=== PATIENT | female | born 1955 | race Caucasian/White ===

== ENCOUNTER 2017-07-30 21:33 | Emergency (ER) | payer MEDICARE, SELFPAY ==
[2017-07-30 21:45] VITALS: BP 145/82; PULSE 85; RESP 16; O2SAT 97; BMI 65.7
--- NOTE | 2017-07-30 23:04 | ED.UPPEXIN ---
HPI - Extremity Injury (Upper) General Chief Complaint: Extremity Injury, Upper Stated Complaint: LEFT ARM PAIN SOMETHING STICKING OUT ELBOW History of Present Illness HPI narrative: HPI 62-year-old morbidly obese female with a history of left upper extremity pain tentatively believed to be 2/2 cervical radiculopathy presents for evaluation of 5 days of poorly characterized waxing waning left mid forearm to left shoulder discomfort that is without apparent fevers, chills, preceding traumatic injury, or further symptoms. Pain is exacerbated by movement and relieved by rest as well as ibuprofen. At the time of evaluation patient notes normal sensation in her left hand. M/S/F/SocHx notable for: please see HPI; remainder reviewed with patient and in chart. ROS: Negative constitutional, eye, cardiovascular, pulmonary, GI, , MSK, skin, neurologic, psychiatric, endocrine unless noted in the HPI. Exam Gen: Pleasant, non-toxic appearing, resting comfortably. HEENT: NC, AT, PEERL, EOMI. Resp: Clear to auscultation bilaterally, normal work of breathing, no accessory muscle usage. Card: Regular rate and rhythm with no murmurs, rubs, or gallops, extremities warm and well perfused. GI: Non-tender to palpation throughout all quadrants, no focal tenderness at McBurney's point, negative Marshall's sign, non-distended, no rebound or guarding. : No suprapubic tenderness to palpation. MSK: Left Upper Extremity - Acromion, lateral scapula, and clavicle visually normal and non-tender to palpation, no acromioclavicular joint tenderness. Shoulder visually normal without palpable tenderness, effusion, fluctuance, or crepitus, normal warmth to touch,mildly reduced range of motion on flexion, extension, abduction, adduction, internal, and external rotation secondary to mild discomfort, sensation intact to touch over the deltoid muscle. Upper arm visually normal without tenderness to palpation over the length of the humerus, all muscle compartments soft and non-tender to palpation, fluctuance or crepitus, normal warmth to touch. Elbow visually normal, without palpable tenderness, effusion, fluctuance, or crepitus, normal warmth to touch, full functional range of motion on flexion, extension, supination, and pronation. Forearm visually normal without tenderness to palpation over the length of the radius and ulna, all muscle compartments soft and non-tender to palpation, fluctuance or crepitus, normal warmth to touch. Wrist visually normal without palpable tenderness, no point tenderness in the anatomic snuff box, no point tenderness on the Hamate, negative Hook of hamate pull test, no effusion, fluctuance, or crepitus, normal warmth to touch, full functional range of motion on flexion, extension, pronation, supination, or radial or ulnar deviation, 2+ radial pulse.Hand visually normal without palpable tenderness, effusion, fluctuance, or crepitus, normal warmth to touch, muscle compartments are soft and non-tender to palpation. Fingers visually normal without palpable tenderness, effusion, fluctuance, or crepitus, normal warmth to touch, full functional range of motion on flexion, extension, abduction, adduction of all fingers as well as opposition of the thumb, sensation intact to touch on all fingers, 2 second capillary refill on each finger. Neck - C-spine without tenderness palpation, negative Spurling sign. Skin: Normal color with no visible lesions. Neuro: AO x 3, no facial asymmetry, vision and hearing WNL. Psych: Mood and affect appropriate. MDM Previous chart, nursing note, labs, imaging, and vitals reviewed. A: 62-year-old morbidly obese female with a history of left upper extremity pain tentatively believed to be 2/2 cervical radiculopathy presents for evaluation of 5 days of poorly characterized waxing waning left mid forearm to left shoulder discomfort that is without apparent fevers, chills, preceding traumatic injury, or further symptoms. DDx: septic arthritis, crystalline arthropathy, bursitis, muscle strain, cellulitis, necrotizing fasciitis, tenosynovitis, contusions, radiculopathy. Evaluation: physical examination and history without evidence of a septic or crystalline arthropathy, no clear evidence of bursitis, no evidence of cellulitis, necrotizing fasciitis, or tenosynovitis. Suspect the complement of muscle strain as the patient symptoms began after a moderate exercise class, there may also be a contribute in complement the patient's long-standing radiculopathy. Patient recommended to use ibuprofen PRN and to follow up with their PCP, return to care precautions provided. Impression: left arm pain (please reference below for remainder of encounter information) Related Data Home Medications Medication Instructions Recorded Confirmed VITAMIN D (Vitamin D3) 5,000 #0 03/29/16 cyanocobalamin (vitamin B-12) 5,000 mcg PO #0 03/29/16 multivitamin [Multiple Vitamins] 1 tab PO QDAY #0 02/21/17 [magnesium] #0 03/25/[address] 40 mg granules 40 mg PO DAILY 07/18/17 07/18/17 delayed-release for susp in packet Previous Rx's Medication Instructions Recorded Lactobacillus acidophilus 1 tab PO QDAY #10 tab 03/31/16 Disabled Parking Permit dev #1 10/20/16 zoster vaccine live (PF) [Zostavax 0.5 ml SQ X1 #0.5 ml 11/15/16 (PF)] lisinopril 20 mg PO QDAY #90 tab 12/07/16 potassium chloride [Klor-Con M20] 20 meq PO [facility] [place] tab 12/07/16 lisinopril 20 mg PO QDAY #90 tab 03/29/17 potassium chloride [Klor-Con M20] 20 meq PO [facility] [place] tab 03/29/17 torsemide 20 mg PO Q DAY #30 tab 05/27/17 metformin [Glucophage] 500 mg PO [facility] [place] tab 06/06/17 Allergies Allergy/AdvReac Type Severity Reaction Status Date / Time No Known Drug Allergies Allergy Unknown Verified 07/30/17 21:45 PFS Medical History Osteoarthritis of lumbar spine (Chronic) Essential hypertension (Chronic 03/15/16) Type 2 diabetes mellitus without complication, without long-term current use of insulin (Chronic 04/14/16) Morbid obesity with body mass index (BMI) of 60.0 to 69.9 in adult (Chronic 04/14/16) Chronic venous stasis dermatitis (Chronic 05/18/16) Tubular adenoma of colon (Chronic 08/27/16) Hemorrhoids (Chronic 11/15/16) Visual field defect of left eye (Chronic 12/15/16) Frequent UTI (Chronic) History of chickenpox (Resolved) History of measles (Resolved) History of mumps (Resolved) Social History marital status: Smoking Status: Never smoker alcohol intake: current substance use type: does not use Exam Initial Vital Signs Initial Vital Signs: Vital Signs Pulse Rate 85 07/30/17 21:45 Respiratory Rate 16 07/30/17 21:45 Blood Pressure 145/82 H 07/30/17 21:45 Pulse Oximetry 97 07/30/17 21:45 Course Vital Signs - 8 hr 07/30/17 21:45 Pulse Rate 85 Respiratory Rate 16 Blood Pressure 145/82 H Pulse Oximetry 97 Discharge Plan Departure Prescriptions: No Action VITAMIN D (Vitamin D3) 5,000 Qty: 0 RF: 0 cyanocobalamin (vitamin B-12) 1,000 MCG tablet extended release 5,000 mcg PO Qty: 0 RF: 0 Lactobacillus acidophilus 1 EACH capsule 1 tab PO QDAY Qty: 10 RF: 0 Disabled Parking Permit Qty: 1 RF: 0 zoster vaccine live (PF) [Zostavax (PF)] 19,400 UNIT/0.65 ML suspension for reconstitution 0.5 ml SQ X1 Qty: 0.5 RF: 0 lisinopril 20 MG tablet 20 mg PO QDAY Qty: 90 RF: 0 potassium chloride [Klor-Con M20] 20 MEQ tablet,ER particles/crystals 20 meq PO [facility] Qty: 90 RF: 0 multivitamin [Multiple Vitamins] 1 EACH tablet 1 tab PO QDAY Qty: 0 RF: 0 [magnesium] Qty: 0 RF: 0 lisinopril 20 MG tablet 20 mg PO QDAY Qty: 90 RF: 2 potassium chloride [Klor-Con M20] 20 MEQ tablet,ER particles/crystals 20 meq PO [facility] Qty: 90 RF: 2 torsemide 20 MG tablet 20 mg PO Q DAY Qty: 30 RF: 3 metformin [Glucophage] 500 MG tablet 500 mg PO [facility] Qty: 90 RF: 0 pantoprazole [address] for susp in packet 40 mg PO DAILY RF: 0
[2017-07-30 23:24] VITALS: BP 147/75; PULSE 77; RESP 16; O2SAT 97
== END 2017-07-30 23:30 | disposition home or self-care (01) ==
PROVIDERS: Emergency Provider Emergency Medicine; Family Provider Family Medicine; PCP Family Medicine
DX: M79.602 Pain in left arm (principal)
CPT/HCPCS: 99282

== ENCOUNTER → 2017-08-02 15:18 | Outpatient (CLI) | payer MEDICARE, SELFPAY ==
--- NOTE | 2017-08-02 15:23 | DI.RAD.S_ITS ---
PROCEDURE: XR ELBOW LT MIN 3V INDICATIONS: PAIN IN LEFT ELBOW TECHNIQUE: The 3 standard views of the elbow were acquired. COMPARISON: None. FINDINGS: Bones: No fractures or dislocations. No suspicious bony lesions. Soft tissues: No elbow joint effusion. No suspicious soft tissue calcifications. IMPRESSION: No trauma found, no effusion identified. Mild degenerative change at the olecranon fossa. Dictated by: Rober Ibarra M.D. on 08/02/2017 at 15:51 Approved by: Rober Ibarra M.D. on 08/02/2017 at 15:51
--- NOTE | 2017-08-02 15:23 | DI.RAD.S_ITS ---
PROCEDURE: XR SHOULDER LT MIN 2V INDICATIONS: acute left shoulder pain x1 week with limited motion TECHNIQUE: 3 views of the shoulder were acquired. COMPARISON: None. FINDINGS: Bones: No fractures or dislocations. No suspicious bony lesions. Visualized ribs appear intact. Soft tissues: No suspicious soft tissue calcifications. IMPRESSION: There is a moderate degree of a.c. joint osteoarthritis. Chronic impingement likely is associated. Dictated by: Rober Ibarra M.D. on 08/02/2017 at 15:50 Approved by: Rober Ibarra M.D. on 08/02/2017 at 15:51
== END ==
PROVIDERS: Family Provider Family Medicine; PCP Family Medicine; Visit Provider Family Medicine
DX: M19.012 Primary osteoarthritis, left shoulder (principal); M25.522 Pain in left elbow; M25.512 Pain in left shoulder
CPT/HCPCS: 73030; 73080

== ENCOUNTER → 2017-08-18 11:51 | Outpatient (CLI) | payer MEDICARE, SELFPAY | PROVIDERS: Family Provider Family Medicine; PCP Family Medicine; Visit Provider Family Medicine | DX: R29.898 Other symptoms and signs involving the musculoskeletal system (principal) | CPT/HCPCS: 95886; 95909 ==

== ENCOUNTER 2017-10-05 21:26 | Observation (INO) | payer MEDICARE, SELFPAY ==
[2017-10-05 21:50] VITALS: BP 141/65; PULSE 82; RESP 16; TEMP 37; O2SAT 97; BMI 70.7
--- NOTE | 2017-10-05 22:51 | PC.NURSE ---
Pt has baseline bilateral lower extremity edema. Takes Lasix for this. Sleeps in chair with feet elevated. Her chair broke a week ago and she has been unable to elevate her legs at night. Since then, she has had increased pain, edema, erythema that is spreading up the leg and new onset blistering on the left distal leg and posterior/lateral right leg. Also complains of severe pain on bilateral heels making her unable to bear weight or walk. States 2 days ago she felt she had fever and chills, but is afebrile today.
--- NOTE | 2017-10-05 23:27 | DI.RAD.S_ITS ---
PROCEDURE: XR CHEST 1V INDICATIONS: Shortness of breath, weakness TECHNIQUE: One view of the chest was acquired. COMPARISON: [facility], CHEST 1 VIEW, 02/12/2016, 12:55. [facility], , CHEST 1 VIEW, 03/29/2016, 19:05. FINDINGS: Surgical changes and devices: None. Lungs and pleura: Mild interstitial prominence bilaterally. No pleural effusions or pneumothorax. Mediastinum: Mediastinal contours appear normal. Heart size is normal. Bones and chest wall: No suspicious bony lesions. Overlying soft tissues appear unremarkable. IMPRESSION: Mild bilateral interstitial prominence. No acute cardiopulmonary disease. Dictated by: Syd Love M.D. on 10/06/2017 at 8:44 Approved by: Syd Love M.D. on 10/06/2017 at 8:45
[2017-10-06] VITALS (10 sets, daily range): BP systolic 102–151; BP diastolic 53–72; PULSE 68–80; RESP 16–18; TEMP 36.2–36.9; O2SAT 95–99; BMI 67.8; BMI 67.9
--- NOTE | 2017-10-06 00:32 | ED.LOWEXIN ---
HPI - Extremity Injury (Lower) General Chief Complaint: Extremity Injury, Lower Stated Complaint: SWOLLEN LEGS, BLISTERS Time Seen by Provider: 10/05/17 21:59 Source: patient and family Mode of arrival: wheelchair Limitations: no limitations History of Present Illness HPI Narrative: 62-year-old morbidly obese patient with diabetes presents with family in the chief complaint of gradually worsening symptoms over the past 3-4 days. Her symptoms include 20 lb weight gain and significant swelling in her lower extremities including the soles of her feet making it painful an extremely difficult for her to ambulate. She is profoundly fatigued becomes quite short of breath with minimal exertion. She denies any fever chills nor nausea or vomiting. She denies change in medications but states on occasion she may alter the administration of her torsemide due to trouble getting To and from the toilet. She states that she normally sleeps in a motorized chair that effectively elevates her lower extremities but it was broken a few days ago and now she is sitting and her feet are not elevated Onset (ago): day(s) Severity: moderate Relieving factors: rest Exacerbating factors: weight bearing and movement Associated symptoms: swelling and able to partially bear weight Other symptoms: SOB Related Data Home Medications Medication Instructions Recorded Confirmed VITAMIN D (Vitamin D3) 5,000 #0 03/29/16 08/29/17 multivitamin [Multiple Vitamins] 1 tab PO QDAY #0 02/21/17 08/29/17 [magnesium] #0 03/25/17 08/29/[address] 40 mg granules 40 mg PO DAILY 07/18/17 08/29/17 delayed-release for susp in packet Previous Rx's Medication Instructions Recorded Lactobacillus acidophilus 1 tab PO QDAY #10 tab 03/31/16 Disabled Parking Permit dev #1 10/20/16 zoster vaccine live (PF) [Zostavax 0.5 ml SQ X1 #0.5 ml 11/15/16 (PF)] lisinopril 20 mg PO QDAY #90 tab 12/07/16 potassium chloride [Klor-Con M20] 20 meq PO [facility] #90 tab 12/07/16 torsemide 20 mg PO Q DAY #30 tab 05/27/17 naltrexone 8 mg-bupropion 90 mg See Label Instructions PO .COMPLEX 08/29/17 tablet,extended release #120 tab metformin 500 mg tablet 500 mg PO [facility] #90 tab 09/28/17 Allergies Allergy/AdvReac Type Severity Reaction Status Date / Time ibuprofen AdvReac causes Verified 08/29/17 15:32 bleeding Review of Systems Review of Systems All systems reviewed & are unremarkable except as noted in HPI and below Constitutional Denies chills, Reports daytime sleepiness, Reports difficulty sleeping, Reports fatigue, Denies fever(s), Denies lethargy, Reports weakness and Reports weight gain Eyes Denies change in vision, Denies eye discharge, Denies irritation and Denies loss of vision ENT Ears, Nose, Mouth, and Throat: Denies change in voice, Denies neck pain and Denies sore throat Cardiovascular Denies chest pain, Denies irregular heart rhythm, Denies lightheadedness, Denies palpitations, Reports dyspnea, Reports dyspnea on exertion and Denies orthopnea Respiratory Denies cough, Reports dyspnea, Reports dyspnea on exertion and Denies wheezing Gastrointestinal Gastrointestinal: Denies abdominal pain, Denies change in bowel habits, Denies diarrhea, Denies nausea and Denies vomiting Genitourinary Denies hematuria, Denies flank pain, Denies urinary incontinence and Denies urinary urgency Musculoskeletal Reports joint swelling, Reports limited range of motion and Denies neck pain Integumentary/Breasts Denies pruritus, Denies erythema, Denies rash, Reports skin swelling and Denies wounds Neurologic Denies confusion, Denies loss of vision and Reports weakness Psychiatric Denies anxiety, Denies confusion, Denies depression, Denies homicidal ideation and Denies suicidal ideation Endocrine Reports fatigue and Denies palpitations Hematologic/Lymphatic Denies easy bruising Allergic/Immunologic Denies wheezing [facility] Medical History Osteoarthritis of lumbar spine (Chronic) Essential hypertension (Chronic 03/15/16) Type 2 diabetes mellitus without complication, without long-term current use of insulin (Chronic 04/14/16) Morbid obesity with body mass index (BMI) of 60.0 to 69.9 in adult (Chronic 04/14/16) Chronic venous stasis dermatitis (Chronic 05/18/16) Tubular adenoma of colon (Resolved 08/27/16) Hemorrhoids (Chronic 11/15/16) Visual field defect of left eye (Chronic 12/15/16) Frequent UTI (Chronic) History of Portuguese measles (Resolved ~1964) History of chickenpox (Resolved 1964) History of measles (Resolved ~1962) History of mumps (Resolved 1957) Surgical History Anesthesia (Resolved) S/P total abdominal hysterectomy and bilateral salpingo-oophorectomy (Resolved 12/2009) Status post hernia repair (Resolved 12/2010) Status post knee surgery (Resolved 10/2009) Status post knee surgery (Resolved 11/2009) Family History Brother Age: 76 Glaucoma Mother Diabetes mellitus Heart disease CAD (coronary artery disease) Father No problems noted. Sister Cancer Lung cancer Liver cancer Colon cancer Sister No problems noted. Sister No problems noted. Sister No problems noted. Daughter No problems noted. Father No problems noted. Social History marital status: Smoking Status: Never smoker alcohol intake: current substance use type: does not use Exam Narrative Exam Narrative: Pleasant 62-year-old female in mild distress, obviously upset, fatigued and generally feeling unwell Initial Vital Signs Initial Vital Signs: Vital Signs Temperature 98.6 F 10/05/17 21:50 Pulse Rate 82 10/05/17 21:50 Respiratory Rate 16 10/05/17 21:50 Blood Pressure 141/65 H 10/05/17 21:50 Pulse Oximetry 97 10/05/17 21:50 Const General: cooperative and acute distress Nutritional Appearance: well nourished and obese Orientation: alert, awake, oriented x3 and not confused [facility] Head: normocephalic and atraumatic Ears: external ears normal and TM's normal bilaterally Nose: external nose normal and No nasal discharge Face and sinus: sinuses nontender, face symmetric, no sinus tenderness and No dry mucous membranes Mouth: oral mucosae normal and moist mucous membranes Teeth and gingiva: dentition normal Eyes General: appearance normal, both eyes and all related structures Eyelids: eyelids normal Conjunctivae: conjunctivae normal Sclera: sclerae normal Pupils: PERRL EOM: EOM intact bilaterally Neck Neck: normal visual inspection, trachea midline, No midline deformity and No JVD Resp Effort & Inspection: normal respiratory effort, able to speak in complete sentences, no respiratory distress and no use of accessory muscles Auscultation: clear to auscultation bilaterally, rales (Mild) bilaterally, no rhonchi and no wheezes Other: Patient becomes visibly short of breath with significant conversation or attempts at ambulation or even shifting around in her chair as evidenced by increased work of breathing, tachypnea, an inability to complete a sentence Cardio Rate: regular rate Rhythm: regular rhythm Heart Sounds: no click, no gallops, no murmurs and no rubs Pulses: normal peripheral pulses GI Inspection: non-distended Palpation: soft, No guarding, No pulsatile mass and No tender Skin Other: Bilateral lower extremity pitting edema with mild anterior it erythema. There is some weeping from bilateral lower extremities. She does have a feel noted swelling on her bilateral plantar surfaces Course Orders Ordered: ED Orders 10/05/17 23:27 XR chest 1V Stat B Type Natriuretic Peptide Stat EKG-12 Lead Stat 10/05/17 23:28 Procalcitonin Stat 10/06/17 Basic Metabolic Panel Routine Magnesium Routine 10/06/17 01:21 Basic Metabolic Panel Stat Complete Blood Count AUTO DIFF Stat 10/06/17 02:40 Consult to Dietitian, Adult Routine Consult to Discharge Planning Routine 10/06/17 02:41 Consult to Occupational Therapy Evaluate & Treat Consult to Physical Therapy Evaluate & Treat Consult to Recreational Therapy Aide Routine Enoxaparin Sodium (Lovenox) 40 mg SUBCUT DAILY GIL Lisinopril (Zestril) 20 mg PO QDAY GIL Discontinued Medications Furosemide (Lasix) 40 mg IV NOW ONE Stop: 10/06/17 02:03 Reevaluation(s) Reevaluation #1: Attempt made to ambulate through the emergency department and patient was very unsuccessful given pain in her feet and legs as well as visible shortness of breath and weakness brought on by exertion Consultations Consultation #1: Dr. javier home happy to bring this patient on her service Vital Signs - 8 hr 10/05/17 21:50 Temperature 98.6 F Pulse Rate 82 Respiratory Rate 16 Blood Pressure 141/65 H Pulse Oximetry 97 MDM - Extremity Injury (Lower) Medical Records Attestation: I reviewed the patient's medical records. Lab Data Attestation: I reviewed the patient's lab results. Result diagrams: 10/06/17 01:21 10/06/17 01:21 Lab Results 10/06/17 10/06/1718 Range/Units 00:10 00:10 01:21 WBC (4.5-11.0) X10^3/uL RBC (4.0-5.2) X10^6/uL Hgb (12.0-16.0) g/dL Hct (36-46) % MCV (80-100) fL MCH (26-34) PG MCHC (30-36) % RDW (11.6-14.8) % Plt Count (150-400) X10^3/uL Neut % (Auto) (50-75) % Lymph % (Auto) (25-40) % [place] % (Auto) (3-14) % Eos % (Auto) (2-4) % Baso % (Auto) (0-2) % Neut # (Auto) (5905-5179) /uL Sodium 139 (137-145) mmol/L Potassium 3.9 (3.4-5.1) mmol/L Chloride 98 (98-107) mmol/L Carbon Dioxide 31 (22-32) mmol/L BUN 18 H (7-17) mg/dL Creatinine 0.60 (0.52-1.04) mg/dL Estimated GFR > 60.0 (>60) mL/min BUN/Creatinine Ratio 30.0 H (6-22) Glucose 171 H (80-110) mg/dL Calcium 9.6 (8.4-10.2) mg/dL B-Natriuretic Peptide < 100.0 (<100) Procalcitonin < 0.05 (<0.5) ng/mL 10/06/17 Range/Units 01:21 WBC 13.1 H (4.5-11.0) X10^3/uL RBC 4.74 (4.0-5.2) X10^6/uL Hgb 13.0 (12.0-16.0) g/dL Hct 40.8 (36-46) % MCV 86.2 (80-100) fL MCH 27.5 (26-34) PG MCHC 32.0 (30-36) % RDW 17.3 H (11.6-14.8) % Plt Count 318 (150-400) X10^3/uL Neut % (Auto) 74.7 (50-75) % Lymph % (Auto) 17.5 L (25-40) % [place] % (Auto) 6.2 (3-14) % Eos % (Auto) 0.4 L (2-4) % Baso % (Auto) 1.2 (0-2) % Neut # (Auto) 9800 H (7857-6609) /uL Sodium (137-145) mmol/L Potassium (3.4-5.1) mmol/L Chloride (98-107) mmol/L Carbon Dioxide (22-32) mmol/L BUN (7-17) mg/dL Creatinine (0.52-1.04) mg/dL Estimated GFR (>60) mL/min BUN/Creatinine Ratio (6-22) Glucose (80-110) mg/dL Calcium (8.4-10.2) mg/dL B-Natriuretic Peptide (<100) Procalcitonin (<0.5) ng/mL Imaging Data Chest x-ray: Radiologist's impression: NAP Discharge Plan Departure Admit Date/Time: 10/06/17 02:20 Admit Provider: Hallie Jeter
--- NOTE | 2017-10-06 00:33 | PC.NURSE ---
Pt usually sits upright with feet elevated. the recliner that she uses broke and she is unable to keep her legs elevated like she used to, she is diabetic and is getting some wounds opening up on her R heel and R calf as well and L [place]. LE's swollen and reddened.
[2017-10-06 00:51] LABS: B Type Natriuretic Peptide < 100.0 (<100)
[2017-10-06 00:58] LABS: Procalcitonin < 0.05 ng/mL (<0.5)
[2017-10-06 01:39] LABS: Blood Urea Nitrogen 18 mg/dL (7-17); Calcium 9.6 mg/dL (8.4-10.2); Carbon Dioxide 31 mmol/L (22-32); Chloride 98 mmol/L (98-107); Estimated Glomerular Filt Rate > 60.0 mL/min (>60); Glucose 171 mg/dL (80-110); HEMOLYSIS < 15 (0-50); Potassium 3.9 mmol/L (3.4-5.1); Sodium 139 mmol/L (137-145)
[2017-10-06 01:50] LABS: Add Manual Diff / Slide Review NO; Basophils Percent Auto 1.2 % (0-2); Eosinophils Percent Auto 0.4 % (2-4); Hematocrit 40.8 % (36-46); Lymphocytes Percent Auto 17.5 % (25-40); Mean Corpuscular Hemoglobin 27.5 PG (26-34); Mean Corpuscular Volume 86.2 fL (80-100); Monocytes Percent Auto 6.2 % (3-14); Neutrophils Absolute Auto 9800 /uL (3000-5900); Neutrophils Percent Auto 74.7 % (50-75); Platelet Count 318 X10^3/uL (150-400); Red Blood Cell Count 4.74 X10^6/uL (4.0-5.2); Red Cell Distribution Width 17.3 % (11.6-14.8); White Blood Cell Count 13.1 X10^3/uL (4.5-11.0)
[2017-10-06] MEDS: FUROSEMIDE 40 MG/4 ML VIAL IV ×2 (02:50→13:50)
--- NOTE | 2017-10-06 03:02 | ED_ITS ---
HPI - Extremity Injury (Lower) General Chief Complaint: Extremity Injury, Lower Stated Complaint: SWOLLEN LEGS, BLISTERS Time Seen by Provider: 10/05/17 21:59 Source: patient and family Mode of arrival: wheelchair Limitations: no limitations History of Present Illness HPI Narrative: 62-year-old morbidly obese patient with diabetes presents with family in the chief complaint of gradually worsening symptoms over the past 3-4 days. Her symptoms include 20 lb weight gain and significant swelling in her lower extremities including the soles of her feet making it painful an extremely difficult for her to ambulate. She is profoundly fatigued becomes quite short of breath with minimal exertion. She denies any fever chills nor nausea or vomiting. She denies change in medications but states on occasion she may alter the administration of her torsemide due to trouble getting To and from the toilet. She states that she normally sleeps in a motorized chair that effectively elevates her lower extremities but it was broken a few days ago and now she is sitting and her feet are not elevated Onset (ago): day(s) Severity: moderate Relieving factors: rest Exacerbating factors: weight bearing and movement Associated symptoms: swelling and able to partially bear weight Other symptoms: SOB Related Data Home Medications Medication Instructions Recorded Confirmed VITAMIN D (Vitamin D3) 5,000 #0 03/29/16 08/29/17 multivitamin [Multiple Vitamins] 1 tab PO QDAY #0 02/21/17 08/29/17 [magnesium] #0 03/25/17 08/29/[address] 40 mg granules 40 mg PO DAILY 07/18/17 08/29/17 delayed-release for susp in packet Previous Rx's Medication Instructions Recorded Lactobacillus acidophilus 1 tab PO QDAY #10 tab 03/31/16 Disabled Parking Permit dev #1 10/20/16 zoster vaccine live (PF) [Zostavax 0.5 ml SQ X1 #0.5 ml 11/15/16 (PF)] lisinopril 20 mg PO QDAY #90 tab 12/07/16 potassium chloride [Klor-Con M20] 20 meq PO [facility] #90 tab 12/07/16 torsemide 20 mg PO Q DAY #30 tab 05/27/17 naltrexone 8 mg-bupropion 90 mg See Label Instructions PO .COMPLEX 08/29/17 tablet,extended release #120 tab metformin 500 mg tablet 500 mg PO [facility] #90 tab 09/28/17 Allergies Allergy/AdvReac Type Severity Reaction Status Date / Time ibuprofen AdvReac causes Verified 08/29/17 15:32 bleeding Review of Systems Review of Systems All systems reviewed & are unremarkable except as noted in HPI and below Constitutional Denies chills, Reports daytime sleepiness, Reports difficulty sleeping, Reports fatigue, Denies fever(s), Denies lethargy, Reports weakness and Reports weight gain Eyes Denies change in vision, Denies eye discharge, Denies irritation and Denies loss of vision ENT Ears, Nose, Mouth, and Throat: Denies change in voice, Denies neck pain and Denies sore throat Cardiovascular Denies chest pain, Denies irregular heart rhythm, Denies lightheadedness, Denies palpitations, Reports dyspnea, Reports dyspnea on exertion and Denies orthopnea Respiratory Denies cough, Reports dyspnea, Reports dyspnea on exertion and Denies wheezing Gastrointestinal Gastrointestinal: Denies abdominal pain, Denies change in bowel habits, Denies diarrhea, Denies nausea and Denies vomiting Genitourinary Denies hematuria, Denies flank pain, Denies urinary incontinence and Denies urinary urgency Musculoskeletal Reports joint swelling, Reports limited range of motion and Denies neck pain Integumentary/Breasts Denies pruritus, Denies erythema, Denies rash, Reports skin swelling and Denies wounds Neurologic Denies confusion, Denies loss of vision and Reports weakness Psychiatric Denies anxiety, Denies confusion, Denies depression, Denies homicidal ideation and Denies suicidal ideation Endocrine Reports fatigue and Denies palpitations Hematologic/Lymphatic Denies easy bruising Allergic/Immunologic Denies wheezing [facility] Medical History Osteoarthritis of lumbar spine (Chronic) Essential hypertension (Chronic 03/15/16) Type 2 diabetes mellitus without complication, without long-term current use of insulin (Chronic 04/14/16) Morbid obesity with body mass index (BMI) of 60.0 to 69.9 in adult (Chronic 03/02) Chronic venous stasis dermatitis (Chronic 05/18/16) Tubular adenoma of colon (Resolved 08/27/16) Hemorrhoids (Chronic 11/15/16) Visual field defect of left eye (Chronic 12/15/16) Frequent UTI (Chronic) History of Polish measles (Resolved ~1964) History of chickenpox (Resolved 1964) History of measles (Resolved ~1962) History of mumps (Resolved 1957) Surgical History Anesthesia (Resolved) S/P total abdominal hysterectomy and bilateral salpingo-oophorectomy (Resolved 12/2009) Status post hernia repair (Resolved 12/2010) Status post knee surgery (Resolved 10/2009) Status post knee surgery (Resolved 11/2009) Family History Brother Age: 76 Glaucoma Mother Diabetes mellitus Heart disease CAD (coronary artery disease) Father No problems noted. Sister Cancer Lung cancer Liver cancer Colon cancer Sister No problems noted. Sister No problems noted. Sister No problems noted. Daughter No problems noted. Father No problems noted. Social History marital status: Smoking Status: Never smoker alcohol intake: current substance use type: does not use Exam Narrative Exam Narrative: Pleasant 62-year-old female in mild distress, obviously upset, fatigued and generally feeling unwell Initial Vital Signs Initial Vital Signs: Vital Signs Temperature 98.6 F 10/05/17 21:50 Pulse Rate 82 10/05/17 21:50 Respiratory Rate 16 10/05/17 21:50 Blood Pressure 141/65 H 10/05/17 21:50 Pulse Oximetry 97 10/05/17 21:50 Const General: cooperative and acute distress Nutritional Appearance: well nourished and obese Orientation: alert, awake, oriented x3 and not confused [facility] Head: normocephalic and atraumatic Ears: external ears normal and TM's normal bilaterally Nose: external nose normal and No nasal discharge Face and sinus: sinuses nontender, face symmetric, no sinus tenderness and No dry mucous membranes Mouth: oral mucosae normal and moist mucous membranes Teeth and gingiva: dentition normal Eyes General: appearance normal, both eyes and all related structures Eyelids: eyelids normal Conjunctivae: conjunctivae normal Sclera: sclerae normal Pupils: PERRL EOM: EOM intact bilaterally Neck Neck: normal visual inspection, trachea midline, No midline deformity and No JVD Resp Effort & Inspection: normal respiratory effort, able to speak in complete sentences, no respiratory distress and no use of accessory muscles Auscultation: clear to auscultation bilaterally, rales (Mild) bilaterally, no rhonchi and no wheezes Other: Patient becomes visibly short of breath with significant conversation or attempts at ambulation or even shifting around in her chair as evidenced by increased work of breathing, tachypnea, an inability to complete a sentence Cardio Rate: regular rate Rhythm: regular rhythm Heart Sounds: no click, no gallops, no murmurs and no rubs Pulses: normal peripheral pulses GI Inspection: non-distended Palpation: soft, No guarding, No pulsatile mass and No tender Skin Other: Bilateral lower extremity pitting edema with mild anterior it erythema. There is some weeping from bilateral lower extremities. She does have a feel noted swelling on her bilateral plantar surfaces Course Orders Ordered: ED Orders 10/05/17 23:27 XR chest 1V Stat B Type Natriuretic Peptide Stat EKG-12 Lead Stat 10/05/17 23:28 Procalcitonin Stat 10/06/17 Basic Metabolic Panel Routine Magnesium Routine 10/06/17 01:21 Basic Metabolic Panel Stat Complete Blood Count AUTO DIFF Stat 10/06/17 02:40 Consult to Dietitian, Adult Routine Consult to Discharge Planning Routine 10/06/17 02:41 Consult to Occupational Therapy Evaluate & Treat Consult to Physical Therapy Evaluate & Treat Consult to Privacy Compliance Manager Routine Enoxaparin Sodium (Lovenox) 40 mg SUBCUT DAILY GIL Lisinopril (Zestril) 20 mg PO QDAY GIL Discontinued Medications Furosemide (Lasix) 40 mg IV NOW ONE Stop: 10/06/17 02:03 Reevaluation(s) Reevaluation #1: Attempt made to ambulate through the emergency department and patient was very unsuccessful given pain in her feet and legs as well as visible shortness of breath and weakness brought on by exertion Consultations Consultation #1: Dr. javier home happy to bring this patient on her service Vital Signs - 8 hr 10/05/17 21:50 Temperature 98.6 F Pulse Rate 82 Respiratory Rate 16 Blood Pressure 141/65 H Pulse Oximetry 97 MDM - Extremity Injury (Lower) Medical Records Attestation: I reviewed the patient's medical records. Lab Data Attestation: I reviewed the patient's lab results. Result diagrams: 10/06/17 01:21 10/06/17 01:21 Lab Results 10/06/17 10/06/1718 Range/Units 00:10 00:10 01:21 WBC (4.5-11.0) X10^3/uL RBC (4.0-5.2) X10^6/uL Hgb (12.0-16.0) g/dL Hct (36-46) % MCV (80-100) fL MCH (26-34) PG MCHC (30-36) % RDW (11.6-14.8) % Plt Count (150-400) X10^3/uL Neut % (Auto) (50-75) % Lymph % (Auto) (25-40) % [place] % (Auto) (3-14) % Eos % (Auto) (2-4) % Baso % (Auto) (0-2) % Neut # (Auto) (8300-3877) /uL Sodium 139 (137-145) mmol/L Potassium 3.9 (3.4-5.1) mmol/L Chloride 98 (98-107) mmol/L Carbon Dioxide 31 (22-32) mmol/L BUN 18 H (7-17) mg/dL Creatinine 0.60 (0.52-1.04) mg/dL Estimated GFR > 60.0 (>60) mL/min BUN/Creatinine Ratio 30.0 H (6-22) Glucose 171 H (80-110) mg/dL Calcium 9.6 (8.4-10.2) mg/dL B-Natriuretic Peptide < 100.0 (<100) Procalcitonin < 0.05 (<0.5) ng/mL 10/06/17 Range/Units 01:21 WBC 13.1 H (4.5-11.0) X10^3/uL RBC 4.74 (4.0-5.2) X10^6/uL Hgb 13.0 (12.0-16.0) g/dL Hct 40.8 (36-46) % MCV 86.2 (80-100) fL MCH 27.5 (26-34) PG MCHC 32.0 (30-36) % RDW 17.3 H (11.6-14.8) % Plt Count 318 (150-400) X10^3/uL Neut % (Auto) 74.7 (50-75) % Lymph % (Auto) 17.5 L (25-40) % [place] % (Auto) 6.2 (3-14) % Eos % (Auto) 0.4 L (2-4) % Baso % (Auto) 1.2 (0-2) % Neut # (Auto) 9800 H (0142-4784) /uL Sodium (137-145) mmol/L Potassium (3.4-5.1) mmol/L Chloride (98-107) mmol/L Carbon Dioxide (22-32) mmol/L BUN (7-17) mg/dL Creatinine (0.52-1.04) mg/dL Estimated GFR (>60) mL/min BUN/Creatinine Ratio (6-22) Glucose (80-110) mg/dL Calcium (8.4-10.2) mg/dL B-Natriuretic Peptide (<100) Procalcitonin (<0.5) ng/mL Imaging Data Chest x-ray: Radiologist's impression: NAP Discharge Plan Departure Admit Date/Time: 10/06/17 02:20 Admit Provider: Hallie Jeter
[2017-10-06] MEDS: LISINOPRIL 20 MG TABLET PO ×2 (03:46→08:54)
--- NOTE | 2017-10-06 05:42 | PC.NURSE ---
Pt a&ox3. arrived via wheelchair and was able to ambulate with a walker to bathroom then to her bed. soles of her feet are tender and burning, she rates her pain 9/10, pt reports it is tolerable and she does not need pain meds now that her legs are elevated. oriented pt her room. call light in reach.
[2017-10-06 06:12] LABS: Magnesium 2.2 mg/dL (1.6-2.3)
[2017-10-06] MEDS: ENOXAPARIN 40 MG/0.4 ML SYRINGE SUBCUT (08:54)
[2017-10-06] MEDS: PANTOPRAZOLE 40 MG PACKET PO (08:55)
--- NOTE | 2017-10-06 10:36 | PC.NURSE ---
Addendum entered by Laya Camarena R.N. 10/06/17 14:34: [facility] - phys therapy in, pt oob, using fww x 1 person ambul out into hallway in front of her room, slow gait and needs to pause and then continues back to chair. Original Note: AM NOTE - alert, Dr. Jeter in this am, sitting up in bed, has more intense discomfort rle than lle, improved since admission after lasix in ER, bright red posterior and medical r ankle, extending around to anterior calf, pink lle around lower calf and above ankle, has x2 very small blisters anterior calf, provided pillow support paxton le now and ankles floated, 3-4+ edema le, ra 97%, hr 70.
[2017-10-06 13:26] LABS: Blood Urea Nitrogen 16 mg/dL (7-17); Calcium 9.2 mg/dL (8.4-10.2); Carbon Dioxide 33 mmol/L (22-32); Chloride 98 mmol/L (98-107); Estimated Glomerular Filt Rate > 60.0 mL/min (>60); Glucose 155 mg/dL (80-110); HEMOLYSIS < 15 (0-50); Potassium 3.8 mmol/L (3.4-5.1); Sodium 139 mmol/L (137-145)
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
[2017-10-06] MEDS: cephALEXin 250 MG CAPSULE 500 MG PO ×3 (14:13→20:26)
--- NOTE | 2017-10-06 14:25 | OT.IP.EVAL ---
Past Medical History (Last Reviewed 10/06/17 @ 02:54 by Valdez Patterson DO) Osteoarthritis of lumbar spine (Chronic) Essential hypertension (Chronic 03/15/16) Type 2 diabetes mellitus without complication, without long-term current use of insulin (Chronic 04/14/16) Morbid obesity with body mass index (BMI) of 60.0 to 69.9 in adult (Chronic 04/14/16) Chronic venous stasis dermatitis (Chronic 05/18/16) Tubular adenoma of colon (Resolved 08/27/16) Hemorrhoids (Chronic 11/15/16) Visual field defect of left eye (Chronic 12/15/16) Frequent UTI (Chronic) History of [place] measles (Resolved ~1964) History of chickenpox (Resolved 1964) History of measles (Resolved ~1962) History of mumps (Resolved 1957) Surgical History (Last Reviewed 10/06/17 @ 02:54 by Valdez Patterson DO) Anesthesia (Resolved) S/P total abdominal hysterectomy and bilateral salpingo-oophorectomy (Resolved 12/2009) Status post hernia repair (Resolved 12/2010) Status post knee surgery (Resolved 10/2009) Status post knee surgery (Resolved 11/2009) Occupational Therapy Inpatient Evaluation/Re-Eval M1 PT/OT-IP Prior Functional Status Start: 10/06/17 15:16 Freq: NEEDED Status: Active Protocol: Document 10/06/17 14:25 MARSHALL (Rec: 10/06/17 15:40 MARSHALL [id number]) Medical Review Prior Functional Status Medical History Reviewed Yes Diet/Fluid Consistency Regular Communication WNL Mobility and Gait Indep with cane for sit to stand and then uses FWW. Activities of Daily Living and IADL's Pt has bath aide 2x week who assists with BLE wraps and donning socks, dtr assists with wraps one day/week after pt goes to pool. Pt indep with donning underwear with intelligence agent. Indep with upper body dressing. Pt gets Meals on Wheels. Friends, daughter assist with shopping, cleaning , laundry and grocery shopping and transport. Prior Functional Level (Other details) Pt normally sleeps in power recliner which is now broken. Pt could no longer elevate BLE 's at home resulting in severely increased BLE edema. Pt has power bed. She states she cannot sleep in bed because it is too far from bathroom. Pt states BSC will not fit in bedroom or hallway. Social History Household Members family Living Arrangements House Number of Floors (Floors) One Floor Number of Stairs To Enter/Railing? single 3 step to enter, no rail Home Environment Standard Height Toilet Walk in Shower Home Equipment Front Wheel Walker Straight Cane Shower Seat without Backrest Employment Status Retired Additional Social History Comment Pt's sister recently moved in with her. Sister cannot provide any assist. M2 OT-IP Current Condition Start: 10/06/17 15:16 Freq: Status: Active Protocol: Document 10/06/17 14:25 PJM (Rec: 10/06/17 15:40 PJ [id number]) Occupational Therapy Current Condition Current Condition Evaluation Date 10/06/17 Treatment Diagnosis assess self care, functional mobility for ability to return home Post Operative Precautions Other Precautions keep BLE's elevated, BLE blisters M3 OT- IP Subjective and Pain Start: 10/06/17 15:16 Freq: Status: Active Protocol: Document 10/06/17 14:25 PJM (Rec: 10/06/17 15:40 PJ [id number]) OT- Subjective Occupational Therapy Visit Type Type Initial Evaluation Visit Start Time 13:55 Visit Stop Time 14:25 Total Visit Minutes 30 Occupational Therapy Visit Comments Patient Comments I have ordered a new controller for my recliner, but it may be the motor that's broken and I cannot afford a new one. Patient/Caregiver Goals to get power recliner fixed OT Pain Assessment Pain When Pain Assessed After Treatment Pain Present Pain Present Pain Reported Location Bilateral Leg Intensity 8 Scale Used Numeric (1 - 10) Description Acute M4 OT- IP ADL's Start: 10/06/17 15:16 Freq: Status: Active Protocol: Document 10/06/17 14:25 PJM (Rec: 10/06/17 15:40 PJ [id number]) OT [id number]-Oufbkbt General Evaluation Self-Feeding Ability Independent OT ADL-Grooming General Evaluation Grooming Ability Independent Comments OT Grooming Comments once all items within reach OT ADL-Oral Care General Eval Oral Care Ability Independent Comments Oral Care Comments once all items within reach OT ADL-Dressing General Eval Upper Body Dressing Ability Independent Lower Body Dressing Ability Total Assistance Areas Needing Assistance Socks Assistive Devices Dressing Assistive Devices Service Center Appraiser Sock Aid Comments OT Dressing Comments Pt has intelligence agent, cannot use sock aid with BLE wrappings. Total assist with socks. Pt modif indep donning underwear/ pad with intelligence agent. OT ADL-Toileting General Evaluation Toileting Ability Independent Comments OT Toileting Comments pt has tried multiple types of toilet paper aids, and prefers to use carlotta bottle OT ADL-Bathing Bathing Type Bathing Type Shower General Evaluation Bathing Ability Moderate Assistance Comments OT Bathing Comments Pt has bath aide 2x week. M5 OT- IP IADL's Start: 10/06/17 15:16 Freq: Status: Active Protocol: Document 10/06/17 14:25 PJM (Rec: 10/06/17 15:40 PJ [id number]) OT-Instrumental Activities of Daily Living Deficits IADL Deficits Identified Deficits Home Safety Awareness Awareness of Need for Assistance at Home Good Awareness Ability to Problem Solve Emergency Able to Problem Solve Situations Medication Management Medication Management No Deficits Identified Money Management Money Management No Deficits Identified Meal Preparation Meal Preparation Comments Pt has Meals on Wheels High School Director High School Director Caregiver Provides Assist High School Director Comments friends, daughter assist Driving Driving Caregiver Provides Assist Driving Comments friends, daughter assist M6 OT- IP Functional Cognition Start: 10/06/17 15:16 Freq: Status: Active Protocol: Document 10/06/17 14:25 PJM (Rec: 10/06/17 15:40 PJ [id number]) Cognitive Factors Limiting Selfcare Function Cognitive Ability Level of Alertness Alert Patient Orientation Name Age Birthday Month Date Year Day of Week Place Situation Attention Span Ability Capable of Focused Attention Capable of Sustained Attention Ability to Follow Commands Able to Follow One Step Commands Able to Follow Multi-Step Commands Memory Description No Deficits Noted Safety Awareness No Deficits Noted Problem Solving Ability No deficits Noted Cognitive Comments Cognitive Assessment Comments Pt appears to be at cognitive baseline OT- Vision and Hearing OT- Hearing Assessment OT- Hearing Assessment WFL OT- Vision Assessment Visual Acuity WFL Vision Assessment Comments Pt denies any recent changes M7 OT- IP Mobility and Balance Start: 10/06/17 15:16 Freq: Status: Active Protocol: Document 10/06/17 14:25 PJM (Rec: 10/06/17 15:40 PJ [id number]) OT- Bed Mobility Assessment Rolling Type of Rolling Roll to Right Level of Assistance Head of Bed Elevated Bedrails Supine to Sit Supine to Sit Assist Independent Scooting Scooting to Edge of Bed Independent OT-Transfer Assessment Sit to and From Stand Sit to and from Stand Independent Transfers Transfer Ability Independent Technique Transfer Destination Chair Transfer Technique Stand Step Pivot Devices Transfer Assistive Devices Straight Cane Front Wheeled Walker Comments Mobility Comments Pt uses cane for sit to stand, then hangs it on FWW and uses FWW for bed to chair OT- Gait Assessment Comments Gait Ability Comments see P.T. eval OT- Balance Assessment Sitting Balance and Reactions Static Sitting Balance Ability Good Comments Other Balance Tests/Deviations/Treatment See P.T. eval : M8 OT- IP Objective Assessments Start: 10/06/17 15:16 Freq: Status: Active Protocol: Document 10/06/17 14:25 PJM (Rec: 10/06/17 15:40 PJ [id number]) OT Gross Range of Motion Upper Extremity Range of Motion Assessment Within Functional Limits ROM Impairments except L internal rotation limited at end range so pt cannot reach behind back OT Strength Upper Extremity Strength Assessment Within Functional Limits OT- Coordination Assessment Comments Coordination Comments BUE WFL OT-Muscle Tone Assessment Muscle Tone WNL Yes OT Sensation Assessment Comments Summary Comments Pt denies any recent changes Edema Edema Present Edema Comments chronic severe BLE edema with compression wraps used M9 OT- IP Assessment and Plan Start: 10/06/17 15:16 Freq: Status: Active Protocol: Document 10/06/17 14:25 PJM (Rec: 10/06/17 15:40 PJ [id number]) OT Summary Assessment and Plan Potential Analytic Complexity at Evaluation Low Summary Assessment Summary Low complexity OT assessment completed. Pt appears to be at baseline level of self care function and was modified indep with bed mobility and transfer to chair with FWW today. She has all necessary bathroom safety equipment and adaptive equipment at home. Primary issue is broken power recliner so pt unable to keep legs elevated at home. Pt has limited funds for repair of chair or rental of replacement chair. Multiple other alternatives presented to pt e.g. sleeping in her power bed and renting bariatric bedside commode, as bed is too far from bathroom for pt to make it in time. No further OT goals idenitifed for this admission. Frequency of Treatment Frequency Of Treatment Discharge Discharge Recommendations OT Discharge Recommendations Home
--- NOTE | 2017-10-06 14:46 | PT.IIE ---
Surgical History (Last Reviewed 10/06/17 @ 02:54 by Valdez Patterson DO) Anesthesia (Resolved) S/P total abdominal hysterectomy and bilateral salpingo-oophorectomy (Resolved 12/2009) Status post hernia repair (Resolved 12/2010) Status post knee surgery (Resolved 10/2009) Status post knee surgery (Resolved 11/2009) Medical History (Last Reviewed 10/06/17 @ 02:54 by Valdez Patterson DO) Osteoarthritis of lumbar spine (Chronic) Essential hypertension (Chronic 03/15/16) Type 2 diabetes mellitus without complication, without long-term current use of insulin (Chronic 04/14/16) Morbid obesity with body mass index (BMI) of 60.0 to 69.9 in adult (Chronic 04/14/16) Chronic venous stasis dermatitis (Chronic 05/18/16) Tubular adenoma of colon (Resolved 08/27/16) Hemorrhoids (Chronic 11/15/16) Visual field defect of left eye (Chronic 12/15/16) Frequent UTI (Chronic) History of [place] measles (Resolved ~1964) History of chickenpox (Resolved 1964) History of measles (Resolved ~1962) History of mumps (Resolved 1957) Physical Therapy Inpatient Evaluation/Re-Eval M1 PT/OT-IP Prior Functional Status Start: 10/06/17 15:16 Freq: NEEDED Status: Active Protocol: Document 10/06/17 14:46 DLM (Rec: 10/06/17 16:34 DLM [id number]) Medical Review Prior Functional Status Medical History Reviewed Yes Diet/Fluid Consistency Regular Communication WNL Mobility and Gait Indep with cane for sit to stand and then uses FWW. She ambulates short distances. Activities of Daily Living and IADL's Pt has bath aide 2x week who assists with BLE wraps and donning socks, dtr assists with wraps one day/week after pt goes to pool. Pt indep with donning underwear with strip cutter. Indep with upper body dressing. Pt gets Meals on Wheels. Friends, duaghter assist with shopping, cleaning , laundry and grocery shopping . Prior Functional Level (Other details) Pt normally sleeps in power recliner which is now broken. Pt could no longer elevate BLE 's at home resulting in severely increased BLE edema. Pt has power bed. She states she cannot sleep in bed because it is too far from bathroom. Pt states BSC will not fit in bedroom or hallway. Social History Household Members family caregiver Living Arrangements House Number of Floors (Floors) One Floor Number of Stairs To Enter/Railing? 1, none Home Equipment Front Wheel Walker Straight Cane Lift Recliner Additional Social History Comment adjustable bed but pt reports her room is too far from the bathroom, uses 1-2 small steps to get up into some vehicles M2 PT-IP Current Condition Start: 10/06/17 16:14 Freq: NEEDED Status: Active Protocol: Document 10/06/17 14:46 DLM (Rec: 10/06/17 16:34 [facility] [id number]) Physical Therapy Current Condition Current Condition Evaluation Date 10/06/17 Treatment Diagnosis impaired gait and decreased activity tolerance Onset Date 10/06/17 Precautions Other Precautions keep BLE's elevated, BLE blisters Weight Bearing Status Weight Bearing Status Full Weight Bearing M3 PT-IP Subjective Start: 10/06/17 16:14 Freq: NEEDED Status: Active Protocol: Document 10/06/17 14:46 DLM (Rec: 10/06/17 16:34 [facility] [id number]) Subjective Physical Therapy Visit Type Type Initial Evaluation Visit Start Time 14:15 Visit Stop Time 14:46 Total Visit Minutes 31 Number of SKI TOPPER Visits 0 Physical Therapy Visit Comments Patient Comments she wants to go home at discharge Therapy Pain Assessment Pain When Pain Assessed During Mobility Pain Present Pain Present Pain Reported Location Bilateral Leg Intensity 6 Scale Used Numeric (1 - 10) Description Aching Burning Pain Behaviors Guarding Pain Management Techniques Elevation M4 PT-IP Mobility and Gait Start: 10/06/17 16:14 Freq: NEEDED Status: Active Protocol: Document 10/06/17 14:46 DLM (Rec: 10/06/17 16:34 [facility] [id number]) PT-Bed Mobility Assessment Rolling Type of Rolling Roll to Right Level of Assist Standby Assistance Supine to Sit Supine to Sit Independent Head of Bed Elevated Bedrails Sit to Supine Sit to Supine Standby Assistance Head of Bed Elevated Bedrails Scooting Scooting to Edge of Bed Independent PT-Transfer Assessment Sit to and From Stand Sit to and from Stand Contact Guard Assistance 1 Person Assistance Use of Upper Extremities Equipment Transfer Assistive Device Front Wheeled Walker Transfers Transfer Destination Chair Transfer Technique Stand Step Pivot Transfer Ability Level of Assist Standby Assistance Comments Mobility Comments she flexed over the FWW when needs rest breaks and/or leans posteriorly on zhong Gait Assessment Gait Gait Assistance Required: Standby Assistance Distance (Feet) (feet) 32 Able to Maintain Weight Bearing Status Yes During Gait Assistive Devices Assistive Device Front Wheeled Walker Gait Deviations General Gait Pattern Decreased Stride Length Flexed Trunk Wide Based Gait Factors Limiting Gait Function Factors Limiting Gait Function Decreased Activity Tolerance Pain Comments Gait Comments she has difficulty keeping feet flat on floor due to pain in LE's with weight bearing during gait, needed two standing rest breaks to complete gait distance this visit. Pt up in recliner after gait with feet elevated and call light close PT-Balance Assessment Sitting Balance and Reactions Static Sitting Balance Ability Normal Dynamic Sitting Balance Ability Normal Standing Balance and Reactions Static Standing Balance Ability Fair Dynamic Standing Balance Ability Fair Device Used fww M5 PT-IP Objective Assessments Start: 10/06/17 16:14 Freq: NEEDED Status: Active Protocol: Document 10/06/17 14:46 DLM (Rec: 10/06/17 16:34 DLM [id number]) Orientation Orientation/Cognition Level of Alertness Alert Orientation Name Age Birthday Month Date Year Day of Week Place Situation Language Function Ability No Deficits Noted Safety Awareness Understands Safety Issues Memory Description No Deficits Noted Gross Range of Motion Upper Extremity ROM Assessment Left Impaired Impairments pain limites elevation left shoulder Lower Extremity ROM Impairments pain with full dorsiflexion bilaterally, WFL in sitting/ supine, fair to poor tolerance for neutral DF in standing, pain with flexion of LE's but functional, body mass interferes with motions over- all Strength Upper Extremity Strength Assessment Left Impaired Shoulder flexion 2+/5 with pain Lower Extremity Strength Assessment Bilaterally Impaired Comments Strength Comments unable to MMT LE's due to pain and edema Coordination Assessment Gross Coordination Gross Coordination WNL Sensation Assessment Sensation Sensation Description Hyperesthesia Comments Sensation Comments LE's very tender with edema Muscle Tone Muscle Tone WNL Yes M7 PT-IP Assessment and Plan Start: 10/06/17 16:14 Freq: NEEDED Status: Active Protocol: Document 10/06/17 14:46 DLM (Rec: 10/06/17 16:34 DLM [id number]) PT Summary Assessment and Plan Potential Rehabilitation Potential Good Status of Condition at Evaluation Evolving Summary Impairments Pain ROM Strength Balance Transfers Gait Activity Tolerance Assessment Summary Pt able to ambulate short distance today with fWW, LE pain and shortness of breath. She reports her edema is getting better but not back to baseline. She needs to get a plan at home to keep her LE's elevated now that her lift recliner is broken. Problem solved with pt. Anticipate she will be safe from a mobility/ gait to discharge home when medically stable. She has a good support system at home. Goals Transfer Goal Independent Front Wheeled Walker Gait Goal Independent Front Wheel Walker Gait Distance 50 feet Days to Meet Goals 3 Frequency of Treatment Frequency Of Treatment Once a Day Treatment Plan Physical Therapy Treatment Plan Transfer Training Gait Training Therapeutic Exercise Discharge Planning Other Recommendations and Next Treatment encourage daily gait Focus Recommendations To Nursing Amount of Assist Needed 1 Person Assist Discharge Recommendations PT Discharge Recommendations Home with Assistance
--- NOTE | 2017-10-06 15:24 | CM.IDA ---
Addendum entered by JATINDER Maria 10/06/17 15:50: Very thorough OT note today from Vandana; see for detailed functional baseline. Pt currently at baseline and return home w/bariatric DME suggested. This SHEET IRONWORKER will f/u Tuesday. Original Note: DCP Assessment Note: Pt is a 62 yo female, resident of [place]. Pt under obs for leg swelling and blisters on her feet. Pt's PCP is Dr Johnson; Insurance is Medicare. Had lengthy conversation w/pt this afternoon; pt concerned about her 75 yo sister from [place], , living with her,who may have dementia. Discussed options for pt and for her sister, this SHEET IRONWORKER will get resources/information about respite stay to pt tomorrow. Following closely, will return Tuesday to review DC needs and DC options further w/pt. Awaiting completed H+P. Obs vs inpt status (?) JATINDER Maria Discharge Planning/Care Management CM Discharge Assessment Start: 10/06/17 15:15 Freq: Status: Active Protocol: Document 10/06/17 15:15 ELENA (Rec: 10/06/17 15:24 ELENA [id number]) Discharge Planning Assessment Assigned Project Management It Specialist ELENA DPOA/Assigned Designee Name No, dtr Raina or friend Ariana Gaona is a good contact Contact Information Dtr: P#[phone], Ariana: P # [phone] Advance Directives? Yes: POLST, No DPOA History Provided By Patient Prior Living Arrangements House Comment Small house Household Members family caregiver Type of transporation used prior to Relies on Others admit Independent with ADL's No: Hires bath aide. Sleeps in sleep chair. States hard to wipe indp. Is patient alert and oriented? Yes Needs Assistance With Bathing Toileting Home Chores / Shopping Comment Continued assessment needed. Caregiver for Another Yes: 75 yo sister, here from [place], possible dementia (?) Community Services used prior to Home Health Aid admission: DME Already Rented / Owned Bath Bench FWW / Walker Other Patient/Family Preference [facility] Facility Comment May benefit from SNF stay. Pt agreeable but would like resources re: respite stays available for her 75 yo sister . [facility] preferred. Barriers to Discharge Yes Comment Limited mobility d/t swelling in her legs, weakness, blisters on her feet. Discharge Plan [facility] Facility Transportation Arrangement Likely w/c vs BLS Additional Comment Pending H+P from Dr Jeter ( medical POC?), PT assessment and status update; obs vs inpt ? Comment Following closely. Medicare Choice List Provided No SNF/HH Preference [facility] Has Agency SNF been contacted No Comment Pending clarification re: POC/ DC needs and obs vs inpt status Whiteboard Updated in Patient Room with Yes name and ext. # of Project Management It Specialist Review Status In Process
--- NOTE | 2017-10-06 17:23 | PC.NURSE ---
Pt awake and alert up in recliner with foot rest elevated. [place] erythema to distal BL LE's above ankle L > R. Erythema to plantar aspect of feet BL. Pt does report pain to planter aspects of feet when asked, but states does not want analgesia for this complaint. Pedal pulses present with doppler x 2.
[2017-10-06] MEDS: SODIUM CHLORIDE 0.9% FLUSH 10 ML IV (20:38)
--- NOTE | 2017-10-06 22:13 | PC.NURSE ---
Urine collected and sent to lab as ordered.
[2017-10-07] VITALS (9 sets, daily range): BP systolic 107–130; BP diastolic 60–76; PULSE 66–85; RESP 16–18; TEMP 36.1–36.9; O2SAT 93–98
[2017-10-07 06:23] LABS: Blood Urea Nitrogen 13 mg/dL (7-17); Calcium 8.9 mg/dL (8.4-10.2); Carbon Dioxide 33 mmol/L (22-32); Chloride 99 mmol/L (98-107); Estimated Glomerular Filt Rate > 60.0 mL/min (>60); Glucose 125 mg/dL (80-110); HEMOLYSIS < 15 (0-50); Hemoglobin A1C% w Est Avg Glu 7.3 % (4.0-6.0); Magnesium 2.4 mg/dL (1.6-2.3); Potassium 4.2 mmol/L (3.4-5.1); Sodium 140 mmol/L (137-145)
--- NOTE | 2017-10-07 08:26 | PM.PN.1 ---
Subjective Date Patient Seen: 10/07/17 Time Patient Seen: 08:26 Interval history: Patient is resting quietly this morning SCD's in place. Spent time up in chair yesterday with legs lower than optimal. Right heel continues to be somewhat painful but she is able to ambulate better. Throat is somewhat sore this morning. No difficulty swallowing. No problems with eating. Exam Vital Signs (past 8 hours): - 10/07/17 00:40 10/07/17 05:36 10/07/17 08:22 Temperature 97.6 F 97.8 F Pulse Rate 70 66 Respiratory Rate 16 18 Blood Pressure 130/72 H 111/64 Pulse Oximetry 95 96 96 Oxygen Delivery Method Room Air Narrative Exam Narrative: GENERAL: Well-appearing, obese female and in no acute distress. HEENT: Head normocephalic, atraumatic. Eyes pupils equal round and reactive to light, extraocular movements intact, sclera anicteric, conjunctivae normal. Nares patent. Mucous membranes moist. CHEST: Breath sounds equal bilaterally, faint expiratory wheeze clears on 2nd breath, no rales or rhonchi. CARDIAC: Regular rate and rhythm without murmurs, rubs or gallops. ABDOMEN: Soft, nontender. Normoactive bowel sounds all 4 quadrants. No guarding or rebound. EXTREMITIES: Limited range of motion, no clubbing, 3+ pitting edema between the SCD straps to the knees, skin in the gaiter area it is pink and edematous on the right lower extremity and less tender to palpation NEUROLOGICAL: Cranial nerves II through XII grossly intact. SKIN: Warm, dry, no petechiae, skin on the distal lower extremity is puckered Objective Labs Result Diagrams: 10/06/17 01:21 10/07/17 05:40 Labs: Laboratory Results - last 24 hr 10/06/17 10/07/17 10/07/17 12:50 05:40 05:40 Sodium 139 140 Potassium 3.8 4.2 Chloride 98 99 Carbon Dioxide 33 H 33 H BUN 16 13 Creatinine 0.50 L 0.50 L Estimated GFR > 60.0 > 60.0 BUN/Creatinine Ratio 32.0 H 26.0 H Glucose 155 H 125 H Hemoglobin A1c 7.3 H Calcium 9.2 8.9 Magnesium 2.4 H Assessment & Plan Plan: Assessment/Plan Narrative: 62-year-old morbidly obese female with hypertension, diabetes and chronic lower extremity edema from venous stasis presented with leukocytosis, weakness, increased edema an inability to ambulate. Improving with diuresis, physical therapy and antibiotics. 1. Lower extremity cellulitis. Treating with Keflex. Probiotics. Elevation and diuresis. She is making improvement with the skin less tender and red today. 2. Chronic venous stasis. Some improvement with IV furosemide as well as elevation. Will do twice daily dosing of the furosemide today. Monitor electrolytes. replace potassium and magnesium as needed. 3. Diabetes. Last hemoglobin A1c was 6.8 in May now 7.4. Do not thinks she is at risk for becoming septic at this point and will restart her metformin today. Will do AC and HS blood glucose checks. Carbohydrate controlled diet. 4. Unclear she has an Achilles tendinopathy or it is just the cellulitis that is causing her pain. This has improved this morning. Will continue to monitor. 5. With reflux and hypertension. Will continue home medications. 6. Morbid obesity. Complicating all of the above. Will monitor her weight well in-house seems like she had a 20 lb weight gain overnight which I think is in error. Talked with VEHICLE SALES PROFESSIONAL who says that the bed has been difficult to calibrate. Dietary is on board. DVT prophylaxis: Given her obesity will do 30 units of Lovenox twice daily Code status: Full code Patient is clearly unable to care for herself at home and is at risk for further complications from her lower extremity edema and cellulitis however with her improvement she will likely be ready for discharge in the next 24-48 hours. A complication here will be whether or not she can have her chair repaired by that time. Otherwise a premature to discharge will certainly set her up for a readmission.
[2017-10-07] MEDS: ACIDOPHILUS/L.BULG/BIF.B/S.THERMOP TABLET 1 EACH PO ×3 (09:09→16:26)
[2017-10-07] MEDS: cephALEXin 250 MG CAPSULE 500 MG PO ×4 (09:09→21:11)
[2017-10-07] MEDS: LISINOPRIL 20 MG TABLET PO (09:10)
[2017-10-07] MEDS: ENOXAPARIN 30 MG/0.3 ML SYRINGE SUBCUT ×2 (09:10→21:12)
[2017-10-07] MEDS: SODIUM CHLORIDE 0.9% FLUSH 10 ML IV ×2 (09:11→21:12)
[2017-10-07] MEDS: PANTOPRAZOLE 40 MG PACKET PO (09:11)
[2017-10-07] MEDS: FUROSEMIDE 40 MG/4 ML VIAL IV ×2 (09:13→13:48)
[2017-10-07] MEDS: ACETAMINOPHEN 325 MG TABLET 650 MG PO ×3 (12:10→22:25)
--- NOTE | 2017-10-07 14:50 | CM.DPC ---
Addendum entered by Saba Mccabe, VOICE OVER ANNOUNCER 10/07/17 14:56: Attempted to find a [facility] Senior Resource Guide for pt, to assist in care home care planning for her sister, but according to server systems administrator Margarette, the dept is out and the publication is in short supply everywhere. Pt has the information for the [facility] because she has been in contact with someone there; Original Note: DCP Cont: Pt has made a lot of improvement today. Attempted to meet w/pt this afternoon and she was in the shower. DC will likely be home. Dr Jeter indicates in today's note that pt's recliner chair remains broken and this may delay DC home; see OT Vandana's note for suggestions re: temporary strategies to keep legs elevated until chair is repaired. This VOICE OVER ANNOUNCER unsure whether pt will need HH upon DC. Will await a conference w/colin GUERIN on this. PT/OT: Home JW
--- NOTE | 2017-10-07 16:10 | PT.IPTN ---
Current Diagnoses Localized edema (10/06/17) Physical Therapy Treatment Note M2 PT-IP Current Condition Start: 10/06/17 16:14 Freq: NEEDED Status: Active Protocol: Document 10/06/17 14:46 DLM (Rec: 10/06/17 16:34 DLM [email or web address]) Physical Therapy Current Condition Current Condition Evaluation Date 10/06/17 Treatment Diagnosis impaired gait and decreased activity tolerance Onset Date 10/06/17 Precautions Other Precautions keep BLE's elevated, BLE blisters Weight Bearing Status Weight Bearing Status Full Weight Bearing M3 PT-IP Subjective Start: 10/06/17 16:14 Freq: NEEDED Status: Active Protocol: Document 10/07/17 16:07 [facility] (Rec: 10/07/17 16:10 [facility] [email or web address]) Subjective Physical Therapy Visit Type Type Treatment Note Visit Start Time 15:30 Visit Stop Time 16:00 Total Visit Minutes 30 Number of PATIENT OFFICE REP Visits 0 Physical Therapy Visit Comments Patient Comments Pt reports she has had a difficult day w/lots of up/ down d/t lasix Therapy Pain Assessment Pain When Pain Assessed During Mobility Pain Present Pain Present Pain Reported M4 PT-IP Mobility and Gait Start: 10/06/17 16:14 Freq: NEEDED Status: Active Protocol: Document 10/07/17 16:07 [facility] (Rec: 10/07/17 16:10 [facility] [email or web address]) PT-Transfer Assessment Sit to and From Stand Sit to and from Stand Contact Guard Assistance 1 Person Assistance Use of Upper Extremities Equipment Transfer Assistive Device Front Wheeled Walker Comments Mobility Comments she flexed over the FWW when needs rest breaks and/or leans posteriorly on zhong Gait Assessment Gait Gait Assistance Required: Standby Assistance Distance (Feet) (feet) 45 Able to Maintain Weight Bearing Status Yes During Gait Assistive Devices Assistive Device Front Wheeled Walker Gait Deviations General Gait Pattern Decreased Stride Length Flexed Trunk Wide Based Gait Factors Limiting Gait Function Factors Limiting Gait Function Decreased Activity Tolerance Pain Comments Gait Comments Pt cont to keep feet flat on floor d/t heel pain and required 2 standing rest breaks during gait.Pt up in recliner after gait with feet elevated and call light close M5 PT-IP Objective Assessments Start: 10/06/17 16:14 Freq: NEEDED Status: Active Protocol: Document 10/06/17 14:46 DLM (Rec: 10/06/17 16:34 DLM [email or web address]) Orientation Orientation/Cognition Level of Alertness Alert Orientation Name Age Birthday Month Date Year Day of Week Place Situation Language Function Ability No Deficits Noted Safety Awareness Understands Safety Issues Memory Description No Deficits Noted Gross Range of Motion Upper Extremity ROM Assessment Left Impaired Impairments pain limites elevation left shoulder Lower Extremity ROM Impairments pain with full dorsiflexion bilaterally, WFL in sitting/ supine, fair to poor tolerance for neutral DF in standing, pain with flexion of LE's but functional, body mass interferes with motions over- all Strength Upper Extremity Strength Assessment Left Impaired Shoulder flexion 2+/5 with pain Lower Extremity Strength Assessment Bilaterally Impaired Comments Strength Comments unable to MMT LE's due to pain and edema Coordination Assessment Gross Coordination Gross Coordination WNL Sensation Assessment Sensation Sensation Description Hyperesthesia Comments Sensation Comments LE's very tender with edema Muscle Tone Muscle Tone WNL Yes M6 PT-IP Treatment Start: 10/06/17 16:14 Freq: NEEDED Status: Active Protocol: Document 10/07/17 16:07 [facility] (Rec: 10/07/17 16:10 [facility] [email or web address]) Physical Therapy Treatment Exercises Exercises Ankle Pumps Gluteal Sets Other Treatments Other Treatment Performed Ankle ABCs, Ankle eversion/ inversion, ankle circles M7 PT-IP Assessment and Plan Start: 10/06/17 16:14 Freq: NEEDED Status: Active Protocol: Document 10/07/17 16:07 [facility] (Rec: 10/07/17 16:10 [facility] [email or web address]) PT Summary Assessment and Plan Summary Assessment Summary Pt had SOB w/gait and poor gait mechanics d/t back & LE pain. Pt educated on importance of exercises in chair and moving LEs. Goals Transfer Goal Independent Front Wheeled Walker Gait Goal Independent Front Wheel Walker Gait Distance 50 feet Days to Meet Goals 3 Frequency of Treatment Frequency Of Treatment Once a Day Treatment Plan Physical Therapy Treatment Plan Transfer Training Gait Training Therapeutic Exercise Discharge Planning Other Recommendations and Next Treatment encourage daily gait Focus Recommendations To Nursing Amount of Assist Needed 1 Person Assist Discharge Recommendations PT Discharge Recommendations Home with Assistance
[2017-10-07] MEDS: METFORMIN HCL 500 MG TABLET PO (16:27)
--- NOTE | 2017-10-07 16:51 | PC.NURSE ---
Pt up in recliner. Has had visitors (Cargo Service Agent) and care management in room @ beginning of shift. Pt currently on telephone, but ends call to converse with staff. Pt refuses offer for tylenol. No c/o pain at this time. Edema decreased to BL LE's from last evening shift and pt concurs with this assessment. Erythema to BL anterior LE's less pink in color.
[2017-10-08] VITALS (9 sets, daily range): BP systolic 126–132; BP diastolic 51–77; PULSE 67–80; RESP 16–20; TEMP 35.8–36.9; O2SAT 93–98
[2017-10-08 05:53] LABS: Add Manual Diff / Slide Review NO; Eosinophils Percent Auto 1.5 % (2-4); Hematocrit 37.9 % (36-46); Hemoglobin 12.3 g/dL (12.0-16.0); Mean Corpuscular HGB Conc 32.4 % (30-36); Mean Corpuscular Hemoglobin 27.7 PG (26-34); Mean Corpuscular Volume 85.6 fL (80-100); Monocytes Percent Auto 7.1 % (3-14); Neutrophils Absolute Auto 6800 /uL (3000-5900); Neutrophils Percent Auto 69.4 % (50-75); Platelet Count 296 X10^3/uL (150-400); Red Blood Cell Count 4.43 X10^6/uL (4.0-5.2); Red Cell Distribution Width 17.6 % (11.6-14.8); White Blood Cell Count 9.7 X10^3/uL (4.5-11.0)
[2017-10-08 06:04] LABS: BUN Creatinine Ratio 21.7 (6-22); Blood Urea Nitrogen 13 mg/dL (7-17); Carbon Dioxide 34 mmol/L (22-32); Chloride 100 mmol/L (98-107); Estimated Glomerular Filt Rate > 60.0 mL/min (>60); Glucose 137 mg/dL (80-110); HEMOLYSIS < 15 (0-50); Potassium 3.8 mmol/L (3.4-5.1); Sodium 140 mmol/L (137-145)
--- NOTE | 2017-10-08 06:21 | PC.NURSE ---
[facility]-ed bed with all the equipment patient has in it normally (6 pillows, 3 bath blankets, brown blanket, sheet, SCDs and pump, 2 ice packs, 2 towels, and call light) and in the position the patient sleeps in (which means legs up in [place], knees up, and in a check yonis like fashion.) as to get the most accurate weight. Alerted JULIA Osorio that we had done this. Then had the patient get in bed and took her weight with all her equipment
[2017-10-08] MEDS: LISINOPRIL 20 MG TABLET PO (08:02)
[2017-10-08] MEDS: cephALEXin 250 MG CAPSULE 500 MG PO ×4 (08:02→20:15)
[2017-10-08] MEDS: ENOXAPARIN 30 MG/0.3 ML SYRINGE SUBCUT ×2 (08:06→20:16)
[2017-10-08] MEDS: ACIDOPHILUS/L.BULG/BIF.B/S.THERMOP TABLET 1 EACH PO ×3 (08:06→17:11)
[2017-10-08] MEDS: METFORMIN HCL 500 MG TABLET PO ×2 (08:06→17:11)
[2017-10-08] MEDS: PANTOPRAZOLE 40 MG PACKET PO (08:06)
[2017-10-08] MEDS: ACETAMINOPHEN 325 MG TABLET 650 MG PO (08:06)
[2017-10-08] MEDS: SODIUM CHLORIDE 0.9% FLUSH 10 ML IV ×3 (08:06→20:15)
--- NOTE | 2017-10-08 09:09 | CM.DPC ---
DCP: continued: case received, EMR reviewed and spoke with Dr. Medina this morning. She notes barrier to discharge remains pt's specialized recliner chair that she lives in. She notes pt is morbidly obese/396 lbs and this also is impacting her needs. Reviewed hand off from JATINDER Hendricks and with recommendation for HH consideration. Dr. Medina agreed and this is completed. Explained staffing limitations of dept for today to Dr. Medina. She notes pt will not d/c today but may tomorrow. JATINDER Stanford will take over the case in the morning. Need: HH agency choice list. HH orders: RN/PT/OT/[employer] SYSTEMS ENGINEER/NATIONAL SALES (if applicable).
--- NOTE | 2017-10-08 11:21 | PM.PN.1 ---
Subjective Date Patient Seen: 10/07/17 Time Patient Seen: 08:26 Interval history: The pt reports feeling well this morning, significantly improved from previously. She states that her legs are looking great. She has been able to ambulate minimally to the bathroom without any pain. She remains concerned about returning home, as her chair is still not fixed. She believes it could be several weeks before it is able to be fixed. Today she said that the hospital is her safe place. Exam Vital Signs (past 8 hours): - 10/08/17 03:30 10/08/17 07:45 10/08/17 08:02 Temperature 96.4 F L Pulse Rate 73 67 Respiratory Rate 18 Blood Pressure 126/61 H 132/68 H Pulse Oximetry 93 93 10/08/17 08:05 Temperature 98.2 F Pulse Rate 67 Respiratory Rate 16 Blood Pressure 132/68 H Pulse Oximetry 95 Oxygen Delivery Method Room Air Oxygen Flow Rate 0 Narrative Exam Narrative: GENERAL: Well-appearing, obese female and in no acute distress. Sitting comfortably in chair. HEENT: Head normocephalic, atraumatic. Sclera clear. CHEST: Clear to auscultation bilaterally without wheezes or crackles CARDIAC: Regular rate and rhythm without murmurs, rubs or gallops. ABDOMEN: Soft, nontender. Normoactive bowel sounds. No guarding or rebound. EXTREMITIES: Limited range of motion, 2+ LE edema bilaterally, nontender to palpation, skin wrinkling presumably due to diuresis, minimal erythema ankle to mid-[place] level NEUROLOGICAL: Cranial nerves II through XII grossly intact. Objective Labs Result Diagrams: 10/08/17 05:38 10/08/17 05:38 Labs: Laboratory Results - last 24 hr 10/08/17 10/08/17 05:38 05:38 WBC 9.7 RBC 4.43 Hgb 12.3 Hct 37.9 MCV 85.6 MCH 27.7 MCHC 32.4 RDW 17.6 H Plt Count 296 Neut % (Auto) 69.4 Lymph % (Auto) 21.0 L [place] % (Auto) 7.1 Eos % (Auto) 1.5 L Baso % (Auto) 1.0 Neut # (Auto) 6800 H Sodium 140 Potassium 3.8 Chloride 100 Carbon Dioxide 34 H BUN 13 Creatinine 0.60 Estimated GFR > 60.0 BUN/Creatinine Ratio 21.7 Glucose 137 H Calcium 9.0 Assessment & Plan (1) Cellulitis: Current visit: Yes Status: Acute (2) Essential hypertension: Current visit: No Status: Chronic (3) Type 2 diabetes mellitus without complication, without long-term current use of insulin: Current visit: No Status: Chronic (4) Morbid obesity with body mass index (BMI) of 60.0 to 69.9 in adult: Current visit: No Status: Chronic (5) Chronic venous stasis dermatitis: Current visit: No Status: Chronic Plan: Assessment/Plan Narrative: 62-year-old morbidly obese female with hypertension, diabetes and chronic lower extremity edema from venous stasis here with leukocytosis, weakness, increased edema an inability to ambulate. 1. Lower extremity cellulitis: Significantly improved. - Continue PO Keflex 2. Chronic venous stasis: At baseline or better s/p IV Furosemide - Restart home Torsemide - Continue with leg elevation 3. Diabetes. Last hemoglobin A1c was 6.8 in May. Blood sugars in adequate range here. - Continue home Metformin - ACHS blood sugars 4. With reflux and hypertension. Will continue home medications. 5. Morbid obesity. Complicating all of the above. Will monitor her weight well in-house. DVT prophylaxis: Given her obesity will do 30 units of Lovenox twice daily Code status: Full code Dispo: Pt medically stable for d/c, however do not yet have good d/c plan due to pt without chair that she relies on for elevation working at home. Working with care management for safe d/c planning. Will use home health. Likely d/c tomorrow. Time Spent With Patient Time with patient: Greater than 35 minutes
[2017-10-08] MEDS: TORSEMIDE 10 MG TABLET 20 MG PO (11:31)
--- NOTE | 2017-10-08 12:01 | PT.IPTN ---
Current Diagnoses Type 2 diabetes mellitus without complications (10/06/17) Morbid (severe) obesity due to excess calories (10/06/17) Essential (primary) hypertension (10/06/17) Venous insufficiency (chronic) (peripheral) (10/06/17) Cellulitis, unspecified (10/06/17) Localized edema (10/06/17) Body mass index (BMI) 60.0-69.9, adult (10/06/17) Physical Therapy Treatment Note M2 PT-IP Current Condition Start: 10/06/17 16:14 Freq: NEEDED Status: Active Protocol: Document 10/06/17 14:46 DLM (Rec: 10/06/17 16:34 DLM [email or web address]) Physical Therapy Current Condition Current Condition Evaluation Date 10/06/17 Treatment Diagnosis impaired gait and decreased activity tolerance Onset Date 10/06/17 Precautions Other Precautions keep BLE's elevated, BLE blisters Weight Bearing Status Weight Bearing Status Full Weight Bearing M3 PT-IP Subjective Start: 10/06/17 16:14 Freq: NEEDED Status: Active Protocol: Document 10/08/17 11:50 GGD (Rec: 10/08/17 12:01 GGD [email or web address]) Subjective Physical Therapy Visit Type Type Treatment Note Visit Start Time 11:30 Visit Stop Time 11:55 Total Visit Minutes 25 Number of REHABILITATION MEDICINE PHYSICIAN Visits 1 Physical Therapy Visit Comments Patient Comments pt states she would like to walk. Therapy Pain Assessment Pain When Pain Assessed During Mobility Pain Present Pain Present Pain Reported M4 PT-IP Mobility and Gait Start: 10/06/17 16:14 Freq: NEEDED Status: Active Protocol: Document 10/08/17 11:50 GGD (Rec: 10/08/17 12:01 GGD [email or web address]) PT-Transfer Assessment Sit to and From Stand Sit to and from Stand Contact Guard Assistance 1 Person Assistance Use of Upper Extremities Equipment Transfer Assistive Device Front Wheeled Walker Comments Mobility Comments she flexed over the FWW when needs rest breaks Gait Assessment Gait Gait Assistance Required: Standby Assistance Distance (Feet) (feet) 60 Able to Maintain Weight Bearing Status Yes During Gait Assistive Devices Assistive Device Front Wheeled Walker Gait Deviations General Gait Pattern Decreased Stride Length Flexed Trunk Wide Based Gait Factors Limiting Gait Function Factors Limiting Gait Function Decreased Activity Tolerance Pain M5 PT-IP Objective Assessments Start: 10/06/17 16:14 Freq: NEEDED Status: Active Protocol: Document 10/06/17 14:46 DLM (Rec: 10/06/17 16:34 DLM [email or web address]) Orientation Orientation/Cognition Level of Alertness Alert Orientation Name Age Birthday Month Date Year Day of Week Place Situation Language Function Ability No Deficits Noted Safety Awareness Understands Safety Issues Memory Description No Deficits Noted Gross Range of Motion Upper Extremity ROM Assessment Left Impaired Impairments pain limites elevation left shoulder Lower Extremity ROM Impairments pain with full dorsiflexion bilaterally, WFL in sitting/ supine, fair to poor tolerance for neutral DF in standing, pain with flexion of LE's but functional, body mass interferes with motions over- all Strength Upper Extremity Strength Assessment Left Impaired Shoulder flexion 2+/5 with pain Lower Extremity Strength Assessment Bilaterally Impaired Comments Strength Comments unable to MMT LE's due to pain and edema Coordination Assessment Gross Coordination Gross Coordination WNL Sensation Assessment Sensation Sensation Description Hyperesthesia Comments Sensation Comments LE's very tender with edema Muscle Tone Muscle Tone WNL Yes M6 PT-IP Treatment Start: 10/06/17 16:14 Freq: NEEDED Status: Active Protocol: Document 10/08/17 11:50 GGD (Rec: 10/08/17 12:01 GGD [email or web address]) Physical Therapy Treatment Exercises Exercises Ankle Pumps Seated Knee Flexion/Extension M7 PT-IP Assessment and Plan Start: 10/06/17 16:14 Freq: NEEDED Status: Active Protocol: Document 10/08/17 11:50 GGD (Rec: 10/08/17 12:01 GGD [email or web address]) PT Summary Assessment and Plan Summary Assessment Summary Pt able to progress gait. She did need 2 standing rest breaks. She had improvement in LE movement in sitting. She still had increase in heel pain with gait. Frequency of Treatment Frequency Of Treatment Once a Day Treatment Plan Physical Therapy Treatment Plan Transfer Training Gait Training Therapeutic Exercise Discharge Planning Other Recommendations and Next Treatment encourage daily gait Focus Recommendations To Nursing Amount of Assist Needed 1 Person Assist Discharge Recommendations PT Discharge Recommendations Home with Assistance
[2017-10-09] MEDS: SODIUM CHLORIDE 0.9% FLUSH 10 ML IV ×2 (00:02→08:11)
[2017-10-09 00:09] VITALS: BP 127/51; PULSE 76; RESP 16; TEMP 36.8; O2SAT 98
[2017-10-09 06:01] VITALS: BP 113/64; PULSE 68; RESP 18; TEMP 36.7; O2SAT 96
[2017-10-09 08:05] VITALS: BP 130/75; PULSE 72; RESP 16; TEMP 36.5; O2SAT 95
[2017-10-09] MEDS: METFORMIN HCL 500 MG TABLET PO ×2 (08:08→17:14)
[2017-10-09] MEDS: ACIDOPHILUS/L.BULG/BIF.B/S.THERMOP TABLET 1 EACH PO ×3 (08:09→17:14)
[2017-10-09] MEDS: cephALEXin 250 MG CAPSULE 500 MG PO ×3 (08:10→17:14)
[2017-10-09] MEDS: PANTOPRAZOLE 40 MG PACKET PO (08:10)
[2017-10-09] MEDS: ENOXAPARIN 30 MG/0.3 ML SYRINGE SUBCUT (08:10)
[2017-10-09] MEDS: LISINOPRIL 20 MG TABLET PO (08:11)
[2017-10-09] MEDS: TORSEMIDE 10 MG TABLET 20 MG PO (08:11)
--- NOTE | 2017-10-09 09:47 | CM.DPC ---
Addendum entered by JATINDER Duque 10/09/17 10:09: ADD: Per MD, pt is medically stable to d/c home today. SW called [facility] and they confirmed they can open the pt to service. RON faxed requested facesheet, clinicals, F2F and MD orders for review. Plan: Patient to d/c home today with [facility] to open the pt to service. JATINDER Duque Original Note: DCP Cont: Per MD, pt may be medically stable for d/c home today. Per PT, safe to d/c home with HH and MD signed F2F yesterday. SW met bedside with pt and explained role and discussed d/c planning needs and pt confirms that her sister lives with her but not very helpful with assist and that the pt mostly cares for her sister who likely has some undiagnosed dementia. Pt's adult Dtr and step Dtr live local and are supportive and pt is still waiting for her mechanical chair at home to have a part shipped. Pt is agreeable to HH and SW provided HH Choice List and pt does not have a preference. Pt is hopeful to stay another night in the hospital and plans to talk to the MD today regarding discharge tomorrow. Plan: SW to make HH referral to the agency that has the earliest availability and plan on likely d/c home via Dtr POV today or tomorrow when medically stable. JATINDER Duque
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
[2017-10-09 13:14] VITALS: BP 121/67; PULSE 82; RESP 18; TEMP 36.3; O2SAT 95
[2017-10-09 16:35] VITALS: BP 130/73; PULSE 85; RESP 22; TEMP 36.7; O2SAT 94
--- NOTE | 2017-10-09 16:36 | PT.IPTN ---
Current Diagnoses Type 2 diabetes mellitus without complications (10/06/17) Morbid (severe) obesity due to excess calories (10/06/17) Essential (primary) hypertension (10/06/17) Venous insufficiency (chronic) (peripheral) (10/06/17) Cellulitis, unspecified (10/06/17) Localized edema (10/06/17) Body mass index (BMI) 60.0-69.9, adult (10/06/17) Physical Therapy Treatment Note M2 PT-IP Current Condition Start: 10/06/17 16:14 Freq: NEEDED Status: Active Protocol: Document 10/06/17 14:46 DLM (Rec: 10/06/17 16:34 DLM [id number]) Physical Therapy Current Condition Current Condition Evaluation Date 10/06/17 Treatment Diagnosis impaired gait and decreased activity tolerance Onset Date 10/06/17 Precautions Other Precautions keep BLE's elevated, BLE blisters Weight Bearing Status Weight Bearing Status Full Weight Bearing M3 PT-IP Subjective Start: 10/06/17 16:14 Freq: NEEDED Status: Active Protocol: Document 10/09/17 15:45 CLB (Rec: 10/09/17 16:36 CLB [id number]) Subjective Physical Therapy Visit Type Type Treatment Note Visit Start Time 15:45 Visit Stop Time 16:15 Total Visit Minutes 30 Number of TECHNICAL OPERATOR Visits 2 Physical Therapy Visit Comments Patient Comments Pt willing to ambulate in [place] . Therapy Pain Assessment Pain When Pain Assessed During Mobility Pain Present Pain Present Pain Reported M4 PT-IP Mobility and Gait Start: 10/06/17 16:14 Freq: NEEDED Status: Active Protocol: Document 10/09/17 15:45 CLB (Rec: 10/09/17 16:36 CLB [id number]) PT-Bed Mobility Assessment Rolling Type of Rolling Roll to Right Level of Assist Standby Assistance Supine to Sit Supine to Sit Independent Head of Bed Elevated Bedrails Sit to Supine Sit to Supine Minimal Assistance Head of Bed Elevated Bedrails Scooting Scooting to Edge of Bed Independent PT-Transfer Assessment Sit to and From Stand Sit to and from Stand Contact Guard Assistance 1 Person Assistance Use of Upper Extremities Equipment Transfer Assistive Device Front Wheeled Walker Transfer Ability Level of Assist Standby Assistance Comments Mobility Comments she flexed over the FWW when needs rest breaks, pt needed Min a of LLE into bed. Pt also needed assist positioning pillows in bed as she log rolled. Gait Assessment Gait Gait Assistance Required: Standby Assistance Distance (Feet) (feet) 70 Able to Maintain Weight Bearing Status Yes During Gait Assistive Devices Assistive Device Front Wheeled Walker Gait Deviations General Gait Pattern Decreased Stride Length Flexed Trunk Wide Based Gait Factors Limiting Gait Function Factors Limiting Gait Function Decreased Activity Tolerance Pain Comments Gait Comments Pt required two standing breaks but was able to increase gait distance. M5 PT-IP Objective Assessments Start: 10/06/17 16:14 Freq: NEEDED Status: Active Protocol: Document 10/06/17 14:46 DLM (Rec: 10/06/17 16:34 DLM [id number]) Orientation Orientation/Cognition Level of Alertness Alert Orientation Name Age Birthday Month Date Year Day of Week Place Situation Language Function Ability No Deficits Noted Safety Awareness Understands Safety Issues Memory Description No Deficits Noted Gross Range of Motion Upper Extremity ROM Assessment Left Impaired Impairments pain limites elevation left shoulder Lower Extremity ROM Impairments pain with full dorsiflexion bilaterally, WFL in sitting/ supine, fair to poor tolerance for neutral DF in standing, pain with flexion of LE's but functional, body mass interferes with motions over- all Strength Upper Extremity Strength Assessment Left Impaired Shoulder flexion 2+/5 with pain Lower Extremity Strength Assessment Bilaterally Impaired Comments Strength Comments unable to MMT LE's due to pain and edema Coordination Assessment Gross Coordination Gross Coordination WNL Sensation Assessment Sensation Sensation Description Hyperesthesia Comments Sensation Comments LE's very tender with edema Muscle Tone Muscle Tone WNL Yes M6 PT-IP Treatment Start: 10/06/17 16:14 Freq: NEEDED Status: Active Protocol: Document 10/08/17 11:50 GGD (Rec: 10/08/17 12:01 GGD [id number]) Physical Therapy Treatment Exercises Exercises Ankle Pumps Seated Knee Flexion/Extension M7 PT-IP Assessment and Plan Start: 10/06/17 16:14 Freq: NEEDED Status: Active Protocol: Document 10/09/17 15:45 CLB (Rec: 10/09/17 16:36 CLB [id number]) PT Summary Assessment and Plan Summary Assessment Summary Pt continues to increase gait distance. Pt needed to standing breaks. Pt continues to c/o pain in bilateral heels . Goals Transfer Goal Independent Front Wheeled Walker Gait Goal Independent Front Wheel Walker Gait Distance 50 feet Days to Meet Goals 3 Frequency of Treatment Frequency Of Treatment Once a Day Treatment Plan Physical Therapy Treatment Plan Transfer Training Gait Training Therapeutic Exercise Discharge Planning Other Recommendations and Next Treatment encourage daily gait Focus Recommendations To Nursing Amount of Assist Needed 1 Person Assist Discharge Recommendations PT Discharge Recommendations Home with Assistance
[2017-10-09] MEDS: ACETAMINOPHEN 325 MG TABLET 650 MG PO ×2 (17:18)
--- NOTE | 2017-10-09 19:36 | PC.NURSE ---
DISCHARGE NOTE A&Ox3, pleasant and cooperative with care. redness to bilateral lower extremities slightly increased compared to yesterday evening. pt cleared for D/C home per MD. d/c instructions reviewed with pt. iv access d/c. pt off unit via wheelchair with this RN escort at approximately 1930
== END 2017-10-09 19:30 | disposition home health service (06) ==
LOC: ED 21:56 → AC 10-06 02:21
PROVIDERS: Admitting Provider Family Medicine; Emergency Provider Emergency Medicine; Family Provider Family Medicine; PCP Family Medicine; Visit Provider Family Medicine
DX: L03.115 Cellulitis of right lower limb (principal); L03.116 Cellulitis of left lower limb; R60.0 Localized edema; I87.2 Venous insufficiency (chronic) (peripheral); E66.01 Morbid (severe) obesity due to excess calories; Z68.44 Body mass index [BMI] 60.0-69.9, adult; E11.9 Type 2 diabetes mellitus without complications; I10 Essential (primary) hypertension; Z79.84 Long term (current) use of oral hypoglycemic drugs; K21.9 Gastro-esophageal reflux disease without esophagitis
CPT/HCPCS: 36415; 36591; 71045; 80048; 82962; 83036; 83735; 83880; 84145; 85025; 87086; 93005; 93010; 96374; 97110; 97116; 97162; 97165; 97530; 99217; 99220; 99225; 99281; 99285; G0378; J1650; J1940

== ENCOUNTER → 2017-12-26 09:37 | Outpatient (CLI) | payer MEDICARE, SELFPAY ==
[2017-10-06 03:59] VITALS: BMI 67.8
--- NOTE | 2017-12-26 | DI.MG.S_ITS ---
BILATERAL DIGITAL SCREENING MAMMOGRAM 3D/2D WITH CAD: 12/26/2017 CLINICAL: Routine screening. Comparison is made to exams dated: 11/26/2016 mammogram, 10/13/2015 mammogram, and 09/19/2014 mammogram - [facility]. The tissue of both breasts is predominantly fatty. Current study was also evaluated with a Computer Aided Detection (CAD) system. There are benign calcifications in both breasts. No significant masses, calcifications, or other findings are seen in either breast. There has been no significant interval change. IMPRESSION: There is no mammographic evidence of malignancy. A 1 year screening mammogram is recommended. This exam was interpreted at Station ID: [id number]. NOTE: For mammograms, a report in lay terms will be sent to the patient. Approximately 15% of breast malignancies will not be visualized mammographically. In the management of a palpable breast mass, a negative mammogram must not discourage biopsy of a clinically suspicious lesion. Electronically Signed By: Perdo Luis chapman/jeana:12/26/2017 16:31:53 letter sent: Normal Exam ACR BI-RADS Category 2: Benign Finding(s) 3342F
== END ==
PROVIDERS: Family Provider Family Medicine; PCP Family Medicine; Visit Provider Internal Medicine
DX: Z12.31 Encounter for screening mammogram for malignant neoplasm of breast (principal)
CPT/HCPCS: 77063; 77067

== ENCOUNTER → 2018-03-13 19:05 | Outpatient (REF) | payer OTHER, SELFPAY ==
[2017-10-06 03:59] VITALS: BMI 67.8
[2018-03-13 19:20] LABS: Appearance Urine UA CLEAR; Bilirubin Urine UA NEGATIVE (NEGATIVE); Color Urine UA YELLOW; Glucose Urine UA NEGATIVE (Negative); Ketones Urine UA NEGATIVE (NEGATIVE); Leukocyte Esterase Urine UA TRACE (NEGATIVE); Nitrite Urine UA NEGATIVE (Negative); Occult Blood Urine UA 1+ (Negative); Protein Urine UA NEGATIVE (Negative); Specific Gravity Urine UA 1.015 (1.000-1.035); Urobilinogen Urine UA 0.2 E.U./dL (0.2); pH Urine UA 5.5 (4.5-8.0)
[2018-03-13 19:29] LABS: Bacteria Urine Many (>30); RBC Urine 0-1/HPF (0-5/HPF); Squamous Epithelial Cell Urine 1-5 /HPF; Transitional Epi Cells Urine 0-1/HPF (0-5/HPF); WBC Urine 5-10/HPF (0-5/HPF)
[2018-03-13 19:30] LABS: Culture Indicated Urine Specimen Cultured
== END ==
LOC: LAB 19:05
PROVIDERS: Family Provider Family Medicine; PCP Family Medicine; Visit Provider Family Medicine
DX: R31.9 Hematuria, unspecified (principal); R35.0 Frequency of micturition
CPT/HCPCS: 81001; 87077; 87086; 87186

== ENCOUNTER → 2018-06-19 07:57 | Outpatient (CLI) | payer MEDICARE, SELFPAY ==
[2017-10-06 03:59] VITALS: BMI 67.8
--- NOTE | 2018-06-19 | DI.ECHO.S_ITS ---
[facility] +---------+ [facility] +---------+ : : [address] : : : [place], [place] : : : : [id number] : : : : Phone: [phone]+ Echocardiogram Report + + :Name: KHOA DAHL Study Date: 06/19/2018 Height: 65 in : :[facility] Weight: 387 lb : : Gender: Female BSA: 2.6 m2 : :: 1955 Age: 63 yrs BP: 148/80 mmHg: :Reason For Study: ACUTE CHF : : Performed By: Katie Mckeon : :Referring: ALIRIO APONTE : + + Interpretation Summary Technically difficult study. Grossly normal left ventricle size with ejection fraction 60-65%. Moderate aortic valve sclerosis. Comparison is made with the echocardiogram of 06/17/16, there has been no significant change. Procedure: A two-dimensional transthoracic echocardiogram with color flow and Doppler was performed. The study quality was technically difficult. Comparison is made with the echocardiogram of 06/17/16. The patient was in normal sinus rhythm during the exam. Left Ventricle: The left ventricle is grossly normal size. The ejection fraction is estimated to be 60-65%. There are no obvious focal wall motion abnormalities noted but poor endocardial definition reduces the sensitivity for the detection of such. Diastolic parameters suggest probable normal left ventricular diastolic function and normal filling pressures. Right Ventricle: The right ventricle is normal in size and function. Atria: The left atrial size is normal. Right atrial size is normal. There is no Doppler evidence for an interatrial shunt. Mitral Valve: The mitral valve is normal. There is trace mitral regurgitation. Aortic Valve: There is moderate aortic valve sclerosis. No aortic regurgitation is present. Tricuspid Valve: The tricuspid valve is normal. There is trace tricuspid regurgitation. Right ventricular systolic pressure is estimated to be 24 mmHg plus the clinically estimated CVP which cannot be estimated on this exam. Pulmonic Valve: The pulmonic valve is not well seen, but is grossly normal. There is a trace or physiologic amount of pulmonic regurgitation. Great Vessels: The aortic root is normal size. The ascending aorta is at the upper limits of normal in size. The aortic arch could not be visualized. The pulmonary is not well visualized. The inferior vena cava was not visualized. Pericardium/ Pleura There is no pericardial effusion. There is no pleural effusion. MMode/2D Measurements & Calculations LVIDd: 5.5 cm LVOT diam: 2.5 cm LVIDs: 3.5 cm Ao root diam: 3.5 cm FS: 35.9 % asc Aorta Diam: 3.8 cm IVSd: 1.0 cm LVPWd: 1.1 cm LV wallace. diameter/BSA (cm/m^2): 2.1 LV sys. diameter/BSA (cm/m^2): 1.3 LA A2 area: 21.7 cm2 RA long axis: 5.5 cm LA A4 area: 30.4 cm2 RA area: 20.9 cm2 LA length (vol): 6.0 cm RA vol: 66.9 ml LA vol: 93.7 ml RA : 25.6 ml/m2 LA vol index: 35.8 ml/m2 RVD1 (basal): 4.0 cm RVD2 (mid): 2.9 cm TAPSE: 2.6 cm Doppler Measurements & Calculations Ao V2 max: 157.6 cm/sec LVOT Max Stuart: 131.9 cm/sec Ao V2 mean: 100.1 cm/sec LV V1 max P.0 mmHg Ao max P.9 mmHg LV V1 VTI: 26.6 cm Ao mean P.7 mmHg MARCELINO(I,D): 4.2 cm2 Ao V2 VTI: 31.1 cm MARCELINO(V,D): 4.1 cm2 sev ratio: 0.86 MARCELINO indexed to BSA (cm^2/m^2): 1.6 MV E max stuart: 95.1 cm/sec TR max stuart: 246.4 cm/sec MV A max stuart: 92.6 cm/sec TR max P.3 mmHg MV E/A: 1.0 PA V2 max: 105.3 cm/sec Med Peak E' Stuart: 7.1 cm/sec PA V2 mean: 69.5 cm/sec E/E' med: 13.5 PA mean P.2 mmHg Lat Peak E' Stuart: 11.4 cm/sec PA Accel Time: 0.06 sec E/E' lat: 8.4 E/e' average: 10.9 MV dec time: 0.22 sec SV(LVOT): 129.9 ml Electronically signed by: Len Parker on Reading Physician:06/19/2018 06:31 PM
== END ==
PROVIDERS: Family Provider Family Medicine; PCP Family Medicine; Visit Provider Internal Medicine
DX: I35.8 Other nonrheumatic aortic valve disorders (principal); I50.31 Acute diastolic (congestive) heart failure; R63.5 Abnormal weight gain
CPT/HCPCS: 93306

== ENCOUNTER 2018-06-26 11:45 | Outpatient (RCR) | payer MEDICARE, OTHER, SELFPAY ==
--- NOTE | 2017-06-20 16:38 | PT.OTN ---
Addendum entered and electronically signed by Shaye Devries, PT 06/20/17 16:41: Transition note: On June 14, 2017 our therapy services consisting of Speech, Occupational, and Physical Therapy transitioned from the [employer] electronic documentation system to a new [employer] electronic documentation system.?? All documentation prior to June 14 can be found under [employer] saved data. From June 14 forward all medical record documentation will be in [email or web address]. Original Note: Current Diagnoses Low back pain (06/20/17) Difficulty in walking, not elsewhere classified (06/20/17) Weakness (06/20/17) Presence of right artificial knee joint (06/20/17) Physical Therapy Treatment Note PT-OP-A Visit Information Start: 06/20/17 16:27 Freq: Status: Active Protocol: Activity Type Activity Date Activity User E-Sign Co-Sign Detail Recorded Client Recorded Date Recorded By Document 06/20/17 16:38 [facility] [id number] 06/20/17 16:38 [facility] 06/20/17 16:38 Out-Patient Physical Therapy Visit Information [Visit Information] -Visit Type Treatment Note -Visit Start Time 10:15 -Visit Stop Time 11:00 -Total Visit Minutes 45 -Visit Number 9 -Number of CLOTH INSPECTOR Visits 0 PT-OP-C Subjective Start: 06/20/17 16:27 Freq: Status: Active Protocol: Activity Type Activity Date Activity User E-Sign Co-Sign Detail Recorded Client Recorded Date Recorded By Document 06/20/17 16:31 [facility] [id number] 06/20/17 16:38 [facility] 06/20/17 16:31 OP-PT Subjective [Patient Comments] -Patient Comments Pain variable, always better after aquatic PT PT-OP-S Aquatic Treatment Start: 06/20/17 16:27 Freq: Status: Active Protocol: Activity Type Activity Date Activity User E-Sign Co-Sign Detail Recorded Client Recorded Date Recorded By Document 06/20/17 16:31 [facility] [id number] 06/20/17 16:38 [facility] 06/20/17 16:31 Aquatics Treatment [Water Walking] Sideways -Water Level Chest Level -Walking Equipment Resistance Fins -Level of Assistance Standby Assistance Forwards -Water Level Chest Level -Walking Equipment Resistance Fins -Level of Assistance Standby Assistance [[place] Activities] -[place] Activities Bicycle Bicycle Backwards Cross Country Running Hip Abduction/ Adduction -Other Activities hang, hi knees, UE pull downs with medium barbells -Equipment large samish floats, small resistance fins -Duration 35 [Swim Strokes] Backstroke -Other Equipment Used large samish floats -Laps/Duration 6' PT-OP-T Assessment and Plan Start: 06/20/17 16:27 Freq: Status: Active Protocol: Activity Type Activity Date Activity User E-Sign Co-Sign Detail Recorded Client Recorded Date Recorded By Document 06/20/17 16:31 [facility] [id number] 06/20/17 16:38 [facility] 06/20/17 16:31 Physical Therapy Assessment [Assessment Summary] -Assessment Patient reported some neck and right shoulder pain with pull-downs and supine swim, right knee pain persists. Physical Therapy Plan [Next Visit Focus/Plan] -Next Visit Plan Evaluate response to today's treatment, modify as indicated
--- NOTE | 2017-07-25 14:25 | PT.OTN ---
Current Diagnoses Low back pain (07/25/17) Difficulty in walking, not elsewhere classified (07/25/17) Weakness (07/25/17) Presence of right artificial knee joint (07/25/17) Physical Therapy Treatment Note PT-OP-A Visit Information Start: 06/20/17 16:27 Freq: Status: Active Protocol: Document 07/25/17 10:30 TMS (Rec: 07/25/17 14:23 TMS [email or web address]) Out-Patient Physical Therapy Visit Information Visit Information Visit Type Treatment Note Visit Start Time 10:15 Visit Stop Time 11:00 Total Visit Minutes 45 Visit Number 10 Number of COUNTER INTELLIGENCE AGENT Visits 1 PT-OP-C Subjective Start: 06/20/17 16:27 Freq: Status: Active Protocol: Document 07/25/17 10:30 TMS (Rec: 07/25/17 14:23 TMS [email or web address]) OP-PT Subjective Patient Comments Patient Comments Pt. states she's very stressed , mostly regarding her sister and finances. PT-OP-S Aquatic Treatment Start: 06/20/17 16:27 Freq: Status: Active Protocol: Document 07/25/17 10:30 TMS (Rec: 07/25/17 14:23 TMS [email or web address]) Aquatics Treatment Water Walking Sideways Water Level Chest Level Walking Equipment Resistance Fins Level of Assistance Standby Assistance Forwards Water Level Chest Level Walking Equipment Resistance Fins Level of Assistance Standby Assistance Lower Extremity Exercises Step ups Details 4 and 6 inch boxes Body Position Standing Water Level Chest Level Knee extension Body Position Standing Water Level Chest Level Equipment Resistance Fins Comments limited on left secondary to complaints of pain. Clock stepping Body Position Standing Water Level Chest Level Equipment Resistance Fins Comments for strength and balance [place] Activities [place] Activities Bicycle Cross [place] Hip Abduction/Adduction Equipment large [place] floats, small resistance fins Duration 25 minutes PT-OP-T Assessment and Plan Start: 06/20/17 16:27 Freq: Status: Active Protocol: Document 07/25/17 10:30 TMS (Rec: 07/25/17 14:23 TMS [email or web address]) Physical Therapy Assessment Assessment Summary Assessment Pt. reports she needs less assist with ADL's, complained of left knee pain with knee flexion. Please Sign and Return: I have reviewed this Plan of Care and certify that the skilled therapy services above are required to meet the patient?s needs. Physician Signature Date Printed Name and Credentials Clinical Instructor Signature Printed Name and Credentials
--- NOTE | 2017-08-01 16:11 | PT.OTN ---
Current Diagnoses Low back pain (07/25/17) Difficulty in walking, not elsewhere classified (07/25/17) Weakness (07/25/17) Presence of right artificial knee joint (07/25/17) Physical Therapy Treatment Note PT-OP-A Visit Information Start: 06/20/17 16:27 Freq: Status: Active Protocol: Document 07/25/17 10:30 TMS (Rec: 07/25/17 14:23 TMS [email or web address]) Out-Patient Physical Therapy Visit Information Visit Information Visit Type Treatment Note Visit Start Time 10:15 Visit Stop Time 11:00 Total Visit Minutes 45 Visit Number 10 Number of TOWER DRAGLINE OPERATOR Visits 1 PT-OP-C Subjective Start: 06/20/17 16:27 Freq: Status: Active Protocol: Document 08/01/17 15:55 CLB (Rec: 08/01/17 16:10 CLB [email or web address]) OP-PT Subjective Patient Comments Patient Comments Pt stated she has pain in her left elbow with redness and pain in left shoulder with use . PT-OP-S Aquatic Treatment Start: 06/20/17 16:27 Freq: Status: Active Protocol: Document 08/01/17 15:55 CLB (Rec: 08/01/17 16:10 CLB [email or web address]) Aquatics Treatment Pool Entry/Exit Pool Entry/Exit Method Lift Assistance Standby Assistance Water Walking Sideways Water Level Chest Level Walking Equipment Resistance Fins Level of Assistance Standby Assistance Forwards Water Level Chest Level Walking Equipment Resistance Fins Level of Assistance Standby Assistance Lower Extremity Exercises 1 Details Hip flex/ext, abd/add, circles Body Position Standing Water Level Chest Level Equipment large fins Reps/Duration x10 bilaterally Comments Pt was using large blue float to support LUE due to pain [place] Activities [place] Activities Bicycle Cross [place] Hip Abduction/Adduction Equipment large pilot point floats, small resistance fins Duration 35 minutes PT-OP-T Assessment and Plan Start: 06/20/17 16:27 Freq: Status: Active Protocol: Document 08/01/17 15:55 CLB (Rec: 08/01/17 16:10 CLB [email or web address]) Physical Therapy Assessment Assessment Summary Assessment Pt reporting pain in LUE and wasn't able to perform all ther ex due to pain.
--- NOTE | 2017-08-08 16:09 | PT.OTN ---
Addendum entered and electronically signed by Shaye Devries, PT 08/08/17 17:52: Co-treated at the pool this visit with the SANDBLAST OPERATOR to assess progress. Original Note: Current Diagnoses Low back pain (08/08/17) Difficulty in walking, not elsewhere classified (08/08/17) Weakness (08/08/17) Presence of right artificial knee joint (08/08/17) Physical Therapy Treatment Note PT-OP-A Visit Information Start: 06/20/17 16:27 Freq: Status: Active Protocol: Document 08/08/17 12:15 CLB (Rec: 08/08/17 16:09 CLB [email or web address]) Out-Patient Physical Therapy Visit Information Visit Information Visit Type Treatment Note Visit Start Time 12:15 Visit Stop Time 13:00 Total Visit Minutes 45 Visit Number 12 Number of SANDBLAST OPERATOR Visits 3 PT-OP-C Subjective Start: 06/20/17 16:27 Freq: Status: Active Protocol: Document 08/08/17 12:15 CLB (Rec: 08/08/17 16:09 CLB [email or web address]) OP-PT Subjective Patient Comments Patient Comments Pt continues to c/o left elbow pain and redness but left shoulder is feeling better. PT-OP-S Aquatic Treatment Start: 06/20/17 16:27 Freq: Status: Active Protocol: Document 08/08/17 12:15 CLB (Rec: 08/08/17 16:09 CLB [email or web address]) Aquatics Treatment Pool Entry/Exit Pool Entry/Exit Method Lift Assistance Standby Assistance Water Walking Sideways Water Level Chest Level Walking Equipment Resistance Fins Level of Assistance Standby Assistance Forwards Water Level Chest Level Walking Equipment Resistance Fins Level of Assistance Standby Assistance Lower Extremity Exercises 1 Details Hip flex/ext, abd/add, circles Body Position Standing Water Level Chest Level Equipment large fins Reps/Duration x10 bilaterally Comments Pt was using large blue float to support LUE due to pain Step ups Details 4 and 6 inch boxes Body Position Standing Water Level Chest Level [place] Activities [place] Activities Bicycle [place] Hip Abduction/Adduction Equipment large [place] floats, small resistance fins Duration 25 minutes PT-OP-T Assessment and Plan Start: 06/20/17 16:27 Freq: Status: Active Protocol: Document 08/08/17 12:15 CLB (Rec: 08/08/17 16:09 CLB [email or web address]) Physical Therapy Assessment Assessment Summary Assessment Pt LUE feeling better . Pt reported left knee pain with step up and was moved to deeper water for activity. Pt able to stand fully upright on steps with straight back.
--- NOTE | 2017-08-08 18:31 | PT.OPPN ---
Current Diagnoses Low back pain (08/08/17) Difficulty in walking, not elsewhere classified (08/08/17) Weakness (08/08/17) Presence of right artificial knee joint (08/08/17) Physical Therapy Progress Note PT-OP-A Visit Information Start: 06/20/17 16:27 Freq: Status: Active Protocol: Document 08/08/17 12:15 CLB (Rec: 08/08/17 16:09 CLB [email or web address]) Out-Patient Physical Therapy Visit Information Visit Information Visit Type Treatment Note Visit Start Time 12:15 Visit Stop Time 13:00 Total Visit Minutes 45 Visit Number 12 Number of SQL PROGRAMMER Visits 3 PT-OP-B Current Condition Start: 08/08/17 17:50 Freq: Status: Active Protocol: Document 08/08/17 18:12 DLM (Rec: 08/08/17 18:15 DLM [id number]) Current Condition Current Functional Impairments (Reported) Functional Limitations- ADL's has assistance with her showers, she was doing better with her carlotta-care during toileting until the increased left shoulder pain, pt is using adaptive equipment to help with carlotta-care. Functional Limitations- Mobility/Gait She has upped the height of her 4WW and stands more erect, only ambulating short distances at home with pain limiting her Personal Factors Other Personal Factors That May Effect limited sleep at night due to Therapy/Recovery stress, only sleeping a couple of hours at a time PT-OP-C Subjective Start: 06/20/17 16:27 Freq: Status: Active Protocol: Document 08/08/17 17:53 DLM (Rec: 08/08/17 18:12 DLM [id number]) OP-PT Subjective Patient Comments Patient Comments She has a doctor appt to check on her left shoulder pain.She reports the pool is also helping her with stress management. Patient Reported Progress Improving PT-OP-G Mobility & Gait Start: 08/08/17 17:50 Freq: Status: Active Protocol: Document 08/08/17 18:15 DLM (Rec: 08/08/17 18:18 DLM [id number]) OP Mobility Evaluation Transfers Bed to Chair Transfers transfers on/off the lift chair at the pool with SBA, needs assistance for her feet getting into the pool Functional Movements Other Functional Movements using the lift chair to get in /out of the pool OP Gait Assessment Gait Gait Assistance Required: Standby Assistance Distance (Feet) (feet) 50 Assistive Devices Assistive Device 4 Wheeled Walker Factors Limiting Gait Function Factors Limiting Gait Function Decreased Activity Tolerance Decreased Strength Pain Poor Balance PT-OP-J Posture/Palpation/Skin Start: 08/08/17 18:18 Freq: Status: Active Protocol: Document 08/08/17 18:18 DLM (Rec: 08/08/17 18:20 DLM [id number]) Posture Evaluation Comments Posture Comments Pt able to achieve erect posture in pool in deep water but still flexed on land with 4WW, she tolerates hanging in the deep water with erect posture well. Pt reports improved ability to use core stabalization while in the pool. PT-OP-M Strength Start: 08/08/17 17:50 Freq: Status: Active Protocol: Document 08/08/17 18:18 DLM (Rec: 08/08/17 18:31 DLM [email or web address]) Hip Strength Hip Manual Muscle Testing Right Flexion (L2) 2+ Poor+ Left Flexion (L2) 2+ Poor+ PT-OP-T Assessment and Plan Start: 06/20/17 16:27 Freq: Status: Active Protocol: Document 08/08/17 17:53 DLM (Rec: 08/08/17 18:12 DLM [id number]) Physical Therapy Assessment Impairments Impairments Activity Tolerance Balance Functional Activities Functional Mobility Gait Pain Posture ROM Strength Transfers Other Concerns Fall Risk yes, pt has caregiver help her in locker room for safety Goals Five Impairment Limited gait tolerance, 2 min Walk test- 50 feet Senior Principal Goal (LTG) 2 min Walk Test- 200 feet- pain still limits her distance LTG Duration 3 months Four Impairment Decreased strength Senior Principal Goal (LTG) Improve hip strength to greater than anti-gravity for functional mobility independence and tolerance- slowly progressing LTG Duration 3 months Three Impairment Moderate decrease in spinal ROM with c/o increased pain Half-Way Goal (LTG) Improve spinal ROM to WNL with minimal pain, pt able to attain neutral spine and demonstrate good spinal stabalization and postural awareness- slowly progressing LTG Duration 3 months Two Impairment Moderate assist needed Short Term Goal (STG) Minimal assist with ADL's STG Duration 2 months Senior Principal Goal (LTG) Independent with ADL's with mild symptoms LTG Duration 3 months One Impairment Use of 4WW for gait, short distances with severe forward flexed posture Short Term Goal (STG) Able to stand with minimal forward flexion using 4WW STG Duration 1 month Senior Principal Goal (LTG) Tolerate gait in the house and short community distances wtih minimal increase in pain with least restrictive device- slowly progressing LTG Duration 3 months Progress Towards Goals Progress Towards Goals Slow Progress due to Activity Tolerance Slow Progress - Other Progress Comments missed visits from June 20- July 25 slowed her progress Assessment Summary Assessment Pt continues to slowly progress. Over-all her progress is slower than expected. She could benefit from continuing aquatic therapy. Pt and her daughter report progress at home. She has had a recent complication of increased left shoulder pain that is still being assessed by her physician. She continues to show potential for more progress. Physical Therapy Plan Frequency and Duration Frequency of Treatment 1x/Week Duration of Treatment 3 more months Plan of Care Start Date 08/08/17 Plan of Care End Date 11/08/17 Therapeutic Interventions Therapeutic Interventions Aquatic Therapy Balance Training Gait Training Home Exercise Program Neuromuscular Re-education Patient/Caregiver Education Therapeutic Activities Therapeutic Exercises Next Visit Focus/Plan Next Note Type Treatment Note
--- NOTE | 2017-08-08 18:34 | PT.OPPOC ---
Current Diagnoses Low back pain (08/08/17) Difficulty in walking, not elsewhere classified (08/08/17) Weakness (08/08/17) Presence of right artificial knee joint (08/08/17) Provider Visit Care Team Role Provider Type Galilea Johnson DO Attending Provider Physician Family Provider Primary Care Provider Specialty: Family Practice Address: [address] [place] [address], [phone] Email: [email or web address] Plan Of Care PT-OP-T Assessment and Plan Start: 06/20/17 16:27 Freq: Status: Active Protocol: Document 08/08/17 17:53 DLM (Rec: 08/08/17 18:12 DLM [id number]) Physical Therapy Assessment Impairments Impairments Activity Tolerance Balance Functional Activities Functional Mobility Gait Pain Posture ROM Strength Transfers Other Concerns Fall Risk yes, pt has caregiver help her in locker room for safety Goals Five Impairment Limited gait tolerance, 2 min Walk test- 50 feet Accredited Pharmacy Technician Goal (LTG) 2 min Walk Test- 200 feet- pain still limits her distance LTG Duration 3 months Four Impairment Decreased strength Retirement Goal (LTG) Improve hip strength to greater than anti-gravity for functional mobility independence and tolerance- slowly progressing LTG Duration 3 months Three Impairment Moderate decrease in spinal ROM with c/o increased pain Retirement Goal (LTG) Improve spinal ROM to WNL with minimal pain, pt able to attain neutral spine and demonstrate good spinal stabalization and postural awareness- slowly progressing LTG Duration 3 months Two Impairment Moderate assist needed Short Term Goal (STG) Minimal assist with ADL's STG Duration 2 months Retirement Goal (LTG) Independent with ADL's with mild symptoms LTG Duration 3 months One Impairment Use of 4WW for gait, short distances with severe forward flexed posture Short Term Goal (STG) Able to stand with minimal forward flexion using 4WW STG Duration 1 month Accredited Pharmacy Technician Goal (LTG) Tolerate gait in the house and short community distances wtih minimal increase in pain with least restrictive device- slowly progressing LTG Duration 3 months Progress Towards Goals Progress Towards Goals Slow Progress due to Activity Tolerance Slow Progress - Other Progress Comments missed visits from June 20- July 25 slowed her progress Assessment Summary Assessment Pt continues to slowly progress. Over-all her progress is slower than expected. She could benefit from continuing aquatic therapy. Pt and her daughter report progress at home. She has had a recent complication of increased left shoulder pain that is still being assessed by her physician. She continues to show potential for more progress. Physical Therapy Plan Frequency and Duration Frequency of Treatment 1x/Week Duration of Treatment 3 more months Plan of Care Start Date 08/08/17 Plan of Care End Date 11/08/17 Therapeutic Interventions Therapeutic Interventions Aquatic Therapy Balance Training Gait Training Home Exercise Program Neuromuscular Re-education Patient/Caregiver Education Therapeutic Activities Therapeutic Exercises Next Visit Focus/Plan Next Note Type Treatment Note Plan of Care Dates Plan of Care Start Date 08/08/17 Plan of Care End Date 11/08/17 Please Sign and Return: I have reviewed this Plan of Care and certify that the skilled therapy services above are required to meet the patient?s needs. Physician Signature Date Printed Name and Credentials Clinical Instructor Signature Printed Name and Credentials
--- NOTE | 2017-08-15 12:15 | PT.OTN ---
Current Diagnoses Low back pain (08/15/17) Difficulty in walking, not elsewhere classified (08/15/17) Weakness (08/15/17) Presence of right artificial knee joint (08/15/17) Physical Therapy Treatment Note PT-OP-A Visit Information Start: 06/20/17 16:27 Freq: Status: Active Protocol: Document 08/15/17 12:15 TMS (Rec: 08/15/17 16:34 TMS [email or web address]) Out-Patient Physical Therapy Visit Information Visit Information Visit Type Treatment Note Visit Start Time 11:30 Visit Stop Time 12:15 Total Visit Minutes 3 Visit Number 13 Number of REVENUE FIELD AUDITOR Visits 1 PT-OP-B Current Condition Start: 08/08/17 17:50 Freq: Status: Active Protocol: Document 08/08/17 18:12 DLM (Rec: 08/08/17 18:15 DLM [id number]) Current Condition Current Functional Impairments (Reported) Functional Limitations- ADL's has assistance with her showers, she was doing better with her carlotta-care during toileting until the increased left shoulder pain, pt is using adaptive equipment to help with carlotta-care. Functional Limitations- Mobility/Gait She has upped the height of her 4WW and stand more erect, only ambulating short distances at home with pain limiting her Personal Factors Other Personal Factors That May Effect limited sleep at night due to Therapy/Recovery stress, only sleeping a couple of hours at a time PT-OP-C Subjective Start: 06/20/17 16:27 Freq: Status: Active Protocol: Document 08/15/17 12:15 TMS (Rec: 08/15/17 16:34 TMS [email or web address]) OP-PT Subjective Patient Comments Patient Comments Pt. states she's on antibiotics for left U.E. swelling and pain, had a small blister form and pop on elbow late last week. PT-OP-G Mobility & Gait Start: 08/08/17 17:50 Freq: Status: Active Protocol: Document 08/08/17 18:15 DLM (Rec: 08/08/17 18:18 DLM [id number]) OP Mobility Evaluation Transfers Bed to Chair Transfers transfers on/off the lift chair at the pool with SBA, needs assistance for her feet getting into the pool Functional Movements Other Functional Movements using the lift chair to get in /out of the pool OP Gait Assessment Gait Gait Assistance Required: Standby Assistance Distance (Feet) (feet) 50 Assistive Devices Assistive Device 4 Wheeled Walker Factors Limiting Gait Function Factors Limiting Gait Function Decreased Activity Tolerance Decreased Strength Pain Poor Balance PT-OP-J Posture/Palpation/Skin Start: 08/08/17 18:18 Freq: Status: Active Protocol: Document 08/08/17 18:18 DLM (Rec: 08/08/17 18:20 DLM [id number]) Posture Evaluation Comments Posture Comments Pt able to achieve erect posture in pool in deep water but still flexed on land with 4WW, she tolerates hanging in the deep water with erect posture well. Pt reports improved ability to use core stabalization while in the pool. PT-OP-M Strength Start: 08/08/17 17:50 Freq: Status: Active Protocol: Document 08/08/17 18:18 DLM (Rec: 08/08/17 18:31 DLM [email or web address]) Hip Strength Hip Manual Muscle Testing Right Flexion (L2) 2+ Poor+ Left Flexion (L2) 2+ Poor+ PT-OP-S Aquatic Treatment Start: 06/20/17 16:27 Freq: Status: Active Protocol: Document 08/15/17 12:15 TMS (Rec: 08/15/17 16:34 TMS [email or web address]) Aquatics Treatment Pool Entry/Exit Pool Entry/Exit Method Lift Assistance Standby Assistance Water Walking Backwards Water Level Chest Level Walking Equipment Resistance Fins Level of Assistance Standby Assistance Comments With quick changes of directions; Fwd/Bk, side<>side Sideways Water Level Chest Level Walking Equipment Resistance Fins Level of Assistance Standby Assistance Forwards Water Level Chest Level Walking Equipment Resistance Fins Level of Assistance Standby Assistance Lower Extremity Exercises 1 Details Hip flex/ext, abd/add, circles Body Position Standing Water Level Chest Level Equipment Resistance Fins Reps/Duration x 15 Step ups Details 4 and 6 inch boxes Body Position Standing Water Level Chest Level Knee extension Body Position Standing Water Level Chest Level Equipment Resistance Fins [place] Activities [place] Activities Bicycle [place] Hip Abduction/Adduction Sit Kicks Equipment large [place] floats, small resistance fins Duration 20 minutes Comments 4 sets of intervals, 30:30 PT-OP-T Assessment and Plan Start: 06/20/17 16:27 Freq: Status: Active Protocol: Document 08/15/17 12:15 TMS (Rec: 08/15/17 16:34 TMS [email or web address]) Physical Therapy Assessment Assessment Summary Assessment Less complaints today, pt. seemed calmer. Initially was able to tolerate 6 inch box but switched to 4 inch box after complaints of left knee pain. Physical Therapy Plan Frequency and Duration Frequency of Treatment 1x/Week Duration of Treatment 3 more months Plan of Care Start Date 08/08/17 Plan of Care End Date 11/08/17 Next Visit Focus/Plan Next Note Type Treatment Note Next Visit Plan Continue to progress endurance , strength, decrease pain.
--- NOTE | 2017-08-22 15:01 | PT.OTN ---
Current Diagnoses Low back pain (08/15/17) Difficulty in walking, not elsewhere classified (08/15/17) Weakness (08/15/17) Presence of right artificial knee joint (08/15/17) Physical Therapy Treatment Note PT-OP-A Visit Information Start: 06/20/17 16:27 Freq: Status: Active Protocol: Document 08/22/17 11:30 CLB (Rec: 08/22/17 14:58 CLB [email or web address]) Out-Patient Physical Therapy Visit Information Visit Information Visit Start Time 11:30 Visit Stop Time 12:15 Total Visit Minutes 45 Visit Number 14 Number of LENS MOUNTER Visits 2 PT-OP-B Current Condition Start: 08/08/17 17:50 Freq: Status: Active Protocol: Document 08/08/17 18:12 DLM (Rec: 08/08/17 18:15 DLM [id number]) Current Condition Current Functional Impairments (Reported) Functional Limitations- ADL's has assistance with her showers, she was doing better with her carlotta-care during toileting until the increased left shoulder pain, pt is using adaptive equipment to help with carlotta-care. Functional Limitations- Mobility/Gait She has upped the height of her 4WW and stand more erect, only ambulating short distances at home with pain limiting her Personal Factors Other Personal Factors That May Effect limited sleep at night due to Therapy/Recovery stress, only sleeping a couple of hours at a time PT-OP-C Subjective Start: 06/20/17 16:27 Freq: Status: Active Protocol: Document 08/22/17 11:30 CLB (Rec: 08/22/17 14:58 CLB [email or web address]) OP-PT Subjective Patient Comments Patient Comments Pt c/o left shoulder pain and left knee pain. PT-OP-G Mobility & Gait Start: 08/08/17 17:50 Freq: Status: Active Protocol: Document 08/08/17 18:15 DLM (Rec: 08/08/17 18:18 DLM [id number]) OP Mobility Evaluation Transfers Bed to Chair Transfers transfers on/off the lift chair at the pool with SBA, needs assistance for her feet getting into the pool Functional Movements Other Functional Movements using the lift chair to get in /out of the pool OP Gait Assessment Gait Gait Assistance Required: Standby Assistance Distance (Feet) (feet) 50 Assistive Devices Assistive Device 4 Wheeled Walker Factors Limiting Gait Function Factors Limiting Gait Function Decreased Activity Tolerance Decreased Strength Pain Poor Balance PT-OP-J Posture/Palpation/Skin Start: 08/08/17 18:18 Freq: Status: Active Protocol: Document 08/08/17 18:18 DLM (Rec: 08/08/17 18:20 DLM [id number]) Posture Evaluation Comments Posture Comments Pt able to achieve erect posture in pool in deep water but still flexed on land with 4WW, she tolerates hanging in the deep water with erect posture well. Pt reports improved ability to use core stabalization while in the pool. PT-OP-M Strength Start: 08/08/17 17:50 Freq: Status: Active Protocol: Document 08/08/17 18:18 DLM (Rec: 08/08/17 18:31 DLM [email or web address]) Hip Strength Hip Manual Muscle Testing Right Flexion (L2) 2+ Poor+ Left Flexion (L2) 2+ Poor+ PT-OP-S Aquatic Treatment Start: 06/20/17 16:27 Freq: Status: Active Protocol: Document 08/22/17 11:30 CLB (Rec: 08/22/17 14:58 CLB [email or web address]) Aquatics Treatment Pool Entry/Exit Pool Entry/Exit Method Lift Assistance Standby Assistance Water Walking Backwards Water Level Chest Level Walking Equipment Resistance Fins Level of Assistance Standby Assistance Comments With quick changes of directions; Fwd/Bk, side<>side Sideways Water Level Chest Level Walking Equipment Resistance Fins Level of Assistance Standby Assistance Forwards Water Level Chest Level Walking Equipment Resistance Fins Level of Assistance Standby Assistance Lower Extremity Exercises 1 Details Hip flex/ext, abd/add, circles Body Position Standing Water Level Chest Level Equipment Resistance Fins Reps/Duration x 15 Step ups Details 4 inch boxes Body Position Standing Water Level Chest Level Upper Extremity Exercises 1 Details shoulder rolls Body Position Standing Water Level Neck Level Reps/Duration 10 Comments forward and backward circles Upper Extremity Stretches 1 Details shoulder, neck, scap Body Position Standing Water Level Neck Level Reps/Duration 30 sec each [place] Activities [place] Activities Bicycle [place] Hip Abduction/Adduction Sit Kicks Equipment large [place] floats, small resistance fins Duration 20 minutes Comments Internals not performed this visit PT-OP-T Assessment and Plan Start: 06/20/17 16:27 Freq: Status: Active Protocol: Document 08/22/17 11:30 CLB (Rec: 08/22/17 14:58 CLB [email or web address]) Physical Therapy Assessment Assessment Summary Assessment Pt tolerated new stretches well but was unable to use 6 inch box due to left knee pain . Physical Therapy Plan Frequency and Duration Frequency of Treatment 1x/Week Duration of Treatment 3 more months Plan of Care Start Date 08/08/17 Plan of Care End Date 11/08/17 Therapeutic Interventions Therapeutic Interventions Aquatic Therapy Balance Training Gait Training Home Exercise Program Neuromuscular Re-education Patient/Caregiver Education Therapeutic Activities Therapeutic Exercises Next Visit Focus/Plan Next Note Type Treatment Note Next Visit Plan Continue to progress endurance , strength, decrease pain.
--- NOTE | 2017-08-29 15:49 | PT.OTN ---
Current Diagnoses Low back pain (08/29/17) Difficulty in walking, not elsewhere classified (08/29/17) Weakness (08/29/17) Presence of right artificial knee joint (08/29/17) Physical Therapy Treatment Note PT-OP-A Visit Information Start: 06/20/17 16:27 Freq: Status: Active Protocol: Document 08/29/17 11:30 CLB (Rec: 08/29/17 15:49 CLB [email or web address]) Out-Patient Physical Therapy Visit Information Visit Information Visit Start Time 11:30 Visit Stop Time 12:15 Total Visit Minutes 45 Visit Number 15 Number of SAND SLINGER OPERATOR Visits 3 PT-OP-B Current Condition Start: 08/08/17 17:50 Freq: Status: Active Protocol: Document 08/08/17 18:12 DLM (Rec: 08/08/17 18:15 DLM [id number]) Current Condition Current Functional Impairments (Reported) Functional Limitations- ADL's has assistance with her showers, she was doing better with her carlotta-care during toileting until the increased left shoulder pain, pt is using adaptive equipment to help with carlotta-care. Functional Limitations- Mobility/Gait She has upped the height of her 4WW and stand more erect, only ambulating short distances at home with pain limiting her Personal Factors Other Personal Factors That May Effect limited sleep at night due to Therapy/Recovery stress, only sleeping a couple of hours at a time PT-OP-C Subjective Start: 06/20/17 16:27 Freq: Status: Active Protocol: Document 08/29/17 11:30 CLB (Rec: 08/29/17 15:49 CLB [email or web address]) OP-PT Subjective Patient Comments Patient Comments Pt hoping to get referral from doctor to include R shoulder to therapy session. PT-OP-G Mobility & Gait Start: 08/08/17 17:50 Freq: Status: Active Protocol: Document 08/08/17 18:15 DLM (Rec: 08/08/17 18:18 DLM [id number]) OP Mobility Evaluation Transfers Bed to Chair Transfers transfers on/off the lift chair at the pool with SBA, needs assistance for her feet getting into the pool Functional Movements Other Functional Movements using the lift chair to get in /out of the pool OP Gait Assessment Gait Gait Assistance Required: Standby Assistance Distance (Feet) (feet) 50 Assistive Devices Assistive Device 4 Wheeled Walker Factors Limiting Gait Function Factors Limiting Gait Function Decreased Activity Tolerance Decreased Strength Pain Poor Balance PT-OP-J Posture/Palpation/Skin Start: 08/08/17 18:18 Freq: Status: Active Protocol: Document 08/08/17 18:18 DLM (Rec: 08/08/17 18:20 DLM [id number]) Posture Evaluation Comments Posture Comments Pt able to achieve erect posture in pool in deep water but still flexed on land with 4WW, she tolerates hanging in the deep water with erect posture well. Pt reports improved ability to use core stabalization while in the pool. PT-OP-M Strength Start: 08/08/17 17:50 Freq: Status: Active Protocol: Document 08/08/17 18:18 DLM (Rec: 08/08/17 18:31 DLM [email or web address]) Hip Strength Hip Manual Muscle Testing Right Flexion (L2) 2+ Poor+ Left Flexion (L2) 2+ Poor+ PT-OP-S Aquatic Treatment Start: 06/20/17 16:27 Freq: Status: Active Protocol: Document 08/29/17 11:30 CLB (Rec: 08/29/17 15:49 CLB [email or web address]) Aquatics Treatment Pool Entry/Exit Pool Entry/Exit Method Lift Assistance Standby Assistance Water Walking Backwards Water Level Chest Level Walking Equipment Resistance Fins Level of Assistance Standby Assistance Comments With quick changes of directions; Fwd/Bk, side<>side Sideways Water Level Chest Level Walking Equipment Resistance Fins Level of Assistance Standby Assistance Forwards Water Level Chest Level Walking Equipment Resistance Fins Level of Assistance Standby Assistance Lower Extremity Exercises 1 Details Hip flex/ext, abd/add, circles Body Position Standing Water Level Chest Level Equipment Resistance Fins Reps/Duration x 15 Step ups Details 4 inch boxes Body Position Standing Water Level Chest Level Upper Extremity Exercises 1 Details shoulder rolls Body Position Standing Water Level Neck Level Reps/Duration 10 Comments forward and backward circles Upper Extremity Stretches 1 Details shoulder, neck, scap Body Position Standing Water Level Neck Level Reps/Duration 30 sec each [place] Activities [place] Activities Bicycle [place] Hip Abduction/Adduction Sit Kicks Equipment large [place] floats, small resistance fins Duration 20 minutes Comments Internals not performed this visit PT-OP-T Assessment and Plan Start: 06/20/17 16:27 Freq: Status: Active Protocol: Document 08/29/17 11:30 CLB (Rec: 08/29/17 15:49 CLB [email or web address]) Physical Therapy Assessment Assessment Summary Assessment Pt had fewer complaints of shoulder and knee pain. Pt was able to perform all aquatic exercises without increase in pain. Physical Therapy Plan Frequency and Duration Frequency of Treatment 1x/Week Duration of Treatment 3 more months Plan of Care Start Date 08/08/17 Therapeutic Interventions Therapeutic Interventions Aquatic Therapy Balance Training Gait Training Home Exercise Program Neuromuscular Re-education Patient/Caregiver Education Therapeutic Activities Therapeutic Exercises Next Visit Focus/Plan Next Note Type Treatment Note Next Visit Plan Continue to progress endurance , strength, decrease pain.
--- NOTE | 2017-09-12 12:15 | PT.OTN ---
Current Diagnoses Low back pain (09/12/17) Difficulty in walking, not elsewhere classified (09/12/17) Weakness (09/12/17) Presence of right artificial knee joint (09/12/17) Physical Therapy Treatment Note PT-OP-A Visit Information Start: 06/20/17 16:27 Freq: Status: Active Protocol: Document 09/12/17 12:15 TMS (Rec: 09/12/17 16:06 TMS [email or web address]) Out-Patient Physical Therapy Visit Information Visit Information Visit Type Treatment Note Visit Start Time 11:30 Visit Stop Time 12:15 Total Visit Minutes 45 Visit Number 16 Number of ADJUSTER AND INSPECTOR Visits 4 PT-OP-B Current Condition Start: 08/08/17 17:50 Freq: Status: Active Protocol: Document 08/08/17 18:12 DLM (Rec: 08/08/17 18:15 DLM [id number]) Current Condition Current Functional Impairments (Reported) Functional Limitations- ADL's has assistance with her showers, she was doing better with her carlotta-care during toileting until the increased left shoulder pain, pt is using adaptive equipment to help with carlotta-care. Functional Limitations- Mobility/Gait She has upped the height of her 4WW and stand more erect, only ambulating short distances at home with pain limiting her Personal Factors Other Personal Factors That May Effect limited sleep at night due to Therapy/Recovery stress, only sleeping a couple of hours at a time PT-OP-C Subjective Start: 06/20/17 16:27 Freq: Status: Active Protocol: Document 09/12/17 12:15 TMS (Rec: 09/12/17 16:06 TMS [email or web address]) OP-PT Subjective Patient Comments Patient Comments Pt. states left shoulder is still painful, no other changes. PT-OP-G Mobility & Gait Start: 08/08/17 17:50 Freq: Status: Active Protocol: Document 08/08/17 18:15 DLM (Rec: 08/08/17 18:18 DLM [id number]) OP Mobility Evaluation Transfers Bed to Chair Transfers transfers on/off the lift chair at the pool with SBA, needs assistance for her feet getting into the pool Functional Movements Other Functional Movements using the lift chair to get in /out of the pool OP Gait Assessment Gait Gait Assistance Required: Standby Assistance Distance (Feet) (feet) 50 Assistive Devices Assistive Device 4 Wheeled Walker Factors Limiting Gait Function Factors Limiting Gait Function Decreased Activity Tolerance Decreased Strength Pain Poor Balance PT-OP-J Posture/Palpation/Skin Start: 08/08/17 18:18 Freq: Status: Active Protocol: Document 08/08/17 18:18 DLM (Rec: 08/08/17 18:20 DLM [id number]) Posture Evaluation Comments Posture Comments Pt able to achieve erect posture in pool in deep water but still flexed on land with 4WW, she tolerates hanging in the deep water with erect posture well. Pt reports improved ability to use core stabalization while in the pool. PT-OP-M Strength Start: 08/08/17 17:50 Freq: Status: Active Protocol: Document 08/08/17 18:18 DLM (Rec: 08/08/17 18:31 DLM [email or web address]) Hip Strength Hip Manual Muscle Testing Right Flexion (L2) 2+ Poor+ Left Flexion (L2) 2+ Poor+ PT-OP-S Aquatic Treatment Start: 06/20/17 16:27 Freq: Status: Active Protocol: Document 09/12/17 12:15 TMS (Rec: 09/12/17 16:06 TMS [email or web address]) Aquatics Treatment Pool Entry/Exit Pool Entry/Exit Method Lift Assistance Standby Assistance Water Walking Forwards Water Level Chest Level Level of Assistance Standby Assistance Comments Pt. requested not to use fins today. Lower Extremity Exercises 1 Details Hip flex/ext, abd/add, circles Body Position Standing Water Level Chest Level Reps/Duration x 15 Comments Pt. requested not to use fins with exercises today. Step ups Details 4 inch boxes Body Position Standing Water Level Chest Level [place] Activities [place] Activities Bicycle Cross [place] Hip Abduction/Adduction Sit Kicks Equipment large [place] float on right arm, small [place] float on right. Duration 20 minutes Comments Intervals of 30/30 x 4 per movement. PT-OP-T Assessment and Plan Start: 06/20/17 16:27 Freq: Status: Active Protocol: Document 09/12/17 12:15 TMS (Rec: 09/12/17 16:06 TMS [email or web address]) Physical Therapy Assessment Assessment Summary Assessment Better balance on step ups with less complaints of pain. Did complain of numbess in righ [place], states sometimes goes to foot. Physical Therapy Plan Frequency and Duration Frequency of Treatment 1x/Week Duration of Treatment 3 more months Plan of Care Start Date 08/08/17 Plan of Care End Date 11/08/17 Next Visit Focus/Plan Next Note Type Treatment Note Next Visit Plan Continue to progress endurance , strength, decrease pain.
[2017-10-06 03:59] VITALS: BMI 67.8
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
--- NOTE | 2017-11-07 14:43 | PT.OTN ---
Current Diagnoses Low back pain (11/07/17) Difficulty in walking, not elsewhere classified (11/07/17) Weakness (11/07/17) Presence of right artificial knee joint (11/07/17) Physical Therapy Treatment Note PT-OP-A Visit Information Start: 06/20/17 16:27 Freq: Status: Active Protocol: Document 11/07/17 11:00 CLB (Rec: 11/07/17 14:43 CLB [email or web address]) Out-Patient Physical Therapy Visit Information Visit Information Visit Type Treatment Note Visit Start Time 11:00 Visit Stop Time 11:45 Total Visit Minutes 45 Visit Number 18 Number of SANITATION INSPECTOR Visits 1 PT-OP-B Current Condition Start: 08/08/17 17:50 Freq: Status: Active Protocol: Document 08/08/17 18:12 DLM (Rec: 08/08/17 18:15 DLM [id number]) Current Condition Current Functional Impairments (Reported) Functional Limitations- ADL's has assistance with her showers, she was doing better with her carlotta-care during toileting until the increased left shoulder pain, pt is using adaptive equipment to help with carlotta-care. Functional Limitations- Mobility/Gait She has upped the height of her 4WW and stand more erect, only ambulating short distances at home with pain limiting her Personal Factors Other Personal Factors That May Effect limited sleep at night due to Therapy/Recovery stress, only sleeping a couple of hours at a time PT-OP-C Subjective Start: 06/20/17 16:27 Freq: Status: Active Protocol: Document 11/07/17 11:00 CLB (Rec: 11/07/17 14:43 CLB [email or web address]) OP-PT Subjective Patient Comments Patient Comments Pt c/o left shoulder pain and decreased ROM. Pt is now seeing OT and PT with HH. PT-OP-G Mobility & Gait Start: 08/08/17 17:50 Freq: Status: Active Protocol: Document 08/08/17 18:15 DLM (Rec: 08/08/17 18:18 DLM [id number]) OP Mobility Evaluation Transfers Bed to Chair Transfers transfers on/off the lift chair at the pool with SBA, needs assistance for her feet getting into the pool Functional Movements Other Functional Movements using the lift chair to get in /out of the pool OP Gait Assessment Gait Gait Assistance Required: Standby Assistance Distance (Feet) 50 Assistive Devices Assistive Device 4 Wheeled Walker Factors Limiting Gait Function Factors Limiting Gait Function Decreased Activity Tolerance Decreased Strength Pain Poor Balance PT-OP-J Posture/Palpation/Skin Start: 08/08/17 18:18 Freq: Status: Active Protocol: Document 08/08/17 18:18 DLM (Rec: 08/08/17 18:20 DLM [id number]) Posture Evaluation Comments Posture Comments Pt able to achieve erect posture in pool in deep water but still flexed on land with 4WW, she tolerates hanging in the deep water with erect posture well. Pt reports improved ability to use core stabalization while in the pool. PT-OP-K Range of Motion Start: 08/08/17 17:50 Freq: Status: Active Protocol: Document 10/24/17 16:56 SAK (Rec: 10/24/17 17:11 SAK [id number]) Shoulder Goniometric Range of Motion Shoulder Measured in Degrees Left Active Shoulder ROM WFL No Flexion 92 Extension 0 Abduction 78 External Rotation at 0 degrees Abduction 25 Internal Rotation Behind Back (text) to side of hip Right Active Shoulder ROM WFL Yes Shoulder ROM Limitations Shoulder ROM Limitations Pain PT-OP-M Strength Start: 08/08/17 17:50 Freq: Status: Active Protocol: Document 08/08/17 18:18 DLM (Rec: 08/08/17 18:31 DLM [email or web address]) Hip Strength Hip Manual Muscle Testing Right Flexion (L2) 2+ Poor+ Left Flexion (L2) 2+ Poor+ PT-OP-S Aquatic Treatment Start: 06/20/17 16:27 Freq: Status: Active Protocol: Document 11/07/17 11:00 CLB (Rec: 11/07/17 14:43 CLB [email or web address]) Aquatics Treatment Water Walking Backwards Water Level Chest Level Walking Equipment Resistance Fins Level of Assistance Standby Assistance Comments With quick changes of directions; Fwd/Bk, side<>side Sideways Water Level Chest Level Walking Equipment Resistance Fins Level of Assistance Standby Assistance Forwards Water Level Chest Level Walking Equipment Resistance Fins Level of Assistance Standby Assistance Lower Extremity Exercises 1 Details Hip flex/ext, abd/add, circles Body Position Standing Water Level Chest Level Reps/Duration x 15 Upper Extremity Exercises 2 Details shoulder hor ab/ad, flex/ext, elbow flex/ext Reps/Duration 10x 1 Details shoulder rolls Body Position Standing Water Level Neck Level Reps/Duration 10 Comments forward and backward circles Upper Extremity Stretches 1 Details shoulder, neck, scap Body Position Standing Water Level Neck Level Reps/Duration 30 sec each [place] Activities [place] Activities Bicycle Cross [place] Hip Abduction/Adduction Sit Kicks Equipment small resistance fins Duration 20 minutes PT-OP-T Assessment and Plan Start: 06/20/17 16:27 Freq: Status: Active Protocol: Document 11/07/17 11:00 CLB (Rec: 11/07/17 14:43 CLB [email or web address]) Physical Therapy Assessment Goals Seven Impairment ROM Nursing Home Goal (LTG) Patient able to reach overhead and behind her back with left UE for purposes of ADL's. Six Impairment left shoulder pain Experience Specialist Goal (LTG) Patient to report at least a 50% decrease in left shoulder pain LTG Duration 3 months Five Impairment Limited gait tolerance, 2 min Walk test- 50 feet Nursing Home Goal (LTG) 2 min Walk Test- 200 feet- pain still limits her distance LTG Duration 3 months Four Impairment Decreased strength Nursing Home Goal (LTG) Improve hip strength to greater than anti-gravity for functional mobility independence and tolerance- slowly progressing LTG Duration 3 months Three Impairment Moderate decrease in spinal ROM with c/o increased pain Experience Specialist Goal (LTG) Improve spinal ROM to WNL with minimal pain, pt able to attain neutral spine and demonstrate good spinal stabalization and postural awareness- slowly progressing LTG Duration 3 months Two Impairment Moderate assist needed Short Term Goal (STG) Minimal assist with ADL's STG Duration 2 months Experience Specialist Goal (LTG) Independent with ADL's with mild symptoms LTG Duration 3 months One Impairment Use of 4WW for gait, short distances with severe forward flexed posture Short Term Goal (STG) Able to stand with minimal forward flexion using 4WW STG Duration 1 month Nursing Home Goal (LTG) Tolerate gait in the house and short community distances wtih minimal increase in pain with least restrictive device- slowly progressing LTG Duration 3 months Assessment Summary Assessment Pt continues to have decrease in functional status due to pain in LE's although pt felt the swelling in her LE's is better due to her OT lymphodema therapy. Pt having increased pain and decreased ROM in Left shoulder. Physical Therapy Plan Frequency and Duration Frequency of Treatment 1x/Week Duration of Treatment 3 more months Plan of Care End Date 11/08/17 Next Visit Focus/Plan Next Note Type Treatment Note Next Visit Plan PT for ROM, strengthening, pain managment, gait.
--- NOTE | 2017-11-09 15:01 | PT.OPPOC ---
Current Diagnoses Low back pain (11/07/17) Difficulty in walking, not elsewhere classified (11/07/17) Weakness (11/07/17) Presence of right artificial knee joint (11/07/17) Provider Visit Care Team Role Provider Type Galilea Johnson DO Attending Provider Physician Family Provider Primary Care Provider Specialty: Family Practice Address: [address] [place] [address], [employer] Email: [email or web address] Plan Of Care PT-OP-T Assessment and Plan Start: 06/20/17 16:27 Freq: Status: Active Protocol: Document 11/07/17 14:30 SAK (Rec: 11/09/17 15:00 SAK [id number]) Physical Therapy Assessment Goals Seven Impairment ROM Diet Aide Goal (LTG) Patient able to reach overhead and behind her back with left UE for purposes of ADL's. Six Impairment left shoulder pain Snf Goal (LTG) Patient to report at least a 50% decrease in left shoulder pain LTG Duration 3 months Five Impairment Limited gait tolerance, 2 min Walk test- 50 feet Snf Goal (LTG) 2 min Walk Test- 200 feet- pain still limits her distance LTG Duration 3 months Four Impairment Decreased strength Diet Aide Goal (LTG) Improve hip strength to greater than anti-gravity for functional mobility independence and tolerance- slowly progressing LTG Duration 3 months Three Impairment Moderate decrease in spinal ROM with c/o increased pain Snf Goal (LTG) Improve spinal ROM to WNL with minimal pain, pt able to attain neutral spine and demonstrate good spinal stabalization and postural awareness- slowly progressing LTG Duration 3 months Two Impairment Moderate assist needed Short Term Goal (STG) Minimal assist with ADL's STG Duration 2 months Snf Goal (LTG) Independent with ADL's with mild symptoms LTG Duration 3 months One Impairment Use of 4WW for gait, short distances with severe forward flexed posture Short Term Goal (STG) Able to stand with minimal forward flexion using 4WW STG Duration 1 month Diet Aide Goal (LTG) Tolerate gait in the house and short community distances wtih minimal increase in pain with least restrictive device- slowly progressing LTG Duration 3 months Assessment Summary Assessment Pt continues to have decrease in functional status due to pain in LE's although pt felt the swelling in her LE's is better due to her OT lymphodema therapy. Pt having increased pain and decreased ROM in Left shoulder. Best movement and pain relief achieved with aquatic therapy. Recommend continued aquatic PT. Physical Therapy Plan Frequency and Duration Frequency of Treatment 1x/Week Duration of Treatment 3 more months Plan of Care Start Date 11/07/17 Plan of Care End Date 02/06/18 Therapeutic Interventions Therapeutic Interventions Aquatic Therapy Next Visit Focus/Plan Next Note Type Treatment Note Next Visit Plan Continue PT per POC Plan of Care Dates Plan of Care Start Date 11/07/17 Plan of Care End Date 02/06/18 Please Sign and Return: I have reviewed this Plan of Care and certify that the skilled therapy services above are required to meet the patient?s needs. Physician Signature Date Printed Name and Credentials Clinical Instructor Signature Printed Name and Credentials
--- NOTE | 2017-11-09 15:01 | PT.OTRE ---
Current Diagnoses Low back pain (11/07/17) Difficulty in walking, not elsewhere classified (11/07/17) Weakness (11/07/17) Presence of right artificial knee joint (11/07/17) Past Medical History (Last Reviewed 10/19/17 @ 12:44 by Galilea Johnson DO) Osteoarthritis of lumbar spine (Chronic) Essential hypertension (Chronic 03/15/16) Type 2 diabetes mellitus without complication, without long-term current use of insulin (Chronic 04/14/16) Morbid obesity with body mass index (BMI) of 60.0 to 69.9 in adult (Chronic 04/14/16) Chronic venous stasis dermatitis (Chronic 05/18/16) Tubular adenoma of colon (Resolved 08/27/16) Hemorrhoids (Chronic 11/15/16) Visual field defect of left eye (Chronic 12/15/16) Frequent UTI (Chronic) History of Telugu measles (Resolved ~1964) History of chickenpox (Resolved 1964) History of measles (Resolved ~1962) History of mumps (Resolved 1957) Surgical History (Last Reviewed 10/19/17 @ 12:44 by Galilea Johnson DO) Anesthesia (Resolved) S/P total abdominal hysterectomy and bilateral salpingo-oophorectomy (Resolved 12/2009) Status post hernia repair (Resolved 12/2010) Status post knee surgery (Resolved 10/2009) Status post knee surgery (Resolved 11/2009) Provider Visit Care Team Role Provider Type Galilea Johnson DO Attending Provider Physician Family Provider Primary Care Provider Specialty: Family Practice Address: [address] [place] [address] Email: [email or web address] Physical Therapy Re-Evaluation PT-OP-A Visit Information Start: 06/20/17 16:27 Freq: Status: Active Protocol: Document 11/07/17 11:00 CLB (Rec: 11/07/17 14:43 CLB [email or web address]) Out-Patient Physical Therapy Visit Information Visit Information Visit Type Treatment Note Visit Start Time 11:00 Visit Stop Time 11:45 Total Visit Minutes 45 Visit Number 18 Number of AIR BRUSH ARTIST Visits 1 PT-OP-B Current Condition Start: 08/08/17 17:50 Freq: Status: Active Protocol: Document 08/08/17 18:12 DLM (Rec: 08/08/17 18:15 DLM [id number]) Current Condition Current Functional Impairments (Reported) Functional Limitations- ADL's has assistance with her showers, she was doing better with her carlotta-care during toileting until the increased left shoulder pain, pt is using adaptive equipment to help with carlotta-care. Functional Limitations- Mobility/Gait She has upped the height of her 4WW and stand more erect, only ambulating short distances at home with pain limiting her Personal Factors Other Personal Factors That May Effect limited sleep at night due to Therapy/Recovery stress, only sleeping a couple of hours at a time PT-OP-C Subjective Start: 06/20/17 16:27 Freq: Status: Active Protocol: Document 11/07/17 14:30 SAK (Rec: 11/09/17 15:00 SAK [id number]) OP-PT Subjective Patient Comments Patient Comments Pt c/o left shoulder pain and decreased ROM. Pt is now seeing OT and PT with HH. PT-OP-G Mobility & Gait Start: 08/08/17 17:50 Freq: Status: Active Protocol: Document 08/08/17 18:15 DLM (Rec: 08/08/17 18:18 DLM [id number]) OP Mobility Evaluation Transfers Bed to Chair Transfers transfers on/off the lift chair at the pool with SBA, needs assistance for her feet getting into the pool Functional Movements Other Functional Movements using the lift chair to get in /out of the pool OP Gait Assessment Gait Gait Assistance Required: Standby Assistance Distance (Feet) 50 Assistive Devices Assistive Device 4 Wheeled Walker Factors Limiting Gait Function Factors Limiting Gait Function Decreased Activity Tolerance Decreased Strength Pain Poor Balance PT-OP-J Posture/Palpation/Skin Start: 08/08/17 18:18 Freq: Status: Active Protocol: Document 08/08/17 18:18 DLM (Rec: 08/08/17 18:20 DLM [id number]) Posture Evaluation Comments Posture Comments Pt able to achieve erect posture in pool in deep water but still flexed on land with 4WW, she tolerates hanging in the deep water with erect posture well. Pt reports improved ability to use core stabalization while in the pool. PT-OP-K Range of Motion Start: 08/08/17 17:50 Freq: Status: Active Protocol: Document 10/24/17 16:56 SAK (Rec: 10/24/17 17:11 SAK [id number]) Shoulder Goniometric Range of Motion Shoulder Measured in Degrees Left Active Shoulder ROM WFL No Flexion 92 Extension 0 Abduction 78 External Rotation at 0 degrees Abduction 25 Internal Rotation Behind Back (text) to side of hip Right Active Shoulder ROM WFL Yes Shoulder ROM Limitations Shoulder ROM Limitations Pain PT-OP-M Strength Start: 08/08/17 17:50 Freq: Status: Active Protocol: Document 08/08/17 18:18 DLM (Rec: 08/08/17 18:31 DLM [email or web address]) Hip Strength Hip Manual Muscle Testing Right Flexion (L2) 2+ Poor+ Left Flexion (L2) 2+ Poor+ PT-OP-T Assessment and Plan Start: 06/20/17 16:27 Freq: Status: Active Protocol: Document 11/07/17 14:30 SAK (Rec: 11/09/17 15:00 SAK [id number]) Physical Therapy Assessment Goals Seven Impairment ROM Ironer Hand Goal (LTG) Patient able to reach overhead and behind her back with left UE for purposes of ADL's. Six Impairment left shoulder pain Ironer Hand Goal (LTG) Patient to report at least a 50% decrease in left shoulder pain LTG Duration 3 months Five Impairment Limited gait tolerance, 2 min Walk test- 50 feet Long-Term Goal (LTG) 2 min Walk Test- 200 feet- pain still limits her distance LTG Duration 3 months Four Impairment Decreased strength Long-Term Goal (LTG) Improve hip strength to greater than anti-gravity for functional mobility independence and tolerance- slowly progressing LTG Duration 3 months Three Impairment Moderate decrease in spinal ROM with c/o increased pain Ironer Hand Goal (LTG) Improve spinal ROM to WNL with minimal pain, pt able to attain neutral spine and demonstrate good spinal stabalization and postural awareness- slowly progressing LTG Duration 3 months Two Impairment Moderate assist needed Short Term Goal (STG) Minimal assist with ADL's STG Duration 2 months Ironer Hand Goal (LTG) Independent with ADL's with mild symptoms LTG Duration 3 months One Impairment Use of 4WW for gait, short distances with severe forward flexed posture Short Term Goal (STG) Able to stand with minimal forward flexion using 4WW STG Duration 1 month Long-Term Goal (LTG) Tolerate gait in the house and short community distances wtih minimal increase in pain with least restrictive device- slowly progressing LTG Duration 3 months Assessment Summary Assessment Pt continues to have decrease in functional status due to pain in LE's although pt felt the swelling in her LE's is better due to her OT lymphodema therapy. Pt having increased pain and decreased ROM in Left shoulder. Best movement and pain relief achieved with aquatic therapy. Recommend continued aquatic PT. Physical Therapy Plan Frequency and Duration Frequency of Treatment 1x/Week Duration of Treatment 3 more months Plan of Care Start Date 11/07/17 Plan of Care End Date 02/06/18 Therapeutic Interventions Therapeutic Interventions Aquatic Therapy Next Visit Focus/Plan Next Note Type Treatment Note Next Visit Plan Continue PT per POC
--- NOTE | 2017-11-21 14:51 | PT.OTN ---
Current Diagnoses Low back pain (11/07/17) Difficulty in walking, not elsewhere classified (11/07/17) Weakness (11/07/17) Presence of right artificial knee joint (11/07/17) Physical Therapy Treatment Note PT-OP-A Visit Information Start: 06/20/17 16:27 Freq: Status: Active Protocol: Document 11/21/17 11:00 CLB (Rec: 11/21/17 14:51 CLB [id number]) Out-Patient Physical Therapy Visit Information Visit Information Visit Type Treatment Note Visit Number 19 Number of PRIMARY MONTESSOR[place] TEACHER Visits 2 PT-OP-B Current Condition Start: 08/08/17 17:50 Freq: Status: Active Protocol: Document 08/08/17 18:12 DLM (Rec: 08/08/17 18:15 DLM [id number]) Current Condition Current Functional Impairments (Reported) Functional Limitations- ADL's has assistance with her showers, she was doing better with her carlotta-care during toileting until the increased left shoulder pain, pt is using adaptive equipment to help with carlotta-care. Functional Limitations- Mobility/Gait She has upped the height of her 4WW and stand more erect, only ambulating short distances at home with pain limiting her Personal Factors Other Personal Factors That May Effect limited sleep at night due to Therapy/Recovery stress, only sleeping a couple of hours at a time PT-OP-C Subjective Start: 06/20/17 16:27 Freq: Status: Active Protocol: Document 11/21/17 11:00 CLB (Rec: 11/21/17 14:51 CLB [email or web address]) OP-PT Subjective Patient Comments Patient Comments Pt with increase in shoulder ROM with UE ther ex. Pt will continue to see OT and PT with HH services. PT-OP-G Mobility & Gait Start: 08/08/17 17:50 Freq: Status: Active Protocol: Document 08/08/17 18:15 DLM (Rec: 08/08/17 18:18 DLM [id number]) OP Mobility Evaluation Transfers Bed to Chair Transfers transfers on/off the lift chair at the pool with SBA, needs assistance for her feet getting into the pool Functional Movements Other Functional Movements using the lift chair to get in /out of the pool OP Gait Assessment Gait Gait Assistance Required: Standby Assistance Distance (Feet) 50 Assistive Devices Assistive Device 4 Wheeled Walker Factors Limiting Gait Function Factors Limiting Gait Function Decreased Activity Tolerance Decreased Strength Pain Poor Balance PT-OP-J Posture/Palpation/Skin Start: 08/08/17 18:18 Freq: Status: Active Protocol: Document 08/08/17 18:18 DLM (Rec: 08/08/17 18:20 DLM [id number]) Posture Evaluation Comments Posture Comments Pt able to achieve erect posture in pool in deep water but still flexed on land with 4WW, she tolerates hanging in the deep water with erect posture well. Pt reports improved ability to use core stabalization while in the pool. PT-OP-K Range of Motion Start: 08/08/17 17:50 Freq: Status: Active Protocol: Document 10/24/17 16:56 SAK (Rec: 10/24/17 17:11 SAK [id number]) Shoulder Goniometric Range of Motion Shoulder Measured in Degrees Left Active Shoulder ROM WFL No Flexion 92 Extension 0 Abduction 78 External Rotation at 0 degrees Abduction 25 Internal Rotation Behind Back (text) to side of hip Right Active Shoulder ROM WFL Yes Shoulder ROM Limitations Shoulder ROM Limitations Pain PT-OP-M Strength Start: 08/08/17 17:50 Freq: Status: Active Protocol: Document 08/08/17 18:18 DLM (Rec: 08/08/17 18:31 DLM [email or web address]) Hip Strength Hip Manual Muscle Testing Right Flexion (L2) 2+ Poor+ Left Flexion (L2) 2+ Poor+ PT-OP-S Aquatic Treatment Start: 06/20/17 16:27 Freq: Status: Active Protocol: Document 11/21/17 11:00 CLB (Rec: 11/21/17 14:51 CLB [id number]) Aquatics Treatment Lower Extremity Exercises 1 Details Hip flex/ext, abd/add, circles Body Position Standing Water Level Chest Level Reps/Duration x 15 Upper Extremity Exercises 2 Details shoulder hor ab/ad, flex/ext, elbow flex/ext Equipment UE paddles Reps/Duration 10x 1 Equipment UE paddles [place] Activities [place] Activities Bicycle [place] Hip Abduction/Adduction Sit Kicks Equipment small resistance fins Duration 20 minutes Manual Techniques Aquatic Massage left UT, rhomboids, levator scap, biceps PT-OP-T Assessment and Plan Start: 05/07/18 16:27 Freq: Status: Active Protocol: Document 11/21/17 11:00 CLB (Rec: 11/21/17 14:51 CLB [email or web address]) Physical Therapy Assessment Goals Seven Impairment ROM [facility] Goal (LTG) Patient able to reach overhead and behind her back with left UE for purposes of ADL's. Six Impairment left shoulder pain Boiler/Chiller Technician Goal (LTG) Patient to report at least a 50% decrease in left shoulder pain LTG Duration 3 months Five Impairment Limited gait tolerance, 2 min Walk test- 50 feet [facility] Goal (LTG) 2 min Walk Test- 200 feet- pain still limits her distance LTG Duration 3 months Four Impairment Decreased strength Boiler/Chiller Technician Goal (LTG) Improve hip strength to greater than anti-gravity for functional mobility independence and tolerance- slowly progressing LTG Duration 3 months Three Impairment Moderate decrease in spinal ROM with c/o increased pain Boiler/Chiller Technician Goal (LTG) Improve spinal ROM to WNL with minimal pain, pt able to attain neutral spine and demonstrate good spinal stabalization and postural awareness- slowly progressing LTG Duration 3 months Two Impairment Moderate assist needed Short Term Goal (STG) Minimal assist with ADL's STG Duration 2 months Boiler/Chiller Technician Goal (LTG) Independent with ADL's with mild symptoms LTG Duration 3 months One Impairment Use of 4WW for gait, short distances with severe forward flexed posture Short Term Goal (STG) Able to stand with minimal forward flexion using 4WW STG Duration 1 month [facility] Goal (LTG) Tolerate gait in the house and short community distances wtih minimal increase in pain with least restrictive device- slowly progressing LTG Duration 3 months Assessment Summary Assessment Pt with increase ROM in shoulder with ther ex. Pt able to tolerate increased resistance during shoulder horizontal abd/add, flx/ext. Physical Therapy Plan Frequency and Duration Frequency of Treatment 1x/Week Duration of Treatment 3 more months Plan of Care Start Date 11/07/17 Plan of Care End Date 02/06/18 Next Visit Focus/Plan Next Note Type Treatment Note Next Visit Plan Continue PT per POC
--- NOTE | 2017-12-05 14:51 | PT.OTN ---
Current Diagnoses Low back pain (12/05/17) Difficulty in walking, not elsewhere classified (12/05/17) Weakness (12/05/17) Presence of right artificial knee joint (12/05/17) Physical Therapy Treatment Note PT-OP-A Visit Information Start: 06/20/17 16:27 Freq: Status: Active Protocol: Document 12/05/17 11:00 CLB (Rec: 12/05/17 14:51 CLB [id number]) Out-Patient Physical Therapy Visit Information Visit Information Visit Type Treatment Note Visit Start Time 11:00 Visit Stop Time 11:45 Total Visit Minutes 45 Visit Number 20 Number of HATCH BOSS Visits 3 PT-OP-B Current Condition Start: 08/08/17 17:50 Freq: Status: Active Protocol: Document 08/08/17 18:12 DLM (Rec: 08/08/17 18:15 DLM [id number]) Current Condition Current Functional Impairments (Reported) Functional Limitations- ADL's has assistance with her showers, she was doing better with her carlotta-care during toileting until the increased left shoulder pain, pt is using adaptive equipment to help with carlotta-care. Functional Limitations- Mobility/Gait She has upped the height of her 4WW and stand more erect, only ambulating short distances at home with pain limiting her Personal Factors Other Personal Factors That May Effect limited sleep at night due to Therapy/Recovery stress, only sleeping a couple of hours at a time PT-OP-C Subjective Start: 06/20/17 16:27 Freq: Status: Active Protocol: Document 12/05/17 11:00 CLB (Rec: 12/05/17 14:51 CLB [id number]) OP-PT Subjective Patient Comments Patient Comments Pt c/o R shoulder pain. PT-OP-G Mobility & Gait Start: 08/08/17 17:50 Freq: Status: Active Protocol: Document 08/08/17 18:15 DLM (Rec: 08/08/17 18:18 DLM [id number]) OP Mobility Evaluation Transfers Bed to Chair Transfers transfers on/off the lift chair at the pool with SBA, needs assistance for her feet getting into the pool Functional Movements Other Functional Movements using the lift chair to get in /out of the pool OP Gait Assessment Gait Gait Assistance Required: Standby Assistance Distance (Feet) 50 Assistive Devices Assistive Device 4 Wheeled Walker Factors Limiting Gait Function Factors Limiting Gait Function Decreased Activity Tolerance Decreased Strength Pain Poor Balance PT-OP-J Posture/Palpation/Skin Start: 08/08/17 18:18 Freq: Status: Active Protocol: Document 08/08/17 18:18 DLM (Rec: 08/08/17 18:20 DLM [id number]) Posture Evaluation Comments Posture Comments Pt able to achieve erect posture in pool in deep water but still flexed on land with 4WW, she tolerates hanging in the deep water with erect posture well. Pt reports improved ability to use core stabalization while in the pool. PT-OP-K Range of Motion Start: 08/08/17 17:50 Freq: Status: Active Protocol: Document 10/24/17 16:56 SAK (Rec: 10/24/17 17:11 SAK [id number]) Shoulder Goniometric Range of Motion Shoulder Measured in Degrees Left Active Shoulder ROM WFL No Flexion 92 Extension 0 Abduction 78 External Rotation at 0 degrees Abduction 25 Internal Rotation Behind Back (text) to side of hip Right Active Shoulder ROM WFL Yes Shoulder ROM Limitations Shoulder ROM Limitations Pain PT-OP-M Strength Start: 08/08/17 17:50 Freq: Status: Active Protocol: Document 08/08/17 18:18 DLM (Rec: 08/08/17 18:31 DLM [id number]) Hip Strength Hip Manual Muscle Testing Right Flexion (L2) 2+ Poor+ Left Flexion (L2) 2+ Poor+ PT-OP-S Aquatic Treatment Start: 06/20/17 16:27 Freq: Status: Active Protocol: Document 12/05/17 11:00 CLB (Rec: 12/05/17 14:51 CLB [id number]) Aquatics Treatment Lower Extremity Exercises 1 Details Hip flex/ext, abd/add, circles Body Position Standing Water Level Chest Level Equipment sm green fins Reps/Duration x 15 Step ups Details 6 inch boxes Body Position Standing Water Level Chest Level [place] Activities [place] Activities Bicycle Cross Country Hip Abduction/Adduction Sit Kicks Equipment small resistance fins Duration 20 minutes Manual Techniques Aquatic Massage left UT, rhomboids, levator scap, biceps PT-OP-T Assessment and Plan Start: 06/20/17 16:27 Freq: Status: Active Protocol: Document 12/05/17 11:00 CLB (Rec: 12/05/17 14:51 CLB [email or web address]) Physical Therapy Assessment Goals Seven Impairment ROM Chcf Goal (LTG) Patient able to reach overhead and behind her back with left UE for purposes of ADL's. Six Impairment left shoulder pain Chcf Goal (LTG) Patient to report at least a 50% decrease in left shoulder pain LTG Duration 3 months Five Impairment Limited gait tolerance, 2 min Walk test- 50 feet Contact Lens Fitter Goal (LTG) 2 min Walk Test- 200 feet- pain still limits her distance LTG Duration 3 months Four Impairment Decreased strength Contact Lens Fitter Goal (LTG) Improve hip strength to greater than anti-gravity for functional mobility independence and tolerance- slowly progressing LTG Duration 3 months Three Impairment Moderate decrease in spinal ROM with c/o increased pain Contact Lens Fitter Goal (LTG) Improve spinal ROM to WNL with minimal pain, pt able to attain neutral spine and demonstrate good spinal stabalization and postural awareness- slowly progressing LTG Duration 3 months Two Impairment Moderate assist needed Short Term Goal (STG) Minimal assist with ADL's STG Duration 2 months Contact Lens Fitter Goal (LTG) Independent with ADL's with mild symptoms LTG Duration 3 months One Impairment Use of 4WW for gait, short distances with severe forward flexed posture Short Term Goal (STG) Able to stand with minimal forward flexion using 4WW STG Duration 1 month Contact Lens Fitter Goal (LTG) Tolerate gait in the house and short community distances wtih minimal increase in pain with least restrictive device- slowly progressing LTG Duration 3 months Assessment Summary Assessment Pt with decreased funtional status of LE's due to pain but tolerates aquatic therapy well allowing for pt to exercise with decreased pain and upright posture.
--- NOTE | 2017-12-12 15:10 | PT.OTN ---
Current Diagnoses Low back pain (12/12/17) Difficulty in walking, not elsewhere classified (12/12/17) Weakness (12/12/17) Presence of right artificial knee joint (12/12/17) Physical Therapy Treatment Note PT-OP-A Visit Information Start: 06/20/17 16:27 Freq: Status: Active Protocol: Document 12/12/17 11:00 CLB (Rec: 12/12/17 15:10 CLB [id number]) Out-Patient Physical Therapy Visit Information Visit Information Visit Type Treatment Note Visit Start Time 11:00 Visit Stop Time 11:45 Total Visit Minutes 45 Visit Number 21 Number of BARREL TESTER AND DRAINER Visits 4 PT-OP-B Current Condition Start: 08/08/17 17:50 Freq: Status: Active Protocol: Document 08/08/17 18:12 DLM (Rec: 08/08/17 18:15 DLM [id number]) Current Condition Current Functional Impairments (Reported) Functional Limitations- ADL's has assistance with her showers, she was doing better with her carlotta-care during toileting until the increased left shoulder pain, pt is using adaptive equipment to help with carlotta-care. Functional Limitations- Mobility/Gait She has upped the height of her 4WW and stand more erect, only ambulating short distances at home with pain limiting her Personal Factors Other Personal Factors That May Effect limited sleep at night due to Therapy/Recovery stress, only sleeping a couple of hours at a time PT-OP-C Subjective Start: 06/20/17 16:27 Freq: Status: Active Protocol: Document 12/12/17 11:00 CLB (Rec: 12/12/17 15:10 CLB [id number]) OP-PT Subjective Patient Comments Patient Comments Pt c/o increased swelling and redness of bilateral ankles. PT-OP-G Mobility & Gait Start: 08/08/17 17:50 Freq: Status: Active Protocol: Document 08/08/17 18:15 DLM (Rec: 08/08/17 18:18 DLM [id number]) OP Mobility Evaluation Transfers Bed to Chair Transfers transfers on/off the lift chair at the pool with SBA, needs assistance for her feet getting into the pool Functional Movements Other Functional Movements using the lift chair to get in /out of the pool OP Gait Assessment Gait Gait Assistance Required: Standby Assistance Distance (Feet) 50 Assistive Devices Assistive Device 4 Wheeled Walker Factors Limiting Gait Function Factors Limiting Gait Function Decreased Activity Tolerance Decreased Strength Pain Poor Balance PT-OP-J Posture/Palpation/Skin Start: 08/08/17 18:18 Freq: Status: Active Protocol: Document 08/08/17 18:18 DLM (Rec: 08/08/17 18:20 DLM [id number]) Posture Evaluation Comments Posture Comments Pt able to achieve erect posture in pool in deep water but still flexed on land with 4WW, she tolerates hanging in the deep water with erect posture well. Pt reports improved ability to use core stabalization while in the pool. PT-OP-K Range of Motion Start: 08/08/17 17:50 Freq: Status: Active Protocol: Document 10/24/17 16:56 SAK (Rec: 10/24/17 17:11 SAK [id number]) Shoulder Goniometric Range of Motion Shoulder Measured in Degrees Left Active Shoulder ROM WFL No Flexion 92 Extension 0 Abduction 78 External Rotation at 0 degrees Abduction 25 Internal Rotation Behind Back (text) to side of hip Right Active Shoulder ROM WFL Yes Shoulder ROM Limitations Shoulder ROM Limitations Pain PT-OP-M Strength Start: 08/08/17 17:50 Freq: Status: Active Protocol: Document 08/08/17 18:18 DLM (Rec: 08/08/17 18:31 DLM [email or web address]) Hip Strength Hip Manual Muscle Testing Right Flexion (L2) 2+ Poor+ Left Flexion (L2) 2+ Poor+ PT-OP-S Aquatic Treatment Start: 06/20/17 16:27 Freq: Status: Active Protocol: Document 12/12/17 11:00 CLB (Rec: 12/12/17 15:10 CLB [id number]) Aquatics Treatment Pool Entry/Exit Pool Entry/Exit Method Lift Assistance Standby Assistance Lower Extremity Exercises 1 Details Hip flex/ext, abd/add, circles Body Position Standing Water Level Chest Level Equipment sm green fins Reps/Duration x 15 Step ups Details 6 inch boxes Body Position Standing Water Level Chest Level Comments able to move steps to decrease water depth. [place] Activities [place] Activities Bicycle Cross Country Hip Abduction/Adduction Sit Kicks Equipment small resistance fins Duration 20 minutes Manual Techniques Aquatic Massage left UT, rhomboids, levator scap, biceps PT-OP-T Assessment and Plan Start: 06/20/17 16:27 Freq: Status: Active Protocol: Document 12/12/17 11:00 CLB (Rec: 12/12/17 15:10 CLB [id number]) Physical Therapy Assessment Goals Seven Impairment ROM Cooling Pipe Inspector Goal (LTG) Patient able to reach overhead and behind her back with left UE for purposes of ADL's. Six Impairment left shoulder pain Care Home Goal (LTG) Patient to report at least a 50% decrease in left shoulder pain LTG Duration 3 months Five Impairment Limited gait tolerance, 2 min Walk test- 50 feet Cooling Pipe Inspector Goal (LTG) 2 min Walk Test- 200 feet- pain still limits her distance LTG Duration 3 months Four Impairment Decreased strength Care Home Goal (LTG) Improve hip strength to greater than anti-gravity for functional mobility independence and tolerance- slowly progressing LTG Duration 3 months Three Impairment Moderate decrease in spinal ROM with c/o increased pain Care Home Goal (LTG) Improve spinal ROM to WNL with minimal pain, pt able to attain neutral spine and demonstrate good spinal stabalization and postural awareness- slowly progressing LTG Duration 3 months Two Impairment Moderate assist needed Short Term Goal (STG) Minimal assist with ADL's STG Duration 2 months Care Home Goal (LTG) Independent with ADL's with mild symptoms LTG Duration 3 months One Impairment Use of 4WW for gait, short distances with severe forward flexed posture Short Term Goal (STG) Able to stand with minimal forward flexion using 4WW STG Duration 1 month Care Home Goal (LTG) Tolerate gait in the house and short community distances with minimal increase in pain with least restrictive device- slowly progressing LTG Duration 3 months Progress Towards Goals Progress Towards Goals Slow Progress due to Activity Tolerance Assessment Summary Assessment Pt improving with step ups being able to decrease water depth. Physical Therapy Plan Frequency and Duration Frequency of Treatment 1x/Week Duration of Treatment 3 more months Plan of Care Start Date 11/07/17 Plan of Care End Date 02/06/18 Next Visit Focus/Plan Next Note Type Treatment Note Next Visit Plan Continue PT per POC
--- NOTE | 2017-12-29 13:27 | PT.OTN ---
Current Diagnoses Low back pain (12/26/17) Difficulty in walking, not elsewhere classified (12/26/17) Weakness (12/26/17) Presence of right artificial knee joint (12/26/17) Physical Therapy Treatment Note PT-OP-A Visit Information Start: 06/20/17 16:27 Freq: Status: Active Protocol: Document 12/26/17 12:30 SAK (Rec: 12/29/17 13:27 SAK [id number]) Out-Patient Physical Therapy Visit Information Visit Information Visit Type Treatment Note Visit Start Time 12:30 Visit Stop Time 13:15 Total Visit Minutes 45 Visit Number 22 Number of SENIOR GAME ADVISOR Visits 0 PT-OP-B Current Condition Start: 08/08/17 17:50 Freq: Status: Active Protocol: Document 08/08/17 18:12 DLM (Rec: 08/08/17 18:15 DLM [id number]) Current Condition Current Functional Impairments (Reported) Functional Limitations- ADL's has assistance with her showers, she was doing better with her carlotta-care during toileting until the increased left shoulder pain, pt is using adaptive equipment to help with carlotta-care. Functional Limitations- Mobility/Gait She has upped the height of her 4WW and stand more erect, only ambulating short distances at home with pain limiting her Personal Factors Other Personal Factors That May Effect limited sleep at night due to Therapy/Recovery stress, only sleeping a couple of hours at a time PT-OP-C Subjective Start: 06/20/17 16:27 Freq: Status: Active Protocol: Document 12/26/17 12:30 SAK (Rec: 12/29/17 13:27 SAK [id number]) OP-PT Subjective Patient Comments Patient Comments bilateral shoulder pain remains significant problem. Reports home health has now discharged her; both OT and PT , no further treatment for lymphedema, did not address shoulder pain PT-OP-G Mobility & Gait Start: 08/08/17 17:50 Freq: Status: Active Protocol: Document 08/08/17 18:15 DLM (Rec: 08/08/17 18:18 DLM [id number]) OP Mobility Evaluation Transfers Bed to Chair Transfers transfers on/off the lift chair at the pool with SBA, needs assistance for her feet getting into the pool Functional Movements Other Functional Movements using the lift chair to get in /out of the pool OP Gait Assessment Gait Gait Assistance Required: Standby Assistance Distance (Feet) 50 Assistive Devices Assistive Device 4 Wheeled Walker Factors Limiting Gait Function Factors Limiting Gait Function Decreased Activity Tolerance Decreased Strength Pain Poor Balance PT-OP-J Posture/Palpation/Skin Start: 08/08/17 18:18 Freq: Status: Active Protocol: Document 08/08/17 18:18 DLM (Rec: 08/08/17 18:20 DLM [id number]) Posture Evaluation Comments Posture Comments Pt able to achieve erect posture in pool in deep water but still flexed on land with 4WW, she tolerates hanging in the deep water with erect posture well. Pt reports improved ability to use core stabalization while in the pool. PT-OP-K Range of Motion Start: 08/08/17 17:50 Freq: Status: Active Protocol: Document 10/24/17 16:56 SAK (Rec: 10/24/17 17:11 SAK [id number]) Shoulder Goniometric Range of Motion Shoulder Measured in Degrees Left Active Shoulder ROM WFL No Flexion 92 Extension 0 Abduction 78 External Rotation at 0 degrees Abduction 25 Internal Rotation Behind Back (text) to side of hip Right Active Shoulder ROM WFL Yes Shoulder ROM Limitations Shoulder ROM Limitations Pain PT-OP-M Strength Start: 08/08/17 17:50 Freq: Status: Active Protocol: Document 08/08/17 18:18 DLM (Rec: 08/08/17 18:31 DLM [id number]) Hip Strength Hip Manual Muscle Testing Right Flexion (L2) 2+ Poor+ Left Flexion (L2) 2+ Poor+ PT-OP-S Aquatic Treatment Start: 06/20/17 16:27 Freq: Status: Active Protocol: Document 12/26/17 12:30 [facility] (Rec: 12/29/17 13:27 SAK [id number]) Aquatics Treatment Pool Entry/Exit Pool Entry/Exit Method Lift Assistance Standby Assistance Minimal Assistance Water Walking Backwards Water Level Chest Level Walking Equipment Resistance Fins Level of Assistance Standby Assistance Comments with emphasis on neutral UE alignment with scap retraction Sideways Water Level Chest Level Walking Equipment Resistance Fins Level of Assistance Standby Assistance Comments with emphasis on neutral UE alignment with scap retraction Forwards Water Level Chest Level Walking Equipment Resistance Fins Level of Assistance Standby Assistance Comments with emphasis on neutral UE alignment with scap retraction Lower Extremity Exercises 1 Details Hip flex/ext, abd/add, circles Body Position Standing Water Level Chest Level Equipment sm green fins Reps/Duration x 15 Upper Extremity Exercises shoulder IR/ER Reps/Duration 10x Comments emphasis on rotation with decreased UT activation scapular clocks Body Position Standing Reps/Duration 5 min Comments manual and verbal cues 2 Details shoulder hor ab/ad, flex/ext, elbow flex/ext Equipment UE Reps/Duration 10x Comments emphasis on decreasing upper trap overactivation 1 Details shoulder rolls Body Position Standing Water Level Neck Level Reps/Duration 10 Comments backward Upper Extremity Stretches corner stretch Body Position Standing Water Level Chest Level Reps/Duration 2x Spinal Exercises levator scap stretch Reps/Duration 2x UT stretch Reps/Duration 2x [place] Activities [place]iswold Activities Bicycle Cross [place] Hip Abduction/Adduction Sit Kicks Equipment small resistance fins Duration 20 minutes Manual Techniques Aquatic Massage left UT, rhomboids, levator scap, biceps PT-OP-T Assessment and Plan Start: 06/20/17 16:27 Freq: Status: Active Protocol: Document 12/26/17 12:30 [facility] (Rec: 12/29/17 13:27 [facility] [id number]) Physical Therapy Assessment Goals Seven Impairment ROM Skilled Nursing Goal (LTG) Patient able to reach overhead and behind her back with left UE for purposes of ADL's. Six Impairment left shoulder pain Nut Process Helper Goal (LTG) Patient to report at least a 50% decrease in left shoulder pain LTG Duration 3 months Five Impairment Limited gait tolerance, 2 min Walk test- 50 feet Skilled Nursing Goal (LTG) 2 min Walk Test- 200 feet- pain still limits her distance LTG Duration 3 months Four Impairment Decreased strength Skilled Nursing Goal (LTG) Improve hip strength to greater than anti-gravity for functional mobility independence and tolerance- slowly progressing LTG Duration 3 months Three Impairment Moderate decrease in spinal ROM with c/o increased pain Nut Process Helper Goal (LTG) Improve spinal ROM to WNL with minimal pain, pt able to attain neutral spine and demonstrate good spinal stabalization and postural awareness- slowly progressing LTG Duration 3 months Two Impairment Moderate assist needed Short Term Goal (STG) Minimal assist with ADL's STG Duration 2 months Skilled Nursing Goal (LTG) Independent with ADL's with mild symptoms LTG Duration 3 months One Impairment Use of 4WW for gait, short distances with severe forward flexed posture Short Term Goal (STG) Able to stand with minimal forward flexion using 4WW STG Duration 1 month Nut Process Helper Goal (LTG) Tolerate gait in the house and short community distances wtih minimal increase in pain with least restrictive device- slowly progressing LTG Duration 3 months Progress Towards Goals Progress Towards Goals Slow Progress due to Activity Tolerance Slow Progress due to Medical Issues Assessment Summary Assessment Patient demonstrated increased scapular awareness and understanding of need to decrease excessive UT activation with UE movement Physical Therapy Plan Frequency and Duration Frequency of Treatment 1x/Week Duration of Treatment 3 more months Plan of Care Start Date 11/07/17 Plan of Care End Date 02/06/18 Therapeutic Interventions Therapeutic Interventions Aquatic Therapy Next Visit Focus/Plan Next Note Type Treatment Note Next Visit Plan discuss possibility of prone ex with patient for bouyancy assisted shoulder elevation via adaptive swim activities
--- NOTE | 2018-01-17 08:55 | PT.OTN ---
Current Diagnoses Low back pain (01/16/18) Difficulty in walking, not elsewhere classified (01/16/18) Weakness (01/16/18) Presence of right artificial knee joint (01/16/18) Physical Therapy Treatment Note PT-OP-A Visit Information Start: 06/20/17 16:27 Freq: Status: Active Protocol: Document 01/16/18 11:00 SAK (Rec: 01/17/18 08:55 [facility] [id number]) Out-Patient Physical Therapy Visit Information Visit Information Visit Type Aquatic Treatment Note Visit Start Time 12:30 Visit Stop Time 13:15 Total Visit Minutes 45 Visit Number 22 Number of DISTRIBUTION SPECIALIST Visits 0 PT-OP-B Current Condition Start: 08/08/17 17:50 Freq: Status: Active Protocol: Document 08/08/17 18:12 DLM (Rec: 08/08/17 18:15 DLM [id number]) Current Condition Current Functional Impairments (Reported) Functional Limitations- ADL's has assistance with her showers, she was doing better with her carlotta-care during toileting until the increased left shoulder pain, pt is using adaptive equipment to help with carlotta-care. Functional Limitations- Mobility/Gait She has upped the height of her 4WW and stand more erect, only ambulating short distances at home with pain limiting her Personal Factors Other Personal Factors That May Effect limited sleep at night due to Therapy/Recovery stress, only sleeping a couple of hours at a time PT-OP-C Subjective Start: 06/20/17 16:27 Freq: Status: Active Protocol: Document 01/16/18 11:00 SAK (Rec: 01/17/18 08:55 [facility] [id number]) OP-PT Subjective Patient Comments Patient Comments Reports not doing well; was discharged by Home Health PT without getting her set up to use a home pump. States she has call into home health agency. Shoulder pain persists at a high level left greater than right recently. States she has an appointment at the [facility] 01/30/18 due to inability to lose weight and understanding of contribution of weight to health issues. PT-OP-G Mobility & Gait Start: 08/08/17 17:50 Freq: Status: Active Protocol: Document 08/08/17 18:15 DLM (Rec: 08/08/17 18:18 DLM [id number]) OP Mobility Evaluation Transfers Bed to Chair Transfers transfers on/off the lift chair at the pool with SBA, needs assistance for her feet getting into the pool Functional Movements Other Functional Movements using the lift chair to get in /out of the pool OP Gait Assessment Gait Gait Assistance Required: Standby Assistance Distance (Feet) 50 Assistive Devices Assistive Device 4 Wheeled Walker Factors Limiting Gait Function Factors Limiting Gait Function Decreased Activity Tolerance Decreased Strength Pain Poor Balance PT-OP-J Posture/Palpation/Skin Start: 08/08/17 18:18 Freq: Status: Active Protocol: Document 08/08/17 18:18 DLM (Rec: 08/08/17 18:20 DL [id number]) Posture Evaluation Comments Posture Comments Pt able to achieve erect posture in pool in deep water but still flexed on land with 4WW, she tolerates hanging in the deep water with erect posture well. Pt reports improved ability to use core stabalization while in the pool. PT-OP-K Range of Motion Start: 08/08/17 17:50 Freq: Status: Active Protocol: Document 10/24/17 16:56 [facility] (Rec: 10/24/17 17:11 [facility] [id number]) Shoulder Goniometric Range of Motion Shoulder Measured in Degrees Left Active Shoulder ROM WFL No Flexion 92 Extension 0 Abduction 78 External Rotation at 0 degrees Abduction 25 Internal Rotation Behind Back (text) to side of hip Right Active Shoulder ROM WFL Yes Shoulder ROM Limitations Shoulder ROM Limitations Pain PT-OP-M Strength Start: 08/08/17 17:50 Freq: Status: Active Protocol: Document 08/08/17 18:18 DLM (Rec: 08/08/17 18:31 DL [id number]) Hip Strength Hip Manual Muscle Testing Right Flexion (L2) 2+ Poor+ Left Flexion (L2) 2+ Poor+ PT-OP-S Aquatic Treatment Start: 06/20/17 16:27 Freq: Status: Active Protocol: Document 01/16/18 11:00 SAK (Rec: 01/17/18 08:55 [facility] [id number]) Aquatics Treatment Pool Entry/Exit Pool Entry/Exit Method Lift Assistance Standby Assistance Minimal Assistance Water Walking Backwards Water Level Chest Level Walking Equipment Resistance Fins Level of Assistance Standby Assistance Comments with emphasis on neutral UE alignment with scap retraction Sideways Water Level Chest Level Walking Equipment Resistance Fins Level of Assistance Standby Assistance Comments with emphasis on neutral UE alignment with scap retraction Forwards Water Level Chest Level Walking Equipment Resistance Fins Level of Assistance Standby Assistance Comments with emphasis on neutral UE alignment with scap retraction Upper Extremity Exercises shoulder IR/ER Reps/Duration 10x Comments emphasis on rotation with decreased UT activation scapular clocks Body Position Standing Reps/Duration 5 min Comments manual and verbal cues 3 Details supine water angels Reps/Duration 10x 2 Details shoulder hor ab/ad, flex/ext, elbow flex/ext Equipment UE Reps/Duration 10x Comments emphasis on decreasing upper trap overactivation 1 Details shoulder rolls Body Position Standing Water Level Neck Level Reps/Duration 10 Comments backward Upper Extremity Stretches corner stretch Body Position Standing Water Level Chest Level Reps/Duration 2x 1 Details shoulder, neck, scap Body Position Standing Water Level Neck Level Reps/Duration 30 sec each Spinal Exercises levator scap stretch Reps/Duration 2x UT stretch Reps/Duration 2x [place] Activities [place] Activities Bicycle [place] Hip Abduction/Adduction Sit Kicks Equipment small resistance fins Manual Techniques [place] thoracic mobilization to improve shoulder function Aquatic Joint Mobilizations scapular mobilization Aquatic Massage left UT, rhomboids, levator scap, biceps PT-OP-T Assessment and Plan Start: 06/20/17 16:27 Freq: Status: Active Protocol: Document 01/16/18 11:00 [facility] (Rec: 01/17/18 08:55 [facility] [id number]) Physical Therapy Assessment Goals Seven Impairment ROM Comic Book Artist Goal (LTG) Patient able to reach overhead and behind her back with left UE for purposes of ADL's. Six Impairment left shoulder pain Retirement Goal (LTG) Patient to report at least a 50% decrease in left shoulder pain LTG Duration 3 months Five Impairment Limited gait tolerance, 2 min Walk test- 50 feet Retirement Goal (LTG) 2 min Walk Test- 200 feet- pain still limits her distance LTG Duration 3 months Four Impairment Decreased strength Comic Book Artist Goal (LTG) Improve hip strength to greater than anti-gravity for functional mobility independence and tolerance- slowly progressing LTG Duration 3 months Three Impairment Moderate decrease in spinal ROM with c/o increased pain Comic Book Artist Goal (LTG) Improve spinal ROM to WNL with minimal pain, pt able to attain neutral spine and demonstrate good spinal stabalization and postural awareness- slowly progressing LTG Duration 3 months Two Impairment Moderate assist needed Short Term Goal (STG) Minimal assist with ADL's STG Duration 2 months Retirement Goal (LTG) Independent with ADL's with mild symptoms LTG Duration 3 months One Impairment Use of 4WW for gait, short distances with severe forward flexed posture Short Term Goal (STG) Able to stand with minimal forward flexion using 4WW STG Duration 1 month Comic Book Artist Goal (LTG) Tolerate gait in the house and short community distances wtih minimal increase in pain with least restrictive device- slowly progressing LTG Duration 3 months Progress Towards Goals Progress Towards Goals Slow Progress due to Activity Tolerance Slow Progress due to Medical Issues Assessment Summary Assessment Increased manual treatment today due to high pain level, low exercise tolerance. Patient early and doing LE independently. Physical Therapy Plan Frequency and Duration Frequency of Treatment 1x/Week Duration of Treatment 3 more months Plan of Care Start Date 11/07/17 Plan of Care End Date 02/06/18 Therapeutic Interventions Therapeutic Interventions Aquatic Therapy Next Visit Focus/Plan Next Note Type Treatment Note Next Visit Plan discuss possibility of prone ex with patient for bouyancy assisted shoulder elevation via adaptive swim activities.
--- NOTE | 2018-01-23 15:12 | PT.OTN ---
Current Diagnoses Low back pain (01/23/18) Difficulty in walking, not elsewhere classified (01/23/18) Weakness (01/23/18) Presence of right artificial knee joint (01/23/18) Physical Therapy Treatment Note PT-OP-A Visit Information Start: 06/20/17 16:27 Freq: Status: Active Protocol: Document 01/23/18 11:00 LJ (Rec: 01/23/18 15:12 LJ [id number]) Out-Patient Physical Therapy Visit Information Visit Information Visit Type Aquatic Treatment Note Visit Start Time 11:00 Visit Stop Time 11:45 Total Visit Minutes 45 Visit Number 23 Number of LIABILITY CLAIMS EXAMINER Visits 1 PT-OP-B Current Condition Start: 08/08/17 17:50 Freq: Status: Active Protocol: Document 08/08/17 18:12 DLM (Rec: 08/08/17 18:15 DLM [id number]) Current Condition Current Functional Impairments (Reported) Functional Limitations- ADL's has assistance with her showers, she was doing better with her carlotta-care during toileting until the increased left shoulder pain, pt is using adaptive equipment to help with carlotta-care. Functional Limitations- Mobility/Gait She has upped the height of her 4WW and stand more erect, only ambulating short distances at home with pain limiting her Personal Factors Other Personal Factors That May Effect limited sleep at night due to Therapy/Recovery stress, only sleeping a couple of hours at a time PT-OP-C Subjective Start: 06/20/17 16:27 Freq: Status: Active Protocol: Document 01/23/18 11:00 LJ (Rec: 01/23/18 15:12 LJ [id number]) OP-PT Subjective Patient Comments Patient Comments Pt described multiple areas of pain including Lshoulder, LLE and buttock, right knee and upper traps. States she can move freely in the pool but not on land. Pt arrived at 10: 15 to exercise in deep water. PT-OP-G Mobility & Gait Start: 08/08/17 17:50 Freq: Status: Active Protocol: Document 08/08/17 18:15 DLM (Rec: 08/08/17 18:18 DLM [id number]) OP Mobility Evaluation Transfers Bed to Chair Transfers transfers on/off the lift chair at the pool with SBA, needs assistance for her feet getting into the pool Functional Movements Other Functional Movements using the lift chair to get in /out of the pool OP Gait Assessment Gait Gait Assistance Required: Standby Assistance Distance (Feet) 50 Assistive Devices Assistive Device 4 Wheeled Walker Factors Limiting Gait Function Factors Limiting Gait Function Decreased Activity Tolerance Decreased Strength Pain Poor Balance PT-OP-J Posture/Palpation/Skin Start: 08/08/17 18:18 Freq: Status: Active Protocol: Document 08/08/17 18:18 DLM (Rec: 08/08/17 18:20 DLM [id number]) Posture Evaluation Comments Posture Comments Pt able to achieve erect posture in pool in deep water but still flexed on land with 4WW, she tolerates hanging in the deep water with erect posture well. Pt reports improved ability to use core stabalization while in the pool. PT-OP-K Range of Motion Start: 08/08/17 17:50 Freq: Status: Active Protocol: Document 10/24/17 16:56 SAK (Rec: 10/24/17 17:11 SAK [id number]) Shoulder Goniometric Range of Motion Shoulder Measured in Degrees Left Active Shoulder ROM WFL No Flexion 92 Extension 0 Abduction 78 External Rotation at 0 degrees Abduction 25 Internal Rotation Behind Back (text) to side of hip Right Active Shoulder ROM WFL Yes Shoulder ROM Limitations Shoulder ROM Limitations Pain PT-OP-M Strength Start: 08/08/17 17:50 Freq: Status: Active Protocol: Document 08/08/17 18:18 DLM (Rec: 08/08/17 18:31 DLM [email or web address]) Hip Strength Hip Manual Muscle Testing Right Flexion (L2) 2+ Poor+ Left Flexion (L2) 2+ Poor+ PT-OP-S Aquatic Treatment Start: 06/20/17 16:27 Freq: Status: Active Protocol: Document 01/23/18 11:00 LJ (Rec: 01/23/18 15:12 LJ [email or web address]) Aquatics Treatment Pool Entry/Exit Pool Entry/Exit Method Lift Assistance Standby Assistance Minimal Assistance Water Walking Backwards Water Level Chest Level Walking Equipment Resistance Fins Level of Assistance Standby Assistance Comments with emphasis on neutral UE alignment with scap retraction Sideways Water Level Chest Level Walking Equipment Resistance Fins Level of Assistance Standby Assistance Comments with emphasis on neutral UE alignment with scap retraction Forwards Water Level Chest Level Walking Equipment Resistance Fins Level of Assistance Standby Assistance Comments with emphasis on neutral UE alignment with scap retraction Lower Extremity Exercises 1 Details Hip flex/ext, abd/add, circles Body Position Standing Water Level Chest Level Equipment sm green fins Reps/Duration x 15 Knee extension Body Position Standing Water Level Chest Level Equipment Resistance Fins Lower Extremity Stretches 1 Details piriformis stretch Left Upper Extremity Exercises shoulder IR/ER Reps/Duration 10x Comments emphasis on rotation with decreased UT activation scapular clocks Body Position Standing Reps/Duration 5 min Comments manual and verbal cues 2 Details shoulder hor ab/ad, flex/ext, elbow flex/ext Equipment UE Reps/Duration 10x Comments emphasis on decreasing upper trap overactivation Upper Extremity Stretches 1 Details shoulder, neck, scap Body Position Standing Water Level Neck Level Reps/Duration 30 sec each Spinal Exercises 2 Details core stabilization-static and dynamic Equipment 2# ankle wts Reps/Duration 4 min Comments difficulty initiating core and glutes levator scap stretch Reps/Duration 2x Comments neck level UT stretch Reps/Duration 2x Comments neck level [place] Activities [place] Activities Hip Abduction/Adduction Sit Kicks Equipment small resistance fins Manual Techniques Aquatic Massage left UT, rhomboids, levator scap, piriformis in 4 standing position against wall Other 1 Details ball massage on wall-Left piriformis Comments pt education to do at home PT-OP-T Assessment and Plan Start: 06/20/17 16:27 Freq: Status: Active Protocol: Document 01/23/18 11:00 PEGGY (Rec: 01/23/18 15:12 PEGGY [email or web address]) Physical Therapy Assessment Goals Seven Impairment ROM Group Home Goal (LTG) Patient able to reach overhead and behind her back with left UE for purposes of ADL's. Six Impairment left shoulder pain Book Salesman Goal (LTG) Patient to report at least a 50% decrease in left shoulder pain LTG Duration 3 months Five Impairment Limited gait tolerance, 2 min Walk test- 50 feet Group Home Goal (LTG) 2 min Walk Test- 200 feet- pain still limits her distance LTG Duration 3 months Four Impairment Decreased strength Book Salesman Goal (LTG) Improve hip strength to greater than anti-gravity for functional mobility independence and tolerance- slowly progressing LTG Duration 3 months Three Impairment Moderate decrease in spinal ROM with c/o increased pain Book Salesman Goal (LTG) Improve spinal ROM to WNL with minimal pain, pt able to attain neutral spine and demonstrate good spinal stabalization and postural awareness- slowly progressing LTG Duration 3 months Two Impairment Moderate assist needed Short Term Goal (STG) Minimal assist with ADL's STG Duration 2 months Book Salesman Goal (LTG) Independent with ADL's with mild symptoms LTG Duration 3 months One Impairment Use of 4WW for gait, short distances with severe forward flexed posture Short Term Goal (STG) Able to stand with minimal forward flexion using 4WW STG Duration 1 month Book Salesman Goal (LTG) Tolerate gait in the house and short community distances wtih minimal increase in pain with least restrictive device- slowly progressing LTG Duration 3 months Progress Towards Goals Progress Towards Goals Slow Progress due to Activity Tolerance Slow Progress due to Medical Issues Assessment Summary Assessment Pt reports LE extension causes pain in low back. Stretching HS and Calf mm as well as piriformis massage helped decreased pain and improved ROM. Physical Therapy Plan Frequency and Duration Frequency of Treatment 1x/Week Duration of Treatment 3 more months Plan of Care Start Date 11/07/17 Plan of Care End Date 02/06/18 Therapeutic Interventions Therapeutic Interventions Aquatic Therapy Next Visit Focus/Plan Next Note Type Treatment Note Next Visit Plan Continue aquatic PT per POC
--- NOTE | 2018-01-30 14:06 | PT.OTN ---
Current Diagnoses Low back pain (01/30/18) Difficulty in walking, not elsewhere classified (01/30/18) Weakness (01/30/18) Presence of right artificial knee joint (01/30/18) Physical Therapy Treatment Note PT-OP-A Visit Information Start: 06/20/17 16:27 Freq: Status: Active Protocol: Document 01/30/18 11:00 LJ (Rec: 01/30/18 14:05 LJ [id number]) Out-Patient Physical Therapy Visit Information Visit Information Visit Type Aquatic Treatment Note Visit Start Time 11:00 Visit Stop Time 11:45 Total Visit Minutes 45 Visit Number 24 Number of TESTER ROCKET ENGINE Visits 2 PT-OP-B Current Condition Start: 08/08/17 17:50 Freq: Status: Active Protocol: Document 08/08/17 18:12 DLM (Rec: 08/08/17 18:15 DLM [id number]) Current Condition Current Functional Impairments (Reported) Functional Limitations- ADL's has assistance with her showers, she was doing better with her carlotta-care during toileting until the increased left shoulder pain, pt is using adaptive equipment to help with carlotta-care. Functional Limitations- Mobility/Gait She has upped the height of her 4WW and stand more erect, only ambulating short distances at home with pain limiting her Personal Factors Other Personal Factors That May Effect limited sleep at night due to Therapy/Recovery stress, only sleeping a couple of hours at a time PT-OP-C Subjective Start: 06/20/17 16:27 Freq: Status: Active Protocol: Document 01/30/18 11:00 LJ (Rec: 01/30/18 14:05 LJ [id number]) OP-PT Subjective Patient Comments Patient Comments Pt states she has amparo doing some exercises at home. No new complaints of pain. PT-OP-G Mobility & Gait Start: 08/08/17 17:50 Freq: Status: Active Protocol: Document 08/08/17 18:15 DLM (Rec: 08/08/17 18:18 DLM [id number]) OP Mobility Evaluation Transfers Bed to Chair Transfers transfers on/off the lift chair at the pool with SBA, needs assistance for her feet getting into the pool Functional Movements Other Functional Movements using the lift chair to get in /out of the pool OP Gait Assessment Gait Gait Assistance Required: Standby Assistance Distance (Feet) 50 Assistive Devices Assistive Device 4 Wheeled Walker Factors Limiting Gait Function Factors Limiting Gait Function Decreased Activity Tolerance Decreased Strength Pain Poor Balance PT-OP-J Posture/Palpation/Skin Start: 08/08/17 18:18 Freq: Status: Active Protocol: Document 08/08/17 18:18 DLM (Rec: 08/08/17 18:20 DLM [id number]) Posture Evaluation Comments Posture Comments Pt able to achieve erect posture in pool in deep water but still flexed on land with 4WW, she tolerates hanging in the deep water with erect posture well. Pt reports improved ability to use core stabalization while in the pool. PT-OP-K Range of Motion Start: 08/08/17 17:50 Freq: Status: Active Protocol: Document 10/24/17 16:56 SAK (Rec: 10/24/17 17:11 SAK [id number]) Shoulder Goniometric Range of Motion Shoulder Measured in Degrees Left Active Shoulder ROM WFL No Flexion 92 Extension 0 Abduction 78 External Rotation at 0 degrees Abduction 25 Internal Rotation Behind Back (text) to side of hip Right Active Shoulder ROM WFL Yes Shoulder ROM Limitations Shoulder ROM Limitations Pain PT-OP-M Strength Start: 08/08/17 17:50 Freq: Status: Active Protocol: Document 08/08/17 18:18 DLM (Rec: 08/08/17 18:31 DLM [email or web address]) Hip Strength Hip Manual Muscle Testing Right Flexion (L2) 2+ Poor+ Left Flexion (L2) 2+ Poor+ PT-OP-S Aquatic Treatment Start: 06/20/17 16:27 Freq: Status: Active Protocol: Document 01/30/18 11:00 LJ (Rec: 01/30/18 14:05 LJ [email or web address]) Aquatics Treatment Pool Entry/Exit Pool Entry/Exit Method Lift Assistance Standby Assistance Minimal Assistance Water Walking April Water Level Chest Level Level of Assistance Standby Assistance Comments hasis on posture, #2 ankle Backwards Water Level Chest Level Walking Equipment Resistance Fins Level of Assistance Standby Assistance Comments with emphasis on neutral UE alignment with scap retraction Sideways Water Level Chest Level Walking Equipment Resistance Fins Level of Assistance Standby Assistance Comments with emphasis on neutral UE alignment with scap retraction Forwards Water Level Chest Level Walking Equipment Resistance Fins Level of Assistance Standby Assistance Comments with emphasis on neutral UE alignment with scap retraction Lower Extremity Exercises hamstring curls Body Position Standing Water Level Waist Level Reps/Duration 10 x 2 bilat Comments emphasis on posture; #2ankle wts 1 Details Hip flex/ext, abd/add, circles Body Position Standing Water Level Chest Level Reps/Duration 2 x 15 bilat Comments #2 ankle wts Lower Extremity Stretches HS stretch Reps/Duration 2 x 30 sec bilat 1 Details piriformis bilat Reps/Duration 2 x 30 sec bilat Comments at wall, emphasis on posture Upper Extremity Exercises 4 Details D1, D2 PNF Body Position Standing Water Level Neck Level Reps/Duration 2 x 10 1 Details shoulder rolls Body Position Standing Water Level Neck Level Reps/Duration 10 Comments backward Upper Extremity Stretches forward walking pec stretch w/noodle Body Position Standing Equipment Small Noodle Reps/Duration 3 min Comments mod assist therapist holding noodle behind pt. Spinal Exercises 2 Details core stabilization-static and dynamic Equipment 2# ankle wts Reps/Duration 4 min Comments difficulty initiating core and glutes [place] Activities [place] Activities Bicycle Bicycle Backwards [place] Running Hip Abduction/Adduction Equipment small resistance fins Manual Techniques Aquatic Massage Low back; [place], rhom PT-OP-T Assessment and Plan Start: 06/20/17 16:27 Freq: Status: Active Protocol: Document 01/30/18 11:00 PEGGY (Rec: 01/30/18 14:05 PEGGY [email or web address]) Physical Therapy Assessment Goals Seven Impairment ROM Longterm Goal (LTG) Patient able to reach overhead and behind her back with left UE for purposes of ADL's. Six Impairment left shoulder pain Longterm Goal (LTG) Patient to report at least a 50% decrease in left shoulder pain LTG Duration 3 months Five Impairment Limited gait tolerance, 2 min Walk test- 50 feet Longterm Goal (LTG) 2 min Walk Test- 200 feet- pain still limits her distance LTG Duration 3 months Four Impairment Decreased strength Strategic Solutions Consultant Goal (LTG) Improve hip strength to greater than anti-gravity for functional mobility independence and tolerance- slowly progressing LTG Duration 3 months Three Impairment Moderate decrease in spinal ROM with c/o increased pain Longterm Goal (LTG) Improve spinal ROM to WNL with minimal pain, pt able to attain neutral spine and demonstrate good spinal stabalization and postural awareness- slowly progressing LTG Duration 3 months Two Impairment Moderate assist needed Short Term Goal (STG) Minimal assist with ADL's STG Duration 2 months Strategic Solutions Consultant Goal (LTG) Independent with ADL's with mild symptoms LTG Duration 3 months One Impairment Use of 4WW for gait, short distances with severe forward flexed posture Short Term Goal (STG) Able to stand with minimal forward flexion using 4WW STG Duration 1 month Strategic Solutions Consultant Goal (LTG) Tolerate gait in the house and short community distances wtih minimal increase in pain with least restrictive device- slowly progressing LTG Duration 3 months Progress Towards Goals Progress Towards Goals Slow Progress due to Activity Tolerance Slow Progress due to Medical Issues Assessment Summary Assessment Pt arrived 15 min early and stayed 15 min after end of treatment session. Pt ROM and LE mobility improved in water. Improved upright posture for overhead reaching. Able to increase intensity of activity in deep water for increased activity tolerance at home. Showed no signs of fatigue after deep water exercise. Physical Therapy Plan Frequency and Duration Frequency of Treatment 1x/Week Duration of Treatment 3 more months Plan of Care Start Date 11/07/17 Plan of Care End Date 02/06/18 Therapeutic Interventions Therapeutic Interventions Aquatic Therapy Next Visit Focus/Plan Next Note Type Treatment Note Next Visit Plan Continue aquatic PT emphasizing core activation. Increase intensity as tolerated.
--- NOTE | 2018-02-20 15:14 | PT.OTRE ---
Current Diagnoses Low back pain (02/20/18) Difficulty in walking, not elsewhere classified (02/20/18) Weakness (02/20/18) Presence of right artificial knee joint (02/20/18) Past Medical History (Last Reviewed 01/11/18 @ 07:51 by Galilea Johnson DO) Osteoarthritis of lumbar spine (Chronic) Essential hypertension (Chronic 03/15/16) Type 2 diabetes mellitus without complication, without long-term current use of insulin (Chronic 04/14/16) Morbid obesity with body mass index (BMI) of 60.0 to 69.9 in adult (Chronic 04/14/16) Chronic venous stasis dermatitis (Chronic 05/18/16) Tubular adenoma of colon (Resolved 08/27/16) Hemorrhoids (Chronic 11/15/16) Visual field defect of left eye (Chronic 12/15/16) Frequent UTI (Chronic) History of Bengali measles (Resolved ~1964) History of chickenpox (Resolved 1964) History of measles (Resolved ~1962) History of mumps (Resolved 1957) Surgical History (Last Reviewed 01/11/18 @ 07:51 by Galilea Johnson DO) Anesthesia (Resolved) S/P total abdominal hysterectomy and bilateral salpingo-oophorectomy (Resolved 12/2009) Status post hernia repair (Resolved 12/2010) Status post knee surgery (Resolved 10/2009) Status post knee surgery (Resolved 11/2009) Provider Visit Care Team Role Provider Type Galilea Johnson DO Attending Provider Physician Family Provider Primary Care Provider Specialty: Family Practice Address: [address] [place] [address] Email: [email or web address] Physical Therapy Re-Evaluation PT-OP-A Visit Information Start: 06/20/17 16:27 Freq: Status: Active Protocol: Document 02/20/18 14:58 SAK (Rec: 02/20/18 15:13 SAK [id number]) Out-Patient Physical Therapy Visit Information Visit Information Visit Type Aquatic Treatment Note Visit Start Time 11:00 Visit Stop Time 11:45 Total Visit Minutes 45 Visit Number 25 Number of FOOD WRITER Visits 2 PT-OP-B Current Condition Start: 08/08/17 17:50 Freq: Status: Active Protocol: Document 08/08/17 18:12 DLM (Rec: 08/08/17 18:15 DL [id number]) Current Condition Current Functional Impairments (Reported) Functional Limitations- ADL's has assistance with her showers, she was doing better with her carlotta-care during toileting until the increased left shoulder pain, pt is using adaptive equipment to help with carlotta-care. Functional Limitations- Mobility/Gait She has upped the height of her 4WW and stand more erect, only ambulating short distances at home with pain limiting her Personal Factors Other Personal Factors That May Effect limited sleep at night due to Therapy/Recovery stress, only sleeping a couple of hours at a time PT-OP-C Subjective Start: 06/20/17 16:27 Freq: Status: Active Protocol: Document 02/20/18 14:58 SAK (Rec: 02/20/18 15:13 SAK [id number]) OP-PT Subjective Patient Comments Patient Comments Reports UE's doing better, left buttock very painful today; worse than when last seen 2 weeks ago. Missed PT for 2 weeks due to holiday PT schedule. PT-OP-G Mobility & Gait Start: 08/08/17 17:50 Freq: Status: Active Protocol: Document 08/08/17 18:15 DLM (Rec: 08/08/17 18:18 DL [id number]) OP Mobility Evaluation Transfers Bed to Chair Transfers transfers on/off the lift chair at the pool with SBA, needs assistance for her feet getting into the pool Functional Movements Other Functional Movements using the lift chair to get in /out of the pool OP Gait Assessment Gait Gait Assistance Required: Standby Assistance Distance (Feet) 50 Assistive Devices Assistive Device 4 Wheeled Walker Factors Limiting Gait Function Factors Limiting Gait Function Decreased Activity Tolerance Decreased Strength Pain Poor Balance PT-OP-J Posture/Palpation/Skin Start: 08/08/17 18:18 Freq: Status: Active Protocol: Document 08/08/17 18:18 DLM (Rec: 08/08/17 18:20 DL [id number]) Posture Evaluation Comments Posture Comments Pt able to achieve erect posture in pool in deep water but still flexed on land with 4WW, she tolerates hanging in the deep water with erect posture well. Pt reports improved ability to use core stabalization while in the pool. PT-OP-K Range of Motion Start: 08/08/17 17:50 Freq: Status: Active Protocol: Document 10/24/17 16:56 SAK (Rec: 10/24/17 17:11 SAK [id number]) Shoulder Goniometric Range of Motion Shoulder Measured in Degrees Left Active Shoulder ROM WFL No Flexion 92 Extension 0 Abduction 78 External Rotation at 0 degrees Abduction 25 Internal Rotation Behind Back (text) to side of hip Right Active Shoulder ROM WFL Yes Shoulder ROM Limitations Shoulder ROM Limitations Pain PT-OP-M Strength Start: 08/08/17 17:50 Freq: Status: Active Protocol: Document 08/08/17 18:18 DLM (Rec: 08/08/17 18:31 DLM [email or web address]) Hip Strength Hip Manual Muscle Testing Right Flexion (L2) 2+ Poor+ Left Flexion (L2) 2+ Poor+ PT-OP-T Assessment and Plan Start: 06/20/17 16:27 Freq: Status: Active Protocol: Document 02/20/18 14:58 SAK (Rec: 02/20/18 15:13 [facility] [id number]) Physical Therapy Assessment Goals Seven Impairment ROM Chcf Goal (LTG) Patient able to reach overhead and behind her back with left UE for purposes of ADL's. 02/20 good goal progress; can lift overhead and partially behind back. LTG Duration 03/15/18 Six Impairment left shoulder pain Chcf Goal (LTG) Patient to report at least a 50% decrease in left shoulder pain (goal achieved 02/20/18) LTG Duration 03/15/18 Five Impairment Limited gait tolerance, 2 min Walk test- 50 feet Dynamics Ax Solution Architect Goal (LTG) 2 min Walk Test- 200 feet- pain still limits her distance 02/20/18: has increased to 100 ft LTG Duration 03/15/18 Four Impairment Decreased strength Chcf Goal (LTG) Improve hip strength to greater than anti-gravity for functional mobility independence and tolerance- slowly progressing 02/20/18 LTG Duration 03/15/18 Three Impairment Moderate decrease in spinal ROM with c/o increased pain Chcf Goal (LTG) Improve spinal ROM to WNL with minimal pain, pt able to attain neutral spine and demonstrate good spinal stabalization and postural awareness- slowly progressing 02/20/18 LTG Duration 03/15/18 Two Impairment Moderate assist needed Short Term Goal (STG) Minimal assist with ADL's 02/20/18: improved to min to mod STG Duration 2 months Dynamics Ax Solution Architect Goal (LTG) Independent with ADL's with mild symptoms LTG Duration 03/15/18 One Impairment Use of 4WW for gait, short distances with severe forward flexed posture Short Term Goal (STG) Able to stand with minimal forward flexion using 4WW 02/20/18: still difficult to attain upright posture due to pain and weakness, obesity. Chcf Goal (LTG) Tolerate gait in the house and short community distances wtih minimal increase in pain with least restrictive device- 02/20/18: still requires use of FWW LTG Duration 03/15/18 Progress Towards Goals Progress Towards Goals Slow Progress due to Medical Issues Assessment Summary Assessment Patient reports having lost 9 pounds, going to [facility]. Improved UE pain and function . LBP and buttock pain variable, increased today. Discussed POC of 4 more visits then discharge to independent aquatic exercise program/ community-based aquatic exercise. Physical Therapy Plan Frequency and Duration Frequency of Treatment 1x/wk Duration of Treatment 1 month Plan of Care Start Date 02/20/18 Plan of Care End Date 03/15/18 Therapeutic Interventions Therapeutic Interventions Aquatic Therapy Next Visit Focus/Plan Next Note Type Treatment Note Next Visit Plan Continue aquatic PT emphasizing core activation. Increase intensity as tolerated. Transition to independent/community based aquatic exercise program at end of month.
--- NOTE | 2018-02-20 15:14 | PT.OPPOC ---
Current Diagnoses Low back pain (02/20/18) Difficulty in walking, not elsewhere classified (02/20/18) Weakness (02/20/18) Presence of right artificial knee joint (02/20/18) Provider Visit Care Team Role Provider Type Galilea Johnson DO Attending Provider Physician Family Provider Primary Care Provider Specialty: Family Practice Address: [address] [place] [address], [facility] Email: [email or web address] Plan Of Care PT-OP-T Assessment and Plan Start: 06/20/17 16:27 Freq: Status: Active Protocol: Document 02/20/18 14:58 SAK (Rec: 02/20/18 15:13 SAK [id number]) Physical Therapy Assessment Goals Seven Impairment ROM Vocational Training Director Goal (LTG) Patient able to reach overhead and behind her back with left UE for purposes of ADL's. 02/20 good goal progress; can lift overhead and partially behind back. LTG Duration 03/15/18 Six Impairment left shoulder pain Vocational Training Director Goal (LTG) Patient to report at least a 50% decrease in left shoulder pain (goal achieved 02/20/18) LTG Duration 03/15/18 Five Impairment Limited gait tolerance, 2 min Walk test- 50 feet Vocational Training Director Goal (LTG) 2 min Walk Test- 200 feet- pain still limits her distance 02/20/18: has increased to 100 ft LTG Duration 03/15/18 Four Impairment Decreased strength Longterm Goal (LTG) Improve hip strength to greater than anti-gravity for functional mobility independence and tolerance- slowly progressing 02/20/18 LTG Duration 03/15/18 Three Impairment Moderate decrease in spinal ROM with c/o increased pain Vocational Training Director Goal (LTG) Improve spinal ROM to WNL with minimal pain, pt able to attain neutral spine and demonstrate good spinal stabalization and postural awareness- slowly progressing 02/20/18 LTG Duration 03/15/18 Two Impairment Moderate assist needed Short Term Goal (STG) Minimal assist with ADL's 02/20/18: improved to min to mod STG Duration 2 months Vocational Training Director Goal (LTG) Independent with ADL's with mild symptoms LTG Duration 03/15/18 One Impairment Use of 4WW for gait, short distances with severe forward flexed posture Short Term Goal (STG) Able to stand with minimal forward flexion using 4WW 02/20/18: still difficult to attain upright posture due to pain and weakness, obesity. Longterm Goal (LTG) Tolerate gait in the house and short community distances wtih minimal increase in pain with least restrictive device- 02/20/18: still requires use of FWW LTG Duration 03/15/18 Progress Towards Goals Progress Towards Goals Slow Progress due to Medical Issues Assessment Summary Assessment Patient reports having lost 9 pounds, going to [facility]. Improved UE pain and function . LBP and buttock pain variable, increased today. Discussed POC of 4 more visits then discharge to independent aquatic exercise program/ community-based aquatic exercise. Physical Therapy Plan Frequency and Duration Frequency of Treatment 1x/wk Duration of Treatment 1 month Plan of Care Start Date 02/20/18 Plan of Care End Date 03/15/18 Therapeutic Interventions Therapeutic Interventions Aquatic Therapy Next Visit Focus/Plan Next Note Type Treatment Note Next Visit Plan Continue aquatic PT emphasizing core activation. Increase intensity as tolerated. Transition to independent/community based aquatic exercise program at end of month. Plan of Care Dates Plan of Care Start Date 02/20/18 Plan of Care End Date 03/15/18 Please Sign and Return: I have reviewed this Plan of Care and certify that the skilled therapy services above are required to meet the patient?s needs. Physician Signature Date Printed Name and Credentials Clinical Instructor Signature Printed Name and Credentials
--- NOTE | 2018-03-06 13:21 | PT.OTN ---
Current Diagnoses Morbid (severe) obesity due to excess calories (02/20/18) Venous insufficiency (chronic) (peripheral) (02/20/18) Spondylosis without myelopathy or radiculopathy, lumbar region (02/20/18) Low back pain (02/20/18) Difficulty in walking, not elsewhere classified (02/20/18) Weakness (02/20/18) Body mass index (BMI) 60.0-69.9, adult (02/20/18) Presence of right artificial knee joint (02/20/18) Physical Therapy Treatment Note PT-OP-A Visit Information Start: 06/20/17 16:27 Freq: Status: Active Protocol: Document 03/06/18 11:00 CLB (Rec: 03/06/18 13:21 CLB [id number]) Out-Patient Physical Therapy Visit Information Visit Information Visit Start Time 11:00 Visit Stop Time 11:50 Total Visit Minutes 50 Visit Number 26 Number of MOBILE PARAMEDICAL EXAMINER Visits 1 PT-OP-B Current Condition Start: 08/08/17 17:50 Freq: Status: Active Protocol: Document 08/08/17 18:12 DLM (Rec: 08/08/17 18:15 DLM [id number]) Current Condition Current Functional Impairments (Reported) Functional Limitations- ADL's has assistance with her showers, she was doing better with her carlotta-care during toileting until the increased left shoulder pain, pt is using adaptive equipment to help with carlotta-care. Functional Limitations- Mobility/Gait She has upped the height of her 4WW and stand more erect, only ambulating short distances at home with pain limiting her Personal Factors Other Personal Factors That May Effect limited sleep at night due to Therapy/Recovery stress, only sleeping a couple of hours at a time PT-OP-C Subjective Start: 06/20/17 16:27 Freq: Status: Active Protocol: Document 03/06/18 11:00 CLB (Rec: 03/06/18 13:21 CLB [id number]) OP-PT Subjective Patient Comments Patient Comments C/o left buttock pain and left neck pain. PT-OP-G Mobility & Gait Start: 08/08/17 17:50 Freq: Status: Active Protocol: Document 08/08/17 18:15 DLM (Rec: 08/08/17 18:18 DLM [id number]) OP Mobility Evaluation Transfers Bed to Chair Transfers transfers on/off the lift chair at the pool with SBA, needs assistance for her feet getting into the pool Functional Movements Other Functional Movements using the lift chair to get in /out of the pool OP Gait Assessment Gait Gait Assistance Required: Standby Assistance Distance (Feet) 50 Assistive Devices Assistive Device 4 Wheeled Walker Factors Limiting Gait Function Factors Limiting Gait Function Decreased Activity Tolerance Decreased Strength Pain Poor Balance PT-OP-J Posture/Palpation/Skin Start: 08/08/17 18:18 Freq: Status: Active Protocol: Document 08/08/17 18:18 DLM (Rec: 08/08/17 18:20 DLM [id number]) Posture Evaluation Comments Posture Comments Pt able to achieve erect posture in pool in deep water but still flexed on land with 4WW, she tolerates hanging in the deep water with erect posture well. Pt reports improved ability to use core stabalization while in the pool. PT-OP-K Range of Motion Start: 08/08/17 17:50 Freq: Status: Active Protocol: Document 10/24/17 16:56 SAK (Rec: 10/24/17 17:11 SAK [id number]) Shoulder Goniometric Range of Motion Shoulder Measured in Degrees Left Active Shoulder ROM WFL No Flexion 92 Extension 0 Abduction 78 External Rotation at 0 degrees Abduction 25 Internal Rotation Behind Back (text) to side of hip Right Active Shoulder ROM WFL Yes Shoulder ROM Limitations Shoulder ROM Limitations Pain PT-OP-M Strength Start: 08/08/17 17:50 Freq: Status: Active Protocol: Document 08/08/17 18:18 DLM (Rec: 08/08/17 18:31 DLM [id number]) Hip Strength Hip Manual Muscle Testing Right Flexion (L2) 2+ Poor+ Left Flexion (L2) 2+ Poor+ PT-OP-S Aquatic Treatment Start: 06/20/17 16:27 Freq: Status: Active Protocol: Document 03/06/18 11:00 CLB (Rec: 03/06/18 13:21 CLB [id number]) Aquatics Treatment Water Walking Sideways Water Level Chest Level Walking Equipment Resistance Fins Level of Assistance Standby Assistance Comments with emphasis on neutral UE alignment with scap retraction Forwards Water Level Chest Level Walking Equipment Resistance Fins Level of Assistance Standby Assistance Comments with emphasis on neutral UE alignment with scap retraction Lower Extremity Exercises hamstring curls Body Position Standing Water Level Waist Level Reps/Duration 10 x 2 bilat Comments emphasis on posture; #2ankle wts 1 Details Hip flex/ext, abd/add, circles Body Position Standing Water Level Chest Level Reps/Duration 2 x 15 bilat Comments #2 ankle wts Step ups Details 6 inch boxes Body Position Standing Water Level Chest Level Comments able to move steps to decrease water depth. Lower Extremity Stretches HS stretch Reps/Duration 2 x 30 sec bilat Upper Extremity Exercises 1 Details shoulder rolls Body Position Standing Water Level Neck Level Reps/Duration 10 Comments backward [place]augh Activities [place] Activities Bicycle Bicycle Backwards [place] Running Hip Abduction/Adduction Other Activities hip ext at wall Equipment small resistance fins Manual Techniques Aquatic Massage lumbar spine, periscapular region, piriformis in supine PT-OP-T Assessment and Plan Start: 06/20/17 16:27 Freq: Status: Active Protocol: Document 03/06/18 11:00 CLB (Rec: 03/06/18 13:21 CLB [id number]) Physical Therapy Assessment Goals Seven Impairment ROM Correction Goal (LTG) Patient able to reach overhead and behind her back with left UE for purposes of ADL's. 02/20 good goal progress; can lift overhead and partially behind back. LTG Duration 03/15/18 Six Impairment left shoulder pain Recreation Facility Attendant Goal (LTG) Patient to report at least a 50% decrease in left shoulder pain (goal achieved 02/20/18) LTG Duration 03/15/18 Five Impairment Limited gait tolerance, 2 min Walk test- 50 feet Recreation Facility Attendant Goal (LTG) 2 min Walk Test- 200 feet- pain still limits her distance 02/20/18: has increased to 100 ft LTG Duration 03/15/18 Four Impairment Decreased strength Correction Goal (LTG) Improve hip strength to greater than anti-gravity for functional mobility independence and tolerance- slowly progressing 02/20/18 LTG Duration 03/15/18 Three Impairment Moderate decrease in spinal ROM with c/o increased pain Recreation Facility Attendant Goal (LTG) Improve spinal ROM to WNL with minimal pain, pt able to attain neutral spine and demonstrate good spinal stabalization and postural awareness- slowly progressing 02/20/18 LTG Duration 03/15/18 Two Impairment Moderate assist needed Short Term Goal (STG) Minimal assist with ADL's 02/20/18: improved to min to mod STG Duration 2 months Correction Goal (LTG) Independent with ADL's with mild symptoms LTG Duration 03/15/18 One Impairment Use of 4WW for gait, short distances with severe forward flexed posture Short Term Goal (STG) Able to stand with minimal forward flexion using 4WW 02/20/18: still difficult to attain upright posture due to pain and weakness, obesity. Correction Goal (LTG) Tolerate gait in the house and short community distances wtih minimal increase in pain with least restrictive device- 02/20/18: still requires use of FWW LTG Duration 03/15/18 Progress Towards Goals Progress Towards Goals Slow Progress due to Medical Issues Assessment Summary Assessment Pt having difficulty today with hip flx exercises due to increased pain in left buttocks area. Pt improving with step up with upright posture and minimal increase of pain in left knee. Physical Therapy Plan Frequency and Duration Frequency of Treatment 1x/wk Duration of Treatment 1 month Plan of Care Start Date 02/20/18 Plan of Care End Date 03/15/18 Next Visit Focus/Plan Next Visit Plan Continue aquatic PT emphasizing core activation. Increase intensity as tolerated. Transition to independent/community based aquatic exercise program at end of month.
--- NOTE | 2018-03-14 08:28 | PT.OTRE ---
Current Diagnoses Morbid (severe) obesity due to excess calories (03/13/18) Venous insufficiency (chronic) (peripheral) (03/13/18) Spondylosis without myelopathy or radiculopathy, lumbar region (03/13/18) Low back pain (03/13/18) Difficulty in walking, not elsewhere classified (03/13/18) Weakness (03/13/18) Body mass index (BMI) 60.0-69.9, adult (03/13/18) Presence of right artificial knee joint (03/13/18) Past Medical History (Last Reviewed 01/11/18 @ 07:51 by Galilea Johnson DO) Osteoarthritis of lumbar spine (Chronic) Essential hypertension (Chronic 03/15/16) Type 2 diabetes mellitus without complication, without long-term current use of insulin (Chronic 04/14/16) Morbid obesity with body mass index (BMI) of 60.0 to 69.9 in adult (Chronic 04/14/16) Chronic venous stasis dermatitis (Chronic 05/18/16) Tubular adenoma of colon (Resolved 08/27/16) Hemorrhoids (Chronic 11/15/16) Visual field defect of left eye (Chronic 12/15/16) Frequent UTI (Chronic) History of Citizen Of [place] measles (Resolved ~1964) History of chickenpox (Resolved 1964) History of measles (Resolved ~1962) History of mumps (Resolved 1957) Surgical History (Last Reviewed 01/11/18 @ 07:51 by Galilea Johnson DO) Anesthesia (Resolved) S/P total abdominal hysterectomy and bilateral salpingo-oophorectomy (Resolved 12/2009) Status post hernia repair (Resolved 12/2010) Status post knee surgery (Resolved 10/2009) Status post knee surgery (Resolved 11/2009) Provider Visit Care Team Role Provider Type Galilea Johnson DO Attending Provider Physician Family Provider Primary Care Provider Specialty: Family Practice Address: [address] [place] [address], [address] Email: [email or web address] Physical Therapy Re-Evaluation PT-OP-A Visit Information Start: 06/20/17 16:27 Freq: Status: Active Protocol: Document 03/13/18 11:00 NEHEMIAS (Rec: 03/14/18 08:28 [facility] [id number]) Out-Patient Physical Therapy Visit Information Visit Information Visit Type Aquatic Treatment Note Visit Start Time 11:00 Visit Stop Time 11:45 Total Visit Minutes 45 Visit Number 27 Number of RETAIL SALES DIRECTOR Visits 0 PT-OP-B Current Condition Start: 08/08/17 17:50 Freq: Status: Active Protocol: Document 08/08/17 18:12 DLM (Rec: 08/08/17 18:15 DL [id number]) Current Condition Current Functional Impairments (Reported) Functional Limitations- ADL's has assistance with her showers, she was doing better with her carlotta-care during toileting until the increased left shoulder pain, pt is using adaptive equipment to help with carlotta-care. Functional Limitations- Mobility/Gait She has upped the height of her 4WW and stand more erect, only ambulating short distances at home with pain limiting her Personal Factors Other Personal Factors That May Effect limited sleep at night due to Therapy/Recovery stress, only sleeping a couple of hours at a time PT-OP-C Subjective Start: 06/20/17 16:27 Freq: Status: Active Protocol: Document 03/13/18 11:00 [facility] (Rec: 03/14/18 08:28 [facility] [id number]) OP-PT Subjective Patient Comments Patient Comments c/o left buttock and right shoulder pain. States she knows she would make better progress if able to attend aquatic PT 2x/wk but she doesn 't drive and her daughter is only off work 1x/wk. Her local pool doesn't have a lift and she is unable to ambulate on stairs. Decreased pain for rest of day after aquatic PT. c/o increase in lymphedema right LE past few days for no unknown reason; seeing physician today. PT-OP-G Mobility & Gait Start: 08/08/17 17:50 Freq: Status: Active Protocol: Document 08/08/17 18:15 DLM (Rec: 08/08/17 18:18 DL [id number]) OP Mobility Evaluation Transfers Bed to Chair Transfers transfers on/off the lift chair at the pool with SBA, needs assistance for her feet getting into the pool Functional Movements Other Functional Movements using the lift chair to get in /out of the pool OP Gait Assessment Gait Gait Assistance Required: Standby Assistance Distance (Feet) 50 Assistive Devices Assistive Device 4 Wheeled Walker Factors Limiting Gait Function Factors Limiting Gait Function Decreased Activity Tolerance Decreased Strength Pain Poor Balance PT-OP-J Posture/Palpation/Skin Start: 08/08/17 18:18 Freq: Status: Active Protocol: Document 08/08/17 18:18 DLM (Rec: 08/08/17 18:20 DL [id number]) Posture Evaluation Comments Posture Comments Pt able to achieve erect posture in pool in deep water but still flexed on land with 4WW, she tolerates hanging in the deep water with erect posture well. Pt reports improved ability to use core stabalization while in the pool. PT-OP-K Range of Motion Start: 08/08/17 17:50 Freq: Status: Active Protocol: Document 10/24/17 16:56 SAK (Rec: 10/24/17 17:11 SAK [id number]) Shoulder Goniometric Range of Motion Shoulder Measured in Degrees Left Active Shoulder ROM WFL No Flexion 92 Extension 0 Abduction 78 External Rotation at 0 degrees Abduction 25 Internal Rotation Behind Back (text) to side of hip Right Active Shoulder ROM WFL Yes Shoulder ROM Limitations Shoulder ROM Limitations Pain PT-OP-M Strength Start: 08/08/17 17:50 Freq: Status: Active Protocol: Document 08/08/17 18:18 DLM (Rec: 08/08/17 18:31 DL [id number]) Hip Strength Hip Manual Muscle Testing Right Flexion (L2) 2+ Poor+ Left Flexion (L2) 2+ Poor+ PT-OP-T Assessment and Plan Start: 06/20/17 16:27 Freq: Status: Active Protocol: Document 03/13/18 11:00 SAK (Rec: 03/14/18 08:28 [facility] [id number]) Physical Therapy Assessment Goals Seven Impairment ROM Rock Worker Goal (LTG) Patient able to reach overhead and behind her back with left UE for purposes of ADL's. good goal progress; can lift overhead and partially behind back. LTG Duration 04/13/18 Six Impairment left shoulder pain Assisted Goal (LTG) Patient to report at least a 50% decrease in left shoulder pain (goal achieved 02/20/18) Five Impairment Limited gait tolerance, 2 min Walk test- 50 feet Assisted Goal (LTG) 2 min Walk Test- 200 feet- pain still limits her distance 03/13/18: has increased to 250 ft LTG Duration 04/13/18 Four Impairment Decreased strength Assisted Goal (LTG) Improve hip strength to greater than anti-gravity for functional mobility independence and tolerance- slowly progressing 03/13/18 LTG Duration 04/13/18 Three Impairment Moderate decrease in spinal ROM with c/o increased pain Assisted Goal (LTG) Improve spinal ROM to WNL with minimal pain, pt able to attain neutral spine and demonstrate good spinal stabalization and postural awareness- slowly progressing 03/13/18 LTG Duration 04/13/18 Two Impairment Moderate assist needed Short Term Goal (STG) Minimal assist with ADL's 02/20/18: improved to min to mod 03/13/18: remains min to mod STG Duration 03/30/18 Assisted Goal (LTG) Independent with ADL's with mild symptoms LTG Duration 04/13/18 One Impairment Use of 4WW for gait, short distances with severe forward flexed posture Short Term Goal (STG) Able to stand with minimal forward flexion using 4WW 02/20/18: still difficult to attain upright posture due to pain and weakness, obesity. 03/13/18: mild improvement STG Duration 03/30/18 Rock Worker Goal (LTG) Tolerate gait in the house and short community distances wtih minimal increase in pain with least restrictive device- 02/20/18: still requires use of FWW 03/13/18: needs walker for spinal support. Increase in lymphedema right LE over past few days also limiting. LTG Duration 04/13/18 Progress Towards Goals Progress Towards Goals Slow Progress due to Activity Tolerance Slow Progress due to Medical Issues Progress Comments slow progress due to frequency of only 1x/wk due to transportation issues Assessment Summary Assessment Patient reports decrease in pain after aquatic therapy sessions for several hours. She is limited to attending aquatic PT 1x/wk due to transportation issues and her local pool doesn't have a mechanical lift. She is working with Dr. Berry on weight reduction. Aquatic therapy is only place she is able to get significant exercise due to her obesity and pain. Would benefit from further PT to address her goals to decrease her pain, improve her strength, activity tolerance, and function. Physical Therapy Plan Frequency and Duration Frequency of Treatment 1x/wk Duration of Treatment 1 month Plan of Care Start Date 03/13/18 Plan of Care End Date 04/13/18 Therapeutic Interventions Therapeutic Interventions Aquatic Therapy Next Visit Focus/Plan Next Note Type Treatment Note Next Visit Plan Continue aquatic PT 1x/month to address above goals and help patient transition to independent community aquatic exercise program for long-term fitness and pain management.
--- NOTE | 2018-04-25 15:59 | PT.OTRE ---
Current Diagnoses Morbid (severe) obesity due to excess calories (04/24/18) Venous insufficiency (chronic) (peripheral) (04/24/18) Spondylosis without myelopathy or radiculopathy, lumbar region (04/24/18) Low back pain (04/24/18) Difficulty in walking, not elsewhere classified (04/24/18) Weakness (04/24/18) Body mass index (BMI) 60.0-69.9, adult (04/24/18) Presence of right artificial knee joint (04/24/18) Past Medical History (Last Reviewed 04/18/18 @ 10:12 by Galilea Johnson DO) Osteoarthritis of lumbar spine (Chronic) Essential hypertension (Chronic 03/15/16) Type 2 diabetes mellitus without complication, without long-term current use of insulin (Chronic 04/14/16) Morbid obesity with body mass index (BMI) of 60.0 to 69.9 in adult (Chronic 04/14/16) Chronic venous stasis dermatitis (Chronic 05/18/16) Tubular adenoma of colon (Resolved 08/27/16) Hemorrhoids (Chronic 11/15/16) Visual field defect of left eye (Chronic 12/15/16) Frequent UTI (Chronic) History of [place] measles (Resolved ~1964) History of chickenpox (Resolved 1964) History of measles (Resolved ~1962) History of mumps (Resolved 1957) Surgical History (Last Reviewed 04/18/18 @ 10:12 by Galilea Johnson DO) Anesthesia (Resolved) S/P total abdominal hysterectomy and bilateral salpingo-oophorectomy (Resolved 12/2009) Status post hernia repair (Resolved 12/2010) Status post knee surgery (Resolved 10/2009) Status post knee surgery (Resolved 11/2009) Provider Visit Care Team Role Provider Type Galilea Johnson DO Attending Provider Physician Family Provider Primary Care Provider Specialty: Family Practice Address: [address] [place] [address], [id number] Email: [email or web address] Physical Therapy Re-Evaluation PT-OP-A Visit Information Start: 06/20/17 16:27 Freq: Status: Active Protocol: Document 04/24/18 13:09 NEHEMIAS (Rec: 04/25/18 13:26 [facility] [id number]) Out-Patient Physical Therapy Visit Information Visit Information Visit Type Re-Evaluation Visit Start Time 10:15 Visit Stop Time 11:00 Total Visit Minutes 45 Visit Number 28 Number of CLOTHES MARKER Visits 0 PT-OP-B Current Condition Start: 08/08/17 17:50 Freq: Status: Active Protocol: Document 08/08/17 18:12 DLM (Rec: 08/08/17 18:15 [facility] [id number]) Current Condition Current Functional Impairments (Reported) Functional Limitations- ADL's has assistance with her showers, she was doing better with her carlotta-care during toileting until the increased left shoulder pain, pt is using adaptive equipment to help with carlotta-care. Functional Limitations- Mobility/Gait She has upped the height of her 4WW and stand more erect, only ambulating short distances at home with pain limiting her Personal Factors Other Personal Factors That May Effect limited sleep at night due to Therapy/Recovery stress, only sleeping a couple of hours at a time PT-OP-C Subjective Start: 06/20/17 16:27 Freq: Status: Active Protocol: Document 04/24/18 13:09 [facility] (Rec: 04/25/18 13:26 [facility] [id number]) OP-PT Subjective Patient Comments Patient Comments Going to see Dr. Berry today, besides management for medical weight-loss, going to talk with him about her increase in right LE lymphedema as well as persistent pain. Pain improves after aquatic therapy sessions but returns within a couple days. PT-OP-G Mobility & Gait Start: 08/08/17 17:50 Freq: Status: Active Protocol: Document 08/08/17 18:15 DLM (Rec: 08/08/17 18:18 [facility] [id number]) OP Mobility Evaluation Transfers Bed to Chair Transfers transfers on/off the lift chair at the pool with SBA, needs assistance for her feet getting into the pool Functional Movements Other Functional Movements using the lift chair to get in /out of the pool OP Gait Assessment Gait Gait Assistance Required: Standby Assistance Distance (Feet) 50 Assistive Devices Assistive Device 4 Wheeled Walker Factors Limiting Gait Function Factors Limiting Gait Function Decreased Activity Tolerance Decreased Strength Pain Poor Balance PT-OP-J Posture/Palpation/Skin Start: 08/08/17 18:18 Freq: Status: Active Protocol: Document 08/08/17 18:18 DLM (Rec: 08/08/17 18:20 [facility] [id number]) Posture Evaluation Comments Posture Comments Pt able to achieve erect posture in pool in deep water but still flexed on land with 4WW, she tolerates hanging in the deep water with erect posture well. Pt reports improved ability to use core stabalization while in the pool. PT-OP-K Range of Motion Start: 08/08/17 17:50 Freq: Status: Active Protocol: Document 10/24/17 16:56 [facility] (Rec: 10/24/17 17:11 [facility] [id number]) Shoulder Goniometric Range of Motion Shoulder Measured in Degrees Left Active Shoulder ROM WFL No Flexion 92 Extension 0 Abduction 78 External Rotation at 0 degrees Abduction 25 Internal Rotation Behind Back (text) to side of hip Right Active Shoulder ROM WFL Yes Shoulder ROM Limitations Shoulder ROM Limitations Pain PT-OP-M Strength Start: 08/08/17 17:50 Freq: Status: Active Protocol: Document 08/08/17 18:18 DL (Rec: 08/08/17 18:31 [facility] [id number]) Hip Strength Hip Manual Muscle Testing Right Flexion (L2) 2+ Poor+ Left Flexion (L2) 2+ Poor+ PT-OP-T Assessment and Plan Start: 06/20/17 16:27 Freq: Status: Active Protocol: Document 04/24/18 13:09 [facility] (Rec: 04/25/18 13:26 [facility] [id number]) Physical Therapy Assessment Goals Seven Impairment ROM Radio Division Captain Goal (LTG) Patient able to reach overhead and behind her back with left UE for purposes of ADL's. good goal progress; can lift overhead and partially behind back. 04/24/18: recent increase in difficulty LTG Duration 05/08/18 Six Impairment left shoulder pain Jail Goal (LTG) Patient to report at least a 50% decrease in left shoulder pain (goal achieved 02/20/18) Five Impairment Limited gait tolerance, 2 min Walk test- 50 feet Jail Goal (LTG) 2 min Walk Test- 200 feet- pain still limits her distance 03/13/18: has increased to 250 ft 04/24/18: no further change, limited by pain and weakness LTG Duration 05/08/18 Four Impairment Decreased strength [employer] Captain Goal (LTG) Improve hip strength to greater than anti-gravity for functional mobility independence and tolerance- slowly progressing 03/13/18 04/24/18 LTG Duration 05/08/18 Three Impairment Moderate decrease in spinal ROM with c/o increased pain Jail Goal (LTG) Improve spinal ROM to WNL with minimal pain, pt able to attain neutral spine and demonstrate good spinal stabalization and postural awareness- slowly progressing 03/13/18 04/24/18: no further progress LTG Duration 05/08/18 Two Impairment Moderate assist needed Short Term Goal (STG) Minimal assist with ADL's 02/20/18: improved to min to mod 03/13/18: remains min to mod 04/24/18: improved to min assist Jail Goal (LTG) Independent with ADL's with mild symptoms LTG Duration 05/08/18 One Impairment Use of 4WW for gait, short distances with severe forward flexed posture Short Term Goal (STG) Able to stand with minimal forward flexion using 4WW 02/20/18: still difficult to attain upright posture due to pain and weakness, obesity. 03/13/18: mild improvement 04/24/18: no further improvement Jail Goal (LTG) Tolerate gait in the house and short community distances wtih minimal increase in pain with least restrictive device- 02/20/18: still requires use of FWW 03/13/18: needs walker for spinal support. Increase in lymphedema right LE over past few days also limiting. 04/24/18: continues to use 4WW due to increased pain when standing and due to weakness LTG Duration 05/08/18 Progress Towards Goals Progress Towards Goals Slow Progress due to Activity Tolerance Slow Progress due to Medical Issues Progress Comments slow progress due to frequency of only 1x/wk due to transportation issues Assessment Summary Assessment Progress more limited during this treatment period. Have discussed with patient. Agreed to 2 further aquatic PT visits to assure safety and independence with program, then discharge to independend aquatic exercise program. Physical Therapy Plan Frequency and Duration Frequency of Treatment 2 visits Duration of Treatment 2 weeks Plan of Care Start Date 04/24/18 Plan of Care End Date 05/08/18 Next Visit Focus/Plan Next Note Type Treatment Note Next Visit Plan 2 further aquatic PT visits, issue written aquatic exercise program. Discuss community aquatic exercise classes
--- NOTE | 2018-05-08 15:27 | PT.OTN ---
Current Diagnoses Morbid (severe) obesity due to excess calories (04/24/18) Venous insufficiency (chronic) (peripheral) (04/24/18) Spondylosis without myelopathy or radiculopathy, lumbar region (04/24/18) Low back pain (04/24/18) Difficulty in walking, not elsewhere classified (04/24/18) Weakness (04/24/18) Body mass index (BMI) 60.0-69.9, adult (04/24/18) Presence of right artificial knee joint (04/24/18) Physical Therapy Treatment Note PT-OP-A Visit Information Start: 06/20/17 16:27 Freq: Status: Active Protocol: Document 05/08/18 10:15 LJ (Rec: 05/08/18 14:57 LJ [id number]) Out-Patient Physical Therapy Visit Information Visit Information Visit Start Time 10:15 Visit Stop Time 11:00 Total Visit Minutes 45 Visit Number 29 Number of VP GLOBAL Visits 1 PT-OP-B Current Condition Start: 08/08/17 17:50 Freq: Status: Active Protocol: Document 08/08/17 18:12 DLM (Rec: 08/08/17 18:15 DLM [id number]) Current Condition Current Functional Impairments (Reported) Functional Limitations- ADL's has assistance with her showers, she was doing better with her carlotta-care during toileting until the increased left shoulder pain, pt is using adaptive equipment to help with carlotta-care. Functional Limitations- Mobility/Gait She has upped the height of her 4WW and stand more erect, only ambulating short distances at home with pain limiting her Personal Factors Other Personal Factors That May Effect limited sleep at night due to Therapy/Recovery stress, only sleeping a couple of hours at a time PT-OP-C Subjective Start: 06/20/17 16:27 Freq: Status: Active Protocol: Document 05/08/18 10:15 LJ (Rec: 05/08/18 14:56 LJ [id number]) OP-PT Subjective Patient Comments Patient Comments Pt states because she missed last week in the pool she is feeling very stiff and sore. PT-OP-G Mobility & Gait Start: 08/08/17 17:50 Freq: Status: Active Protocol: Document 08/08/17 18:15 DLM (Rec: 08/08/17 18:18 DLM [id number]) OP Mobility Evaluation Transfers Bed to Chair Transfers transfers on/off the lift chair at the pool with SBA, needs assistance for her feet getting into the pool Functional Movements Other Functional Movements using the lift chair to get in /out of the pool OP Gait Assessment Gait Gait Assistance Required: Standby Assistance Distance (Feet) 50 Assistive Devices Assistive Device 4 Wheeled Walker Factors Limiting Gait Function Factors Limiting Gait Function Decreased Activity Tolerance Decreased Strength Pain Poor Balance PT-OP-J Posture/Palpation/Skin Start: 08/08/17 18:18 Freq: Status: Active Protocol: Document 08/08/17 18:18 DLM (Rec: 08/08/17 18:20 DLM [id number]) Posture Evaluation Comments Posture Comments Pt able to achieve erect posture in pool in deep water but still flexed on land with 4WW, she tolerates hanging in the deep water with erect posture well. Pt reports improved ability to use core stabalization while in the pool. PT-OP-K Range of Motion Start: 08/08/17 17:50 Freq: Status: Active Protocol: Document 10/24/17 16:56 SAK (Rec: 10/24/17 17:11 SAK [id number]) Shoulder Goniometric Range of Motion Shoulder Measured in Degrees Left Active Shoulder ROM WFL No Flexion 92 Extension 0 Abduction 78 External Rotation at 0 degrees Abduction 25 Internal Rotation Behind Back (text) to side of hip Right Active Shoulder ROM WFL Yes Shoulder ROM Limitations Shoulder ROM Limitations Pain PT-OP-M Strength Start: 08/08/17 17:50 Freq: Status: Active Protocol: Document 08/08/17 18:18 DLM (Rec: 08/08/17 18:31 DLM [id number]) Hip Strength Hip Manual Muscle Testing Right Flexion (L2) 2+ Poor+ Left Flexion (L2) 2+ Poor+ PT-OP-S Aquatic Treatment Start: 06/20/17 16:27 Freq: Status: Active Protocol: Document 05/08/18 10:15 LJ (Rec: 05/08/18 14:56 LJ [id number]) Aquatics Treatment Pool Entry/Exit Pool Entry/Exit Method Lift Assistance Standby Assistance Minimal Assistance Water Walking [place] Water Level Chest Level Level of Assistance Standby Assistance Comments hasis on posture, #2 ankle Sideways Water Level Chest Level Walking Equipment Resistance Fins Level of Assistance Standby Assistance Comments with emphasis on neutral UE alignment with scap retraction Forwards Water Level Chest Level Walking Equipment Resistance Fins Level of Assistance Standby Assistance Comments with emphasis on neutral UE alignment with scap retraction Lower Extremity Exercises hamstring curls Body Position Standing Water Level Waist Level Reps/Duration 10 bilat Comments emphasis on posture; #2ankle wts 1 Details Hip flex/ext, abd/add, circles Body Position Standing Water Level Chest Level Reps/Duration 10 bilat Step ups Details bottom stair Reps/Duration 5 Upper Extremity Stretches forward walking pec stretch w/noodle Equipment UE paddles Comments therapist assist [place] [employer] [place] [employer] Bicycle [place] Hip Abduction/Adduction Sit Kicks Manual Techniques [place] 15 min PROM shoulder girdle bilat; gentle stretching IR ER , AB gentle joint distraction LUE Aquatic Massage UTs, levator; lateral flex stretch neck, bicep PT-OP-T Assessment and Plan Start: 06/20/17 16:27 Freq: Status: Active Protocol: Document 05/08/18 10:15 PEGGY (Rec: 05/08/18 14:56 PEGGY [id number]) Physical Therapy Assessment Goals Seven Impairment ROM Half-Way Goal (LTG) Patient able to reach overhead and behind her back with left UE for purposes of ADL's. good goal progress; can lift overhead and partially behind back. 04/24/18: recent increase in difficulty LTG Duration 05/08/18 Six Impairment left shoulder pain Systems Qa Analyst Goal (LTG) Patient to report at least a 50% decrease in left shoulder pain (goal achieved 02/20/18) Five Impairment Limited gait tolerance, 2 min Walk test- 50 feet Half-Way Goal (LTG) 2 min Walk Test- 200 feet- pain still limits her distance 03/13/18: has increased to 250 ft 04/24/18: no further change, limited by pain and weakness LTG Duration 05/08/18 Four Impairment Decreased strength Systems Qa Analyst Goal (LTG) Improve hip strength to greater than anti-gravity for functional mobility independence and tolerance- slowly progressing 03/13/18 04/24/18 LTG Duration 05/08/18 Three Impairment Moderate decrease in spinal ROM with c/o increased pain Half-Way Goal (LTG) Improve spinal ROM to WNL with minimal pain, pt able to attain neutral spine and demonstrate good spinal stabalization and postural awareness- slowly progressing 03/13/18 04/24/18: no further progress LTG Duration 05/08/18 Two Impairment Moderate assist needed Short Term Goal (STG) Minimal assist with ADL's 02/20/18: improved to min to mod 03/13/18: remains min to mod 04/24/18: improved to min assist Systems Qa Analyst Goal (LTG) Independent with ADL's with mild symptoms LTG Duration 05/08/18 One Impairment Use of 4WW for gait, short distances with severe forward flexed posture Short Term Goal (STG) Able to stand with minimal forward flexion using 4WW 02/20/18: still difficult to attain upright posture due to pain and weakness, obesity. 03/13/18: mild improvement 04/24/18: no further improvement Half-Way Goal (LTG) Tolerate gait in the house and short community distances wtih minimal increase in pain with least restrictive device- 02/20/18: still requires use of FWW 03/13/18: needs walker for spinal support. Increase in lymphedema right LE over past few days also limiting. 04/24/18: continues to use 4WW due to increased pain when standing and due to weakness LTG Duration 05/08/18 Progress Towards Goals Progress Towards Goals Slow Progress due to Activity Tolerance Slow Progress due to Medical Issues Progress Comments slow progress due to frequency of only 1x/wk due to transportation issues Assessment Summary Assessment Pt requiring stretching of biceps, pecs, anterior capsule of UEs, L>R. Pt achieved greater ROM bilat shoulders after treatment and she stayed for another 30 min to exercise on her own in deep water. Physical Therapy Plan Frequency and Duration Frequency of Treatment 2 visits Duration of Treatment 2 weeks Plan of Care Start Date 04/24/18 Plan of Care End Date 05/08/18 Therapeutic Interventions Therapeutic Interventions Aquatic Therapy Next Visit Focus/Plan Next Note Type Treatment Note Next Visit Plan 1 further aquatic PT visit, issue written aquatic exercise program. Discuss community aquatic exercise classes
--- NOTE | 2018-05-22 09:49 | PT.OTRE ---
Current Diagnoses Morbid (severe) obesity due to excess calories (05/22/18) Venous insufficiency (chronic) (peripheral) (05/22/18) Spondylosis without myelopathy or radiculopathy, lumbar region (05/22/18) Low back pain (05/22/18) Difficulty in walking, not elsewhere classified (05/22/18) Weakness (05/22/18) Body mass index (BMI) 60.0-69.9, adult (05/22/18) Presence of right artificial knee joint (05/22/18) Past Medical History (Last Reviewed 04/18/18 @ 10:12 by Galilea Johnson DO) Osteoarthritis of lumbar spine (Chronic) Essential hypertension (Chronic 03/15/16) Type 2 diabetes mellitus without complication, without long-term current use of insulin (Chronic 04/14/16) Morbid obesity with body mass index (BMI) of 60.0 to 69.9 in adult (Chronic 04/14/16) Chronic venous stasis dermatitis (Chronic 05/18/16) Tubular adenoma of colon (Resolved 08/27/16) Hemorrhoids (Chronic 11/15/16) Visual field defect of left eye (Chronic 12/15/16) Frequent UTI (Chronic) History of [place] measles (Resolved ~1964) History of chickenpox (Resolved 1964) History of measles (Resolved ~1962) History of mumps (Resolved 1957) Surgical History (Last Reviewed 04/18/18 @ 10:12 by Galilea Johnson DO) Anesthesia (Resolved) S/P total abdominal hysterectomy and bilateral salpingo-oophorectomy (Resolved 12/2009) Status post hernia repair (Resolved 12/2010) Status post knee surgery (Resolved 10/2009) Status post knee surgery (Resolved 11/2009) Provider Visit Care Team Role Provider Type Galilea Johnson DO Attending Provider Physician Family Provider Primary Care Provider Specialty: Family Practice Address: [address] [place] [address], [id number] Email: [email or web address] Physical Therapy Re-Evaluation PT-OP-A Visit Information Start: 06/20/17 16:27 Freq: Status: Active Protocol: Document 05/22/18 11:45 SAK (Rec: 05/23/18 09:49 SAK [id number]) Out-Patient Physical Therapy Visit Information Visit Information Visit Type Aquatic Treatment Note Visit Start Time 11:45 Visit Stop Time 12:30 Total Visit Minutes 45 Visit Number 30 Number of WOUND CARE RN Visits 1 PT-OP-B Current Condition Start: 08/08/17 17:50 Freq: Status: Active Protocol: Document 08/08/17 18:12 DLM (Rec: 08/08/17 18:15 DLM [id number]) Current Condition Current Functional Impairments (Reported) Functional Limitations- ADL's has assistance with her showers, she was doing better with her carlotta-care during toileting until the increased left shoulder pain, pt is using adaptive equipment to help with carlotta-care. Functional Limitations- Mobility/Gait She has upped the height of her 4WW and stand more erect, only ambulating short distances at home with pain limiting her Personal Factors Other Personal Factors That May Effect limited sleep at night due to Therapy/Recovery stress, only sleeping a couple of hours at a time PT-OP-C Subjective Start: 06/20/17 16:27 Freq: Status: Active Protocol: Document 05/22/18 11:45 [facility] (Rec: 05/23/18 09:49 [facility] [id number]) OP-PT Subjective Patient Comments Patient Comments Returns for PT after receiving further insurance approval. States feeling worsening symptoms of lymphedema right LE, worsening bilateral shoulder pain left greater than right, inability to reach overhead or behind her back, back pain with inability to stand upright, limited gait. Will be seeing Dr. Berry today for follw-up with medical weight loss and also plans to discuss above issues including worsening lymphedema. PT-OP-G Mobility & Gait Start: 08/08/17 17:50 Freq: Status: Active Protocol: Document 08/08/17 18:15 DLM (Rec: 08/08/17 18:18 DL [id number]) OP Mobility Evaluation Transfers Bed to Chair Transfers transfers on/off the lift chair at the pool with SBA, needs assistance for her feet getting into the pool Functional Movements Other Functional Movements using the lift chair to get in /out of the pool OP Gait Assessment Gait Gait Assistance Required: Standby Assistance Distance (Feet) 50 Assistive Devices Assistive Device 4 Wheeled Walker Factors Limiting Gait Function Factors Limiting Gait Function Decreased Activity Tolerance Decreased Strength Pain Poor Balance PT-OP-J Posture/Palpation/Skin Start: 08/08/17 18:18 Freq: Status: Active Protocol: Document 08/08/17 18:18 DLM (Rec: 08/08/17 18:20 DLM [id number]) Posture Evaluation Comments Posture Comments Pt able to achieve erect posture in pool in deep water but still flexed on land with 4WW, she tolerates hanging in the deep water with erect posture well. Pt reports improved ability to use core stabalization while in the pool. PT-OP-K Range of Motion Start: 08/08/17 17:50 Freq: Status: Active Protocol: Document 10/24/17 16:56 SAK (Rec: 10/24/17 17:11 SAK [id number]) Shoulder Goniometric Range of Motion Shoulder Measured in Degrees Left Active Shoulder ROM WFL No Flexion 92 Extension 0 Abduction 78 External Rotation at 0 degrees Abduction 25 Internal Rotation Behind Back (text) to side of hip Right Active Shoulder ROM WFL Yes Shoulder ROM Limitations Shoulder ROM Limitations Pain PT-OP-M Strength Start: 08/08/17 17:50 Freq: Status: Active Protocol: Document 08/08/17 18:18 DLM (Rec: 08/08/17 18:31 DL [id number]) Hip Strength Hip Manual Muscle Testing Right Flexion (L2) 2+ Poor+ Left Flexion (L2) 2+ Poor+ PT-OP-T Assessment and Plan Start: 06/20/17 16:27 Freq: Status: Active Protocol: Document 05/22/18 11:45 SAK (Rec: 05/23/18 09:49 SAK [id number]) Physical Therapy Assessment Goals Seven Impairment ROM Mcc Goal (LTG) Patient able to reach overhead and behind her back with left UE for purposes of ADL's. good goal progress; can lift overhead and partially behind back. 04/24/18: recent increase in difficulty 05/22/18: unable to reach overhead or behind back again (feel heavy use of UE's on walker contributory to worsening pain) LTG Duration 08/21/18 Six Impairment left shoulder pain Surgical Scrub Technician Goal (LTG) Patient to report at least a 50% decrease in left shoulder pain (goal achieved 02/20/18) 05/22/18: recent exacerbation with increase in pain to prior levels of 08/23 LTG Duration 08/21/18 Five Impairment Limited gait tolerance, 2 min Walk test- 50 feet Mcc Goal (LTG) 2 min Walk Test- 200 feet- pain still limits her distance 03/13/18: has increased to 250 ft 04/24/18: no further change, limited by pain and weakness 05/22/18: decline in status to 150 ft largely due to heaviness of right LE due to lymphedema LTG Duration 08/21/18 Four Impairment Decreased strength Mcc Goal (LTG) Improve hip strength to greater than anti-gravity for functional mobility independence and tolerance- slowly progressing 03/13/18 04/24/18 05/22/18: decreased strength right LE largely due to increased volume and weight from lymphedema LTG Duration 08/21/18 Three Impairment Moderate decrease in spinal ROM with c/o increased pain Surgical Scrub Technician Goal (LTG) Improve spinal ROM to WNL with minimal pain, pt able to attain neutral spine and demonstrate good spinal stabalization and postural awareness- slowly progressing 03/13/18 04/24/18: no further progress 05/22/18 able to achieve upright position with more neutral spine in chest level water but on land pain and weakness cause patient to stand LTG Duration 08/21/18 Two Impairment Moderate assist needed for ADL 's Short Term Goal (STG) Minimal assist with ADL's 02/20/18: improved to min to mod 03/13/18: remains min to mod 04/24/18: improved to min assist 05/22/18: min assist but with increased pain and increased time required Surgical Scrub Technician Goal (LTG) Independent with ADL's with mild symptoms LTG Duration 08/21/18 One Impairment Use of 4WW for gait, short distances with severe forward flexed posture Short Term Goal (STG) Able to stand with minimal forward flexion using 4WW 02/20/18: still difficult to attain upright posture due to pain and weakness, obesity. 03/13/18: mild improvement 04/24/18: no further improvement 05/22/18: continues with severe forward flexion with gait Surgical Scrub Technician Goal (LTG) Tolerate gait in the house and short community distances wtih minimal increase in pain with least restrictive device- 02/20/18: still requires use of FWW 03/13/18: needs walker for spinal support. Increase in lymphedema right LE over past few days also limiting. 04/24/18: continues to use 4WW due to increased pain when standing and due to weakness 05/23/18: no progress recently LTG Duration 78/19 Progress Towards Goals Progress Towards Goals Slow Progress due to Activity Tolerance Slow Progress due to Medical Issues Progress Comments slow progress due to frequency of only 1x/wk due to transportation issues Assessment Summary Assessment Patient progress complicated by multiple medical issues including new diagnosis of diabetes, ongoing lymphedema with worsening, obesity. Due to these worsening issues, need for modification of treatment, feel further PT is indicated. Will progress with new addition of prone aquatic ex for shoulder ROM and strengthening, increase emphasis on treatment for lymphedema including sequential lymphedema ex in pool, problem solving compression garments and potential trial of a pump for use at home as patient's current self-care at home with compression not sufficient for lymphedema control. Due to patient obesity aquatic environment is best for any ther ex due to unweighting of joints resulting in ability to exercise with less pain and increase ease of movement. Will need to take circumferential measurements of LE's next session. Physical Therapy Plan Frequency and Duration Frequency of Treatment 13 visits Duration of Treatment 3 months Plan of Care Start Date 05/22/18 Plan of Care End Date 08/21/18 Therapeutic Interventions Therapeutic Interventions Aquatic Therapy Home Exercise Program Lymphedema Management Manual Therapy Patient/Caregiver Education Self-Care/Home Management Therapeutic Activities Therapeutic Exercises Next Visit Focus/Plan Next Note Type Treatment Note Next Visit Plan circumferential measurements paxton LE's, schedule land-based PT treatment for trial of sequential pump. Trial use of mask and snorkel depending on patient comfort for increased benefit from prone ex for gentle ROM and strengthening.
--- NOTE | 2018-05-29 14:56 | PT.OTN ---
Current Diagnoses Morbid (severe) obesity due to excess calories (05/22/18) Venous insufficiency (chronic) (peripheral) (05/22/18) Spondylosis without myelopathy or radiculopathy, lumbar region (05/22/18) Low back pain (05/22/18) Difficulty in walking, not elsewhere classified (05/22/18) Weakness (05/22/18) Body mass index (BMI) 60.0-69.9, adult (05/22/18) Presence of right artificial knee joint (05/22/18) Physical Therapy Treatment Note PT-OP-A Visit Information Start: 06/20/17 16:27 Freq: Status: Active Protocol: Document 05/29/18 11:00 LJ (Rec: 05/29/18 14:56 LJ [id number]) Out-Patient Physical Therapy Visit Information Visit Information Visit Type Aquatic Treatment Note Visit Start Time 11:00 Visit Stop Time 11:45 PT-OP-B Current Condition Start: 08/08/17 17:50 Freq: Status: Active Protocol: Document 08/08/17 18:12 DLM (Rec: 08/08/17 18:15 DLM [id number]) Current Condition Current Functional Impairments (Reported) Functional Limitations- ADL's has assistance with her showers, she was doing better with her carlotta-care during toileting until the increased left shoulder pain, pt is using adaptive equipment to help with carlotta-care. Functional Limitations- Mobility/Gait She has upped the height of her 4WW and stand more erect, only ambulating short distances at home with pain limiting her Personal Factors Other Personal Factors That May Effect limited sleep at night due to Therapy/Recovery stress, only sleeping a couple of hours at a time PT-OP-C Subjective Start: 06/20/17 16:27 Freq: Status: Active Protocol: Document 05/29/18 11:00 LJ (Rec: 05/29/18 14:56 LJ [id number]) OP-PT Subjective Patient Comments Patient Comments Pt having pain in LUE and cervical spine as well as right knee and low back. PT-OP-G Mobility & Gait Start: 08/08/17 17:50 Freq: Status: Active Protocol: Document 08/08/17 18:15 DLM (Rec: 08/08/17 18:18 DLM [id number]) OP Mobility Evaluation Transfers Bed to Chair Transfers transfers on/off the lift chair at the pool with SBA, needs assistance for her feet getting into the pool Functional Movements Other Functional Movements using the lift chair to get in /out of the pool OP Gait Assessment Gait Gait Assistance Required: Standby Assistance Distance (Feet) 50 Assistive Devices Assistive Device 4 Wheeled Walker Factors Limiting Gait Function Factors Limiting Gait Function Decreased Activity Tolerance Decreased Strength Pain Poor Balance PT-OP-J Posture/Palpation/Skin Start: 08/08/17 18:18 Freq: Status: Active Protocol: Document 08/08/17 18:18 DLM (Rec: 08/08/17 18:20 DLM [id number]) Posture Evaluation Comments Posture Comments Pt able to achieve erect posture in pool in deep water but still flexed on land with 4WW, she tolerates hanging in the deep water with erect posture well. Pt reports improved ability to use core stabalization while in the pool. PT-OP-K Range of Motion Start: 08/08/17 17:50 Freq: Status: Active Protocol: Document 10/24/17 16:56 SAK (Rec: 10/24/17 17:11 SAK [id number]) Shoulder Goniometric Range of Motion Shoulder Measured in Degrees Left Active Shoulder ROM WFL No Flexion 92 Extension 0 Abduction 78 External Rotation at 0 degrees Abduction 25 Internal Rotation Behind Back (text) to side of hip Right Active Shoulder ROM WFL Yes Shoulder ROM Limitations Shoulder ROM Limitations Pain PT-OP-M Strength Start: 08/08/17 17:50 Freq: Status: Active Protocol: Document 08/08/17 18:18 DLM (Rec: 08/08/17 18:31 DLM [email or web address]) Hip Strength Hip Manual Muscle Testing Right Flexion (L2) 2+ Poor+ Left Flexion (L2) 2+ Poor+ PT-OP-S Aquatic Treatment Start: 06/20/17 16:27 Freq: Status: Active Protocol: Document 05/29/18 11:00 LJ (Rec: 05/29/18 14:56 LJ [id number]) Aquatics Treatment Pool Entry/Exit Pool Entry/Exit Method Lift Assistance Standby Assistance Minimal Assistance Water Walking quick stop start walking Water Level Chest Level Level of Assistance Standby Assistance April Water Level Chest Level Level of Assistance Standby Assistance Comments hasis on posture, #2 ankle Backwards Water Level Chest Level Walking Equipment Resistance Fins Level of Assistance Standby Assistance Comments with emphasis on neutral UE alignment with scap retraction Sideways Water Level Chest Level Walking Equipment Resistance Fins Level of Assistance Standby Assistance Comments with emphasis on neutral UE alignment with scap retraction Forwards Water Level Chest Level Walking Equipment Resistance Fins Level of Assistance Standby Assistance Comments with emphasis on neutral UE alignment with scap retraction Lower Extremity Exercises hamstring curls Water Level [place] Reps/Duration 10 bilat Comments emphasis on posture; #2ankle wts 1 Details Hip flex/ext, abd/add, circles Body Position Hooklying Water Level [place] Reps/Duration 10 bilat Step ups Details bottom stair Reps/Duration 5 Upper Extremity Exercises prone passive flex at wall Reps/Duration 5x3 Comments prone float holding wall, gentle push away and pull toward Upper Extremity Stretches forward walking pec stretch w/noodle Equipment UE paddles Comments therapist assist Reno Activities Reno Activities Bicycle Hip Abduction/Adduction Swim Strokes modified side stroke Equipment Neck Float Laps/Duration 3 min bilat Comments therapist assist Backstroke Laps/Duration 5 min Comments elementary backstroke with flutter, Manual Techniques [place] 15 min PROM shoulder girdle bilat; gentle stretching IR ER , AB gentle joint distraction LUE Aquatic Massage UTs, levator; lateral flex stretch neck, rhombiod release with pin and stretch PT-OP-T Assessment and Plan Start: 06/20/17 16:27 Freq: Status: Active Protocol: Document 05/29/18 11:00 PEGGY (Rec: 05/29/18 14:56 PEGGY [id number]) Physical Therapy Assessment Goals Seven Impairment ROM Consultant Teacher Goal (LTG) Patient able to reach overhead and behind her back with left UE for purposes of ADL's. good goal progress; can lift overhead and partially behind back. 04/24/18: recent increase in difficulty 05/22/18: unable to reach overhead or behind back again (feel heavy use of UE's on walker contributory to worsening pain) LTG Duration 08/21/18 Six Impairment left shoulder pain Longterm Goal (LTG) Patient to report at least a 50% decrease in left shoulder pain (goal achieved 02/20/18) 05/22/18: recent exacerbation with increase in pain to prior levels of 08/23 LTG Duration 08/21/18 Five Impairment Limited gait tolerance, 2 min Walk test- 50 feet Consultant Teacher Goal (LTG) 2 min Walk Test- 200 feet- pain still limits her distance 03/13/18: has increased to 250 ft 04/24/18: no further change, limited by pain and weakness 05/22/18: decline in status to 150 ft largely due to heaviness of right LE due to lymphedema LTG Duration 08/21/18 Four Impairment Decreased strength Consultant Teacher Goal (LTG) Improve hip strength to greater than anti-gravity for functional mobility independence and tolerance- slowly progressing 03/13/18 04/24/18 05/22/18: decreased strength right LE largely due to increased volume and weight from lymphedema LTG Duration 08/21/18 Three Impairment Moderate decrease in spinal ROM with c/o increased pain Consultant Teacher Goal (LTG) Improve spinal ROM to WNL with minimal pain, pt able to attain neutral spine and demonstrate good spinal stabalization and postural awareness- slowly progressing 03/13/18 04/24/18: no further progress 05/22/18 able to achieve upright position with more neutral spine in chest level water but on land pain and weakness cause patient to stand LTG Duration 08/21/18 Two Impairment Moderate assist needed for ADL 's Short Term Goal (STG) Minimal assist with ADL's 02/20/18: improved to min to mod 03/13/18: remains min to mod 04/24/18: improved to min assist 05/22/18: min assist but with increased pain and increased time required Consultant Teacher Goal (LTG) Independent with ADL's with mild symptoms LTG Duration 08/21/18 One Impairment Use of 4WW for gait, short distances with severe forward flexed posture Short Term Goal (STG) Able to stand with minimal forward flexion using 4WW 02/20/18: still difficult to attain upright posture due to pain and weakness, obesity. 03/13/18: mild improvement 04/24/18: no further improvement 05/22/18: continues with severe forward flexion with gait Longterm Goal (LTG) Tolerate gait in the house and short community distances wtih minimal increase in pain with least restrictive device- 02/20/18: still requires use of FWW 03/13/18: needs walker for spinal support. Increase in lymphedema right LE over past few days also limiting. 04/24/18: continues to use 4WW due to increased pain when standing and due to weakness 05/23/18: no progress recently LTG Duration 78/ Progress Towards Goals Progress Towards Goals Slow Progress due to Activity Tolerance Slow Progress due to Medical Issues Progress Comments slow progress due to frequency of only 1x/wk due to transportation issues Assessment Summary Assessment Pt able to achieve increased ROM of both shouoders in abduction and internal rotation. Able to reach overhead when doing side stroke and prone float hangfing onto side of pool. Physical Therapy Plan Frequency and Duration Frequency of Treatment 13 visits Duration of Treatment 3 months Plan of Care Start Date 05/22/18 Plan of Care End Date 08/21/18 Therapeutic Interventions Therapeutic Interventions Aquatic Therapy Home Exercise Program Lymphedema Management Manual Therapy Patient/Caregiver Education Self-Care/Home Management Therapeutic Activities Therapeutic Exercises Next Visit Focus/Plan Next Note Type Treatment Note Next Visit Plan Trial use of mask and snorkel depending on patient comfort for increased benefit from prone ex for gentle ROM and strengthening. Continue with polly Peterson backstroke and sidestroke for maintain increase in ROM of UEs.
--- NOTE | 2018-06-05 15:19 | PT.OTN ---
Current Diagnoses Morbid (severe) obesity due to excess calories (05/29/18) Venous insufficiency (chronic) (peripheral) (05/29/18) Spondylosis without myelopathy or radiculopathy, lumbar region (05/29/18) Low back pain (05/29/18) Difficulty in walking, not elsewhere classified (05/29/18) Weakness (05/29/18) Body mass index (BMI) 60.0-69.9, adult (05/29/18) Presence of right artificial knee joint (05/29/18) Physical Therapy Treatment Note PT-OP-A Visit Information Start: 06/20/17 16:27 Freq: Status: Active Protocol: Document 06/05/18 11:00 LJ (Rec: 06/05/18 15: LJ [email or web address]) Out-Patient Physical Therapy Visit Information Visit Information Visit Type Aquatic Treatment Note Visit Start Time 11:00 Visit Stop Time 11:45 Total Visit Minutes 45 Visit Number 32 Number of WELFARE DIRECTOR Visits 2 PT-OP-B Current Condition Start: 08/08/17 17:50 Freq: Status: Active Protocol: Document 08/08/17 18:12 DLM (Rec: 08/08/17 18:15 DLM [id number]) Current Condition Current Functional Impairments (Reported) Functional Limitations- ADL's has assistance with her showers, she was doing better with her carlotta-care during toileting until the increased left shoulder pain, pt is using adaptive equipment to help with carlotta-care. Functional Limitations- Mobility/Gait She has upped the height of her 4WW and stand more erect, only ambulating short distances at home with pain limiting her Personal Factors Other Personal Factors That May Effect limited sleep at night due to Therapy/Recovery stress, only sleeping a couple of hours at a time PT-OP-C Subjective Start: 06/20/17 16:27 Freq: Status: Active Protocol: Document 06/05/18 11:00 LJ (Rec: 06/05/18 15:19 LJ [email or web address]) OP-PT Subjective Patient Comments Patient Comments Pt having pain in LUE and cervical spine as well as right knee and low back. Pt dealing with family issues and has not been sleeping. Very tense and tight in LUE cervical and trap area PT-OP-G Mobility & Gait Start: 08/08/17 17:50 Freq: Status: Active Protocol: Document 08/08/17 18:15 DLM (Rec: 08/08/17 18:18 DLM [id number]) OP Mobility Evaluation Transfers Bed to Chair Transfers transfers on/off the lift chair at the pool with SBA, needs assistance for her feet getting into the pool Functional Movements Other Functional Movements using the lift chair to get in /out of the pool OP Gait Assessment Gait Gait Assistance Required: Standby Assistance Distance (Feet) 50 Assistive Devices Assistive Device 4 Wheeled Walker Factors Limiting Gait Function Factors Limiting Gait Function Decreased Activity Tolerance Decreased Strength Pain Poor Balance PT-OP-J Posture/Palpation/Skin Start: 08/08/17 18:18 Freq: Status: Active Protocol: Document 08/08/17 18:18 DLM (Rec: 08/08/17 18:20 DLM [id number]) Posture Evaluation Comments Posture Comments Pt able to achieve erect posture in pool in deep water but still flexed on land with 4WW, she tolerates hanging in the deep water with erect posture well. Pt reports improved ability to use core stabalization while in the pool. PT-OP-K Range of Motion Start: 08/08/17 17:50 Freq: Status: Active Protocol: Document 10/24/17 16:56 SAK (Rec: 10/24/17 17:11 SAK [id number]) Shoulder Goniometric Range of Motion Shoulder Measured in Degrees Left Active Shoulder ROM WFL No Flexion 92 Extension 0 Abduction 78 External Rotation at 0 degrees Abduction 25 Internal Rotation Behind Back (text) to side of hip Right Active Shoulder ROM WFL Yes Shoulder ROM Limitations Shoulder ROM Limitations Pain PT-OP-M Strength Start: 08/08/17 17:50 Freq: Status: Active Protocol: Document 08/08/17 18:18 DLM (Rec: 08/08/17 18:31 DLM [email or web address]) Hip Strength Hip Manual Muscle Testing Right Flexion (L2) 2+ Poor+ Left Flexion (L2) 2+ Poor+ PT-OP-S Aquatic Treatment Start: 06/20/17 16:27 Freq: Status: Active Protocol: Document 06/05/18 11:00 LJ (Rec: 06/05/18 15:19 LJ [email or web address]) Aquatics Treatment Pool Entry/Exit Pool Entry/Exit Method Lift Assistance Standby Assistance Minimal Assistance Water Walking quick stop start walking Water Level Chest Level Level of Assistance Standby Assistance [place] Water Level Chest Level Level of Assistance Standby Assistance Comments hasis on posture, #2 ankle Backwards Water Level Chest Level Walking Equipment Resistance Fins Level of Assistance Standby Assistance Comments with emphasis on neutral UE alignment with scap retraction Sideways Water Level Chest Level Walking Equipment Resistance Fins Level of Assistance Standby Assistance Comments with emphasis on neutral UE alignment with scap retraction Forwards Water Level Chest Level Walking Equipment Resistance Fins Level of Assistance Standby Assistance Comments with emphasis on neutral UE alignment with scap retraction Lower Extremity Exercises hamstring curls Body Position Standing Water Level Waist Level Reps/Duration 2x 15 bilat Comments emphasis on posture; #2ankle wts 1 Details Hip flex/ext, abd/add, circles Body Position Standing Water Level Chest Level Reps/Duration 2x 15 bilat Step ups Details boxes Water Level Waist Level Reps/Duration 6x each way Upper Extremity Exercises shoulder IR/ER Reps/Duration 10x Comments emphasis on rotation with decreased UT activation 2 Details shoulder hor ab/ad, flex/ext, elbow flex/ext Equipment UE Reps/Duration 10x Comments emphasis on decreasing upper trap overactivation 1 Details shoulder rolls Body Position Standing Water Level Neck Level Reps/Duration 10 Comments backward Upper Extremity Stretches forward walking pec stretch w/noodle Equipment UE paddles Comments therapist assist [place] Activities [place] Activities Bicycle [place] Hip Abduction/Adduction Sit Kicks Swim Strokes modified side stroke Equipment Neck Float Laps/Duration 3 min bilat Comments therapist assist Backstroke Laps/Duration 5 min Comments elementary backstroke with flutter, Manual Techniques Bad Ragaz 15 min PROM shoulder girdle bilat; gentle stretching IR ER , AB gentle joint distraction LUE Aquatic Massage UTs, levator; lateral flex stretch neck, rhombiod release with pin and stretch PT-OP-T Assessment and Plan Start: 06/20/17 16:27 Freq: Status: Active Protocol: Document 06/05/18 11:00 PEGGY (Rec: 06/05/18 15:19 PEGGY [email or web address]) Physical Therapy Assessment Goals Seven Impairment ROM Care Home Goal (LTG) Patient able to reach overhead and behind her back with left UE for purposes of ADL's. good goal progress; can lift overhead and partially behind back. 04/24/18: recent increase in difficulty 05/22/18: unable to reach overhead or behind back again (feel heavy use of UE's on walker contributory to worsening pain) LTG Duration 08/21/18 Six Impairment left shoulder pain Care Home Goal (LTG) Patient to report at least a 50% decrease in left shoulder pain (goal achieved 02/20/18) 05/22/18: recent exacerbation with increase in pain to prior levels of 710 LTG Duration 08/21/18 Five Impairment Limited gait tolerance, 2 min Walk test- 50 feet Care Home Goal (LTG) 2 min Walk Test- 200 feet- pain still limits her distance 03/13/18: has increased to 250 ft 04/24/18: no further change, limited by pain and weakness 05/22/18: decline in status to 150 ft largely due to heaviness of right LE due to lymphedema LTG Duration 08/21/18 Four Impairment Decreased strength Care Home Goal (LTG) Improve hip strength to greater than anti-gravity for functional mobility independence and tolerance- slowly progressing 03/13/18 04/24/18 05/22/18: decreased strength right LE largely due to increased volume and weight from lymphedema LTG Duration 08/21/18 Three Impairment Moderate decrease in spinal ROM with c/o increased pain Director Hospice Operations Goal (LTG) Improve spinal ROM to WNL with minimal pain, pt able to attain neutral spine and demonstrate good spinal stabalization and postural awareness- slowly progressing 03/13/18 04/24/18: no further progress 05/22/18 able to achieve upright position with more neutral spine in chest level water but on land pain and weakness cause patient to stand LTG Duration 08/21/18 Two Impairment Moderate assist needed for ADL 's Short Term Goal (STG) Minimal assist with ADL's 02/20/18: improved to min to mod 03/13/18: remains min to mod 04/24/18: improved to min assist 05/22/18: min assist but with increased pain and increased time required Director Hospice Operations Goal (LTG) Independent with ADL's with mild symptoms LTG Duration 08/21/18 One Impairment Use of 4WW for gait, short distances with severe forward flexed posture Short Term Goal (STG) Able to stand with minimal forward flexion using 4WW 02/20/18: still difficult to attain upright posture due to pain and weakness, obesity. 03/13/18: mild improvement 04/24/18: no further improvement 05/22/18: continues with severe forward flexion with gait Care Home Goal (LTG) Tolerate gait in the house and short community distances wtih minimal increase in pain with least restrictive device- 02/20/18: still requires use of FWW 03/13/18: needs walker for spinal support. Increase in lymphedema right LE over past few days also limiting. 04/24/18: continues to use 4WW due to increased pain when standing and due to weakness 05/23/18: no progress recently LTG Duration 78/ Progress Towards Goals Progress Towards Goals Slow Progress due to Activity Tolerance Slow Progress due to Medical Issues Progress Comments slow progress due to frequency of only 1x/wk due to transportation issues Assessment Summary Assessment Pt achieved slight increase in ROM of Lshoulder in abd, flex , ext, and IR after Bad Ragaz. Attempted to adjust foot position of RLE during step ups and squats with little success in reducing pain. Physical Therapy Plan Frequency and Duration Frequency of Treatment 13 visits Duration of Treatment 3 months Plan of Care Start Date 05/22/18 Plan of Care End Date 08/21/18 Therapeutic Interventions Therapeutic Interventions Aquatic Therapy Home Exercise Program Lymphedema Management Manual Therapy Patient/Caregiver Education Self-Care/Home Management Therapeutic Activities Therapeutic Exercises Next Visit Focus/Plan Next Note Type Treatment Note Next Visit Plan Trial use of mask and snorkel depending on patient comfort for increased benefit from prone ex for gentle ROM and strengthening. Continue with Bad Ragaz, [place] backstroke and sidestroke for maintain increase in ROM of UEs.
--- NOTE | 2018-06-05 15:20 | PT.OTN ---
Current Diagnoses Morbid (severe) obesity due to excess calories (05/29/18) Venous insufficiency (chronic) (peripheral) (05/29/18) Spondylosis without myelopathy or radiculopathy, lumbar region (05/29/18) Low back pain (05/29/18) Difficulty in walking, not elsewhere classified (05/29/18) Weakness (05/29/18) Body mass index (BMI) 60.0-69.9, adult (05/29/18) Presence of right artificial knee joint (05/29/18) Physical Therapy Treatment Note PT-OP-A Visit Information Start: 06/20/17 16:27 Freq: Status: Active Protocol: Document 06/05/18 11:00 LJ (Rec: 06/05/18 15: LJ [email or web address]) Out-Patient Physical Therapy Visit Information Visit Information Visit Type Aquatic Treatment Note Visit Start Time 11:00 Visit Stop Time 11:45 Total Visit Minutes 45 Visit Number 32 Number of AIRCRAFT PNEUDRAULICS REPAIRER Visits 2 PT-OP-B Current Condition Start: 08/08/17 17:50 Freq: Status: Active Protocol: Document 08/08/17 18:12 DLM (Rec: 08/08/17 18:15 DLM [id number]) Current Condition Current Functional Impairments (Reported) Functional Limitations- ADL's has assistance with her showers, she was doing better with her carlotta-care during toileting until the increased left shoulder pain, pt is using adaptive equipment to help with carlotta-care. Functional Limitations- Mobility/Gait She has upped the height of her 4WW and stand more erect, only ambulating short distances at home with pain limiting her Personal Factors Other Personal Factors That May Effect limited sleep at night due to Therapy/Recovery stress, only sleeping a couple of hours at a time PT-OP-C Subjective Start: 06/20/17 16:27 Freq: Status: Active Protocol: Document 06/05/18 11:00 LJ (Rec: 06/05/18 15:19 LJ [email or web address]) OP-PT Subjective Patient Comments Patient Comments Pt having pain in LUE and cervical spine as well as right knee and low back. Pt dealing with family issues and has not been sleeping. Very tense and tight in LUE cervical and trap area PT-OP-G Mobility & Gait Start: 08/08/17 17:50 Freq: Status: Active Protocol: Document 08/08/17 18:15 DLM (Rec: 08/08/17 18:18 DLM [id number]) OP Mobility Evaluation Transfers Bed to Chair Transfers transfers on/off the lift chair at the pool with SBA, needs assistance for her feet getting into the pool Functional Movements Other Functional Movements using the lift chair to get in /out of the pool OP Gait Assessment Gait Gait Assistance Required: Standby Assistance Distance (Feet) 50 Assistive Devices Assistive Device 4 Wheeled Walker Factors Limiting Gait Function Factors Limiting Gait Function Decreased Activity Tolerance Decreased Strength Pain Poor Balance PT-OP-J Posture/Palpation/Skin Start: 08/08/17 18:18 Freq: Status: Active Protocol: Document 08/08/17 18:18 DLM (Rec: 08/08/17 18:20 DLM [id number]) Posture Evaluation Comments Posture Comments Pt able to achieve erect posture in pool in deep water but still flexed on land with 4WW, she tolerates hanging in the deep water with erect posture well. Pt reports improved ability to use core stabalization while in the pool. PT-OP-K Range of Motion Start: 08/08/17 17:50 Freq: Status: Active Protocol: Document 10/24/17 16:56 SAK (Rec: 10/24/17 17:11 SAK [id number]) Shoulder Goniometric Range of Motion Shoulder Measured in Degrees Left Active Shoulder ROM WFL No Flexion 92 Extension 0 Abduction 78 External Rotation at 0 degrees Abduction 25 Internal Rotation Behind Back (text) to side of hip Right Active Shoulder ROM WFL Yes Shoulder ROM Limitations Shoulder ROM Limitations Pain PT-OP-M Strength Start: 08/08/17 17:50 Freq: Status: Active Protocol: Document 08/08/17 18:18 DLM (Rec: 08/08/17 18:31 DLM [email or web address]) Hip Strength Hip Manual Muscle Testing Right Flexion (L2) 2+ Poor+ Left Flexion (L2) 2+ Poor+ PT-OP-S Aquatic Treatment Start: 06/20/17 16:27 Freq: Status: Active Protocol: Document 06/05/18 11:00 LJ (Rec: 06/05/18 15:19 LJ [email or web address]) Aquatics Treatment Pool Entry/Exit Pool Entry/Exit Method Lift Assistance Standby Assistance Minimal Assistance Water Walking quick stop start walking Water Level Chest Level Level of Assistance Standby Assistance [place] April Water Level Chest Level Level of Assistance Standby Assistance Comments hasis on posture, #2 ankle Backwards Water Level Chest Level Walking Equipment Resistance Fins Level of Assistance Standby Assistance Comments with emphasis on neutral UE alignment with scap retraction Sideways Water Level Chest Level Walking Equipment Resistance Fins Level of Assistance Standby Assistance Comments with emphasis on neutral UE alignment with scap retraction Forwards Water Level Chest Level Walking Equipment Resistance Fins Level of Assistance Standby Assistance Comments with emphasis on neutral UE alignment with scap retraction Lower Extremity Exercises hamstring curls Body Position Standing Water Level Waist Level Reps/Duration 2x 15 bilat Comments emphasis on posture; #2ankle wts 1 Details Hip flex/ext, abd/add, circles Body Position Standing Water Level Chest Level Reps/Duration 2x 15 bilat Step ups Details boxes Water Level Waist Level Reps/Duration 6x each way Upper Extremity Exercises shoulder IR/ER Reps/Duration 10x Comments emphasis on rotation with decreased UT activation 2 Details shoulder hor ab/ad, flex/ext, elbow flex/ext Equipment UE Reps/Duration 10x Comments emphasis on decreasing upper trap overactivation 1 Details shoulder rolls Body Position Standing Water Level Neck Level Reps/Duration 10 Comments backward Upper Extremity Stretches forward walking pec stretch w/noodle Equipment UE paddles Comments therapist assist [place] Activities [place] Activities Bicycle [place] Hip Abduction/Adduction Sit Kicks Swim Strokes modified side stroke Equipment Neck Float Laps/Duration 3 min bilat Comments therapist assist Backstroke Laps/Duration 5 min Comments elementary backstroke with flutter, Manual Techniques Bad Ragaz 15 min PROM shoulder girdle bilat; gentle stretching IR ER , AB gentle joint distraction LUE Aquatic Massage UTs, levator; lateral flex stretch neck, rhombiod release with pin and stretch PT-OP-T Assessment and Plan Start: 06/20/17 16:27 Freq: Status: Active Protocol: Document 06/05/18 11:00 PEGGY (Rec: 06/05/18 15:19 PEGGY [email or web address]) Physical Therapy Assessment Goals Seven Impairment ROM [facility] Goal (LTG) Patient able to reach overhead and behind her back with left UE for purposes of ADL's. good goal progress; can lift overhead and partially behind back. 04/24/18: recent increase in difficulty 05/22/18: unable to reach overhead or behind back again (feel heavy use of UE's on walker contributory to worsening pain) LTG Duration 08/21/18 Six Impairment left shoulder pain [facility] Goal (LTG) Patient to report at least a 50% decrease in left shoulder pain (goal achieved 02/20/18) 05/22/18: recent exacerbation with increase in pain to prior levels of 710 LTG Duration 08/21/18 Five Impairment Limited gait tolerance, 2 min Walk test- 50 feet [facility] Goal (LTG) 2 min Walk Test- 200 feet- pain still limits her distance 03/13/18: has increased to 250 ft 04/24/18: no further change, limited by pain and weakness 05/22/18: decline in status to 150 ft largely due to heaviness of right LE due to lymphedema LTG Duration 08/21/18 Four Impairment Decreased strength [facility] Goal (LTG) Improve hip strength to greater than anti-gravity for functional mobility independence and tolerance- slowly progressing 03/13/18 04/24/18 05/22/18: decreased strength right LE largely due to increased volume and weight from lymphedema LTG Duration 08/21/18 Three Impairment Moderate decrease in spinal ROM with c/o increased pain Health Services Information Specialist Goal (LTG) Improve spinal ROM to WNL with minimal pain, pt able to attain neutral spine and demonstrate good spinal stabalization and postural awareness- slowly progressing 03/13/18 04/24/18: no further progress 05/22/18 able to achieve upright position with more neutral spine in chest level water but on land pain and weakness cause patient to stand LTG Duration 08/21/18 Two Impairment Moderate assist needed for ADL 's Short Term Goal (STG) Minimal assist with ADL's 02/20/18: improved to min to mod 03/13/18: remains min to mod 04/24/18: improved to min assist 05/22/18: min assist but with increased pain and increased time required Health Services Information Specialist Goal (LTG) Independent with ADL's with mild symptoms LTG Duration 08/21/18 One Impairment Use of 4WW for gait, short distances with severe forward flexed posture Short Term Goal (STG) Able to stand with minimal forward flexion using 4WW 02/20/18: still difficult to attain upright posture due to pain and weakness, obesity. 03/13/18: mild improvement 04/24/18: no further improvement 05/22/18: continues with severe forward flexion with gait [facility] Goal (LTG) Tolerate gait in the house and short community distances wtih minimal increase in pain with least restrictive device- 02/20/18: still requires use of FWW 03/13/18: needs walker for spinal support. Increase in lymphedema right LE over past few days also limiting. 04/24/18: continues to use 4WW due to increased pain when standing and due to weakness 05/23/18: no progress recently LTG Duration 78/ Progress Towards Goals Progress Towards Goals Slow Progress due to Activity Tolerance Slow Progress due to Medical Issues Progress Comments slow progress due to frequency of only 1x/wk due to transportation issues Assessment Summary Assessment Pt achieved slight increase in ROM of Lshoulder in abd, flex , ext, and IR after Bad Ragaz. Attempted to adjust foot position of RLE during step ups and squats with little success in reducing pain. Physical Therapy Plan Frequency and Duration Frequency of Treatment 13 visits Duration of Treatment 3 months Plan of Care Start Date 05/22/18 Plan of Care End Date 08/21/18 Therapeutic Interventions Therapeutic Interventions Aquatic Therapy Home Exercise Program Lymphedema Management Manual Therapy Patient/Caregiver Education Self-Care/Home Management Therapeutic Activities Therapeutic Exercises Next Visit Focus/Plan Next Note Type Treatment Note Next Visit Plan Trial use of mask and snorkel depending on patient comfort for increased benefit from prone ex for gentle ROM and strengthening. Continue with Bad Ragaz, [place] backstroke and sidestroke for maintain increase in ROM of UEs.
--- NOTE | 2018-06-12 14:33 | PT.OTN ---
Current Diagnoses Morbid (severe) obesity due to excess calories (06/12/18) Venous insufficiency (chronic) (peripheral) (06/12/18) Spondylosis without myelopathy or radiculopathy, lumbar region (06/12/18) Low back pain (06/12/18) Difficulty in walking, not elsewhere classified (06/12/18) Weakness (06/12/18) Body mass index (BMI) 60.0-69.9, adult (06/12/18) Presence of right artificial knee joint (06/12/18) Physical Therapy Treatment Note PT-OP-A Visit Information Start: 06/20/17 16:27 Freq: Status: Active Protocol: Document 06/12/18 10:15 CLB (Rec: 06/12/18 14:33 CLB [id number]) Out-Patient Physical Therapy Visit Information Visit Information Visit Type Aquatic Treatment Note Visit Start Time 10:15 Visit Stop Time 11:00 Total Visit Minutes 45 Visit Number 33 Number of CEO AND FOUNDER Visits 3 PT-OP-B Current Condition Start: 08/08/17 17:50 Freq: Status: Active Protocol: Document 08/08/17 18:12 DLM (Rec: 08/08/17 18:15 DLM [id number]) Current Condition Current Functional Impairments (Reported) Functional Limitations- ADL's has assistance with her showers, she was doing better with her carlotta-care during toileting until the increased left shoulder pain, pt is using adaptive equipment to help with carlotta-care. Functional Limitations- Mobility/Gait She has upped the height of her 4WW and stand more erect, only ambulating short distances at home with pain limiting her Personal Factors Other Personal Factors That May Effect limited sleep at night due to Therapy/Recovery stress, only sleeping a couple of hours at a time PT-OP-C Subjective Start: 06/20/17 16:27 Freq: Status: Active Protocol: Document 06/12/18 10:15 CLB (Rec: 06/12/18 14:33 CLB [id number]) OP-PT Subjective Patient Comments Patient Comments Pt continues to have pain in LUE and cervial spine. PT-OP-G Mobility & Gait Start: 08/08/17 17:50 Freq: Status: Active Protocol: Document 08/08/17 18:15 DLM (Rec: 08/08/17 18:18 DLM [id number]) OP Mobility Evaluation Transfers Bed to Chair Transfers transfers on/off the lift chair at the pool with SBA, needs assistance for her feet getting into the pool Functional Movements Other Functional Movements using the lift chair to get in /out of the pool OP Gait Assessment Gait Gait Assistance Required: Standby Assistance Distance (Feet) 50 Assistive Devices Assistive Device 4 Wheeled Walker Factors Limiting Gait Function Factors Limiting Gait Function Decreased Activity Tolerance Decreased Strength Pain Poor Balance PT-OP-J Posture/Palpation/Skin Start: 08/08/17 18:18 Freq: Status: Active Protocol: Document 08/08/17 18:18 DLM (Rec: 08/08/17 18:20 DLM [id number]) Posture Evaluation Comments Posture Comments Pt able to achieve erect posture in pool in deep water but still flexed on land with 4WW, she tolerates hanging in the deep water with erect posture well. Pt reports improved ability to use core stabalization while in the pool. PT-OP-K Range of Motion Start: 08/08/17 17:50 Freq: Status: Active Protocol: Document 10/24/17 16:56 SAK (Rec: 10/24/17 17:11 SAK [id number]) Shoulder Goniometric Range of Motion Shoulder Measured in Degrees Left Active Shoulder ROM WFL No Flexion 92 Extension 0 Abduction 78 External Rotation at 0 degrees Abduction 25 Internal Rotation Behind Back (text) to side of hip Right Active Shoulder ROM WFL Yes Shoulder ROM Limitations Shoulder ROM Limitations Pain PT-OP-M Strength Start: 08/08/17 17:50 Freq: Status: Active Protocol: Document 08/08/17 18:18 DLM (Rec: 08/08/17 18:31 DLM [id number]) Hip Strength Hip Manual Muscle Testing Right Flexion (L2) 2+ Poor+ Left Flexion (L2) 2+ Poor+ PT-OP-S Aquatic Treatment Start: 06/20/17 16:27 Freq: Status: Active Protocol: Document 06/12/18 10:15 CLB (Rec: 06/12/18 14:33 CLB [id number]) Aquatics Treatment Pool Entry/Exit Pool Entry/Exit Method Lift Assistance Standby Assistance Minimal Assistance Water Walking quick stop start walking Water Level Chest Level Level of Assistance Standby Assistance [place] April Level of Assistance Standby Assistance Backwards Water Level Chest Level Walking Equipment Resistance Fins Level of Assistance Standby Assistance Comments with emphasis on neutral UE alignment with scap retraction Sideways Water Level Chest Level Walking Equipment Resistance Fins Level of Assistance Standby Assistance Comments with emphasis on neutral UE alignment with scap retraction Forwards Water Level Chest Level Walking Equipment Resistance Fins Level of Assistance Standby Assistance Comments with emphasis on neutral UE alignment with scap retraction Lower Extremity Exercises 1 Details Hip flex/ext, abd/add, circles Body Position Standing Water Level Chest Level Reps/Duration 2x 15 bilat Step ups Details boxes Water Level Waist Level Reps/Duration 6x each way Comments right knee pain Knee extension Body Position Standing Water Level Chest Level Equipment Resistance Fins Upper Extremity Exercises prone passive flex at wall Reps/Duration 5x3 Comments prone float holding wall, gentle push away and pull toward shoulder IR/ER Reps/Duration 10x Comments emphasis on rotation with decreased UT activation 3 Details supine water angels Reps/Duration 10x 2 Details shoulder hor ab/ad, flex/ext, elbow flex/ext Equipment UE Reps/Duration 10x Comments emphasis on decreasing upper trap overactivation Upper Extremity Stretches forward walking pec stretch w/noodle Equipment UE paddles Comments therapist assist corner stretch Body Position Standing Water Level Chest Level Reps/Duration 2x 1 Details shoulder, neck, scap Body Position Standing Water Level Neck Level Reps/Duration 30 sec each Spinal Exercises 1 Details supine to stand Reps/Duration 3x Comments min assist and cues Butler Activities Butler Activities Bicycle Hip Abduction/Adduction Swim Strokes modified side stroke Equipment Neck Float Laps/Duration 3 min bilat Comments therapist assist Manual Techniques Bad Ragaz gentle joint distraction LUE Aquatic Massage UTs, levator; lateral flex stretch neck, rhombiod release with pin and stretch, also piriformis and low back. Other 1 Details ball massage on wall-Left piriformis Body Position Standing Water Level Chest Level Equipment small yellow ball Reps/Duration 5 min PT-OP-T Assessment and Plan Start: 06/20/17 16:27 Freq: Status: Active Protocol: Document 06/12/18 10:15 CLB (Rec: 06/12/18 14:33 CLB [id number]) Physical Therapy Assessment Goals Seven Impairment ROM Assistant Front Desk Manager Goal (LTG) Patient able to reach overhead and behind her back with left UE for purposes of ADL's. good goal progress; can lift overhead and partially behind back. 04/24/18: recent increase in difficulty 05/22/18: unable to reach overhead or behind back again (feel heavy use of UE's on walker contributory to worsening pain) LTG Duration 08/21/18 Six Impairment left shoulder pain Assistant Front Desk Manager Goal (LTG) Patient to report at least a 50% decrease in left shoulder pain (goal achieved 02/20/18) 05/22/18: recent exacerbation with increase in pain to prior levels of 08/23 LTG Duration 08/21/18 Five Impairment Limited gait tolerance, 2 min Walk test- 50 feet Assistant Front Desk Manager Goal (LTG) 2 min Walk Test- 200 feet- pain still limits her distance 03/13/18: has increased to 250 ft 04/24/18: no further change, limited by pain and weakness 05/22/18: decline in status to 150 ft largely due to heaviness of right LE due to lymphedema LTG Duration 08/21/18 Four Impairment Decreased strength Assistant Front Desk Manager Goal (LTG) Improve hip strength to greater than anti-gravity for functional mobility independence and tolerance- slowly progressing 03/13/18 04/24/18 05/22/18: decreased strength right LE largely due to increased volume and weight from lymphedema LTG Duration 08/21/18 Three Impairment Moderate decrease in spinal ROM with c/o increased pain Assistant Front Desk Manager Goal (LTG) Improve spinal ROM to WNL with minimal pain, pt able to attain neutral spine and demonstrate good spinal stabalization and postural awareness- slowly progressing 03/13/18 04/24/18: no further progress 05/22/18 able to achieve upright position with more neutral spine in chest level water but on land pain and weakness cause patient to stand LTG Duration 08/21/18 Two Impairment Moderate assist needed for ADL 's Short Term Goal (STG) Minimal assist with ADL's 02/20/18: improved to min to mod 03/13/18: remains min to mod 04/24/18: improved to min assist 05/22/18: min assist but with increased pain and increased time required Assistant Front Desk Manager Goal (LTG) Independent with ADL's with mild symptoms LTG Duration 08/21/18 One Impairment Use of 4WW for gait, short distances with severe forward flexed posture Short Term Goal (STG) Able to stand with minimal forward flexion using 4WW 02/20/18: still difficult to attain upright posture due to pain and weakness, obesity. 03/13/18: mild improvement 04/24/18: no further improvement 05/22/18: continues with severe forward flexion with gait Retirement Goal (LTG) Tolerate gait in the house and short community distances wtih minimal increase in pain with least restrictive device- 02/20/18: still requires use of FWW 03/13/18: needs walker for spinal support. Increase in lymphedema right LE over past few days also limiting. 04/24/18: continues to use 4WW due to increased pain when standing and due to weakness 05/23/18: no progress recently LTG Duration Assessment Summary Assessment Pt tolerated all aquatic activities well. Pt experienced right knee pain with step ups after fourth set . Pt reported decreased in cervical pain after theraputic massage and slight increase in ROM in LUE. Physical Therapy Plan Frequency and Duration Frequency of Treatment 13 visits Duration of Treatment 3 months Plan of Care Start Date 05/22/18 Plan of Care End Date 08/21/18 Next Visit Focus/Plan Next Visit Plan Trial use of mask and snorkel depending on patient comfort for increased benefit from prone ex for gentle ROM and strengthening. Continue with Bad Ragaz, [place] backstroke and sidestroke for maintain increase in ROM of UEs.
--- NOTE | 2018-06-26 18:38 | PT.OTN ---
Current Diagnoses Morbid (severe) obesity due to excess calories (06/26/18) Venous insufficiency (chronic) (peripheral) (06/26/18) Spondylosis without myelopathy or radiculopathy, lumbar region (06/26/18) Low back pain (06/26/18) Difficulty in walking, not elsewhere classified (06/26/18) Weakness (06/26/18) Body mass index (BMI) 60.0-69.9, adult (06/26/18) Presence of right artificial knee joint (06/26/18) Physical Therapy Treatment Note PT-OP-A Visit Information Start: 06/20/17 16:27 Freq: Status: Active Protocol: Document 06/26/18 18:29 SAK (Rec: 06/26/18 18:38 SAK [id number]) Out-Patient Physical Therapy Visit Information Visit Information Visit Type Aquatic Treatment Note Visit Start Time 11:45 Visit Stop Time 12:30 Total Visit Minutes 45 Visit Number 34 Number of SALESPERSON [employer]IAL [employer]OTS Visits 4 PT-OP-B Current Condition Start: 08/08/17 17:50 Freq: Status: Active Protocol: Document 08/08/17 18:12 DLM (Rec: 08/08/17 18:15 DLM [id number]) Current Condition Current Functional Impairments (Reported) Functional Limitations- ADL's has assistance with her showers, she was doing better with her carlotta-care during toileting until the increased left shoulder pain, pt is using adaptive equipment to help with carlotta-care. Functional Limitations- Mobility/Gait She has upped the height of her 4WW and stand more erect, only ambulating short distances at home with pain limiting her Personal Factors Other Personal Factors That May Effect limited sleep at night due to Therapy/Recovery stress, only sleeping a couple of hours at a time PT-OP-C Subjective Start: 06/20/17 16:27 Freq: Status: Active Protocol: Document 06/26/18 18:29 SAK (Rec: 06/26/18 18:38 SAK [id number]) OP-PT Subjective Patient Comments Patient Comments No new c/o, shoulder pain some less today. PT-OP-G Mobility & Gait Start: 08/08/17 17:50 Freq: Status: Active Protocol: Document 08/08/17 18:15 DLM (Rec: 08/08/17 18:18 DLM [id number]) OP Mobility Evaluation Transfers Bed to Chair Transfers transfers on/off the lift chair at the pool with SBA, needs assistance for her feet getting into the pool Functional Movements Other Functional Movements using the lift chair to get in /out of the pool OP Gait Assessment Gait Gait Assistance Required: Standby Assistance Distance (Feet) 50 Assistive Devices Assistive Device 4 Wheeled Walker Factors Limiting Gait Function Factors Limiting Gait Function Decreased Activity Tolerance Decreased Strength Pain Poor Balance PT-OP-J Posture/Palpation/Skin Start: 08/08/17 18:18 Freq: Status: Active Protocol: Document 08/08/17 18:18 DL (Rec: 08/08/17 18:20 [facility] [id number]) Posture Evaluation Comments Posture Comments Pt able to achieve erect posture in pool in deep water but still flexed on land with 4WW, she tolerates hanging in the deep water with erect posture well. Pt reports improved ability to use core stabalization while in the pool. PT-OP-K Range of Motion Start: 08/08/17 17:50 Freq: Status: Active Protocol: Document 10/24/17 16:56 [facility] (Rec: 10/24/17 17:11 [facility] [id number]) Shoulder Goniometric Range of Motion Shoulder Measured in Degrees Left Active Shoulder ROM WFL No Flexion 92 Extension 0 Abduction 78 External Rotation at 0 degrees Abduction 25 Internal Rotation Behind Back (text) to side of hip Right Active Shoulder ROM WFL Yes Shoulder ROM Limitations Shoulder ROM Limitations Pain PT-OP-M Strength Start: 08/08/17 17:50 Freq: Status: Active Protocol: Document 08/08/17 18:18 DL (Rec: 08/08/17 18:31 [facility] [id number]) Hip Strength Hip Manual Muscle Testing Right Flexion (L2) 2+ Poor+ Left Flexion (L2) 2+ Poor+ PT-OP-S Aquatic Treatment Start: 06/20/17 16:27 Freq: Status: Active Protocol: Document 06/26/18 18:29 [facility] (Rec: 06/26/18 18:38 [facility] [id number]) Aquatics Treatment Pool Entry/Exit Pool Entry/Exit Method Lift Assistance Standby Assistance Minimal Assistance Water Walking quick stop start walking Water Level Chest Level Level of Assistance Standby Assistance [place] April Level of Assistance Standby Assistance Backwards Water Level Chest Level Walking Equipment Resistance Fins Level of Assistance Standby Assistance Comments with emphasis on neutral UE alignment with scap retraction Sideways Water Level Chest Level Walking Equipment Resistance Fins Level of Assistance Standby Assistance Comments with emphasis on neutral UE alignment with scap retraction Forwards Water Level Chest Level Walking Equipment Resistance Fins Level of Assistance Standby Assistance Comments with emphasis on neutral UE alignment with scap retraction Lower Extremity Exercises 1 Details Hip flex/ext, abd/add, circles Body Position Standing Water Level Chest Level Reps/Duration 2x 15 bilat Step ups Details forward and side Water Level Waist Level Reps/Duration 10x each way Comments 4 boxes Knee extension Body Position Standing Water Level Chest Level Equipment Resistance Fins Upper Extremity Exercises shoulder IR/ER Reps/Duration 10x Comments emphasis on rotation with decreased UT activation 3 Details supine water angels Reps/Duration 10x 2 Details shoulder hor ab/ad, flex/ext, elbow flex/ext Equipment UE Reps/Duration 10x Comments emphasis on decreasing upper trap overactivation Upper Extremity Stretches forward walking pec stretch w/noodle Equipment UE paddles Comments therapist assist corner stretch Body Position Standing Water Level Chest Level Reps/Duration 2x [place] Activities [place] Activities Bicycle [place] Hip Abduction/Adduction Sit Kicks Swim Strokes modified side stroke Equipment Neck Float Backstroke Laps/Duration 5 min Comments elementary backstroke with flutter, Manual Techniques Bad Ragaz passive for trunk and shoulder ROM, muscle relaxation, pain management Aquatic Massage UTs, levator; lateral flex stretch neck, rhombiod release with pin and stretch, also piriformis and low back. PT-OP-T Assessment and Plan Start: 06/20/17 16:27 Freq: Status: Active Protocol: Document 06/26/18 18:29 [facility] (Rec: 06/26/18 18:38 [facility] [id number]) Physical Therapy Assessment Goals Seven Impairment ROM Care Home Goal (LTG) Patient able to reach overhead and behind her back with left UE for purposes of ADL's. good goal progress; can lift overhead and partially behind back. 04/24/18: recent increase in difficulty 05/22/18: unable to reach overhead or behind back again (feel heavy use of UE's on walker contributory to worsening pain) LTG Duration 08/21/18 Six Impairment left shoulder pain Remote Sensing Technician Goal (LTG) Patient to report at least a 50% decrease in left shoulder pain (goal achieved 02/20/18) 05/22/18: recent exacerbation with increase in pain to prior levels of 08/23 LTG Duration 08/21/18 Five Impairment Limited gait tolerance, 2 min Walk test- 50 feet Remote Sensing Technician Goal (LTG) 2 min Walk Test- 200 feet- pain still limits her distance 03/13/18: has increased to 250 ft 04/24/18: no further change, limited by pain and weakness 05/22/18: decline in status to 150 ft largely due to heaviness of right LE due to lymphedema LTG Duration 08/21/18 Four Impairment Decreased strength Care Home Goal (LTG) Improve hip strength to greater than anti-gravity for functional mobility independence and tolerance- slowly progressing 03/13/18 04/24/18 05/22/18: decreased strength right LE largely due to increased volume and weight from lymphedema LTG Duration 08/21/18 Three Impairment Moderate decrease in spinal ROM with c/o increased pain Care Home Goal (LTG) Improve spinal ROM to WNL with minimal pain, pt able to attain neutral spine and demonstrate good spinal stabalization and postural awareness- slowly progressing 03/13/18 04/24/18: no further progress 05/22/18 able to achieve upright position with more neutral spine in chest level water but on land pain and weakness cause patient to stand LTG Duration 08/21/18 Two Impairment Moderate assist needed for ADL 's Short Term Goal (STG) Minimal assist with ADL's 02/20/18: improved to min to mod 03/13/18: remains min to mod 04/24/18: improved to min assist 05/22/18: min assist but with increased pain and increased time required Care Home Goal (LTG) Independent with ADL's with mild symptoms LTG Duration 08/21/18 One Impairment Use of 4WW for gait, short distances with severe forward flexed posture Short Term Goal (STG) Able to stand with minimal forward flexion using 4WW 02/20/18: still difficult to attain upright posture due to pain and weakness, obesity. 03/13/18: mild improvement 04/24/18: no further improvement 05/22/18: continues with severe forward flexion with gait Remote Sensing Technician Goal (LTG) Tolerate gait in the house and short community distances wtih minimal increase in pain with least restrictive device- 02/20/18: still requires use of FWW 03/13/18: needs walker for spinal support. Increase in lymphedema right LE over past few days also limiting. 04/24/18: continues to use 4WW due to increased pain when standing and due to weakness 05/23/18: no progress recently LTG Duration 78/ Assessment Summary Assessment Progress has plateaued with this patient and we have been discussing discharge from PT. She is agreeable at this time ; plans to continue with aquatic exercise independently as able at this time. May benefit from further PT in the future. Physical Therapy Plan Frequency and Duration Frequency of Treatment 13 visits Duration of Treatment 3 months Plan of Care Start Date 05/22/18 Plan of Care End Date 08/21/18 Therapeutic Interventions Therapeutic Interventions Aquatic Therapy Home Exercise Program Lymphedema Management Manual Therapy Patient/Caregiver Education Self-Care/Home Management Therapeutic Activities Therapeutic Exercises Discharge Physical Therapy Discharge Reasons Plateau in Progress Discharge Comments Patient independent with aquatic exercise program.
== END 2018-06-26 12:12 ==
LOC: PHYS 11:45
PROVIDERS: Family Provider Family Medicine; PCP Family Medicine; Visit Provider Family Medicine
DX: M54.5 Low back pain (principal); Z96.651 Presence of right artificial knee joint; R53.1 Weakness; R26.2 Difficulty in walking, not elsewhere classified; E66.01 Morbid (severe) obesity due to excess calories; Z68.44 Body mass index [BMI] 60.0-69.9, adult; I87.2 Venous insufficiency (chronic) (peripheral); M47.816 Spondylosis without myelopathy or radiculopathy, lumbar region
CPT/HCPCS: 97113

== ENCOUNTER → 2018-07-24 10:20 | Outpatient (CLI) | payer MEDICARE, SELFPAY ==
[2017-10-06 03:59] VITALS: BMI 67.8
[2018-07-24 12:12] LABS: Alanine Aminotransferase 42 IU/L (9-52); Albumin 4.1 g/dL (3.5-5.0); Albumin Globulin Ratio 1.3 (1.0-2.8); Alkaline Phosphatase 91 U/L (38-126); Aspartate Aminotransferase 24 IU/L (14-36); Bilirubin Total 0.5 mg/dL (0.2-1.3); Blood Urea Nitrogen 15 mg/dL (7-17); Calcium 9.5 mg/dL (8.4-10.2); Carbon Dioxide 31 mmol/L (22-32); Chloride 99 mmol/L (98-107); Creatinine Urine Random 157.1 mg/dL; Estimated Glomerular Filt Rate > 60.0 mL/min (>60); Globulin 3.2 g/dL (1.7-4.1); Glucose 138 mg/dL (80-110); HEMOLYSIS < 15 (0-50); Potassium 4.3 mmol/L (3.4-5.1); Sodium 138 mmol/L (137-145); Total Protein 7.3 g/dL (6.3-8.2)
[2018-07-24 12:13] LABS: Hemoglobin A1C% w Est Avg Glu 7.3 % (4.0-6.0)
[2018-07-24 12:16] LABS: Microalbumin Urine Random 1.1 mg/dL (0-1.6)
== END ==
PROVIDERS: PCP Family Medicine; Visit Provider Family Medicine
DX: E11.9 Type 2 diabetes mellitus without complications (principal)
CPT/HCPCS: 36415; 80053; 82043; 82570; 83036

== ENCOUNTER → 2018-09-25 14:23 | Outpatient (CLI) | payer MEDICARE, SELFPAY ==
[2017-10-06 03:59] VITALS: BMI 67.8
[2018-09-25 15:36] LABS: Blood Urea Nitrogen 20 mg/dL (7-17); Calcium 9.9 mg/dL (8.4-10.2); Carbon Dioxide 27 mmol/L (22-32); Chloride 102 mmol/L (98-107); Estimated Glomerular Filt Rate > 60.0 mL/min (>60); Glucose 115 mg/dL (80-110); HEMOLYSIS < 15 (0-50); Potassium 4.7 mmol/L (3.4-5.1); Sodium 140 mmol/L (137-145)
== END ==
PROVIDERS: PCP Family Medicine; Visit Provider Family Medicine
DX: I87.2 Venous insufficiency (chronic) (peripheral) (principal)
CPT/HCPCS: 36415; 80048

== ENCOUNTER → 2018-10-02 10:41 | Outpatient (CLI) | payer MEDICARE, SELFPAY ==
[2017-10-06 03:59] VITALS: BMI 67.8
[2018-10-02 12:07] LABS: Blood Urea Nitrogen 16 mg/dL (7-17); Carbon Dioxide 30 mmol/L (22-32); Chloride 101 mmol/L (98-107); Estimated Glomerular Filt Rate > 60.0 mL/min (>60); Glucose 180 mg/dL (80-110); HEMOLYSIS < 15 (0-50); Potassium 4.5 mmol/L (3.4-5.1); Sodium 138 mmol/L (137-145)
== END ==
PROVIDERS: PCP Family Medicine; Visit Provider Family Medicine
DX: R60.9 Edema, unspecified (principal)
CPT/HCPCS: 36415; 80048

== ENCOUNTER → 2018-11-20 09:25 | Outpatient (CLI) | payer MEDICARE, SELFPAY ==
[2017-10-06 03:59] VITALS: BMI 67.8
[2018-11-20 10:53] LABS: Hemoglobin A1C% w Est Avg Glu 7.6 % (4.0-6.0)
[2018-11-20 11:14] LABS: Blood Urea Nitrogen 17 mg/dL (7-17); Calcium 9.9 mg/dL (8.4-10.2); Carbon Dioxide 28 mmol/L (22-32); Chloride 101 mmol/L (98-107); Estimated Glomerular Filt Rate > 60.0 mL/min (>60); Glucose 174 mg/dL (80-110); HEMOLYSIS < 15 (0-50); Potassium 4.6 mmol/L (3.4-5.1); Sodium 137 mmol/L (137-145)
== END ==
PROVIDERS: PCP Family Medicine; Visit Provider Family Medicine
DX: E11.9 Type 2 diabetes mellitus without complications (principal)
CPT/HCPCS: 36415; 80048; 83036

== ENCOUNTER → 2018-11-27 10:25 | Outpatient (CLI) | payer MEDICARE, SELFPAY ==
[2017-10-06 03:59] VITALS: BMI 67.8
[2018-11-27 11:52] LABS: Alanine Aminotransferase 53 IU/L (9-52); Albumin 4.6 g/dL (3.5-5.0); Albumin Globulin Ratio 1.4 (1.0-2.8); Alkaline Phosphatase 108 U/L (38-126); Aspartate Aminotransferase 39 IU/L (14-36); BUN Creatinine Ratio 41.7 (6-22); Bilirubin Total 0.4 mg/dL (0.2-1.3); Blood Urea Nitrogen 25 mg/dL (7-17); Calcium 11.4 mg/dL (8.4-10.2); Carbon Dioxide 32 mmol/L (22-32); Chloride 90 mmol/L (98-107); Estimated Glomerular Filt Rate > 60.0 mL/min (>60); Globulin 3.3 g/dL (1.7-4.1); Glucose 94 mg/dL (80-110); HEMOLYSIS < 15 (0-50); Potassium 3.9 mmol/L (3.4-5.1); Sodium 134 mmol/L (137-145); Total Protein 7.9 g/dL (6.3-8.2)
== END ==
PROVIDERS: PCP Family Medicine; Visit Provider Internal Medicine
DX: I10 Essential (primary) hypertension (principal)
CPT/HCPCS: 36415; 80053

== ENCOUNTER → 2018-12-18 15:28 | Outpatient (CLI) | payer MEDICARE, SELFPAY ==
[2017-10-06 03:59] VITALS: BMI 67.8
[2018-12-18 16:39] LABS: Alanine Aminotransferase 58 IU/L (<35); Albumin 4.1 g/dL (3.5-5.0); Albumin Globulin Ratio 1.3 (1.0-2.8); Alkaline Phosphatase 100 U/L (38-126); Aspartate Aminotransferase 37 IU/L (14-36); Bilirubin Total 0.4 mg/dL (0.2-1.3); Blood Urea Nitrogen 18 mg/dL (7-17); Calcium 10.1 mg/dL (8.4-10.2); Carbon Dioxide 34 mmol/L (22-32); Chloride 99 mmol/L (98-107); Estimated Glomerular Filt Rate > 60.0 mL/min (>60); Globulin 3.2 g/dL (1.7-4.1); Glucose 165 mg/dL (80-110); HEMOLYSIS < 15 (0-50); Potassium 4.6 mmol/L (3.4-5.1); Sodium 138 mmol/L (137-145); Total Protein 7.3 g/dL (6.3-8.2)
[2018-12-18 16:43] LABS: B Type Natriuretic Peptide < 100 (<100)
== END ==
PROVIDERS: Family Provider Family Medicine; PCP Family Medicine; Visit Provider Internal Medicine
DX: I50.31 Acute diastolic (congestive) heart failure (principal)
CPT/HCPCS: 36415; 80053; 83880

== ENCOUNTER 2018-12-18 15:50 | Outpatient (RCR) | payer MEDICARE, SELFPAY ==
[2017-10-06 03:59] VITALS: BMI 67.8
--- NOTE | 2018-12-18 19:22 | PT.OIE ---
Current Diagnoses Morbid (severe) obesity due to excess calories (12/18/18) Spondylosis without myelopathy or radiculopathy, lumbar region (12/18/18) Low back pain (12/18/18) Difficulty in walking, not elsewhere classified (12/18/18) Unsteadiness on feet (12/18/18) Abnormal posture (12/18/18) Weakness (12/18/18) Other reduced mobility (12/18/18) Presence of right artificial knee joint (12/18/18) Past Medical History (Last Reviewed 11/29/18 @ 14:58 by Galilea Johnson DO) Chronic venous stasis dermatitis (Chronic 05/18/16) Essential hypertension (Chronic 03/15/16) Frequent UTI (Chronic) Hemorrhoids (Chronic 11/15/16) History of chickenpox (Resolved 1964) History of Gibralt[place] measles (Resolved ~1964) History of measles (Resolved ~1962) History of mumps (Resolved 1957) Morbid obesity with body mass index (BMI) of 60.0 to 69.9 in adult (Chronic 04/14/16) Osteoarthritis of lumbar spine (Chronic) Tubular adenoma of colon (Resolved 08/27/16) Type 2 diabetes mellitus without complication, without long-term current use of insulin (Chronic 04/14/16) Visual field defect of left eye (Chronic 12/15/16) Past Surgical History (Last Reviewed 11/29/18 @ 14:58 by Galilea Johnson DO) Anesthesia (Resolved) S/P total abdominal hysterectomy and bilateral salpingo-oophorectomy (Resolved 12/2009) Status post hernia repair (Resolved 12/2010) Status post knee surgery (Resolved 10/2009) Status post knee surgery (Resolved 11/2009) Visit Care Team Role Provider Type Galilea Johnson DO Attending Provider Physician Family Provider Primary Care Provider Specialty: Family Practice Address: [address] [place] [address], [facility] Email: [email or web address] Physical Therapy Initial Evaluation PT-OP-A Visit Information Start: 12/13/18 18:43 Freq: Status: Active Protocol: Document 12/18/18 16:45 MT (Rec: 12/18/18 19:05 MT [id number]) Out-Patient Physical Therapy Visit Information Visit Information Visit Type Initial Evaluation Visit Start Time 16:45 Visit Stop Time 17:33 Total Visit Minutes 48 Visit Number 1 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 Pt's last pool treatment was 09/18/18, but she got a bee sting and shingles and was unable to go to the pool since then. She had a right knee replacement in 2014 after a fall in 2009 on her knee, which she reports has not been rehabbed. She had bilateral meniscectomies performed after the fall. She is on a very restrcited diet and is seeing Dr. Berry for weight loss. She presents with swelling and possible lymphedema on B LE and some blistering on her B lower [place]. She has been experiencing fluctuations in weight despite the restricted diet. She has difficuilty with getting into the car and requires a step to get in. She is unable to shower or clean herself after the bathroom. She walks with a 2WW and leans her forearms on it due to bakc pain if she is standing straight. She has recently been having problems with her finger nails peeling and chipping off. She had a history of an abdominal hernia in December of 2010, which she says the cortisone shot hardened. She also has a histroy of hemorrhoids. Pt has a lot of pain in her ankle and knee with internal and external rotation and has not been able to drive in 3-4 years. Pt is open to doing land therapy as well but would like to get back to doing pool therapy as frequently as possible. Pt relies on her daughter to take her to appointments and to help her with her ADL's. Prior Treatments and Tests Pt has previously seen here for pool PT. Treatment Goals Patient/Caregiver Goals Pt stated goals: being able to walk, get back to her prior level of function (from september 2018) when she was in the pool, doing steps in the pool, walking multiple laps around the house, get in and drive her car Prior Functional Status Baseline Function- ADL's Needs Assist Baseline Function- Mobility Needs Assist Baseline Function- Gait walking around the house with 2WW Baseline Function- Work/School retired Current Functional Impairments (Reported) Functional Limitations- ADL's unable to bathe/shower herself and perform carlotta-care during toileting Functional Limitations- Mobility/Gait Pt unable to stand upright due to back pain and so she leans onto her walker with her forearms Functional Limitations- Other limited sleep PT-OP-C Subjective Start: 12/13/18 18:43 Freq: Status: Active Protocol: Document 12/18/18 16:45 MT (Rec: 12/18/18 19:05 MT [id number]) OP-PT Subjective Patient Comments Patient Comments Pt is returning to PT after having been unable to go to pool PT since 09/18/18 due to having shingles. She has been seeing Dr. Berry for meical problems involving weight fluctuation despite a heavily restricted diet and possible lymphedema. She reports that stangin upright causes pain in her back. She reports pain throughout her whole back and pain in her knee. Patient Questionnaires Oswestry Low Back Index Oswestry Score 33/45 Oswestry Impairment 60 to 79% Impaired (Score 60- 79) OP-PT Pain Assessment Location back Pain Location Details LB& R knee Intensity 8 Scale Used Numeric (1 - 10) Frequency Daily Pain Aggravating Factors Standing,Walking,Lifting PT-OP-G Mobility & Gait Start: 12/13/18 18:43 Freq: Status: Active Protocol: Document 12/18/18 16:45 MT (Rec: 12/18/18 19:05 MT [id number]) OP Mobility Evaluation Transfers Sit to Stand Pt uses a cane on in her right hand to stand up from seated and then switches to a 2WW. She relies heavily on her UE to be able to stand. OP Gait Assessment Comments Gait Comments Pt demonstrates a severely forward-flexed posture with either her forearms on the walker or placing the walker out very far in front of her. She has an antalgic gait with decreased step length. PT-OP-J Posture/Palpation/Skin Start: 12/13/18 18:43 Freq: Status: Active Protocol: Document 12/18/18 16:45 MT (Rec: 12/18/18 19:05 MT [id number]) Posture Evaluation Comments Posture Comments in standing, pt has to stand with a severely forward flexed trunk d/t aggravation of low back pain when standing upright PT-OP-K Range of Motion Start: 12/13/18 18:43 Freq: Status: Active Protocol: Document 12/18/18 16:45 MT (Rec: 12/18/18 19:05 MT [id number]) Lumbar Spine Range of Motion Lumbar Spine Active Degrees Testing Position Standing Rotation Left 47 Rotation Right 60 Lateral Flexion Left 20 Lateral Flexion Right 20 ROM Limitations Soft Tissue Tightness,Muscle Weakness,Pain,Swelling Comments rotations lumbar, thoracic & cervical PT-OP-M Strength Start: 12/13/18 18:43 Freq: Status: Active Protocol: Document 12/18/18 16:45 MT (Rec: 12/18/18 19:05 MT [id number]) Hip Strength Hip Manual Muscle Testing Left Flexion (L2) 2+ Poor+ External Rotation 3+ Fair+ Internal Rotation 4 Good Reason Not Measured Pain Comments Requires gravity eliminate position for hip flexion Right Flexion (L2) 2+ Poor+ Extension (S1) 3- Fair- External Rotation 3 Fair Internal Rotation 4 Good Comments Hip flexion requires gravity eliminated position Knee Strength Knee Manual Muscle Testing Left Flexion (S2) 4- Good- Extension (L3) 4 Good Reason Not Measured Pain Right Flexion (S2) 5 Normal Extension (L3) 4- Good- Reason Not Measured Pain Ankle/Foot Strength Ankle and Foot Manual Muscle Testing Left Dorsiflexion (L4) 4- Good- Plantarflexion (S1) 4+ Good+ Reason Not Measured Pain Comments seated PF testing Right Dorsiflexion (L4) 4- Good- Plantarflexion (S1) 4+ Good+ Reason Not Measured Pain Comments seated PF testing PT-OP-T Assessment and Plan Start: 12/13/18 18:43 Freq: Status: Active Protocol: Document 12/18/18 16:45 MT (Rec: 12/18/18 19:05 MT [id number]) Physical Therapy Assessment Rehab Potential Rehabilitation Potential Fair Evaluation Complexity Number of Personal Factors/Comorbidities 3 or More Number of Body Systems Impaired 4 or More Clinical Presentation at Evaluation Evolving Impairments Impairments Activity Tolerance,Balance, Edema,Functional Activities, Functional Mobility,Gait, Integument,Pain,Posture,ROM, Sensation,Soft Tissue Mobility ,Strength,Transfers Goals pain Impairment severe knee and low back pain [address] Court Goal (LTG) pt will report a decrease to a 4 on the numeric pain scale in both the knee and the low back for increased activity tolerance LTG Duration 03/20/19 Upright posture Impairment severe forward flexed posture Short Term Goal (STG) pt will be able to increase standing tolerance to 1 minute with minimal forward flexed posture and no more than 2 points of increased pain on the numeric pain scale STG Duration 01/17/[address] Goal (LTG) Pt will be able to increase standing tolerance to 5 minutes with minimal forward flexed posture and no more than 2 points of increase on the numeric pain scale LTG Duration 03/20/19 car transfers Impairment unable get in/out of car Short Term Goal (STG) pt will improve hip strength to greater than antigravity for functional mobility (at least 3/5) STG Duration 02/17/[address] Goal (LTG) pt will be able to safely get into and out of her van independently in order to increase her functional mobility and ability to get around in the community LTG Duration 03/20/19 Five Impairment limited gait tolerance Short Term Goal (STG) pt will participate in 2 minute walk test STG Duration 01/17/[address] Goal (LTG) pt will be able to walk 250 ft in the 2 minute walk test in order to increasde pt ability to walk around her house LTG Duration 03/20/19 Assessment Summary Assessment Pt referred to PT for low back pain and R knee pain s/p TKA in 2014. She has a complicated past medical history with multiple comorbidities. Pt reports severe pain that is decreasing her mobility/gait and decreasing her independence levels with ADL's. Due to pt' s severe obesity, she would be highly suited for return to aquatic PT. Pt is also agreeable to land PT and would beneift from skilled PT to increase her activity tolerance and improve her functional mobility and gait. Physical Therapy Plan Frequency and Duration Frequency of Treatment 2x/Week Duration of Treatment 3 months Plan of Care Start Date 12/18/18 Plan of Care End Date 03/20/19 Therapeutic Interventions Therapeutic Interventions Aquatic Therapy,Balance Training,Gait Training,Home Exercise Program,Joint Mobilizations,Manual Therapy, Neuromuscular Re-education, Patient/Caregiver Education, Self-Care/Home Management, Sensory Integration,Soft Tissue Mobilization,Taping, Therapeutic Activities, Therapeutic Exercises Modalities Cold Pack/Ice Massage,Electric Stimulation,Hot Packs, Infrared Therapy,Iontophoresis ,Ultrasound,Vasopneumatic Devices Next Visit Focus/Plan Next Note Type Treatment Note Next Visit Plan posture education and upright positioning, gait tolerance, balance assessment, administer HEP with emphasis on hip strengthening
--- NOTE | 2019-01-29 15:16 | PT-OP ANOTE ---
cancelled due to in hospital with wound
--- NOTE | 2019-02-06 10:49 | PT.OPDS ---
Current Diagnoses Morbid (severe) obesity due to excess calories (12/18/18) Spondylosis without myelopathy or radiculopathy, lumbar region (12/18/18) Low back pain (12/18/18) Difficulty in walking, not elsewhere classified (12/18/18) Abnormal posture (12/18/18) Weakness (12/18/18) Other reduced mobility (12/18/18) Presence of right artificial knee joint (12/18/18) Visit Care Team Role Provider Type Galilea Johnson DO Attending Provider Physician Family Provider Primary Care Provider Specialty: Family Practice Address: [address] [place] [address], [facility] Email: [email or web address] Visit Number Visit Number 1 Discharge Summary PT-OP-B Current Condition Start: 12/13/18 18:43 Freq: Status: Active Protocol: Document 12/18/18 16:45 MT (Rec: 12/18/18 19:05 MT [id number]) Current Condition History of Current Condition Onset Date 2009 Current Complaints R knee and lower back pain History of Current Condition Pt has been previously going to the pool for PT treatment. Pt's last pool treatment was 09/18/18, but she got a bee sting and shingles and was unable to go to the pool since then. She had a right knee replacement in 2014 after a fall in 2009 on her knee, which she reports has not been rehabbed. She had bilateral meniscectomies performed after the fall. She is on a very restrcited diet and is seeing Dr. Berry for weight loss. She presents with swelling and possible lymphedema on B LE and some blistering on her B [place]. She has been experiencing fluctuations in weight despite the restricted diet. She has difficuilty with getting into the car and requires a step to get in. She is unable to shower or clean herself after the bathroom. She walks with a 2WW and leans her forearms on it due to bakc pain if she is standing straight. She has recently been having problems with her finger nails peeling and chipping off. She had a history of an abdominal hernia in December of 2010, which she says the cortisone shot hardened. She also has a histroy of hemorrhoids. Pt has a lot of pain in her ankle and knee with internal and external rotation and has not been able to drive in 3-4 years. Pt is open to doing land therapy as well but would like to get back to doing pool therapy as frequently as possible. Pt relies on her daughter to take her to appointments and to help her with her ADL's. Prior Treatments and Tests Pt has previously seen here for pool PT. Treatment Goals Patient/Caregiver Goals Pt stated goals: being able to walk, get back to her prior level of function (from september 2018) when she was in the pool, doing steps in the pool, walking multiple laps around the house, get in and drive her car Prior Functional Status Baseline Function- ADL's Needs Assist Baseline Function- Mobility Needs Assist Baseline Function- Gait walking around the house with 2WW Baseline Function- Work/School retired Current Functional Impairments (Reported) Functional Limitations- ADL's unable to bathe/shower herself and perform carlotta-care during toileting Functional Limitations- Mobility/Gait Pt unable to stand upright due to back pain and so she leans onto her walker with her forearms Functional Limitations- Other limited sleep PT-OP-C Subjective Start: 12/13/18 18:43 Freq: Status: Active Protocol: Document 12/18/18 16:45 MT (Rec: 12/18/18 19:05 MT [id number]) OP-PT Subjective Patient Comments Patient Comments Pt is returning to PT after having been unable to go to pool PT since 09/18/18 due to having shingles. She has been seeing Dr. Berry for meical problems involving weight fluctuation despite a heavily restricted diet and possible lymphedema. She reports that stangin upright causes pain in her back. She reports pain throughout her whole back and pain in her knee. Patient Questionnaires Oswestry Low Back Index Oswestry Score 33/45 Oswestry Impairment 60 to 79% Impaired (Score 60- 79) OP-PT Pain Assessment Location back Pain Location Details LB& R knee Intensity 8 Scale Used Numeric (1 - 10) Frequency Daily Pain Aggravating Factors Standing,Walking,Lifting PT-OP-G Mobility & Gait Start: 12/13/18 18:43 Freq: Status: Active Protocol: Document 12/18/18 16:45 MT (Rec: 12/18/18 19:05 MT [id number]) OP Mobility Evaluation Transfers Sit to Stand Pt uses a cane on in her right hand to stand up from seated and then switches to a 2WW. She relies heavily on her UE to be able to stand. OP Gait Assessment Comments Gait Comments Pt demonstrates a severely forward-flexed posture with either her forearms on the walker or placing the walker out very far in front of her. She has an antalgic gait with decreased step length. PT-OP-J Posture/Palpation/Skin Start: 12/13/18 18:43 Freq: Status: Active Protocol: Document 12/18/18 16:45 MT (Rec: 12/18/18 19:05 MT [id number]) Posture Evaluation Comments Posture Comments in standing, pt has to stand with a severely forward flexed trunk d/t aggravation of low back pain when standing upright PT-OP-K Range of Motion Start: 12/13/18 18:43 Freq: Status: Active Protocol: Document 12/18/18 16:45 MT (Rec: 12/18/18 19:05 MT [id number]) Lumbar Spine Range of Motion Lumbar Spine Active Degrees Testing Position Standing Rotation Left 47 Rotation Right 60 Lateral Flexion Left 20 Lateral Flexion Right 20 ROM Limitations Soft Tissue Tightness,Muscle Weakness,Pain,Swelling Comments rotations lumbar, thoracic & cervical PT-OP-M Strength Start: 12/13/18 18:43 Freq: Status: Active Protocol: Document 12/18/18 16:45 MT (Rec: 12/18/18 19:05 MT [id number]) Hip Strength Hip Manual Muscle Testing Left Flexion (L2) 2+ Poor+ External Rotation 3+ Fair+ Internal Rotation 4 Good Reason Not Measured Pain Comments Requires gravity eliminate position for hip flexion Right Flexion (L2) 2+ Poor+ Extension (S1) 3- Fair- External Rotation 3 Fair Internal Rotation 4 Good Comments Hip flexion requires gravity eliminated position Knee Strength Knee Manual Muscle Testing Left Flexion (S2) 4- Good- Extension (L3) 4 Good Reason Not Measured Pain Right Flexion (S2) 5 Normal Extension (L3) 4- Good- Reason Not Measured Pain Ankle/Foot Strength Ankle and Foot Manual Muscle Testing Left Dorsiflexion (L4) 4- Good- Plantarflexion (S1) 4+ Good+ Reason Not Measured Pain Comments seated PF testing Right Dorsiflexion (L4) 4- Good- Plantarflexion (S1) 4+ Good+ Reason Not Measured Pain Comments seated PF testing PT-OP-T Assessment and Plan Start: 12/13/18 18:43 Freq: Status: Active Protocol: Document 01/31/19 10:48 NEHEMIAS (Rec: 02/06/19 10:49 NEHEMIAS [id number]) Physical Therapy Plan Discharge Physical Therapy Discharge Reasons Change in Medical Status
== END 2018-12-18 16:50 ==
LOC: PHYS 15:50
PROVIDERS: Family Provider Family Medicine; PCP Family Medicine; Visit Provider Family Medicine
DX: M47.816 Spondylosis without myelopathy or radiculopathy, lumbar region (principal); E66.01 Morbid (severe) obesity due to excess calories; Z96.651 Presence of right artificial knee joint; M54.5 Low back pain; R26.2 Difficulty in walking, not elsewhere classified; Z74.09 Other reduced mobility; R29.3 Abnormal posture; R53.1 Weakness
CPT/HCPCS: 97162

== ENCOUNTER → 2019-01-22 13:27 | Outpatient (CLI) | payer MEDICARE, SELFPAY ==
[2017-10-06 03:59] VITALS: BMI 67.8
--- NOTE | 2019-01-22 | DI.MG.S_ITS ---
BILATERAL DIGITAL SCREENING MAMMOGRAM 3D/2D WITH CAD: 01/22/2019 CLINICAL: Routine screening. Comparison is made to exams dated: 12/26/2017 mammogram, 11/26/2016 mammogram, and 10/13/2015 mammogram - [facility]. There are scattered fibroglandular elements in both breasts. Current study was also evaluated with a Computer Aided Detection (CAD) system. There are benign calcifications in both breasts. No significant masses, calcifications, or other findings are seen in either breast. There has been no significant interval change. IMPRESSION: There is no mammographic evidence of malignancy. A 1 year screening mammogram is recommended. This exam was interpreted at Station ID: [id number]. NOTE: For mammograms, a report in lay terms will be sent to the patient. Approximately 15% of breast malignancies will not be visualized mammographically. In the management of a palpable breast mass, a negative mammogram must not discourage biopsy of a clinically suspicious lesion. Electronically Signed By: Santosh ryder/jeana:01/22/2019 19:39:18 letter sent: Normal Exam ACR BI-RADS Category 2: Benign Finding(s) 3342F
== END ==
PROVIDERS: Family Provider Family Medicine; PCP Family Medicine; Visit Provider Family Medicine
DX: Z12.31 Encounter for screening mammogram for malignant neoplasm of breast (principal)
CPT/HCPCS: 77063; 77067

== ENCOUNTER 2019-01-27 11:08 | Inpatient (IN) | payer MEDICARE, SELFPAY ==
[2017-10-06 03:59] VITALS: BMI 67.8
--- NOTE | 2019-01-27 11:22 | ED.GENADULT ---
HPI - General Adult General Chief complaint: Skin/Abscess/Foreign Body Stated complaint: infection on left calf, really big on side calf Time Seen by Provider: 01/27/19 11:21 History of Present Illness HPI narrative: 63-year-old morbidly obese woman with diabetes significant peripheral edema, peripheral neuropathy and hypertension, presents with increasing pain and left calf. On January 22 she developed a bullous lesion to the left side of her calf. She was seen by her primary care physician the following day. The bulla was drained with the roof left on as bio occlusive dressing. Wound care was started and diuretics were adjusted. 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 She denies fevers, chills, altered mental status. She does note that her current level of peripheral edema seems to be a bit worse than her baseline but notes that the edema around her belly and firmness of her belly is bit less. She denies chest pain, dyspnea, increasing abdominal pain. Related Data Home Medications Medication Instructions Recorded Confirmed multivitamin [Multiple Vitamins] 1 tab PO QDAY #0 02/21/17 11/13/18 Vitamin D3 5,000 unit PO DAILY 10/06/17 11/13/18 magnesium citrate 400 mg PO DAILY 10/06/17 11/13/18 latanoprost 0.005 % eye drops EYE-BOTH ml 01/09/18 11/13/18 naproxen sodium 220 mg capsule 220 mg PO BID PRN 10/06/18 11/13/18 furosemide 40 mg tablet 40 mg PO DAILY 11/27/18 11/27/18 metolazone 2.5 mg tablet 2.5 mg PO .COMPLEX 12/25/18 12/25/18 Previous Rx's Medication Instructions Recorded Lactobacillus acidophilus 1 tab PO QDAY #10 tab 03/31/16 Disabled Parking Permit See Rx Instructions .ROUTE 10/14/17 .COMPLEX #1 each blood sugar diagnostic #100 each 10/25/17 blood-glucose meter #1 each 10/25/17 lancets #100 each 10/25/17 lisinopril 20 mg tablet 20 mg PO QDAY #90 tab 02/08/18 methocarbamol 500 mg tablet 500 mg PO TID PRN #20 tab 05/06/19 metformin 500 mg tablet 500 mg PO BID #60 tab 07/28/18 glipizide 5 mg tablet 5 mg PO DAILY #30 tab 01/22/19 potassium chloride 20 mEq 20 meq PO .COMPLEX #90 tab 01/23/19 tablet,extended release(part/cryst) Allergies Allergy/AdvReac Type Severity Reaction Status Date / Time ibuprofen AdvReac causes Verified 10/06/18 14:08 bleeding Review of Systems Review of Systems ROS Unobtainable: All systems reviewed & are unremarkable except as noted in HPI and below Patient History Medical History Chronic venous stasis dermatitis (Chronic 05/18/16) Dependent edema (Acute) Essential hypertension (Chronic 03/15/16) Frequent UTI (Chronic) Hemorrhoids (Chronic 11/15/16) History of chickenpox (Resolved 1964) History of [place] measles (Resolved ~1964) History of measles (Resolved ~1962) History of mumps (Resolved 1957) Morbid obesity with body mass index (BMI) of 60.0 to 69.9 in adult (Chronic 04/14/16) Osteoarthritis of lumbar spine (Chronic) Tubular adenoma of colon (Resolved 08/27/16) Type 2 diabetes mellitus without complication, without long-term current use of insulin (Chronic 04/14/16) Visual field defect of left eye (Chronic 12/15/16) Surgical History Anesthesia (Resolved) S/P total abdominal hysterectomy and bilateral salpingo-oophorectomy (Resolved 12/2009) Status post hernia repair (Resolved 12/2010) Status post knee surgery (Resolved 10/2009) Status post knee surgery (Resolved 11/2009) Family History Brother Age: 77 Glaucoma Mother Diabetes mellitus Heart disease CAD (coronary artery disease) Father No problems noted. Sister Cancer Lung cancer Liver cancer Colon cancer Sister No problems noted. Sister No problems noted. Sister No problems noted. Daughter No problems noted. Father No problems noted. Social History marital status: household members: family and caregiver Smoking Status: Never smoker alcohol intake: current substance use type: does not use Smoking Status: Never smoker alcohol intake frequency: 0-2 drinks per day Substance Use Type: does not use Exam Narrative Exam Narrative: General: Morbidly obese, in no acute distress. Able to give a complete and coherent history. HEENT: Moist mucous membranes, normal sclera with reactive pupils, Neck: No JVD, supple Respiratory: Lungs are clear to auscultation, no wheezing no rales no rhonchi. Full and symmetrical air movement Cardiac: Regular rate and rhythm no murmurs no bruits Abdomen: Soft, nontender, good bowel tones, no flank pain Skin: Warm and dry, no rashes Neurologic: Grossly neurologically intact with no obvious asymmetries or abnormalities Extremities: well perfused. Chronic venous stasis changes bilaterally. Left lower extremity with a 10 x 9 cm healing bullous lesion with a mild amount of serous drainage. Slightly increasing erythema around the area and increasing pain in the proximal part of the wound. Significant bilateral neuropathy from mid calf down. There is no lymphangitic spread and no erythema extending up to the knee or thigh. There is no evidence of abscess, significant purulence drainage, crepitance or concern for air around the wound on the left side. Right lower extremity has a 1 cm diameter superficial area where a bulla had developed and has now been unroofed. It does not appear to be infected and is dressed with bacitracin and gauze Psych: Cooperative, appropriate insight and affect Initial Vital Signs Initial Vital Signs: Vital Signs Temperature 98.1 F 01/27/19 11:29 Pulse Rate 91 H 01/27/19 11:29 Respiratory Rate 18 01/27/19 11:29 Blood Pressure 135/78 01/27/19 11:29 Pulse Oximetry 97 01/27/19 11:29 Course Course Course Narrative: Lactic acid has returned slightly elevated that in light of the increasing pain and redness in the setting of significant peripheral neuropathy certainly increases concern for a worsening infection. Renal function and potassium are all appropriate. She likely will benefit from more aggressive diuresis as well as elevation of her leg. In light of the elevated lactate level I have opted to give her a L of fluid, will repeat lactic acid in about 4 hours and hold off on any additional IV diuresis at this point. Vital signs are holding steady and there is no evidence of severe sepsis at this time. I have chosen to start her on ceftriaxone a wound culture was done. A gently debrided the initial layer of bulla there is some eschar over the wound itself and this may be need more aggressive wound debridement. Will benefit from wound care consult Small lesion (1 cm in diameter) on the lateral aspect of the right calf. Slightly weeping noninfected dressed with bacitracin. Will contact the hospitalist service for admission Decision to Admit Date: 01/27/19 Decision to Admit time: 13:35 Orders Ordered: ED Orders 01/27/19 12:00 Complete Blood Count AUTO DIFF Stat Comprehensive Metabolic Panel Stat 01/27/19 12:16 Blood Culture Stat Lactate (Lactic Acid) Stat 01/27/19 12:56 Lactate (Lactic Acid) Stat Wound Culture and Gram Stain Stat 01/27/19 13:44 Creatine Kinase Stat 01/27/19 17:56 Lactate (Lactic Acid) Routine Sodium Chloride (Normal Saline 0.9%) 1,000 mls @ 150 mls/hr IV CONT GIL Sodium Chloride (Normal Saline 0.9%) 1,000 mls @ 1,000 mls/hr IV BOLUS ONE Stop: 01/27/19 14:12 Last Infusion: 01/27/19 13:28 Dose: 400 mls/hr [facility] Admin: 01/27/19 13:21 Dose: 1,000 mls/hr Documented by: VEDA Discontinued Medications Bacitracin (Bacitracin) 5 applic TOP NOW ONE Stop: 01/27/19 11:44 Last Admin: 01/27/19 12:59 Dose: 5 applic Documented by: VEDA Bacitracin (Bacitracin) 5 applic TOP NOW ONE Stop: 01/27/19 13:31 Sodium Chloride (Normal Saline 0.45%) 1,000 mls @ 1,000 mls/hr IV BOLUS ONE Stop: 01/27/19 13:55 Last Admin: 01/27/19 13:27 Dose: Not Given Documented by: VEDA Ceftriaxone Sodium 2,000 mg/ (Dextrose) 50 mls @ 100 mls/hr IV NOW ONE Stop: 01/27/19 12:57 Last Admin: 01/27/19 13:27 Dose: Not Given Documented by: VEDA Ceftriaxone Sodium/Dextrose (Rocephin) 2 gm in 50 mls @ 100 mls/hr IV NOW ONE Stop: 01/27/19 13:44 Last Admin: 01/27/19 13:21 Dose: 100 mls/hr Documented by: ARRINGTO Reevaluation(s) Reevaluation #1: Care is reviewed with Dr. Lange. Patient will be admitted to her service. Shared my concerns about possibility of additional debridement being necessary for the left-sided wound as well as pending lactic acid fluids antibiotics chosen. At this point I do not suspect necrotizing fasciitis and we did discuss that possibility. She agrees with hospital admission Time: 13:49 Vital Signs Vital signs: Vital Signs - 8 hr 01/27/19 11:29 01/27/19 12:58 Temperature 98.1 F Pulse Rate 91 H 74 Respiratory Rate 18 18 Blood Pressure 135/78 Blood Pressure [Left Arm] 112/61 Pulse Oximetry 97 98 Medical Decision Making Differential Diagnosis Differential Diagnosis: Cellulitis, DVT, necrotizing fasciitis, sepsis Medical Records Medical records reviewed: Yes I reviewed the patient's medical records. Lab Data Lab results reviewed: Yes I reviewed the patient's lab results. Result diagrams: 01/27/19 12:00 01/27/19 12:00 Labs: Lab Results 01/27/19 01/27/19 01/27/19 Range/Units 12:00 12:00 12:16 WBC 12.0 H (4.5-11.0) X10^3/uL RBC 4.58 (4.0-5.2) X10^6/uL Hgb 13.3 (12.0-16.0) g/dL Hct 40.7 (36-46) % MCV 88.9 (80-100) fL MCH 29.1 (26-34) PG MCHC 32.7 (30-36) % RDW 17.1 H (11.6-14.8) % Plt Count 289 (150-400) X10^3/uL Neut % (Auto) 78.5 H (50-75) % Lymph % (Auto) 14.6 L (25-40) % [place] % (Auto) 5.7 (3-14) % Eos % (Auto) 0.6 L (2-4) % Baso % (Auto) 0.6 (0-2) % Neut # (Auto) 9400 H (2029-1223) /uL Lymph # (Auto) 1800 (7361-0636) /uL [place] # (Auto) 700 (0-900) /uL Eos # (Auto) 100 (0-450) /uL Baso # (Auto) 100 (0-100) /uL Sodium 134 L (137-145) mmol/L Potassium 3.5 (3.4-5.1) mmol/L Chloride 93 L (98-107) mmol/L Carbon Dioxide 31 (22-32) mmol/L BUN 18 H (7-17) mg/dL Creatinine 0.50 L (0.52-1.04) mg/dL Estimated GFR > 60.0 (>60) mL/min BUN/Creatinine Ratio 36.0 H (6-22) Glucose 270 H (80-110) mg/dL Lactate 3.7 H (0.7-2.1) mmol/L Calcium 9.4 (8.4-10.2) mg/dL Total Bilirubin 0.6 (0.2-1.3) mg/dL AST 37 H (14-36) IU/L ALT 47 H (<35) IU/L Alkaline Phosphatase 105 (38-126) U/L Total Protein 7.1 (6.3-8.2) g/dL Albumin 4.1 (3.5-5.0) g/dL Globulin 3.0 (1.7-4.1) g/dL Albumin/Globulin Ratio 1.4 (1.0-2.8) Discharge Plan Departure Patient Disposition: Admitted As Inpatient Clinical Impression: Dependent edema, Elevated lactic acid level Cellulitis Qualifiers: Site of cellulitis: extremity Site of cellulitis of extremity: lower extremity Laterality: left Qualified Code(s): L03.116 - Cellulitis of left lower limb
[2019-01-27 11:29] VITALS: BP 135/78; PULSE 91; RESP 18; TEMP 36.7; O2SAT 97; BMI 67.3
[2019-01-27 12:20] LABS: Add Manual Diff / Slide Review NO; Basophils Absolute Auto 100 /uL (0-100); Basophils Percent Auto 0.6 % (0-2); Eosinophils Absolute Auto 100 /uL (0-450); Eosinophils Percent Auto 0.6 % (2-4); Hematocrit 40.7 % (36-46); Hemoglobin 13.3 g/dL (12.0-16.0); Lymphocytes Absolute Auto 1800 /uL (1100-4500); Lymphocytes Percent Auto 14.6 % (25-40); Mean Corpuscular HGB Conc 32.7 % (30-36); Mean Corpuscular Hemoglobin 29.1 PG (26-34); Mean Corpuscular Volume 88.9 fL (80-100); Monocytes Absolute Auto 700 /uL (0-900); Monocytes Percent Auto 5.7 % (3-14); Neutrophils Absolute Auto 9400 /uL (1500-7000); Neutrophils Percent Auto 78.5 % (50-75); Platelet Count 289 X10^3/uL (150-400); Red Blood Cell Count 4.58 X10^6/uL (4.0-5.2); Red Cell Distribution Width 17.1 % (11.6-14.8)
[2019-01-27 12:23] LABS: Alanine Aminotransferase 47 IU/L (<35); Albumin 4.1 g/dL (3.5-5.0); Albumin Globulin Ratio 1.4 (1.0-2.8); Alkaline Phosphatase 105 U/L (38-126); Aspartate Aminotransferase 37 IU/L (14-36); Bilirubin Total 0.6 mg/dL (0.2-1.3); Blood Urea Nitrogen 18 mg/dL (7-17); Calcium 9.4 mg/dL (8.4-10.2); Carbon Dioxide 31 mmol/L (22-32); Chloride 93 mmol/L (98-107); Estimated Glomerular Filt Rate > 60.0 mL/min (>60); Glucose 270 mg/dL (80-110); HEMOLYSIS < 15 (0-50); Potassium 3.5 mmol/L (3.4-5.1); Sodium 134 mmol/L (137-145); Total Protein 7.1 g/dL (6.3-8.2)
[2019-01-27 12:37] LABS: Lactate (Lactic Acid) 3.7 mmol/L (0.7-2.1)
[2019-01-27 12:58] VITALS: BP 112/61; PULSE 74; RESP 18; O2SAT 98
[2019-01-27] MEDS: BACITRACIN OINT 0.9 GM PCKT 5 APPLIC TOP ×2 (12:59→13:47)
--- NOTE | 2019-01-27 13:00 | PC.NURSE ---
bacitracin provided to for application after debridement
[2019-01-27] MEDS: SODIUM CHLORIDE 0.9% 1,000 ML 1000 ML IV (13:21)
[2019-01-27] MEDS: CEFTRIAXONE 2 GM/50 ML FROZ.PIGGY IV (13:21)
--- NOTE | 2019-01-27 13:56 | PC.NURSE ---
bacitracin applied and covered with non stick dressing, secured with kerlix and tape
[2019-01-27 13:58] LABS: Creatine Kinase 75 U/L (30-135)
[2019-01-27 14:25] LABS: Reflexed Lactate in 2 Hours Y
[2019-01-27 15:08] LABS: Lactate 2HR (Lactic Acid Rflx) 2.6 mmol/L (0.7-2.1)
--- NOTE | 2019-01-27 15:20 | PC.NURSE ---
Assess- Pt is A&Ox3. She was admitted to acute care for wounds to her lower outer shins. L.westbrook has a large open blister that was opened and debrided by ER doctor. The skin to the lower blister was left intact. She has some oozing. Photos have been taken of both blisters to lower shins. Pt also has a smaller blister to her r.[place] that is more intact. For Dressings, The left lower leg has an xtrasorb with some kurlex and tape. Farhat pad under both lower extremities to help prevent leaking from blisters. R.lower leg with Optifoam foam dressing and kurlex. Margines on both shins outlined in black. R.groin pinkish red from possible yeast build up. Bottom wnl and no open area's noted. NS bolus finishing up. Report has been given to jose juan ruth RN.
[2019-01-27 15:30] VITALS: BP 129/72; PULSE 76; RESP 18; TEMP 36.7; O2SAT 96
--- NOTE | 2019-01-27 16:33 | P.HP_ITS ---
History of Present Illness History of Present Illness Date Patient Seen: 01/27/19 Time Patient Seen: 16:33 Chief complaint: infection on left hand really big on side calf Narrative: Patient is a 63 yo female with obesity, diabetes, chronic lower extremity edema who was seen earlier this week by Dr. Berry and found to have a large bullae on her left lower leg. It was drained and left intact. Patient has been taking furosemide on a daily basis. She has peripheral neuropathy and today she started feeling pain in the leg so she knew something was wrong so she came to the ED. She had elevated lactate and WBC. She was given antibiotics and fluids with decrease in lactate. She has had cellulitis in her legs before. She tells me that after her last episode she had [facility] and a lymphedema specialist work with her. Was getting in the pool. Going great until September. Had a bee sting. Stye. Shingles. No pool. First week of Nov thought she could go back to pool. Working with Dr. Berry on diuresis and weight loss. Assures me that she Has been eating clean.in fasting blood sugars 130's. Tells me that she has been Out of potassium for a while. No meds this morning. Only had Water and a cheese tab. She has felt more fatigued than usual. Patient History Medical History Chronic venous stasis dermatitis (Chronic 05/18/16) Dependent edema (Acute) Essential hypertension (Chronic 03/15/16) Frequent UTI (Chronic) Hemorrhoids (Chronic 11/15/16) History of chickenpox (Resolved 1964) History of Romansh measles (Resolved ~1964) History of measles (Resolved ~1962) History of mumps (Resolved 1957) Morbid obesity with body mass index (BMI) of 60.0 to 69.9 in adult (Chronic 04/14/16) Osteoarthritis of lumbar spine (Chronic) Tubular adenoma of colon (Resolved 08/27/16) Type 2 diabetes mellitus without complication, without long-term current use of insulin (Chronic 04/14/16) Visual field defect of left eye (Chronic 12/15/16) Surgical History Anesthesia (Resolved) S/P total abdominal hysterectomy and bilateral salpingo-oophorectomy (Resolved 12/2009) Status post hernia repair (Resolved 12/2010) Status post knee surgery (Resolved 10/2009) Status post knee surgery (Resolved 11/2009) Family & Social History Family History Brother Age: 77 Glaucoma Mother Diabetes mellitus Heart disease CAD (coronary artery disease) Father No problems noted. Sister Cancer Lung cancer Liver cancer Colon cancer Sister No problems noted. Sister No problems noted. Sister No problems noted. Daughter No problems noted. Father No problems noted. 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 Safety & Behavioral: Feels Safe in Current Yes Environment Been Physically Hurt or No Threatened By a Person Tobacco & Substance use: Smoking Status Never smoker alcohol intake current alcohol intake frequency 0-2 drinks per day Substance Use Type does not use Meds Home Medications and Allergies Home Medications Medication Instructions Recorded Confirmed Type Lactobacillus acidophilus 1 tab PO QDAY #10 tab 03/31/16 01/27/19 Rx multivitamin [Multiple Vitamins] 1 tab PO QDAY #0 02/21/17 01/27/19 History Vitamin D3 5,000 unit PO DAILY 10/06/17 01/27/19 History magnesium citrate 400 mg PO DAILY 10/06/17 01/27/19 History Disabled Parking Permit See Rx Instructions .ROUTE 10/14/17 11/13/18 Rx .COMPLEX #1 each blood sugar diagnostic #100 each 10/25/17 11/13/18 Rx blood-glucose meter #1 each 10/25/17 11/13/18 Rx lancets #100 each 10/25/17 11/13/18 Rx lisinopril 20 mg tablet 20 mg PO QDAY #90 tab 02/08/18 01/27/19 Rx metformin 500 mg tablet 500 mg PO BID #60 tab 07/28/18 01/27/19 Rx naproxen sodium 220 mg capsule 220 mg PO BID PRN 10/06/18 01/27/19 History furosemide 40 mg tablet 40 mg PO DAILY 11/27/18 01/27/19 History metolazone 2.5 mg tablet 2.5 mg PO .COMPLEX 12/25/18 01/27/19 History glipizide 5 mg tablet 5 mg PO DAILY #30 tab 01/22/19 01/27/19 Rx potassium chloride 20 mEq 20 meq PO .COMPLEX #90 tab 01/23/19 01/27/19 Rx tablet,extended release(part/cryst) mecobalamin (vitamin B12) 2,500 mcg PO DAILY 01/27/19 01/27/19 History timolol maleate 1 % EYE-BOTH DAILY 01/27/19 01/27/19 History Allergies Allergy/AdvReac Type Severity Reaction Status Date / Time ibuprofen AdvReac causes Verified 10/06/18 14:08 bleeding Review of Systems Constitutional Constitutional: Denies chills, Denies fever(s), Reports headache(s) and Denies night sweats Eyes Eyes: Denies blurry vision and Denies irritation ENT Ears, Nose, Mouth, and Throat: Yes headache(s), No nasal congestion, No nasal discharge, No post nasal drip and No sore throat Cardiovascular Cardiovascular: Denies chest pain and Denies lightheadedness Respiratory Respiratory: Denies cough Gastrointestinal Gastrointestinal: Denies abdominal pain, Denies heartburn, Denies nausea and Denies vomiting Neurologic Neurologic: Reports headache(s) Exam Vital Signs (past 8 hours): - 01/27/19 11:29 01/27/19 12:58 01/27/19 15:30 Temperature 98.1 F 98.1 F Pulse Rate 91 H 74 76 Respiratory Rate 18 18 18 Blood Pressure 135/78 129/72 Blood Pressure [Left Arm] 112/61 Pulse Oximetry 97 98 96 Oxygen Delivery Method Room Air Oxygen Flow Rate 0 Narrative Exam Narrative: General: Well-developed, morebidy obese, talkative, female, no acute distress, lying in hospital bed. Heart: Regular rate and rhythm, systolic murmur best heard LUSB Lungs: Clear to auscultation bilaterally, no wheezes, rales or rhonchi Extremities: Warm and well perfused, 1+ pitting edema to mid calf, large area of granulation tissue with slough on left lateral leg with surrounding redness warmth and tenderness, lateral right leg with smaller area of stasis ulcer Objective Labs Result Diagrams: 01/27/19 12:00 01/27/19 17:34 Labs: Laboratory Results - last 24 hr 01/27/19 01/27/19 01/27/19 12:00 12:00 12:00 WBC 12.0 H RBC 4.58 Hgb 13.3 Hct 40.7 MCV 88.9 MCH 29.1 MCHC 32.7 RDW 17.1 H Plt Count 289 Neut % (Auto) 78.5 H Lymph % (Auto) 14.6 L [place] % (Auto) 5.7 Eos % (Auto) 0.6 L Baso % (Auto) 0.6 Neut # (Auto) 9400 H Lymph # (Auto) 1800 [place] # (Auto) 700 Eos # (Auto) 100 Baso # (Auto) 100 Sodium 134 L Potassium 3.5 Chloride 93 L Carbon Dioxide 31 BUN 18 H Creatinine 0.50 L Estimated GFR > 60.0 BUN/Creatinine Ratio 36.0 H Glucose 270 H Lactate Calcium 9.4 Total Bilirubin 0.6 AST 37 H ALT 47 H Alkaline Phosphatase 105 Total Creatine Kinase 75 Total Protein 7.1 Albumin 4.1 Globulin 3.0 Albumin/Globulin Ratio 1.4 01/27/19 01/27/19 12:16 14:48 WBC RBC Hgb Hct MCV MCH MCHC RDW Plt Count Neut % (Auto) Lymph % (Auto) [place] % (Auto) Eos % (Auto) Baso % (Auto) Neut # (Auto) Lymph # (Auto) [place] # (Auto) Eos # (Auto) Baso # (Auto) Sodium Potassium Chloride Carbon Dioxide BUN Creatinine Estimated GFR BUN/Creatinine Ratio Glucose Lactate 3.7 H 2.6 H Calcium Total Bilirubin AST ALT Alkaline Phosphatase Total Creatine Kinase Total Protein Albumin Globulin Albumin/Globulin Ratio Assessment & Plan Assessment & Plan narrative: 63 yo morbidly obese female with lower extremity cellulitis with bilateral open wounds. Elevated WBC and lactate on presentation. Improving with current therapy. 1. Cellulitis: Continue with ceftriaxone. Follow cultures. 2. Open wound: will consult with surgery about debridement tomorrow. Wound care Tuesday? 3. Diabetes. will continue with glipizide and sliding scale. hgba1c is elevated from baseline. 4. Electrolytes: hypokalemia - will replete and continue to monitor. 5. Edema. will continue with hydration for infection at this time. Monitor carefully and will restart diuresis if needed. DVT prophylaxis: lovenox Code status: full code Given patient's comorbidities she is going to need at least 2 midnights care in treatment of her lower extremity wounds.
[2019-01-27 16:37] VITALS: BP 112/57; PULSE 72; RESP 18; TEMP 36.4; O2SAT 97
[2019-01-27 17:18] VITALS: BMI 67.3
[2019-01-27 17:53] LABS: Blood Urea Nitrogen 18 mg/dL (7-17); Calcium 9.3 mg/dL (8.4-10.2); Carbon Dioxide 33 mmol/L (22-32); Chloride 96 mmol/L (98-107); Estimated Glomerular Filt Rate > 60.0 mL/min (>60); Glucose 160 mg/dL (80-110); HEMOLYSIS < 15 (0-50); Potassium 3.3 mmol/L (3.4-5.1); Sodium 135 mmol/L (137-145)
[2019-01-27 18:27] LABS: Magnesium 1.9 mg/dL (1.6-2.3)
[2019-01-27] MEDS: SODIUM CHLORIDE 0.9% 1,000 ML 150 ML IV (18:33)
[2019-01-27 21:08] VITALS: BP 133/62; PULSE 87; RESP 20; TEMP 37.6; O2SAT 94
[2019-01-28] VITALS (7 sets, daily range): BP systolic 124–144; BP diastolic 64–86; PULSE 16–96; RESP 16–20; TEMP 36.4–36.9; O2SAT 74–97
[2019-01-28] MEDS: NAPROXEN 250 MG TABLET 500 MG PO ×2 (01:03→08:38)
[2019-01-28] MEDS: SODIUM CHLORIDE 0.9% 1,000 ML 150 ML IV ×2 (01:04→06:57)
[2019-01-28 05:48] LABS: Add Manual Diff / Slide Review NO; Basophils Absolute Auto 100 /uL (0-100); Basophils Percent Auto 0.8 % (0-2); Eosinophils Absolute Auto 100 /uL (0-450); Eosinophils Percent Auto 1.2 % (2-4); Hemoglobin 12.5 g/dL (12.0-16.0); Lymphocytes Absolute Auto 2000 /uL (1100-4500); Lymphocytes Percent Auto 20.4 % (25-40); Mean Corpuscular Hemoglobin 29.2 PG (26-34); Mean Corpuscular Volume 88.7 fL (80-100); Monocytes Absolute Auto 600 /uL (0-900); Monocytes Percent Auto 6.1 % (3-14); Neutrophils Absolute Auto 7000 /uL (1500-7000); Neutrophils Percent Auto 71.5 % (50-75); Platelet Count 265 X10^3/uL (150-400); Red Blood Cell Count 4.28 X10^6/uL (4.0-5.2); Red Cell Distribution Width 17.2 % (11.6-14.8); White Blood Cell Count 9.8 X10^3/uL (4.5-11.0)
[2019-01-28 05:57] LABS: Magnesium 1.9 mg/dL (1.6-2.3)
[2019-01-28 05:58] LABS: Blood Urea Nitrogen 16 mg/dL (7-17); Calcium 8.8 mg/dL (8.4-10.2); Carbon Dioxide 30 mmol/L (22-32); Chloride 100 mmol/L (98-107); Estimated Glomerular Filt Rate > 60.0 mL/min (>60); Glucose 176 mg/dL (80-110); HEMOLYSIS < 15 (0-50); Potassium 3.4 mmol/L (3.4-5.1); Sodium 137 mmol/L (137-145)
[2019-01-28] MEDS: POTASSIUM CHLORIDE 20 MEQ/15 ML UDC PO ×2 (08:11→17:05)
[2019-01-28] MEDS: INSULIN ASPART 100 UNIT/ML INSULN PEN SUBCUT ×3 (08:20→22:29)
[2019-01-28] MEDS: MULTIVITAMIN 1 TABLET 1 TAB PO (08:22)
[2019-01-28] MEDS: glipiZIDE 5 MG TABLET PO (08:22)
[2019-01-28] MEDS: TIMOLOL 0.25% OPHTH 1 DROPS EYE-BOTH (08:22)
[2019-01-28] MEDS: ENOXAPARIN 40 MG/0.4 ML SYRINGE SUBCUT ×2 (08:22→22:32)
[2019-01-28] MEDS: LACTOBACILLUS ACIDOPHILUS TABLET 1 EACH PO (08:22)
[2019-01-28] MEDS: CYANOCOBALAMIN (VITAMIN B-12) 500 MCG TABLET 2500 MCG PO (08:26)
[2019-01-28] MEDS: MAGNESIUM OXIDE 400 MG TABLET PO (08:30)
--- NOTE | 2019-01-28 08:40 | PC.NURSE ---
Patient up to chair. A/Ox4. States pain in legs is at a 2/10, PRN pain medication given. Bilateral lower extremity dsg changes, right blister covered with Alyvn dsg, blister is oozing clear drainage at this time, quarter sized drainage noted on previous dsg. Left calf blister dsg removed, baseball sized drainage noted on dsg, yellow tinged. [place] barrier dsg applied. Both lower extremities are edematous, firm and red, noted redness is still within previously marked border. Patient tolerated dsg change very well.
--- NOTE | 2019-01-28 09:18 | CM.DANOTE ---
Addendum entered by Ijeoma Cam LPN 01/28/19 14:39: Admission status: just confirmed INPT: per UR JULIA Ibanez. Addendum entered by Ijeoma Cam LPN 01/28/19 14:08: Continuation of assessment note from this morning due to multiple interruptions/caseload triage needs): show that the DCP/social work team did see pt and gave her some ideas re assisting her sister. The status of this appears to be about the same. Encouraged pt to reach out to her brother/out of state for assistance with the sister.) Pt describes her functional abilities and assistance: see the DCP template for some of the details. Pt does spend much of her time in her specialized recliner at home. She has a bed but has been unable to use it. She has history of going to pool for OUTPT Pt but had a series of medical issues involving skin that may this not doable for several months. She is up and about in her home using either her cane or her FWW and much of this time is spend going to and from the bathroom as the weight management program she is on has lead to 20 = voids a day. Pt is aware of her snf benefit. She notes she is certain that she will be able to d/c back to her home setting and would like to once again use [facility]. She is aware that the DCP team will be following to assist her as POC unfolds. She notes she did have a clinic appt with PCP: Dr. Johnson tomorrow and so she is hopeful that she will be seeing her in the hospital tomorrow. P: follow closely. Addendum entered by Ijeoma Cam LPN 01/28/19 10:10: Expresses great frustration re the progress in her weight loss process. Pt lives with her 76 year old sister. She has been trying to assist the sister for about a year to accept placement in an assisted facility which would entail her accepting medicaid. (review of notes from pt's last stay at : Sep 2017 Original Note: Discharge Planning/Care Management DCP: assessement: case received, EMR reviewed and met with pt. Introduced self and role. Pt is a 63 year old female who admitted yesterday afternoon to care of A physician team. PCP: Dr. Johnson Payer: Medicare Pt is admitted for Bilateral LE cellulitis with open wounds. Medical complexity includes weight of 400 LBS and diabetes. She sees Dr. Geraldo Berry at his local clinic specifically for weight management: has been with that program since last January/2018. Document 01/28/19 09:07 ITV (Rec: 01/28/19 09:15 ITV [id number]) Discharge Planning Assessment History Provided By Patient,Medical Record Prior Living Arrangements House Household Members family Comment 76 year old sister. pt says she has dementia. Type of transporation used prior to Relies on Others admit Comment juliann Paris/Geronimo Gomez is the only local family member who drives. cell: [phone] Independent with ADL's No: bath aide 3xweek Is patient alert and oriented? Yes Needs Assistance With Bathing Comment does not drive. Is homebound except for Tuesday outing with juliann Paris for all appts. [facility] on Tuesday. Caregiver for Another Yes: watches 3 year old grand- daughter when her health allows Whiteboard Updated in Patient Room with Yes name and ext. # of Boat Crew Deck Hand Review Status In Process
--- NOTE | 2019-01-28 11:53 | PM.PN.1 ---
Subjective Subjective Date Patient Seen: 01/28/19 Time Patient Seen: 11:00 Interval history: Patient is sitting up in chair this morning. Her legs are down and her left lower extremity wound has drained on to the floor. The redness is dramatically improved. She has no acute complaints. Exam Vital Signs (past 8 hours): - 01/28/19 03:59 01/28/19 07:20 Temperature 98.3 F 97.7 F Pulse Rate 80 76 Respiratory Rate 16 16 Blood Pressure 129/68 138/86 Pulse Oximetry 96 95 Oxygen Delivery Method Room Air Oxygen Flow Rate 0 Narrative Exam Narrative: General: Well-developed, morebidy obese, talkative, female, no acute distress, sitting up in chair. Heart: Regular rate and rhythm, systolic murmur best heard LUSB Lungs: Clear to auscultation bilaterally, no wheezes, rales or rhonchi Extremities: Warm and well perfused, 2+ pitting edema to mid calf, large area of granulation tissue with slough on left lateral leg without surrounding redness, lateral right leg with smaller area of stasis ulcer Objective Labs Result Diagrams: 01/28/19 05:25 01/28/19 05:25 Labs: Laboratory Results - last 24 hr 01/27/19 01/27/19 01/27/19 12:00 12:00 12:00 WBC 12.0 H RBC 4.58 Hgb 13.3 Hct 40.7 MCV 88.9 MCH 29.1 MCHC 32.7 RDW 17.1 H Plt Count 289 Neut % (Auto) 78.5 H Lymph % (Auto) 14.6 L [place] % (Auto) 5.7 Eos % (Auto) 0.6 L Baso % (Auto) 0.6 Neut # (Auto) 9400 H Lymph # (Auto) 1800 [place] # (Auto) 700 Eos # (Auto) 100 Baso # (Auto) 100 Sodium 134 L Potassium 3.5 Chloride 93 L Carbon Dioxide 31 BUN 18 H Creatinine 0.50 L Estimated GFR > 60.0 BUN/Creatinine Ratio 36.0 H Glucose 270 H Hemoglobin A1c Lactate Calcium 9.4 Magnesium Total Bilirubin 0.6 AST 37 H ALT 47 H Alkaline Phosphatase 105 Total Creatine Kinase 75 Total Protein 7.1 Albumin 4.1 Globulin 3.0 Albumin/Globulin Ratio 1.4 01/27/19 01/27/19 01/27/19 12:16 14:48 16:36 WBC RBC Hgb Hct MCV MCH MCHC RDW Plt Count Neut % (Auto) Lymph % (Auto) [place] % (Auto) Eos % (Auto) Baso % (Auto) Neut # (Auto) Lymph # (Auto) [place] # (Auto) Eos # (Auto) Baso # (Auto) Sodium Potassium Chloride Carbon Dioxide BUN Creatinine Estimated GFR BUN/Creatinine Ratio Glucose Hemoglobin A1c Lactate 3.7 H 2.6 H Calcium Magnesium 1.9 Total Bilirubin AST ALT Alkaline Phosphatase Total Creatine Kinase Total Protein Albumin Globulin Albumin/Globulin Ratio 01/27/19 01/27/19 01/28/19 17:34 17:34 05:25 WBC 9.8 RBC 4.28 Hgb 12.5 Hct 38.0 MCV 88.7 MCH 29.2 MCHC 33.0 RDW 17.2 H Plt Count 265 Neut % (Auto) 71.5 Lymph % (Auto) 20.4 L [place] % (Auto) 6.1 Eos % (Auto) 1.2 L Baso % (Auto) 0.8 Neut # (Auto) 7000 Lymph # (Auto) 2000 [place] # (Auto) 600 Eos # (Auto) 100 Baso # (Auto) 100 Sodium 135 L Potassium 3.3 L Chloride 96 L Carbon Dioxide 33 H BUN 18 H Creatinine 0.40 L Estimated GFR > 60.0 BUN/Creatinine Ratio 45.0 H Glucose 160 H D Hemoglobin A1c 8.0 H Lactate Calcium 9.3 Magnesium Total Bilirubin AST ALT Alkaline Phosphatase Total Creatine Kinase Total Protein Albumin Globulin Albumin/Globulin Ratio 01/28/19 01/28/19 05:25 05:25 WBC RBC Hgb Hct MCV MCH MCHC RDW Plt Count Neut % (Auto) Lymph % (Auto) [place] % (Auto) Eos % (Auto) Baso % (Auto) Neut # (Auto) Lymph # (Auto) [place] # (Auto) Eos # (Auto) Baso # (Auto) Sodium 137 Potassium 3.4 Chloride 100 Carbon Dioxide 30 BUN 16 Creatinine 0.50 L Estimated GFR > 60.0 BUN/Creatinine Ratio 32.0 H Glucose 176 H Hemoglobin A1c Lactate Calcium 8.8 Magnesium 1.9 Total Bilirubin AST ALT Alkaline Phosphatase Total Creatine Kinase Total Protein Albumin Globulin Albumin/Globulin Ratio Assessment & Plan Assessment & Plan narrative: 63 yo morbidly obese female with lower extremity cellulitis with bilateral open wounds failed outpatient therapy. Elevated WBC and lactate on presentation. Improving with current therapy. 1. Cellulitis: Erythema and swelling well contained within the ford from yesterday, significantly less redness. Follow cultures. 2. Open wound: Discussed with Dr. melchor who has been coordinating with Dr. Johnson about outpatient management of this patient. Recommends multiple dressing changes per day for moisture management. Topical bacitracin to control infection. Will consult wound care tomorrow. 3. Diabetes. will continue with glipizide and sliding scale. hgba1c is elevated from baseline at 8. Diabetic diet. 4. Electrolytes: hypokalemia - will replete orally and continue to monitor. 5. Edema. Will stop IV fluids and start her home regimen. DVT prophylaxis: lovenox Code status: full code Given patient's comorbidities she is going to need an additional 24-48 hours care.
[2019-01-28] MEDS: CEFTRIAXONE 2 GM/50 ML FROZ.PIGGY IV (14:06)
[2019-01-28] MEDS: metOLazone 2.5 MG TABLET PO (14:06)
[2019-01-28] MEDS: SENNOSIDES 8.6 MG TABLET 17.2 MG PO (22:32)
[2019-01-29 04:05] VITALS: BP 124/68; PULSE 68; RESP 16; TEMP 36.9; O2SAT 96
[2019-01-29] MEDS: NAPROXEN 250 MG TABLET 500 MG PO ×2 (05:17→20:04)
[2019-01-29 05:42] LABS: Add Manual Diff / Slide Review NO; Basophils Absolute Auto 100 /uL (0-100); Basophils Percent Auto 0.6 % (0-2); Eosinophils Absolute Auto 200 /uL (0-450); Eosinophils Percent Auto 1.7 % (2-4); Hemoglobin 12.4 g/dL (12.0-16.0); Lymphocytes Absolute Auto 2100 /uL (1100-4500); Lymphocytes Percent Auto 23.3 % (25-40); Mean Corpuscular HGB Conc 33.6 % (30-36); Mean Corpuscular Hemoglobin 29.6 PG (26-34); Monocytes Absolute Auto 700 /uL (0-900); Monocytes Percent Auto 7.4 % (3-14); Neutrophils Absolute Auto 6100 /uL (1500-7000); Platelet Count 256 X10^3/uL (150-400); Red Cell Distribution Width 17.2 % (11.6-14.8); White Blood Cell Count 9.2 X10^3/uL (4.5-11.0)
[2019-01-29 05:51] LABS: Blood Urea Nitrogen 15 mg/dL (7-17); Carbon Dioxide 30 mmol/L (22-32); Chloride 99 mmol/L (98-107); Estimated Glomerular Filt Rate > 60.0 mL/min (>60); Glucose 183 mg/dL (80-110); HEMOLYSIS < 15 (0-50); Magnesium 1.9 mg/dL (1.6-2.3); Sodium 137 mmol/L (137-145)
[2019-01-29 08:00] VITALS: BP 140/63; PULSE 71; RESP 18; TEMP 36.6; O2SAT 96
--- NOTE | 2019-01-29 08:51 | PM.PN.1 ---
Subjective Subjective Date Patient Seen: 01/29/19 Time Patient Seen: 07:40 Interval history: Feeling better this morning, edema has decreased significantly since she can elevate her legs. She continues to have an excessive amount of watery drainage from the wound and the dressing has had to be changes several times. She was supposed to go to wound care today but obviously won't since she is here. Continues to be frustrated by her weight. Cannot seem to lose despite an excellent diet and close work with Dr. Berry. She thinks something else is going on that is being missed. Does have the referral to but has not heard to schedule. Exam Vital Signs (past 8 hours): - 01/29/19 04:05 Temperature 98.5 F Pulse Rate 68 Respiratory Rate 16 Blood Pressure 124/68 Pulse Oximetry 96 Oxygen Delivery Method Room Air Oxygen Flow Rate 0 Narrative Exam Narrative: General: Well-appearing, morbidly obese older woman. Polite and pleasant as always. HEENT: NCAT, EOMI, moist oral mucosa CV: Regular rate and rhythm, no murmurs, rubs or gallops Lungs: CTAB, no wheezes, rales, or rhonchi Abdomen: Very large abdomen and pannus which is nontender. Bowel tones active. Extremities: Significant bilateral lower extremity edema however erythema has receded greatly from the lines of demarcation drawn on admission. Large open wound of the left lateral leg. Small superficial wound of the right lateral leg. Objective Labs Result Diagrams: 01/29/19 05:13 01/29/19 05:13 Labs: Laboratory Results - last 24 hr 01/29/19 01/29/19 05:13 05:13 WBC 9.2 RBC 4.20 Hgb 12.4 Hct 37.0 MCV 88.0 MCH 29.6 MCHC 33.6 RDW 17.2 H Plt Count 256 Neut % (Auto) 67.0 Lymph % (Auto) 23.3 L [place] % (Auto) 7.4 Eos % (Auto) 1.7 L Baso % (Auto) 0.6 Neut # (Auto) 6100 Lymph # (Auto) 2100 [place] # (Auto) 700 Eos # (Auto) 200 Baso # (Auto) 100 Sodium 137 Potassium 3.0 L Chloride 99 Carbon Dioxide 30 BUN 15 Creatinine 0.50 L Estimated GFR > 60.0 BUN/Creatinine Ratio 30.0 H Glucose 183 H Calcium 9.0 Magnesium 1.9 Assessment & Plan Assessment & Plan narrative: Patient is a 63-year-old female with morbid obesity with BMI of 67, chronic lower extremity edema and diabetes admitted with cellulitis and worsening edema from baseline. Cellulitis: Improved since admission. Wound culture with Pseudomonas and group B strep. Pseudomonas is sensitive to levofloxacin and studies are pending to determine if group B strep is sensitive to levofloxacin as well. For the time being, will start levofloxacin and continue ceftriaxone. May be able to discharge her on levofloxacin alone. Wound consultation requested today however provider is unavailable. Would appreciate consultation and recommendations tomorrow. Chronic lower extremity edema: Restart home diuretics which were held on admission due to infection. Diabetes: Worsening control compared to baseline, perhaps due to infection. Increase glipizide. Holding metformin due to elevated lactate on admission. Hypokalemia: Replace today, recheck tomorrow. Morbid obesity: Patient has been referred to the [facility] but has not yet heard to schedule. Perhaps she would benefit from seeing endocrinology as well. We can facilitate this after discharge. DVT prophylaxis: lovenox Code status: full code Disposition: Anticipate patient will be ready to discharge home tomorrow on oral antibiotics once sensitivities have returned.
[2019-01-29] MEDS: CYANOCOBALAMIN (VITAMIN B-12) 500 MCG TABLET 2500 MCG PO (10:09)
[2019-01-29] MEDS: POTASSIUM CHLORIDE 20 MEQ/15 ML UDC PO ×2 (10:09→17:17)
[2019-01-29] MEDS: metOLazone 2.5 MG TABLET PO (10:09)
[2019-01-29] MEDS: MAGNESIUM OXIDE 400 MG TABLET PO (10:09)
[2019-01-29] MEDS: glipiZIDE 5 MG TABLET PO (10:09)
[2019-01-29] MEDS: MULTIVITAMIN 1 TABLET 1 TAB PO (10:09)
[2019-01-29] MEDS: LACTOBACILLUS ACIDOPHILUS TABLET 1 EACH PO (10:10)
[2019-01-29] MEDS: TIMOLOL 0.25% OPHTH 1 DROPS EYE-BOTH (10:10)
[2019-01-29] MEDS: ENOXAPARIN 40 MG/0.4 ML SYRINGE SUBCUT ×2 (10:10→20:56)
[2019-01-29] MEDS: INSULIN ASPART 100 UNIT/ML INSULN PEN SUBCUT ×3 (10:11→17:16)
[2019-01-29] MEDS: NYSTATIN CREAM 30 GM 1 APPLIC TOP ×2 (10:16→15:20)
[2019-01-29] MEDS: POTASSIUM CHLORIDE 20 MEQ/15 ML UDC 40 MEQ PO (11:11)
[2019-01-29 12:00] VITALS: BP 146/77; PULSE 68; RESP 18; TEMP 36.7; O2SAT 96
[2019-01-29] MEDS: FUROSEMIDE 40 MG TABLET PO (14:11)
[2019-01-29] MEDS: levoFLOXacin 250 MG TABLET 750 MG PO (14:11)
--- NOTE | 2019-01-29 14:22 | DIET.PN ---
Dietary Progress Note Assessment: Mrs. Melendez is a 63 yof with obesity, diabetes, chronic lower extremity edema. She has peripheral neuropathy and chronic LE edema. She works with Dr. Berry for diuresis and weight loss. Her weight has increased 9 kg since November of this year per EMR. She reports frustration with weight as she feels she follows healthy eating patterns. She provides a hx of complications since 2009 including several knee surgeries that have hindered her ability to be active. She began losing weight (~20 #) following a [address] Berry placed her on, but has slowly started creeping back up. HT: 165.1 cm WT: 183kg UBW: 175 kg BMI: 67.1 Labs: K: 3.0 L Cr: 0.50 L Gluc: 160, 176, 183 HgbA1c: 8.0 (7.6- 12/02; 7.3- 08/02) MNA: 14 [place]: 15 Nutrition Diagnosis: Altered Nutrition related labs related to impaired glucose metabolism, lack of previous exposure to accurate nutrition information , endocrine dysfunction as evidenced by pt report, dx of diabetes, elevated blood glucose and HbgA1c. Interventions: 1. Reviewed pathophysiology of diabetes and impact of nutrition/diet on blood sugar control.? Discussed fed versus non-fed state.?? Discussed increase in laboratory values. 2. Discussed the effect of carbohydrates/protein/fat on blood sugar control.? Stressed importance of consistent carbohydrate intake at each meal and provided instructions for recommended servings/portions of carbohydrates/protein per meal. 3. Discussed pts usual intake. Discussed reasons for following a heart healthy diet for edema. 4. Recommend Naif BID for wound healing. 5. Recommend CCD 3 (med) diet order Diet Order: Heart Healthy/Cardiac EER: 1700 dede @30 dede/kg IBW; Pro 100 g @ 25% calories; 45-60g CHO @ ea meal Monitoring/Evaluations: Weight, PO's, Blood glucose, add CCD diet order
[2019-01-29] MEDS: CEFTRIAXONE 2 GM/50 ML FROZ.PIGGY IV (15:20)
[2019-01-29 16:10] VITALS: BP 121/71; PULSE 75; RESP 18; O2SAT 96
[2019-01-29] MEDS: BACITRACIN 28 GM OINT 1 APPLIC TOP ×2 (17:18→20:06)
--- NOTE | 2019-01-29 18:00 | PC.NURSE ---
1739 - This VOCAL ARTIST assisted with helping the pt up to the bathroom. Pt repeatedly refused the gait belt. Pt used her cane as well as front wheel walker to ambulate to bathroom, but leaned heavily on the walker. Pt currently sits in the bathroom with call light in reach.
--- NOTE | 2019-01-29 20:21 | PC.NURSE ---
Patient A/Ox4. Patient up to chair this afternoon until this point in time. Patient ambulating to restroom with walker. Confirms shortness of breath during exertion. Patient becomes diaphoretic and breathing becomes labored. Once back to chair patient's respirations return to normal rate, depth and rhythm within one minute. Patient denies shortness of breath at rest. Patient's bilateral leg dsgs changed at 1700, previous dsg saturated. Left [place] blister is weeping clear fluid, abd pad and gauze dsg removed again at 2000, dsg saturated. Bacitracin reapplied and new dsg applied. Right [place] allyvn dsg is still dry and intact at this time, quarter size shadow drainage noted. Patient reports numbness in bilateral extremities that is WNL. Denies sensation distal to her knees. Patients bilateral extremities are still red, edematous and firm, redness does not exceed previously drawn borders. Patients bottom is red but blanchable. Grisel care given. Patient back to bed at this time. Expresses anxiety about possible discharge tomorrow. Per patient I would get better sleep here in the hospital than at home or at a rehab facility. Addressed patients concerns. Patient denies further needs at this time. Call light in reach, tray table in reach.
[2019-01-29 20:25] VITALS: BP 125/63; PULSE 69; RESP 20; TEMP 36.6; O2SAT 95
[2019-01-29 23:55] VITALS: BP 127/55; PULSE 79; RESP 18; TEMP 36.4; O2SAT 94
[2019-01-30 05:15] VITALS: BP 133/71; PULSE 68; RESP 18; TEMP 36.2; O2SAT 95
[2019-01-30 05:41] LABS: Add Manual Diff / Slide Review NO; Basophils Absolute Auto 100 /uL (0-100); Eosinophils Absolute Auto 100 /uL (0-450); Eosinophils Percent Auto 1.3 % (2-4); Hemoglobin 12.6 g/dL (12.0-16.0); Lymphocytes Absolute Auto 2200 /uL (1100-4500); Lymphocytes Percent Auto 21.9 % (25-40); Mean Corpuscular HGB Conc 33.3 % (30-36); Mean Corpuscular Hemoglobin 29.5 PG (26-34); Mean Corpuscular Volume 88.7 fL (80-100); Monocytes Absolute Auto 700 /uL (0-900); Monocytes Percent Auto 6.7 % (3-14); Neutrophils Absolute Auto 7100 /uL (1500-7000); Neutrophils Percent Auto 69.1 % (50-75); Platelet Count 269 X10^3/uL (150-400); Red Blood Cell Count 4.28 X10^6/uL (4.0-5.2); Red Cell Distribution Width 16.8 % (11.6-14.8); White Blood Cell Count 10.2 X10^3/uL (4.5-11.0)
[2019-01-30 05:54] LABS: Blood Urea Nitrogen 17 mg/dL (7-17); Carbon Dioxide 33 mmol/L (22-32); Chloride 96 mmol/L (98-107); Estimated Glomerular Filt Rate > 60.0 mL/min (>60); Glucose 168 mg/dL (80-110); HEMOLYSIS < 15 (0-50); Sodium 136 mmol/L (137-145)
[2019-01-30] MEDS: levoFLOXacin 250 MG TABLET 750 MG PO (06:16)
[2019-01-30] MEDS: BACITRACIN 28 GM OINT 1 APPLIC TOP ×2 (06:17→21:55)
[2019-01-30] MEDS: NAPROXEN 250 MG TABLET 500 MG PO (06:27)
--- NOTE | 2019-01-30 07:34 | CM.DPC ---
Addendum entered by Kristina Parker R.N. 01/30/19 15:18: Have attempted to contact [facility], left a message with Molly in admissions to call back. Her number is: [phone] Addendum entered by Kristina Parker R.N. 01/30/19 15:06: Sofiya at [facility] has not yet given answer of acceptance, and Mariah at [facility] has not yet answered as well. July at [facility] can possibly accept , but this is not definate. Left a message with Saba Davidson at [facility] bed, and spoke to Keerthi at [facility] in [place]. Stated that her DNS would need to review since she is bariatric, but faxed over referral. Called [facility] is not at desk, but vest front presser stated that they may have bariatric beds available. Faxed referral. Left a message with [facility] as well. Their number is: [phone]. Addendum entered by Kristina Parker R.N. 01/30/19 11:44: Sent referral to [facility], attn: Sofiya to review, and sent to [facility] as well. Pending to hear back from [facility] as well. Addendum entered by Kristina Parker R.N. 01/30/19 11:21: July at [facility] is uncertain if they can accept another bariatric bed, but stated, will let this geriatric case manager know for sure. Started looking for alternative facility. Mariah at [facility] stated, she will see if they have openings, will check with their director. Spoke to Sofiya at [facility] in [facility], gave her Addendum entered by Kristina Parker R.N. 01/30/19 08:33: Spoke to Dr. Johnson, she initially signed face to face before speaking to patient. Let her know that patient could go to senior living if needed under her Medicare benefit, which had been discussed with her before, but had declined. After she had seen patient, she is now wanting to go to skilled, with discharge plan for tomorrow. Briefly met with patient, gave her Medicare Choice List, she was on the phone, said, I would like to go to [facility] or [facility]. Let her know that [facility] is now assisted living, but [facility]. Left July a message in admissions, and faxed face sheet for now. Will await to hear back from her to see if they can accept tomorrow. Gave brief history of patient on message. Original Note: DCP Cont: Will attempt to see Dr. Johnson today when she sees patient to have her sign face to face. Patient is requesting home with [facility]. Will ensure if this is still the plan. P: DCP to follow closely, and if home health is the plan, will have face to face signed. Kristina Parker RN/[employer] Professor
[2019-01-30 08:00] VITALS: BP 140/76; PULSE 77; RESP 18; TEMP 36.6; O2SAT 95
--- NOTE | 2019-01-30 08:32 | PM.PN.1 ---
Subjective Subjective Date Patient Seen: 01/30/19 Time Patient Seen: 08:00 Interval history: Patient is upset today about multiple things - was in the chair most of the day yesterday because the bed was being switched out for a bigger bed. This did not help her swelling. Concerned about taking care of the wound at home, can't reach it, takes several days for home health to come. Interested in SNF. She has a headache today. Concerned her leg is still weeping so much. She was happy to report that she actually slept for over three hours straight which rarely happens. Exam Vital Signs (past 8 hours): - 01/30/19 05:15 Temperature 97.2 F L Pulse Rate 68 Respiratory Rate 18 Blood Pressure 133/71 Pulse Oximetry 95 Oxygen Delivery Method Room Air Oxygen Flow Rate 0 Narrative Exam Narrative: General: Well-appearing, morbidly obese older woman. Cranky today. HEENT: NCAT, EOMI, moist oral mucosa CV: Regular rate and rhythm, no murmurs, rubs or gallops Lungs: CTAB, no wheezes, rales, or rhonchi Abdomen: Very large abdomen and pannus which is nontender. Extremities: Large shallow open wound on left lateral leg with weeping and surrounding erythema. Bandage intact on right lateral leg. 2+ pitting edema bilaterally to mid [place]. Objective Labs Result Diagrams: 01/30/19 05:10 01/30/19 05:10 Labs: Laboratory Results - last 24 hr 01/30/19 01/30/19 05:10 05:10 WBC 10.2 RBC 4.28 Hgb 12.6 Hct 38.0 MCV 88.7 MCH 29.5 MCHC 33.3 RDW 16.8 H Plt Count 269 Neut % (Auto) 69.1 Lymph % (Auto) 21.9 L Iroquois % (Auto) 6.7 Eos % (Auto) 1.3 L Baso % (Auto) 1.0 Neut # (Auto) 7100 H Lymph # (Auto) 2200 Iroquois # (Auto) 700 Eos # (Auto) 100 Baso # (Auto) 100 Sodium 136 L Potassium 3.0 L Chloride 96 L Carbon Dioxide 33 H BUN 17 Creatinine 0.50 L Estimated GFR > 60.0 BUN/Creatinine Ratio 34.0 H Glucose 168 H Calcium 9.0 Assessment & Plan Assessment & Plan narrative: Patient is a 63-year-old female with morbid obesity with BMI of 67, chronic lower extremity edema and diabetes admitted with cellulitis and worsening edema from baseline. Cellulitis: Improved since admission. Wound culture with Pseudomonas and group B strep, both sensitive to levofloxacin. Wound consultation requested yesterday, would appreciate consultation and recommendations. Chronic lower extremity edema: Home diuretics restarted yesterday after fluids on admission due to infection. Will add a dose of IV furosemide today for further diuresis. Legs need to be elevated consistently. Diabetes: Continue glipizide and glucose monitoring. Hypokalemia: Replace today, recheck tomorrow. Morbid obesity: Working with Dr. Berry for weight, also referred to . DVT prophylaxis: lovenox Code status: full code Disposition: Anticipate patient will be ready to discharge to SNF tomorrow if placement secured. Appreciate care management.
[2019-01-30] MEDS: TIMOLOL 0.25% OPHTH 1 DROPS EYE-BOTH (08:51)
[2019-01-30] MEDS: glipiZIDE 5 MG TABLET 10 MG PO (08:52)
[2019-01-30] MEDS: MAGNESIUM OXIDE 400 MG TABLET PO (08:52)
[2019-01-30] MEDS: MULTIVITAMIN 1 TABLET 1 TAB PO (08:52)
[2019-01-30] MEDS: ENOXAPARIN 40 MG/0.4 ML SYRINGE SUBCUT ×2 (08:52→21:45)
[2019-01-30] MEDS: CYANOCOBALAMIN (VITAMIN B-12) 500 MCG TABLET 2500 MCG PO (08:52)
[2019-01-30] MEDS: metOLazone 2.5 MG TABLET PO (08:52)
[2019-01-30] MEDS: FUROSEMIDE 40 MG TABLET PO (08:52)
[2019-01-30] MEDS: INSULIN ASPART 100 UNIT/ML INSULN PEN SUBCUT ×2 (08:52→17:14)
[2019-01-30] MEDS: LACTOBACILLUS ACIDOPHILUS TABLET 1 EACH PO (08:52)
[2019-01-30] MEDS: NYSTATIN CREAM 30 GM 1 APPLIC TOP (08:53)
[2019-01-30] MEDS: POTASSIUM CHLORIDE 20 MEQ/15 ML UDC 40 MEQ PO ×3 (08:55→17:16)
[2019-01-30 12:00] VITALS: BP 111/63; PULSE 67; RESP 18; TEMP 36.4; O2SAT 95
[2019-01-30] MEDS: FUROSEMIDE 40 MG/4 ML VIAL IV (13:55)
--- NOTE | 2019-01-30 15:58 | OT.IP.EVAL ---
Current Diagnoses Cellulitis of left lower limb (01/27/19) Past Medical History (Last Reviewed 01/27/19 @ 11:36 by Estee Alicea MD) Chronic venous stasis dermatitis (Chronic 05/18/16) Dependent edema (Acute) Essential hypertension (Chronic 03/15/16) Frequent UTI (Chronic) Hemorrhoids (Chronic 11/15/16) History of chickenpox (Resolved 1964) History of American measles (Resolved ~1964) History of measles (Resolved ~1962) History of mumps (Resolved 1957) Morbid obesity with body mass index (BMI) of 60.0 to 69.9 in adult (Chronic 04/14/16) Osteoarthritis of lumbar spine (Chronic) Tubular adenoma of colon (Resolved 08/27/16) Type 2 diabetes mellitus without complication, without long-term current use of insulin (Chronic 04/14/16) Visual field defect of left eye (Chronic 12/15/16) Surgical History (Last Reviewed 01/27/19 @ 11:36 by Estee Alicea MD) Anesthesia (Resolved) S/P total abdominal hysterectomy and bilateral salpingo-oophorectomy (Resolved 12/2009) Status post hernia repair (Resolved 12/2010) Status post knee surgery (Resolved 10/2009) Status post knee surgery (Resolved 11/2009) Occupational Therapy Inpatient Evaluation/Re-Eval M1 PT/OT-IP Prior Functional Status Start: 01/30/19 13:44 Freq: NEEDED Status: Active Protocol: Document 01/30/19 15:57 PJM (Rec: 01/30/19 16:34 PJM [id number]) Medical Review Prior Functional Status Medical History Reviewed Yes Diet/Fluid Consistency Regular Communication WNL Mobility and Gait Pt ambulates with FWW and also carries cane on FWW Activities of Daily Living and IADL's Pt independent with eating and grooming leaning on sink. Pt wears pullover dresses. She does not wear underwear. Her bath aid or family assists her with donning and doffing socks. She wears flip flops when going out as her shoes do not fit due to edema. Pt uses carlotta squeeze bottle and towel for hygiene after toileting. She hires private bath aide 3x week. Prior Functional Level (Other details) Pt manages medications and finances and does all IADLS for her older sister with dementia who lives with her. Pt has 2 daughters who assist her with crisis specialist, driving. Social History Household Members family Living Arrangements House Number of Floors (Floors) One Floor Number of Stairs To Enter/Railing? small threshold to enter apartment Home Environment Standard Height Toilet,Walk in Shower Home Equipment Front Wheel Walker,Straight Cane,Shower Seat without Backrest,Hand Held Shower,Grab Bars In Shower Additional Social History Comment Pt on disability. M1 PT/OT-IP Prior Functional Status Start: 01/30/19 14:03 Freq: NEEDED Status: Active Protocol: Document 01/30/19 15:50 AW (Rec: 01/30/19 16:31 AW [id number]) Medical Review Prior Functional Status Medical History Reviewed Yes Communication WNL Mobility and Gait Tor was modified independent for functional mobility with use of a SPC for sit to stand and FWW for short bout ambulation. She has poor standing tolerance related to back pain so she walks with forearms resting on walker frame. Pt fatigues easily and becomes short of breath, requiring standing rest breaks every 10 feet at baseline. Activities of Daily Living and IADL's Dressing - pt independent with use of dresses exclusively for ease of donning/doffing. Showers - depended on daughter or caregiver for assist with frequency of ~2x/week. Toileting - pt could attempt carlotta hygiene using carlotta bottle and towels, but admits she could not completely clean herself. Even in showers with assist, pt states carlotta care is difficult. Prior Functional Level (Other details) Pt is well known to Rehab and has completed more than one plan of care focused on aqua therapy. Plan was to transition to 50/50 aquatic/ land-based pending progress. Social History Household Members family Living Arrangements House Number of Floors (Floors) One Floor Number of Stairs To Enter/Railing? Short threshhold to enter Home Environment Standard Height Toilet,Walk in Shower Home Equipment Front Wheel Walker,Straight Cane,Shower Seat without Backrest,Lift Recliner Additional Social History Comment Pt lives with her sister and states she is her sister's primary caregiver. Complicated social situation - see CM notes. M2 OT-IP Current Condition Start: 01/30/19 13:44 Freq: Status: Active Protocol: Document 01/30/19 15:57 PJM (Rec: 01/30/19 16:34 PJ [id number]) Occupational Therapy Current Condition Current Condition Evaluation Date 01/30/19 Treatment Diagnosis decr'd act tolerance, self care with DX: LLE cellulitis Post Operative Precautions Other Precautions Keep LLE elevated. Weight Bearing Status Weight Bearing Status Weight Bear as Tolerated M3 OT- IP Subjective and Pain Start: 01/30/19 13:44 Freq: Status: Active Protocol: Document 01/30/19 15:57 PJM (Rec: 01/30/19 16:34 PJ [id number]) OT- Subjective Occupational Therapy Visit Type Type Initial Evaluation Visit Start Time 15:20 Visit Stop Time 15:57 Total Visit Minutes 37 Notes Pt up in bathroom with P.T. when OT arrived. Occupational Therapy Visit Comments Patient Comments I really want to get this wound healed. It is so bad it scared me and my kids. Patient/Caregiver Goals to return to independent living in her own home when LLE wound healed OT Pain Assessment Pain When Pain Assessed After Treatment Pain Present Pain Present Pain Reported Location back Intensity 9 Scale Used Numeric (1 - 10) Description Aching,Chronic Bilateral Leg Intensity 9 Description Aching,Sharp Pain Behaviors Facial Grimacing Management Techniques Distraction,Re-positioning, Timing of Activity with Medications M4 OT- IP ADL's Start: 01/30/19 13:44 Freq: Status: Active Protocol: Document 01/30/19 15:57 PJM (Rec: 01/30/19 16:34 PJ [id number]) OT YRI-Iajk-Kzqwewe General Evaluation Self-Feeding Ability Independent OT ADL-Grooming General Evaluation Grooming Ability Standby Assistance Comments OT Grooming Comments after set up in bed or chair OT ADL-Oral Care Comments Oral Care Comments did not occur this session OT ADL-Dressing General Eval Upper Body Dressing Ability Standby Assistance Lower Body Dressing Ability Total Assistance Areas Needing Assistance Socks,Shoes Comments OT Dressing Comments Pt states she has sports book server and several sock aids at home and that sock aids don't work well for her. OT ADL-Toileting General Evaluation Toileting Ability Maximum Assistance Areas Needing Assistance Perform Perineal Hygiene Comments OT Toileting Comments pt states she has tried multiple toilet paper aids and land lord will not allow bidet to be installed OT ADL-Bathing Comments OT Bathing Comments did not occur, pt has LLE and RLE bandages in place; pt has bath aide 3 x week at home M5 OT- IP IADL's Start: 01/30/19 13:44 Freq: Status: Active Protocol: Document 01/30/19 15:57 PJM (Rec: 01/30/19 16:34 [facility] [id number]) OT-Instrumental Activities of Daily Living Deficits IADL Deficits Identified Deficits Home Safety Awareness Awareness of Need for Assistance at Home Good Awareness Ability to Problem Solve Emergency Able to Problem Solve Situations Medication Management Medication Management No Deficits Identified Money Management Money Management No Deficits Identified Meal Preparation Meal Preparation Comments Pt lacks activity tolerance at present for standing meal prep tasks Police Chief Police Chief Caregiver Provides Assist Police Chief Comments daughters assist with cleaning and shopping; pt does own laundry Driving Driving Caregiver Provides Assist Driving Comments daughters assist M6 OT- IP Functional Cognition Start: 01/30/19 13:44 Freq: Status: Active Protocol: Document 01/30/19 15:57 PJM (Rec: 01/30/19 16:34 [facility] [id number]) Cognitive Factors Limiting Selfcare Function Cognitive Ability Level of Alertness Alert Patient Orientation Name,Age,Birthday,Month,Date, Year,Day of Week,Place, Situation Attention Span Ability Capable of Focused Attention, Capable of Sustained Attention Ability to Follow Commands Able to Follow Multi-Step Commands Memory Description No Deficits Noted Safety Awareness No Deficits Noted Problem Solving Ability No deficits Noted Cognitive Comments Cognitive Assessment Comments Pt able to direct her won care and knows what has worked well for her in the past. Pt pleasant, cooperative and motivated. OT- Vision and Hearing OT- Hearing Assessment OT- Hearing Assessment WFL OT- Vision Assessment Visual Acuity Glasses For Reading Vision Assessment Comments Pt denies any recent vision changes M7 OT- IP Mobility and Balance Start: 01/30/19 13:44 Freq: Status: Active Protocol: Document 01/30/19 15:57 PJM (Rec: 01/30/19 16:34 [facility] [id number]) OT- Bed Mobility Assessment Sit to Supine Sit to Supine Assist Moderate Assistance,1 Person Assistance Scooting Scooting Up and Down in Bed Minimal Assistance OT-Transfer Assessment Transfers Transfer Ability Standby Assistance,1 Person Assistance Technique Transfer Destination Toilet Transfer Technique Stand Step Pivot Devices Transfer Assistive Devices Front Wheeled Walker Comments Mobility Comments Pt needs assist to get BLE's onto bed and to move trapeze position in bariatric bed. Pt able to direct wear she wants pillows in bed. OT- Gait Assessment Gait Gait Assistance Required: Standby Assistance Distance (Feet) 10 Assistive Devices Assistive Device Front Wheeled Walker OT- Balance Assessment Sitting Balance and Reactions Static Sitting Balance Ability Good Standing Balance and Reactions Static Standing Balance Ability Good Comments Other Balance Tests/Deviations/Treatment with FWW : M8 OT- IP Objective Assessments Start: 01/30/19 13:44 Freq: Status: Active Protocol: Document 01/30/19 15:57 PJM (Rec: 01/30/19 16:34 PJM [id number]) OT Gross Range of Motion Upper Extremity Range of Motion Assessment Bilaterally Impaired ROM Impairments Pt reports hx of B rotator cuff tears with L shoulder scaption limited to ~ 90 degrees and R shoulder scaption limited to ~110 degrees. Distal BUE AROM appears WFL. Pt reports hx R thump metacarpal fx 6 yrs ago with pain at MP joint. OT Strength Upper Extremity Strength Assessment Within Functional Limits Hand Delivery Specialist Strength Hand Dominance Right OT- Coordination Assessment Comments Coordination Comments BUE WFL for self care OT-Muscle Tone Assessment Muscle Tone WNL Yes OT Sensation Assessment Comments Summary Comments Pt reports numbness in L 4th, 5th fingers. Edema Edema Present Edema Comments chronic BLE edema M9 OT- IP Assessment and Plan Start: 01/30/19 13:44 Freq: Status: Active Protocol: Document 01/30/19 15:57 PJM (Rec: 01/30/19 16:34 PJ [id number]) OT Summary Assessment and Plan Potential Rehabilitation Potential Good Analytic Complexity at Evaluation Low Summary OT Impairments Pain,Strength,Functional Mobility,Dressing,Toileting, Bathing Assessment Summary Low complexity OT assessment completed on this 63 yr old woman with morbid obesity, chronic BLE edema with LLE cellulitis. Pt presents with performance deficits in activity tolerance for all self care/IADLS and decreased independence in lower body dressing, bathing and toileting. Note pt provides supervision and IADL assistance for her sister who lives with her. Pt not able to manage her wound care and bandaging of BLE wounds at present. Recommend short term SNF for further rehab services at d/c. Goals Grooming Goal Independent Dressing Goal Minimal Assistance,Landscape Management Technician, Sock Aid Toileting Goal Standby Assistance Toilet Transfer Goal Independent Patient/Caregiver Education Goal Demonstrate Energy Conservation and Pacing OT-Other Goals Dressing goal is for lower body dressing with trial of wide sock aid. Days to Meet Goals 7 Frequency of Treatment Frequency Of Treatment Once a Day Treatment Plan OT Treatment Plan ADL Training,Functional Mobility,Discharge Planning Discharge Recommendations OT Discharge Recommendations SNF Rehab
[2019-01-30 16:22] VITALS: BP 122/68; PULSE 76; RESP 19; TEMP 36.4; O2SAT 95
--- NOTE | 2019-01-30 16:32 | PT.IIE ---
Current Diagnoses Cellulitis of left lower limb (01/27/19) Surgical History (Last Reviewed 01/27/19 @ 11:36 by Estee Alicea MD) Anesthesia (Resolved) S/P total abdominal hysterectomy and bilateral salpingo-oophorectomy (Resolved 12/2009) Status post hernia repair (Resolved 12/2010) Status post knee surgery (Resolved 10/2009) Status post knee surgery (Resolved 11/2009) Medical History (Last Reviewed 01/27/19 @ 11:36 by Estee Alicea MD) Chronic venous stasis dermatitis (Chronic 05/18/16) Dependent edema (Acute) Essential hypertension (Chronic 03/15/16) Frequent UTI (Chronic) Hemorrhoids (Chronic 11/15/16) History of chickenpox (Resolved 1964) History of Czech measles (Resolved ~1964) History of measles (Resolved ~1962) History of mumps (Resolved 1957) Morbid obesity with body mass index (BMI) of 60.0 to 69.9 in adult (Chronic 04/14/16) Osteoarthritis of lumbar spine (Chronic) Tubular adenoma of colon (Resolved 08/27/16) Type 2 diabetes mellitus without complication, without long-term current use of insulin (Chronic 04/14/16) Visual field defect of left eye (Chronic 12/15/16) Physical Therapy Inpatient Evaluation/Re-Eval M1 PT/OT-IP Prior Functional Status Start: 01/30/19 14:03 Freq: NEEDED Status: Active Protocol: Document 01/30/19 15:50 AW (Rec: 01/30/19 16:31 AW [email or web address]) Medical Review Prior Functional Status Medical History Reviewed Yes Communication WNL Mobility and Gait Tor was modified independent for functional mobility with use of a SPC for sit to stand and FWW for short bout ambulation. She has poor standing tolerance related to back pain so she walks with forearms resting on walker frame. Pt fatigues easily and becomes short of breath, requiring standing rest breaks every 10 feet at baseline. Activities of Daily Living and IADL's Dressing - pt independent with use of dresses exclusively for ease of donning/doffing. Showers - depended on daughter or caregiver for assist with frequency of ~2x/week. Toileting - pt could attempt carlotta hygiene using carlotta bottle and towels, but admits she could not completely clean herself. Even in showers with assist, pt states carlotta care is difficult. Prior Functional Level (Other details) Pt is well known to Rehab and has completed more than one plan of care focused on aqua therapy. Plan was to transition to 50/50 aquatic/ land-based pending progress. Social History Household Members family Living Arrangements House Number of Floors (Floors) One Floor Number of Stairs To Enter/Railing? Short threshhold to enter Home Environment Standard Height Toilet,Walk in Shower Home Equipment Front Wheel Walker,Straight Cane,Shower Seat without Backrest,Lift Recliner Additional Social History Comment Pt lives with her sister and states she is her sister's primary caregiver. Complicated social situation - see CM notes. M2 PT-IP Current Condition Start: 01/30/19 14:03 Freq: NEEDED Status: Active Protocol: Document 01/30/19 15:50 AW (Rec: 01/30/19 16:31 AW [email or web address]) Physical Therapy Current Condition Current Condition Evaluation Date 01/30/19 Treatment Diagnosis L LE cellulitis, difficulty in walking Onset Date 01/28/19 Weight Bearing Status Weight Bearing Status Full Weight Bearing M3 PT-IP Subjective Start: 01/30/19 14:03 Freq: NEEDED Status: Active Protocol: Document 01/30/19 15:50 AW (Rec: 01/30/19 16:31 AW [email or web address]) Subjective Physical Therapy Visit Type Type Initial Evaluation Visit Start Time 16:38 Visit Stop Time 15:40 Total Visit Minutes 51 Notes Overlap eval with OT last 15 minutes Physical Therapy Visit Comments Patient Comments Pt is happy to participate with PT Patient Goals Pt hopes to discharge to SNF Therapy Pain Assessment Pain When Pain Assessed During Mobility Pain Present Pain Present Pain Reported Location back Intensity 10 Scale Used back and bilateral legs Pain Management Techniques Elevation,Re-positioning M4 PT-IP Mobility and Gait Start: 01/30/19 14:03 Freq: NEEDED Status: Active Protocol: Document 01/30/19 15:50 AW (Rec: 01/30/19 16:31 AW [email or web address]) PT-Bed Mobility Assessment Rolling Type of Rolling Roll to Right,Roll to Left Level of Assist Moderate Assistance Sit to Supine Sit to Supine Moderate Assistance,1 Person Assistance Scooting Scooting Up and Down in Bed Moderate Assistance PT-Transfer Assessment Sit to and From Stand Sit to and from Stand Contact Guard Assistance,Use of Upper Extremities Equipment Transfer Assistive Device Straight Cane Orthotic/Prosthetic Devices or Brace: No Transfers Transfer Destination Bed,Chair,Toilet Transfer Technique pt ambulated with FWW Transfer Ability Level of Assist Contact Guard Assistance Comments Mobility Comments Pt completed sit to stand from chair using SPC in R UE CGA to help push herself up to standing and then switched to FWW. Once standing, pt was able to ambulate short bouts with her forearms propped on the tall walker SBA. Transfers to toilet, chair, and bed were SBA with FWW and SPC. Pt was dependent for carlotta care but able to stand for same with aid of FWW SBA. Sit to supine transfer on ann-marie bed required mod A x 1 to raise the legs into the bed. Once in bed, positioning required heavy use of bed rails and trapeze, but pt was able to bridge her hips with right foot planted and scoot higher in the bed little by little by pulling on the trapeze. Pt was positioned in bed with multiple pillows behind her back/neck, a pillow under each arm, and a pillow under her left leg. All bed positioning required little more than min A x 1 to move the trapeze and verbal cues for finding handholds on the bed frame. Gait Assessment Gait Gait Assistance Required: Standby Assistance Distance (Feet) 20 Able to Maintain Weight Bearing Status Yes During Gait Assistive Devices Assistive Device Front Wheeled Walker Orthotic/Prosthetic Devices or Brace: No Gait Deviations General Gait Pattern Antalgic,Decreased Stride Length,Decreased Feet Clearance,Flexed Trunk,Wide Based Gait Factors Limiting Gait Function Factors Limiting Gait Function Decreased Activity Tolerance, Decreased Sensation,Decreased Strength,Limited Range of Motion,Pain Comments Gait Comments Pt refused gait belt multiple times. She ambulated ~20 feet in room requiring 2 standing rest breaks. She walked with FWW SBA with forearms propped on high FWW frame and significant forward flexion. Standing rest breaks for fatigue and shortness of breath were with arms propped on FWW, bent forward. Stair Climbing Assessment Comments Stair Climbing Comments Not assessed PT-Balance Assessment Sitting Balance and Reactions Static Sitting Balance Ability Good Dynamic Sitting Balance Ability Fair Standing Balance and Reactions Static Standing Balance Ability Poor Dynamic Standing Balance Ability Poor Device Used FWW M5 PT-IP Objective Assessments Start: 01/30/19 14:03 Freq: NEEDED Status: Active Protocol: Document 01/30/19 15:50 AW (Rec: 01/30/19 16:31 AW [email or web address]) Orientation Orientation/Cognition Level of Alertness Alert Orientation Name,Day of Week,Place, Situation Language Function Ability No Deficits Noted Safety Awareness Understands Safety Issues Memory Description No Deficits Noted Comments Tor is chatty and appropriate. She is aware that her mobility is unconventional but she has figured out what works for her . Gross Range of Motion Upper Extremity ROM Assessment Bilaterally Impaired Impairments Shoulder flexion limited to ~ 110 Lower Extremity ROM Assessment Bilaterally Impaired Strength Lower Extremity Strength Assessment Bilaterally Impaired Hip flexion 2+/5; ER 3+/5 Knee flexion 4-/5; extension 4/5 Ankle grossly 4/5 Comments Strength Comments PF tested in sitting. Hip flexion limited against gravity Sensation Assessment Sensation Gross Sensation Right LE Impaired,Left LE Impaired Light Touch Absent Comments Sensation Comments Light touch and temperature sensation absent below knee bilaterally M6 PT-IP Treatment Start: 01/30/19 14:03 Freq: NEEDED Status: Active Protocol: Document 01/30/19 15:50 AW (Rec: 01/30/19 16:31 AW [email or web address]) Physical Therapy Treatment Education Education Provided Precautions,Safety Other Treatments Other Treatment Performed Discussed PT plan of care and safe use of FWW. Pt unable to use FWW conventionally due to back pain with upright poture. M7 PT-IP Assessment and Plan Start: 01/30/19 14:03 Freq: NEEDED Status: Active Protocol: Document 01/30/19 15:50 AW (Rec: 01/30/19 16:31 AW [email or web address]) PT Summary Assessment and Plan Potential Rehabilitation Potential Fair Status of Condition at Evaluation Stable Summary Impairments Pain,ROM,Strength,Balance, Sensation,Bed Mobility, Transfers,Gait,Activity Tolerance Assessment Summary Tor is a 63 yo woman with BMI 67 admitted with L LE cellulitis. PLOF: Pt was modified independent for short bout ambulation with SPC and FWW. She required family and caregiver assist for showering and occasional assist for toileting but admits that carlotta care on her own is incomplete . CLOF: Pt was SBA for transfers and ambulation with FWW. However, ambulation was performed with significant forward flexion and heavy dependence on walker for support and was limited by poor activity tolerance, requiring a rest break every 6 -8 feet. Bed mobility required mod assist x 1 with pt having difficulty lifting legs into the bed. In the context of severely decreased activity tolerance and increased need for assist with bed mobility, PT recommends SNF rehab before return to home to increase her ability to care for herself safely. Goals Bed Mobility Goal Standby Assistance Transfer Goal Independent,Cane,Front Wheeled Walker Gait Goal Standby Assistance,Front Wheel Walker Gait Distance 75 Other Goals - gait goal to be achieved with no more than 2 rest breaks - up/down one step/platform with use of SPC or FWW SBA Days to Meet Goals 10 Frequency of Treatment Frequency Of Treatment Once a Day Treatment Plan Physical Therapy Treatment Plan Bed Mobility Training,Transfer Training,Gait Training, Therapeutic Exercise,Balance Retraining,Discharge Planning, Hot or Cold Pack Other Recommendations and Next Treatment gait training, ther ex for LE Focus strength, standing tolerance Recommendations To Nursing Amount of Assist Needed 1 Person Assist,2 Person Assist Discharge Recommendations PT Discharge Recommendations SNF Rehab Equipment Needed for Home Before defer to rehab setting Discharge
--- NOTE | 2019-01-30 17:03 | PC.NURSE ---
Patient resting in bed with eyes closed and unlabored breathing at this time. Will let patient rest until dinner comes since patient verbalized wanting to sleep more during change of shift bedside report. Call light in reach, belongings in reach. Will continue to monitor.
[2019-01-30 20:16] VITALS: BP 126/64; PULSE 78; RESP 20; TEMP 36.3; O2SAT 95
[2019-01-30] MEDS: SENNOSIDES 8.6 MG TABLET 17.2 MG PO (21:45)
[2019-01-31 01:30] VITALS: BP 141/71; PULSE 75; RESP 19; TEMP 36.6; O2SAT 95
[2019-01-31] MEDS: NAPROXEN 250 MG TABLET 500 MG PO (03:32)
[2019-01-31 05:25] LABS: Blood Urea Nitrogen 27 mg/dL (7-17); Calcium 9.5 mg/dL (8.4-10.2); Carbon Dioxide 34 mmol/L (22-32); Chloride 94 mmol/L (98-107); Estimated Glomerular Filt Rate > 60.0 mL/min (>60); Glucose 181 mg/dL (80-110); HEMOLYSIS < 15 (0-50); Potassium 2.9 mmol/L (3.4-5.1); Sodium 137 mmol/L (137-145)
[2019-01-31 06:29] VITALS: BP 123/72; PULSE 72; RESP 18; TEMP 36.6; O2SAT 95
[2019-01-31] MEDS: levoFLOXacin 250 MG TABLET 750 MG PO (07:45)
[2019-01-31 08:00] VITALS: BP 130/69; PULSE 76; RESP 18; TEMP 36.2; O2SAT 95
--- NOTE | 2019-01-31 08:10 | CM.DPC ---
Addendum entered by Julia Pulliam R.N. 01/31/19 10:37: Dr. Johnson came back to let VIN/RN know that patient did not want to go to [facility] and wanted to go to [facility] because it is closer to her home and family. CM/RN called [facility] to verify if they can accept the patient. Charleen at [facility] stated that they do not have a bariatric bed available at this time. July stated they might have one available tomorrow 02/01/2019 but in the late afternoon if at all. CM/RN talked to patient and explained the issues with SNF placement and needing a bariatric bed. Patient stated understanding and explained that she is worried about her sister who has dementia and she cares for who lives with her. Patient is worried that her sister will get injured or try and cook when no one is there to help her. Patient stated her sister is to much for her to care for and needs help. CM/RN gave the patient information about contacting [employer]PS to report that her sister is home alone and they can do a well fair check on her sister while she is in SNF. Patient was excited to have the information.CM/RN also gave patient information for her sister to possible apply for Home community services/ MELISSA to help with moth exterminator care help since her sister has medicaid. patient agreed to [facility] SNF placement. CM/RN called and left a voice mail for [employer] to get transport time set up. [facility] called back and has a shrimp picker scheduled for 1:45pm today. PASRR, SNF order and medication list faxed to [phone] Julia Pulliam RN Original Note: DCP continued: EMR reviewed: CM/RN heard back from [facility] and they will accept patient today and will call CM back at 10am after morning rounds to determine a d/c time and set up transportations. [facility] stated they do have a bariatric bed and wheel chair for the patient. VIN/Rn spoke with Dr. Johnson and she will be placing D/C orders for patient. Julia Pulliam Rn
[2019-01-31 08:33] LABS: Phosphorous 3.9 mg/dL (2.8-4.1)
[2019-01-31] MEDS: INSULIN ASPART 100 UNIT/ML INSULN PEN SUBCUT (08:35)
[2019-01-31] MEDS: glipiZIDE 5 MG TABLET 10 MG PO (09:07)
[2019-01-31] MEDS: POTASSIUM CHLORIDE 20 MEQ/15 ML UDC 40 MEQ PO ×2 (09:07→12:45)
[2019-01-31] MEDS: MULTIVITAMIN 1 TABLET 1 TAB PO (09:07)
[2019-01-31] MEDS: MAGNESIUM OXIDE 400 MG TABLET PO (09:08)
[2019-01-31] MEDS: POTASSIUM CHLORIDE 20 MEQ TAB 40 MEQ PO (09:08)
[2019-01-31] MEDS: CYANOCOBALAMIN (VITAMIN B-12) 500 MCG TABLET 2500 MCG PO (09:08)
[2019-01-31] MEDS: ENOXAPARIN 40 MG/0.4 ML SYRINGE SUBCUT (09:09)
[2019-01-31] MEDS: TIMOLOL 0.25% OPHTH 1 DROPS EYE-BOTH (09:13)
[2019-01-31] MEDS: FUROSEMIDE 40 MG TABLET PO (09:13)
[2019-01-31] MEDS: LACTOBACILLUS ACIDOPHILUS TABLET 1 EACH PO (09:14)
[2019-01-31] MEDS: metOLazone 2.5 MG TABLET PO (09:14)
--- NOTE | 2019-01-31 09:18 | P.DS_ITS ---
History of Present Illness History of Present Illness Date Patient Seen: 01/31/19 Time Patient Seen: 08:30 Chief complaint: Left leg ulcer Narrative: Patient is a 63 yo female with morbid obesity with BMI of 67, type 2 diabetes, chronic lower extremity edema. The week prior to admission she had seen Dr. Berry and had a large bullae on her left lower leg drained. She was continued on her usual diuretic regimen (metolazone 5 days a week and furosemide daily with potassium). She presented to the ER due to pain and increased swelling and redness in the left leg. She also complained of more fatigued than usual. Typically she manages her edema with diuretics and pool therapy but she has not been able to get the pool for quite some time for one reason or another. In the ER she was found to have an elevated lactate and white blood cell count. She was resuscitated with IV fluids, started on IV antibiotics and admitted for further treatment. A wound culture was obtained in the ER of the left leg ulcer. Discharge Providers Provider Date of admission: 01/27/19 13:50 Discharge Date: 01/31/19 Primary care physician: Galilea Johnson DO Consults: 01/27/19 17:53 Consult to Dietitian, Adult Routine Comment: Reason For Exam: obesity and diabetes 01/28/19 09:27 Consult to General Surgery Routine Comment: Consulting Provider: Willie Duggan Reason for consultation: wound debridement Has provider been notified: Yes 01/28/19 11:48 Consult to Wound Care Routine Comment: bilateral lower extremity ulcers Consulting Provider: Lidya- Wound Care 01/29/19 08:52 Consult to Wound Care Urgent Comment: Consulting Provider: Lidya-[facility] 01/30/19 10:07 Consult to Occupational Therapy Evaluate & Treat Comment: Physician Instructions: Evaluate and treat Consult to Physical Therapy Evaluate & Treat Comment: Physician Instructions: Evaluate and Treat Discharge provider: Galilea Johnson DO Summary Hospital Course Discharge Diagnosis: Left leg cellulitis Chronic lower extremity edema Hypokalemia Morbid obesity Type 2 diabetes Peripheral neuropathy Hospital Course: Patient was admitted to the hospital and given ceftriaxone empirically while awaiting for wound cultures to return. Lactate improved after IV fluid resuscitation. Wound care was consulted but was unable to see her while in the hospital because the wound care doctor was out. Wound culture returned with Pseudomonas and group B strep, both sensitive to levofloxacin. Diuresis restarted shortly after admission. Edema improved with aggressive diuresis. She had repeated hypokalemia secondary to diuresis and potassium was replaced. Blood sugars were elevated in the hospital an A1c returned at 8.0, the worst it has ever been. Metformin held while in the hospital due to elevated lactate on admission. Glipizide continued it increased to 10 mg daily with improvement in blood sugars. She is quite frustrated by her inability to lose weight despite close work with Dr. Berry at the [facility] clinic. This was not addressed in the hospital but she has been referred to the [facility] for consideration for bariatric surgery (though she is not particularly interested). Patient lives at home with her older sister who has dementia. She is unable to adequately care for her wounds herself. She will discharge to [facility] in [facility] for continued wound care and physical therapy. Ultimately she should be able to return home with home health. In the past she has done well with aggressive wrapping of her legs, elevation, pool therapy and diuretics. Items for follow up: 1. Needs repeat potassium 02/01 or 02/02 2. Needs ongoing wound care, hopefully can go to wound care in [place] once she is out of [facility] Status at Discharge Cognitive/behavioral status at discharge: at baseline, oriented Overall status at discharge: patient is progressing back to baseline Time Spent with Patient Time spent: Greater than 30 minutes Exam Vital Signs (past 8 hours): - 01/31/19 01:30 01/31/19 06:29 01/31/19 08:00 Temperature 98 F 97.8 F 97.2 F L Pulse Rate 75 72 76 Respiratory Rate 18 18 Blood Pressure 141/71 H 123/72 130/69 Pulse Oximetry 95 95 95 Oxygen Delivery Method Room Air Oxygen Flow Rate 0 Narrative Exam Narrative: General: Well-appearing, morbidly obese older woman. Sitting up in the chair. HEENT: NCAT, EOMI, moist oral mucosa CV: Regular rate and rhythm, no murmurs, rubs or gallops Lungs: CTAB, no wheezes, rales, or rhonchi Abdomen: Very large abdomen and pannus which is nontender. Extremities: Large shallow open wound on left lateral leg with weeping and surrounding erythema. Bandage intact on right lateral leg. 1+ pitting edema bilaterally to mid [place], much improved from yesterday. Objective Labs Result Diagrams: 01/30/19 05:10 01/31/19 04:35 Labs: Laboratory Results - last 24 hr 01/31/19 01/31/19 01/31/19 04:35 04:35 04:35 Sodium 137 Potassium 2.9 L Chloride 94 L Carbon Dioxide 34 H BUN 27 H Creatinine 0.60 Estimated GFR > 60.0 BUN/Creatinine Ratio 45.0 H Glucose 181 H Calcium 9.5 Phosphorus 3.9 Magnesium 2.0 Discharge Plan Discharge Plan Patient Disposition: SNF Transfer to: [facility] Under care of provider: House physician Discharge comment: Needs BMP 02/01/19 due to potassium replacement prior to discharge Discharge orders & Medications Prescriptions: New levofloxacin 250 mg Tablet 750 mg PO 0700 7 Days Qty: 21 RF: 0 bacitracin zinc 500 unit/gram Ointment 1 applic topical PRN PRN (Reason: Wound Healing) Qty: 14 RF: 0 glipizide 5 mg Tablet 10 mg PO DAILY Qty: 60 RF: 0 Continued furosemide 40 mg tablet 40 mg PO DAILY RF: 0 metolazone 2.5 mg tablet 2.5 mg PO .COMPLEX RF: 0 Lactobacillus acidophilus 1 EACH capsule 1 tab PO QDAY Qty: 10 RF: 0 multivitamin [Multiple Vitamins] 1 EACH tablet 1 tab PO QDAY Qty: 0 RF: 0 (DME) blood sugar diagnostic [Blood Glucose Test] strip See Dose Instructions .ROUTE .MEDSUPPLY Qty: 100 RF: 1 (DME) lancets misc See Dose Instructions .ROUTE .MEDSUPPLY Qty: 100 RF: 1 (DME) blood-glucose meter kit See Dose Instructions .ROUTE .MEDSUPPLY Qty: 1 RF: 0 lisinopril 20 mg tablet 20 mg PO QDAY Qty: 90 RF: 3 metformin 500 mg tablet 500 mg PO BID Qty: 60 RF: 3 potassium chloride [Klor-Con M20] 20 mEq tablet,ER particles/crystals 20 meq PO .COMPLEX Qty: 90 RF: 3 Disabled Parking Permit See Rx Instructions .Route .COMPLEX Qty: 1 RF: 0 naproxen sodium [Aleve] 220 mg capsule 220 mg PO BID PRN (Reason: Pain (Scale Score 1-3)) RF: 0 timolol maleate 0.25 % Drops 1 % EYE-BOTH DAILY RF: 0 mecobalamin (vitamin B12) 1,000 mcg Tablet,Disintegrating 2,500 mcg PO DAILY RF: 0 magnesium citrate 400 mg PO DAILY RF: 0 Vitamin D3 5,000 unit PO DAILY RF: 0 Discontinued glipizide 5 mg tablet 5 mg PO DAILY Qty: 30 RF: 5 Follow up/Referrals: Galilea Johnson DO [Primary Care Provider] - 2 Weeks (Or after discharge from [facility]) Discharge Health Status Multidrug resistant organism: No MDRO Diet/Activity/Treatments Diet: Carb-consistent/Diabetic Liquid consistency: Normal/Thin Food texture: Regular Skin/Wound/Dressing Care Report to your healthcare provider any signs of infection, such as:: chills, fever, increased pain and unusual drainage Dressing: Large left lateral leg ulcer and small right lateral leg ulcer Other wound treatment: Needs wound care for left lateral ulcer [facility] Reason for rehabilitation: Recovery r/t decondition Rehab type: Physical therapy Discharge Data Primary Care Provider: Galilea Johnson
--- NOTE | 2019-01-31 13:34 | PC.NURSE ---
pt discharged to [facility] following lunch and dressing change - report called to shaan all questions answered to their satisfaction
--- NOTE | 2019-01-31 14:49 | CM.DPC ---
DCP Cont: Faxed SNF order and discharge summary (signed med list and PASRR faxed previously by Julia Pulliam RN) to [facility] at fax # [phone]. Fax confirmation scanned in. Lauren Michael, [facility] CenterStorage Battery Inspector
== END 2019-01-31 13:37 | DRG 603 ==
LOC: ED 13:37 → AC 13:50
PROVIDERS: Admitting Provider Family Medicine; Emergency Provider Emergency Medicine; Family Provider Family Medicine; PCP Family Medicine; Visit Provider Family Medicine
DX: L03.116 Cellulitis of left lower limb (principal); Z68.44 Body mass index [BMI] 60.0-69.9, adult; L03.115 Cellulitis of right lower limb; E11.42 Type 2 diabetes mellitus with diabetic polyneuropathy; S81.802A Unspecified open wound, left lower leg, initial encounter; Z79.4 Long term (current) use of insulin; R60.9 Edema, unspecified; E66.01 Morbid (severe) obesity due to excess calories; R23.8 Other skin changes; E87.6 Hypokalemia; B96.5 Pseudomonas (aeruginosa) (mallei) (pseudomallei) as the cause of diseases classified elsewhere; B95.1 Streptococcus, group B, as the cause of diseases classified elsewhere; X58.XXXA Exposure to other specified factors, initial encounter
CPT/HCPCS: 36415; 80048; 80053; 82550; 82962; 83036; 83605; 83735; 84100; 85025; 87040; 87070; 87075; 87077; 87186; 87205; 96365; 97162; 97165; 97530; 97535; 99222; 99232; 99233; 99238; 99284; J0696; J1650; J1940

== ENCOUNTER → 2019-03-28 11:12 | Outpatient (ROUT) | payer MEDICARE, SELFPAY ==
[2019-03-28 11:15] LABS: Bacteria Urine None Seen; RBC Urine None Seen (0-5/HPF); WBC Urine None Seen (0-5/HPF)
[2019-03-28 11:25] LABS: Appearance Urine UA CLEAR; Bilirubin Urine UA NEGATIVE (NEGATIVE); Color Urine UA YELLOW; Glucose Urine UA NEGATIVE (Negative); Ketones Urine UA NEGATIVE (NEGATIVE); Leukocyte Esterase Urine UA NEGATIVE (NEGATIVE); Nitrite Urine UA NEGATIVE (Negative); Occult Blood Urine UA NEGATIVE (Negative); Protein Urine UA NEGATIVE (Negative); Specific Gravity Urine UA 1.015 (1.000-1.035); Urobilinogen Urine UA 0.2 E.U./dL (0.2)
[2019-03-28 11:42] LABS: Culture Indicated Urine Cult Not Indicated; Urine Comments Microscopic Normal
== END ==
PROVIDERS: Family Provider Family Medicine; PCP Family Medicine; Visit Provider Family Medicine
DX: N39.0 Urinary tract infection, site not specified (principal)
CPT/HCPCS: 81001

== ENCOUNTER → 2019-04-06 08:51 | Outpatient (CLI) | payer MEDICARE, SELFPAY ==
[2019-04-06 09:55] LABS: BUN Creatinine Ratio 41.7 (6-22); Blood Urea Nitrogen 25 mg/dL (7-17); Calcium 8.8 mg/dL (8.4-10.2); Carbon Dioxide 31 mmol/L (22-32); Chloride 94 mmol/L (98-107); Estimated Glomerular Filt Rate > 60.0 mL/min (>60); Glucose 186 mg/dL (80-110); HEMOLYSIS < 15 (0-50); Potassium 3.7 mmol/L (3.4-5.1); Sodium 137 mmol/L (137-145)
== END ==
PROVIDERS: Family Provider Family Medicine; PCP Family Medicine; Referring Provider Family Medicine; Visit Provider Family Medicine
DX: E87.6 Hypokalemia (principal)
CPT/HCPCS: 36415; 80048

== ENCOUNTER → 2019-04-06 12:35 | Outpatient (CLI) | payer MEDICARE, SELFPAY ==
--- NOTE | 2019-04-06 12:40 | DI.RAD.S_ITS ---
PROCEDURE: XR SHOULDER RT MIN 2V INDICATIONS: decreased ROM, pain TECHNIQUE: 3 views of the shoulder were acquired. COMPARISON: [facility], CR, XR SHOULDER LT MIN 2V, 08/02/2017, 15:01. FINDINGS: Bones: No fractures or dislocations. No suspicious bony lesions. Visualized ribs appear intact. Mild a.c. joint osteoarthritis. Soft tissues: No suspicious soft tissue calcifications. IMPRESSION: Mild a.c. joint osteoarthritis, no trauma found. Dictated by: Rober Ibarra M.D. on 04/06/2019 at 14:44 Approved by: Rober Ibarra M.D. on 04/06/2019 at 14:45
== END ==
PROVIDERS: Family Provider Family Medicine; PCP Family Medicine; Referring Provider Family Medicine; Visit Provider Family Medicine
DX: M25.511 Pain in right shoulder (principal); M19.011 Primary osteoarthritis, right shoulder; E87.6 Hypokalemia; G89.29 Other chronic pain
CPT/HCPCS: 36415; 73030; 80048

== ENCOUNTER → 2019-04-10 13:21 | Outpatient (CLI) | payer MEDICARE, SELFPAY | PROVIDERS: Family Provider Family Medicine; PCP Family Medicine; Referring Provider Family Medicine; Visit Provider Family Medicine | DX: I87.2 Venous insufficiency (chronic) (peripheral) (principal); I89.0 Lymphedema, not elsewhere classified; L97.811 Non-pressure chronic ulcer of other part of right lower leg limited to breakdown of skin; E66.9 Obesity, unspecified | CPT/HCPCS: 29581; 99214 ==

== ENCOUNTER → 2019-04-11 16:03 | Outpatient (CLI) | payer MEDICARE, SELFPAY | PROVIDERS: Family Provider Family Medicine; PCP Family Medicine; Referring Provider Emergency Medicine; Visit Provider Family Medicine | DX: I89.0 Lymphedema, not elsewhere classified (principal) | CPT/HCPCS: 29581 ==

== ENCOUNTER → 2019-04-13 13:13 | Outpatient (CLI) | payer MEDICARE, SELFPAY | PROVIDERS: Family Provider Family Medicine; PCP Family Medicine; Referring Provider Emergency Medicine; Visit Provider Family Medicine | DX: I89.0 Lymphedema, not elsewhere classified (principal); R60.0 Localized edema | CPT/HCPCS: 29581 ==

== ENCOUNTER → 2019-04-25 08:49 | Outpatient (CLI) | payer MEDICARE, SELFPAY | PROVIDERS: Family Provider Family Medicine; PCP Family Medicine; Referring Provider Emergency Medicine; Visit Provider Family Medicine | DX: I87.2 Venous insufficiency (chronic) (peripheral) (principal); I89.0 Lymphedema, not elsewhere classified; L97.811 Non-pressure chronic ulcer of other part of right lower leg limited to breakdown of skin; E66.9 Obesity, unspecified | CPT/HCPCS: 29581; 99213 ==

== ENCOUNTER → 2019-04-30 13:41 | Outpatient (ROUT) | payer MEDICARE, SELFPAY ==
[2019-04-30 16:28] LABS: RBC Urine None Seen (0-5/HPF)
[2019-04-30 17:53] LABS: Appearance Urine UA SL CLOUDY; Bilirubin Urine UA NEGATIVE (NEGATIVE); Color Urine UA YELLOW; Glucose Urine UA NEGATIVE (Negative); Ketones Urine UA NEGATIVE (NEGATIVE); Leukocyte Esterase Urine UA TRACE (NEGATIVE); Nitrite Urine UA NEGATIVE (Negative); Occult Blood Urine UA NEGATIVE (Negative); Protein Urine UA NEGATIVE (Negative); Urobilinogen Urine UA 0.2 E.U./dL (0.2)
[2019-04-30 17:56] LABS: pH Urine UA 6.5 (4.5-8.0)
[2019-04-30 18:04] LABS: Amorphous Sediment Urine 1+; Bacteria Urine Moderate (10-30); Culture Indicated Urine Specimen Cultured; Mucus Urine 1+ (Negative); Squamous Epithelial Cell Urine 1-5 /HPF (0-5/HPF); WBC Urine 30-100/HPF (0-5/HPF)
== END ==
PROVIDERS: Family Provider Family Medicine; PCP Family Medicine; Visit Provider Family Medicine
DX: N39.0 Urinary tract infection, site not specified (principal)
CPT/HCPCS: 81001; 87086

== ENCOUNTER 2019-06-24 17:27 | Emergency (ER) | payer MEDICARE, SELFPAY ==
[2019-06-24 17:52] VITALS: BP 116/52; PULSE 87; RESP 16; TEMP 36.9; O2SAT 95; BMI 62.2
--- NOTE | 2019-06-24 18:20 | ED.GENADULT ---
HPI - General Adult General Chief complaint: Urogenital-Female Stated complaint: Having Kidney Issues Time Seen by Provider: 06/24/19 18:08 Source: patient Mode of arrival: Wheelchair Limitations: no limitations History of Present Illness HPI narrative: 64-year-old female here for evaluation of which she thinks is a potential urinary tract infection or potential kidney issues her potentially a yeast infection. Patient states that over the past couple days she has had some burning down in her genital area. Potentially associated with urination. Potentially also having some blood in her urine. Subjective fevers. She did state that yesterday she started to have right-sided flank pain and now has left-sided flank pain as well. No vomiting. Has had some urinary tract infections in the past. No rashes. She does state that she has a difficult time keeping herself clean both after urinating and also having bowel movements. She states this is secondary to her weight and also her mobility and also some issues that she is having with her shoulders which makes it difficult for her to wipe herself. Related Data Home Medications Medication Instructions Recorded Confirmed multivitamin [Multiple Vitamins] 1 tab PO QDAY #0 02/21/17 01/27/19 Vitamin D3 5,000 unit PO DAILY 10/06/17 01/27/19 magnesium citrate 400 mg PO DAILY 10/06/17 01/27/19 naproxen sodium 220 mg capsule 220 mg PO BID PRN 10/06/18 01/27/19 metolazone 2.5 mg tablet 2.5 mg PO .COMPLEX 12/25/18 01/27/19 mecobalamin (vitamin B12) 2,500 mcg PO DAILY 01/27/19 01/27/19 timolol maleate 1 % EYE-BOTH DAILY 01/27/19 01/27/19 clobetasol 0.05 % lotion 1 applictn TOP QAM AND QPM 03/09/19 03/09/19 lidocaine 4 % topical patch 1 patch TOP DAILY PRN 03/09/19 03/09/19 Previous Rx's Medication Instructions Recorded Lactobacillus acidophilus 1 tab PO QDAY #10 tab 03/31/16 Disabled Parking Permit See Rx Instructions .ROUTE 10/14/17 .COMPLEX #1 each blood sugar diagnostic #100 each 10/25/17 blood-glucose meter #1 each 10/25/17 glipizide 5 mg tablet 5 mg PO BID #60 tab 03/09/19 potassium chloride 20 mEq/15 mL 20 meq PO TID 30 Days #1500 ml 03/09/19 oral liquid benzonatate 200 mg capsule 200 mg PO TID #30 cap 03/27/19 lancets #100 each 03/28/19 lisinopril 20 mg tablet 20 mg PO QDAY #90 tab 05/14/19 furosemide 40 mg tablet 40 mg PO DAILY #90 tab 06/08/19 metformin 500 mg tablet 500 mg PO BID #60 tab 06/08/19 fluconazole [Diflucan] 100 mg PO DAILY #1 tab 06/24/19 Allergies Allergy/AdvReac Type Severity Reaction Status Date / Time ibuprofen AdvReac causes Verified 10/06/18 14:08 bleeding Review of Systems Constitutional Constitutional: Denies fatigue, Reports fever(s) (Subjective), Denies lethargy and Denies malaise Eyes Eyes: Denies diplopia Cardiovascular Cardiovascular: Denies chest pain and Denies dyspnea Respiratory Respiratory: Denies dyspnea Gastrointestinal Gastrointestinal: Denies abdominal pain, Denies nausea and Denies vomiting Genitourinary Genitourinary: Reports dysuria and Reports urinary urgency Musculoskeletal Musculoskeletal: Denies myalgias and Denies arthralgias Integumentary/Breasts Skin/Breast: Denies lesions and Denies rash Neurologic Neurologic: Denies behavioral changes Psychiatric Psychiatric: Denies behavioral changes Endocrine Endocrine: Denies fatigue Patient History Medical History Chronic venous stasis dermatitis (Chronic 05/18/16) Dependent edema (Acute) Essential hypertension (Chronic 03/15/16) Frequent UTI (Chronic) Hemorrhoids (Chronic 11/15/16) History of chickenpox (Resolved 1964) History of Yoruba measles (Resolved ~1964) History of measles (Resolved ~1962) History of mumps (Resolved 1957) Morbid obesity with body mass index (BMI) of 60.0 to 69.9 in adult (Chronic 04/14/16) Osteoarthritis of lumbar spine (Chronic) Tubular adenoma of colon (Resolved 08/27/16) Type 2 diabetes mellitus without complication, without long-term current use of insulin (Chronic 04/14/16) Visual field defect of left eye (Chronic 12/15/16) Social History (Reviewed 06/25/19 @ 01:25 by NALDO Fung marital status: household members: family Smoking Status: Never smoker alcohol intake: current substance use type: does not use Smoking Status: Never smoker alcohol intake frequency: 0-2 drinks per day Alcohol type: wine Substance Use Type: does not use Exam Initial Vital Signs Initial Vital Signs: Vital Signs Temperature 98.5 F 06/24/19 17:52 Pulse Rate 87 06/24/19 17:52 Respiratory Rate 16 06/24/19 17:52 Blood Pressure 116/52 L 06/24/19 17:52 Pulse Oximetry 95 06/24/19 17:52 Const General: cooperative and comfortable Limitations: mental status not altered Resp Effort & Inspection: normal respiratory effort Cardio Rate: regular rate GI Inspection: non-distended Back/Spine/Pelvis Back: No CVA tenderness Skin Lesions: no lesions Rashes: no rashes Neuro General: alert and awake Extrem General: normal to inspection and capillary refill normal Course Orders Ordered: ED Orders 06/24/19 17:46 Urine Culture Stat 06/24/19 18:26 Basic Metabolic Panel Stat Complete Blood Count AUTO DIFF Stat Hepatic (Liver) Panel Stat Lipase Stat Discontinued Medications Fluconazole (Diflucan) 100 mg PO NOW ONE Stop: 06/24/19 19:01 Last Admin: 06/24/19 19:45 Dose: 100 mg Documented by: AMAN Vital Signs Vital signs: Vital Signs - 8 hr 06/24/19 17:52 06/24/19 19:53 Temperature 98.5 F Pulse Rate 87 84 Respiratory Rate 16 16 Blood Pressure 116/52 L 124/75 Pulse Oximetry 95 97 Medical Decision Making Lab Data Lab results reviewed: Yes I reviewed the patient's lab results. Result diagrams: 06/24/19 18:26 06/24/19 18:26 Labs: Lab Results 06/24/19 06/24/19 06/24/19 Range/Units 18:26 18:26 18:26 WBC 10.8 (4.5-11.0) X10^3/uL RBC 4.27 (4.0-5.2) X10^6/uL Hgb 12.9 (12.0-16.0) g/dL Hct 38.7 (36-46) % MCV 90.5 (80-100) fL MCH 30.2 (26-34) PG MCHC 33.4 (30-36) % RDW 17.0 H (11.6-14.8) % Plt Count 344 (150-400) X10^3/uL Neut % (Auto) 74.3 (50-75) % Lymph % (Auto) 18.0 L (25-40) % [place] % (Auto) 6.8 (3-14) % Eos % (Auto) 0.3 L (2-4) % Baso % (Auto) 0.6 (0-2) % Neut # (Auto) 8000 H (1834-4295) /uL Lymph # (Auto) 1900 (6992-9761) /uL [place] # (Auto) 700 (0-900) /uL Eos # (Auto) 0 (0-450) /uL Baso # (Auto) 100 (0-100) /uL Sodium 135 L (137-145) mmol/L Potassium 3.7 (3.4-5.1) mmol/L Chloride 95 L (98-107) mmol/L Carbon Dioxide 31 (22-32) mmol/L BUN 27 H (7-17) mg/dL Creatinine 0.57 (0.52-1.04) mg/dL Estimated GFR > 60.0 (>60) mL/min BUN/Creatinine Ratio 47.4 H (6-22) Glucose 114 H (80-110) mg/dL Calcium 9.7 (8.4-10.2) mg/dL Total Bilirubin 0.4 (0.2-1.3) mg/dL Conjugated Bilirubin 0.0 (0.0-0.3) md/dL Unconjugated Bilirubin 0.2 (0.0-1.1) mg/dL AST 49 H (14-36) IU/L ALT 56 H (<35) IU/L Alkaline Phosphatase 72 (38-126) U/L Total Protein 7.3 (6.3-8.2) g/dL Albumin 4.2 (3.5-5.0) g/dL Globulin 3.1 (1.7-4.1) g/dL Albumin/Globulin Ratio 1.4 (1.0-2.8) Lipase 166 (23-300) U/L Urine Dip Bedside Urine Glucose Negative Bedside Urine Bilirubin - Negative Bedside Urine Ketone - Negative Urine Specific [place] 1.015 Bedside Urine Occult Blood +/- Bedside Urine pH 7.0 Bedside Urine Protein - Negative Bedside Urine Urobilinogen - Negative Bedside Urine Nitrite - Negative Bedside Urine Leukocytes - Negative Esterase Point of care testing: Urine Dip Bedside Urine Glucose Negative Bedside Urine Bilirubin - Negative Bedside Urine Ketone - Negative Urine Specific [place] 1.015 Bedside Urine Occult Blood +/- Bedside Urine pH 7.0 Bedside Urine Protein - Negative Bedside Urine Urobilinogen - Negative Bedside Urine Nitrite - Negative Bedside Urine Leukocytes - Negative Esterase MDM Narrative Medical decision making narrative: Patient's urinalysis is not consistent with a urinary tract infection. A urine culture was pending at the time of discharge. Her labs are unremarkable. Kidney functions unremarkable. I have low suspicion for pyelonephritis. Low suspicion for kidney stone. I have low suspicion for gallbladder pathology given her history and physical exam. Patient is potentially high risk for having a yeast infection given the fact that she states she has a difficult time cleaning herself after using the restroom. Will presumptively treat her for yeast infection with Diflucan to see if this does not improve her symptoms. Informed her that we would contact her for positive result of the urine culture. She was given return precautions. She expressed understanding and agreement. Discharge Plan Departure Patient Disposition: Home Clinical Impression: Yeast infection Discharge Date/Time: 06/24/19 19:54 Activity Restrictions/Additional Instructions: A urine culture was pending at the time of your discharge. This take several days to result. We will contact you for any positive results and if we need to start you on antibiotics. Per our discussion we will presumptively treat you for a yeast infection. Take the medication as directed. Return to the emergency department for any new or worsening symptoms. The prescription for the Diflucan was electronically transmitted to the [facility] in [place] Prescriptions: New fluconazole [Diflucan] 100 mg tablet 100 mg PO DAILY Qty: 1 RF: 0 No Action glipizide 5 mg tablet 5 mg PO BID Qty: 60 RF: 2 clobetasol 0.05 % lotion 1 applictn TOP QAM AND QPM RF: 0 lidocaine 4 % adhesive patch,medicated 1 patch TOP DAILY PRN (Reason: pain) RF: 0 potassium chloride 20 mEq/15 mL liquid 20 meq PO TID 30 Days Qty: 1500 RF: 3 metolazone 2.5 mg tablet 2.5 mg PO .COMPLEX RF: 0 Lactobacillus acidophilus 1 EACH capsule 1 tab PO QDAY Qty: 10 RF: 0 multivitamin [Multiple Vitamins] 1 EACH tablet 1 tab PO QDAY Qty: 0 RF: 0 (DME) blood sugar diagnostic [Blood Glucose Test] strip See Dose Instructions .ROUTE .MEDSUPPLY Qty: 100 RF: 1 (DME) blood-glucose meter kit See Dose Instructions .ROUTE .MEDSUPPLY Qty: 1 RF: 0 benzonatate 200 mg capsule 200 mg PO TID Qty: 30 RF: 0 (DME) lancets Misc See Dose Instructions .ROUTE .MEDSUPPLY Qty: 100 RF: 1 lisinopril 20 mg tablet 20 mg PO QDAY Qty: 90 RF: 3 furosemide 40 mg tablet 40 mg PO DAILY Qty: 90 RF: 0 metformin 500 mg tablet 500 mg PO BID Qty: 60 RF: 3 Disabled Parking Permit See Rx Instructions .Route .COMPLEX Qty: 1 RF: 0 naproxen sodium [Aleve] 220 mg capsule 220 mg PO BID PRN (Reason: Pain (Scale Score 1-3)) RF: 0 timolol maleate 0.25 % Drops 1 % EYE-BOTH DAILY RF: 0 mecobalamin (vitamin B12) 1,000 mcg Tablet,Disintegrating 2,500 mcg PO DAILY RF: 0 magnesium citrate 400 mg PO DAILY RF: 0 Vitamin D3 5,000 unit PO DAILY RF: 0 Referrals: Galilea Johnson DO [Primary Care Provider] -
[2019-06-24 18:36] LABS: Add Manual Diff / Slide Review NO; Basophils Absolute Auto 100 /uL (0-100); Basophils Percent Auto 0.6 % (0-2); Eosinophils Absolute Auto 0 /uL (0-450); Eosinophils Percent Auto 0.3 % (2-4); Hematocrit 38.7 % (36-46); Hemoglobin 12.9 g/dL (12.0-16.0); Lymphocytes Absolute Auto 1900 /uL (1100-4500); Mean Corpuscular HGB Conc 33.4 % (30-36); Mean Corpuscular Hemoglobin 30.2 PG (26-34); Mean Corpuscular Volume 90.5 fL (80-100); Monocytes Absolute Auto 700 /uL (0-900); Monocytes Percent Auto 6.8 % (3-14); Neutrophils Absolute Auto 8000 /uL (1500-7000); Neutrophils Percent Auto 74.3 % (50-75); Platelet Count 344 X10^3/uL (150-400); Red Blood Cell Count 4.27 X10^6/uL (4.0-5.2); White Blood Cell Count 10.8 X10^3/uL (4.5-11.0)
[2019-06-24 18:48] LABS: BUN Creatinine Ratio 47.4 (6-22); Blood Urea Nitrogen 27 mg/dL (7-17); Calcium 9.7 mg/dL (8.4-10.2); Carbon Dioxide 31 mmol/L (22-32); Chloride 95 mmol/L (98-107); Estimated Glomerular Filt Rate > 60.0 mL/min (>60); Glucose 114 mg/dL (80-110); HEMOLYSIS 18 (0-50); Potassium 3.7 mmol/L (3.4-5.1); Sodium 135 mmol/L (137-145)
[2019-06-24 18:49] LABS: Alanine Aminotransferase 56 IU/L (<35); Albumin 4.2 g/dL (3.5-5.0); Albumin Globulin Ratio 1.4 (1.0-2.8); Alkaline Phosphatase 72 U/L (38-126); Aspartate Aminotransferase 49 IU/L (14-36); Bilirubin Total 0.4 mg/dL (0.2-1.3); Bilirubin Unconjugated 0.2 mg/dL (0.0-1.1); Globulin 3.1 g/dL (1.7-4.1); HEMOLYSIS 17 (0-50); Lipase 166 U/L (23-300); Total Protein 7.3 g/dL (6.3-8.2)
[2019-06-24] MEDS: FLUCONAZOLE 100 MG TABLET PO (19:45)
[2019-06-24 19:53] VITALS: BP 124/75; PULSE 84; RESP 16; O2SAT 97
== END 2019-06-24 19:54 | disposition home or self-care (01) ==
PROVIDERS: Emergency Provider Emergency Medicine; Family Provider Family Medicine; PCP Family Medicine
DX: B37.3 Candidiasis of vulva and vagina (principal)
CPT/HCPCS: 36415; 80048; 80076; 81003; 83690; 85025; 87077; 87086; 87186; 99283; 99284

== ENCOUNTER → 2019-07-13 08:54 | Outpatient (CLI) | payer MEDICARE, SELFPAY ==
[2019-07-13 10:19] LABS: Hemoglobin A1C% w Est Avg Glu 7.3 % (4.0-6.0)
[2019-07-13 11:02] LABS: Alanine Aminotransferase 60 IU/L (<35); Albumin 4.3 g/dL (3.5-5.0); Albumin Globulin Ratio 1.3 (1.0-2.8); Alkaline Phosphatase 77 U/L (38-126); Aspartate Aminotransferase 41 IU/L (14-36); BUN Creatinine Ratio 34.9 (6-22); Bilirubin Total 0.4 mg/dL (0.2-1.3); Blood Urea Nitrogen 22 mg/dL (7-17); Calcium 9.7 mg/dL (8.4-10.2); Carbon Dioxide 29 mmol/L (22-32); Chloride 99 mmol/L (98-107); Cholesterol 229 mg/dL (140-199); Estimated Glomerular Filt Rate > 60.0 mL/min (>60); Globulin 3.4 g/dL (1.7-4.1); Glucose 135 mg/dL (80-110); HDL Cholesterol 44 mg/dL (40-60); HEMOLYSIS < 15 (0-50); LDL Cholesterol Calculated 146 mg/dL (<100); Sodium 138 mmol/L (137-145); Total Protein 7.7 g/dL (6.3-8.2); Triglycerides 193 mg/dL (35-150)
== END ==
PROVIDERS: Family Provider Family Medicine; PCP Family Medicine; Referring Provider Family Medicine; Visit Provider Family Medicine
DX: E11.9 Type 2 diabetes mellitus without complications (principal)
CPT/HCPCS: 36415; 80053; 80061; 83036

== ENCOUNTER 2019-09-07 17:16 | Emergency (ER) | payer MEDICARE, SELFPAY ==
[2019-09-07 17:20] VITALS: BP 148/63; PULSE 94; RESP 19; TEMP 36.3; O2SAT 97; BMI 64.3
--- NOTE | 2019-09-07 18:05 | ED.SKABFB ---
HPI - Skin/Abscess/Foreign Bdy General Chief complaint: Extremity Injury, Upper Stated complaint: redness on her left forearm Time Seen by Provider: 09/07/19 18:04 Source: patient Mode of arrival: Wheelchair Limitations: no limitations History of Present Illness HPI narrative: 64-year-old female nonsmoker with history of morbid obesity, dependent edema, diabetes presents with the chief complaint of a painful, warm, red, swollen region of skin on her left forearm in the absence of any injury. She has no systemic complaints such as fever, chills or nausea or vomiting. She does have a history of prior wound infections and has been established with wound care in the past. MD complaint: discoloration Onset (ago): day(s) Tetanus up to date: yes Location: LUE Severity: moderate Quality: burning and aching Pain Consistency: constant Relieving factors: rest Exacerbating factors: palpation and movement Context: none Associated symptoms: denies other symptoms Treatments prior to arrival: none Related Data Home Medications Medication Instructions Recorded Confirmed multivitamin [Multiple Vitamins] 1 tab PO QDAY #0 02/21/17 01/27/19 Vitamin D3 5,000 unit PO DAILY 10/06/17 01/27/19 magnesium citrate 400 mg PO DAILY 10/06/17 01/27/19 naproxen sodium 220 mg capsule 220 mg PO BID PRN 10/06/18 01/27/19 mecobalamin (vitamin B12) 2,500 mcg PO DAILY 01/27/19 01/27/19 timolol maleate 1 % EYE-BOTH DAILY 01/27/19 01/27/19 clobetasol 0.05 % lotion 1 applictn TOP QAM AND QPM 03/09/19 03/09/19 lidocaine 4 % topical patch 1 patch TOP DAILY PRN 03/09/19 03/09/19 Previous Rx's Medication Instructions Recorded Lactobacillus acidophilus 1 tab PO QDAY #10 tab 03/31/16 Disabled Parking Permit See Rx Instructions .ROUTE 10/14/17 .COMPLEX #1 each blood sugar diagnostic #100 each 10/25/17 blood-glucose meter #1 each 10/25/17 potassium chloride 20 mEq/15 mL 20 meq PO TID 30 Days #1500 ml 03/09/19 oral liquid lancets #100 each 03/28/19 lisinopril 20 mg tablet 20 mg PO QDAY #90 tab 05/14/19 fluconazole [Diflucan] 100 mg PO DAILY #1 tab 06/24/19 metformin 500 mg tablet 500 mg PO BID #180 tab 07/12/19 metolazone 2.5 mg tablet 2.5 mg PO .COMPLEX #90 tab 07/12/19 atorvastatin 10 mg tablet 10 mg PO BEDTIME #90 tab 07/17/19 glipizide 5 mg tablet 5 mg PO BID #60 tab 08/21/19 furosemide 40 mg tablet 40 mg PO DAILY #90 tab 09/05/19 doxycycline hyclate 100 mg PO BID #20 tab 09/07/19 Allergies Allergy/AdvReac Type Severity Reaction Status Date / Time ibuprofen AdvReac causes Verified 09/07/19 17:20 bleeding Review of Systems Constitutional Constitutional: Denies chills, Denies fatigue, Denies fever(s), Denies frequent falls, Denies lethargy and Denies weakness Eyes Eyes: Denies change in vision, Denies eye discharge, Denies irritation and Denies loss of vision ENT Ears, Nose, Mouth, and Throat: Denies change in voice, Denies dizziness, Denies neck pain, Denies sore throat and Denies throat swelling Cardiovascular Cardiovascular: Denies chest pain, Denies irregular heart rhythm, Denies lightheadedness, Denies palpitations, Denies dyspnea, Denies dyspnea on exertion and Denies orthopnea Respiratory Respiratory: Denies cough, Denies dyspnea, Denies dyspnea on exertion and Denies wheezing Gastrointestinal Gastrointestinal: Denies abdominal pain, Denies change in bowel habits, Denies diarrhea, Denies nausea and Denies vomiting Musculoskeletal Musculoskeletal: Denies neck pain and Denies numbness Integumentary/Breasts Skin/Breast: Denies pruritus, Reports erythema, Denies rash, Reports skin pain, Reports skin swelling and Denies wounds Neurologic Neurologic: Denies behavioral changes, Denies confusion, Denies dizziness, Denies frequent falls, Denies loss of vision, Denies numbness and Denies weakness Psychiatric Psychiatric: Denies anxiety, Denies behavioral changes, Denies confusion, Denies depression, Denies homicidal ideation and Denies suicidal ideation Endocrine Endocrine: Denies fatigue, Denies flushing and Denies palpitations Hematologic/Lymphatic Hematologic/Lymphatic: Denies easy bruising Allergic/Immunologic Allergic/Immunologic: Denies urticaria, Denies throat swelling and Denies wheezing Patient History Medical History Chronic venous stasis dermatitis (Chronic 05/18/16) Dependent edema (Acute) Essential hypertension (Chronic 03/15/16) Frequent UTI (Chronic) Hemorrhoids (Chronic 11/15/16) History of chickenpox (Resolved 1964) History of Yi measles (Resolved ~1964) History of measles (Resolved ~1962) History of mumps (Resolved 1957) Morbid obesity with body mass index (BMI) of 60.0 to 69.9 in adult (Chronic 04/14/16) Osteoarthritis of lumbar spine (Chronic) Tubular adenoma of colon (Resolved 08/27/16) Type 2 diabetes mellitus without complication, without long-term current use of insulin (Chronic 04/14/16) Visual field defect of left eye (Chronic 12/15/16) Surgical History Anesthesia (Resolved) S/P total abdominal hysterectomy and bilateral salpingo-oophorectomy (Resolved 12/2009) Status post hernia repair (Resolved 12/2010) Status post knee surgery (Resolved 10/2009) Status post knee surgery (Resolved 11/2009) Family History Brother Age: 77 Glaucoma Mother Diabetes mellitus Heart disease CAD (coronary artery disease) Father No problems noted. Sister Cancer Lung cancer Liver cancer Colon cancer Sister No problems noted. Sister No problems noted. Sister No problems noted. Daughter No problems noted. Father No problems noted. Social History marital status: household members: family Smoking Status: Never smoker alcohol intake: current substance use type: does not use Smoking Status: Never smoker alcohol intake frequency: 0-2 drinks per day Alcohol type: wine Substance Use Type: does not use Exam Narrative Exam Narrative: GEN: AOx3 and in mild distress EYES: Pupils are equal, round, and reactive to light and accommodation. Extraoccular muscles are intact bilaterally. There is no subconjunctival hemorrhage or exudate. CHEST: Lungs are clear to auscultation bilaterally and free of wheezes, rales, or rhonchi. Heart rate is regular rhythm, there are no murmurs, clicks, rubs, or gallops. There is no chest wall tenderness. ABD: Abdomen is soft and nontender. There is no guarding or rebound. Bowel sounds are normal in all 4 quadrants. There is no mass or organomegaly. EXT: Full painless ROM of all extremities with no loss of sensation or strength. SKIN: 10x7cm area of redness, warmth, mild inderation and no fluctuance on proximal forearm. No obvious break in skin. Initial Vital Signs Initial Vital Signs: Vital Signs Temperature 97.3 F L 09/07/19 17:20 Pulse Rate 94 H 09/07/19 17:20 Respiratory Rate 19 09/07/19 17:20 Blood Pressure 148/63 H 09/07/19 17:20 Pulse Oximetry 97 09/07/19 17:20 Course Orders Ordered: ED Orders 09/07/19 19:08 Basic Metabolic Panel Stat C-Reactive Protein Quant Stat Complete Blood Count AUTO DIFF Stat Erythrocyte Sedimentation Rate Stat Discontinued Medications Doxycycline Hyclate (Vibramycin) 100 mg PO NOW ONE Stop: 09/07/19 18:14 Last Admin: 09/07/19 18:24 Dose: 100 mg Documented by: DARRIAN Vital Signs Vital signs: Vital Signs - 8 hr 09/07/19 17:20 09/07/19 19:40 Temperature 97.3 F L Pulse Rate 94 H 76 Respiratory Rate 19 15 Blood Pressure 148/63 H 139/65 Pulse Oximetry 97 95 MDM - Skin/Abscess/Foreign Bdy Lab Data Result diagrams: 09/07/19 19:08 09/07/19 19:08 Labs: Lab Results 09/07/19 09/07/19 Range/Units 19:08 19:08 WBC 12.6 H (4.5-11.0) X10^3/uL RBC 4.35 (4.0-5.2) X10^6/uL Hgb 12.5 (12.0-16.0) g/dL Hct 38.3 (36-46) % MCV 88.0 (80-100) fL MCH 28.7 (26-34) PG MCHC 32.6 (30-36) % RDW 16.7 H (11.6-14.8) % Plt Count 340 (150-400) X10^3/uL Neut % (Auto) 74.7 (50-75) % Lymph % (Auto) 16.2 L (25-40) % [place] % (Auto) 8.3 (3-14) % Eos % (Auto) 0.2 L (2-4) % Baso % (Auto) 0.6 (0-2) % Neut # (Auto) 9400 H (6028-5066) /uL Lymph # (Auto) 2000 (5426-1287) /uL [place] # (Auto) 1000 H (0-900) /uL Eos # (Auto) 0 (0-450) /uL Baso # (Auto) 100 (0-100) /uL ESR 20 (0-20) MM/HR Sodium 133 L (137-145) mmol/L Potassium 3.6 (3.4-5.1) mmol/L Chloride 94 L (98-107) mmol/L Carbon Dioxide 33 H (22-32) mmol/L BUN 24 H (7-17) mg/dL Creatinine 0.58 (0.52-1.04) mg/dL Estimated GFR > 60.0 (>60) mL/min BUN/Creatinine Ratio 41.4 H (6-22) Glucose 186 H (80-110) mg/dL Calcium 10.0 (8.4-10.2) mg/dL C-Reactive Protein 4.7 H (<1.0) mg/dL Discharge Plan Departure Patient Disposition: Home Clinical Impression: Cellulitis Qualifiers: Site of cellulitis: extremity Site of cellulitis of extremity: upper extremity Laterality: left Qualified Code(s): L03.114 - Cellulitis of left upper limb Discharge Date/Time: 09/07/19 19:41 Instructions: DI for Cellulitis -- Adult Activity Restrictions/Additional Instructions: *You have been diagnosed with [cellulitis] *What to do: *Take medications as directed: prescription sent to [facility] in [place]. They are open until 9pm tonight, however the next dose of your antibiotic isn't needed until tomorrow morning *Follow up with your primary care provider in 2-3 days, call for an appointment. Let them know you were seen in the Emergency Department and that we ask that you be seen in follow up *Return to ER if you should have any new, worsening or concerning symptoms, such as [ worsening symptoms, fever > 101F, ] Prescriptions: New doxycycline hyclate 100 mg tablet 100 mg PO BID Qty: 20 RF: 0 No Action clobetasol 0.05 % lotion 1 applictn TOP QAM AND QPM RF: 0 lidocaine 4 % adhesive patch,medicated 1 patch TOP DAILY PRN (Reason: pain) RF: 0 potassium chloride 20 mEq/15 mL liquid 20 meq PO TID 30 Days Qty: 1500 RF: 3 atorvastatin 10 mg tablet 10 mg PO BEDTIME Qty: 90 RF: 3 Lactobacillus acidophilus 1 EACH capsule 1 tab PO QDAY Qty: 10 RF: 0 multivitamin [Multiple Vitamins] 1 EACH tablet 1 tab PO QDAY Qty: 0 RF: 0 (DME) blood sugar diagnostic [Blood Glucose Test] strip See Dose Instructions .ROUTE .MEDSUPPLY Qty: 100 RF: 1 (DME) blood-glucose meter kit See Dose Instructions .ROUTE .MEDSUPPLY Qty: 1 RF: 0 (DME) lancets Misc See Dose Instructions .ROUTE .MEDSUPPLY Qty: 100 RF: 1 lisinopril 20 mg tablet 20 mg PO QDAY Qty: 90 RF: 3 metformin 500 mg tablet 500 mg PO BID Qty: 180 RF: 1 metolazone 2.5 mg tablet 2.5 mg PO .COMPLEX Qty: 90 RF: 1 glipizide 5 mg tablet 5 mg PO BID Qty: 60 RF: 2 furosemide 40 mg tablet 40 mg PO DAILY Qty: 90 RF: 0 Disabled Parking Permit See Rx Instructions .Route .COMPLEX Qty: 1 RF: 0 naproxen sodium [Aleve] 220 mg capsule 220 mg PO BID PRN (Reason: Pain (Scale Score 1-3)) RF: 0 timolol maleate 0.25 % Drops 1 % EYE-BOTH DAILY RF: 0 mecobalamin (vitamin B12) 1,000 mcg Tablet,Disintegrating 2,500 mcg PO DAILY RF: 0 magnesium citrate 400 mg PO DAILY RF: 0 Vitamin D3 5,000 unit PO DAILY RF: 0 fluconazole [Diflucan] 100 mg tablet 100 mg PO DAILY Qty: 1 RF: 0 Referrals: Galilea Johnson DO [Primary Care Provider] -
[2019-09-07] MEDS: DOXYCYCLINE HYCLATE 100 MG TABLET PO (18:24)
--- NOTE | 2019-09-07 18:54 | PC.NURSE ---
Redened area noted to L elbow. Patient states has decreased in size since last night after icing throughout the night and taking Aleve. Area is warm to touch and patient reports pain 10/10.
[2019-09-07 19:21] LABS: Add Manual Diff / Slide Review NO; Basophils Absolute Auto 100 /uL (0-100); Basophils Percent Auto 0.6 % (0-2); Eosinophils Absolute Auto 0 /uL (0-450); Eosinophils Percent Auto 0.2 % (2-4); Hematocrit 38.3 % (36-46); Hemoglobin 12.5 g/dL (12.0-16.0); Lymphocytes Absolute Auto 2000 /uL (1100-4500); Lymphocytes Percent Auto 16.2 % (25-40); Mean Corpuscular HGB Conc 32.6 % (30-36); Mean Corpuscular Hemoglobin 28.7 PG (26-34); Monocytes Absolute Auto 1000 /uL (0-900); Monocytes Percent Auto 8.3 % (3-14); Neutrophils Absolute Auto 9400 /uL (1500-7000); Neutrophils Percent Auto 74.7 % (50-75); Platelet Count 340 X10^3/uL (150-400); Red Blood Cell Count 4.35 X10^6/uL (4.0-5.2); Red Cell Distribution Width 16.7 % (11.6-14.8); White Blood Cell Count 12.6 X10^3/uL (4.5-11.0)
[2019-09-07 19:35] LABS: BUN Creatinine Ratio 41.4 (6-22); Blood Urea Nitrogen 24 mg/dL (7-17); C-Reactive Protein Quant 4.7 mg/dL (<1.0); Carbon Dioxide 33 mmol/L (22-32); Chloride 94 mmol/L (98-107); Estimated Glomerular Filt Rate > 60.0 mL/min (>60); Glucose 186 mg/dL (80-110); HEMOLYSIS < 15 (0-50); Potassium 3.6 mmol/L (3.4-5.1); Sodium 133 mmol/L (137-145)
[2019-09-07 19:36] LABS: Erythrocyte Sedimentation Rate 20 MM/HR (0-20)
[2019-09-07 19:40] VITALS: BP 139/65; PULSE 76; RESP 15; O2SAT 95
== END 2019-09-07 19:41 | disposition home or self-care (01) ==
PROVIDERS: Emergency Provider Emergency Medicine; Family Provider Family Medicine; PCP Family Medicine
DX: L03.114 Cellulitis of left upper limb (principal)
CPT/HCPCS: 36415; 80048; 85025; 85651; 86140; 99283

== ENCOUNTER → 2019-09-17 12:08 | Outpatient (CLI) | payer MEDICARE, SELFPAY ==
[2019-09-17 13:29] LABS: Add Manual Diff / Slide Review NO; Basophils Absolute Auto 0 /uL (0-100); Basophils Percent Auto 0.3 % (0-2); Eosinophils Absolute Auto 0 /uL (0-450); Eosinophils Percent Auto 0.2 % (2-4); Hematocrit 38.5 % (36-46); Hemoglobin 12.4 g/dL (12.0-16.0); Lymphocytes Absolute Auto 2200 /uL (1100-4500); Lymphocytes Percent Auto 22.5 % (25-40); Mean Corpuscular HGB Conc 32.2 % (30-36); Mean Corpuscular Hemoglobin 28.5 PG (26-34); Mean Corpuscular Volume 88.4 fL (80-100); Monocytes Absolute Auto 800 /uL (0-900); Monocytes Percent Auto 7.9 % (3-14); Neutrophils Absolute Auto 6900 /uL (1500-7000); Neutrophils Percent Auto 69.1 % (50-75); Platelet Count 323 X10^3/uL (150-400); Red Blood Cell Count 4.36 X10^6/uL (4.0-5.2); Red Cell Distribution Width 16.9 % (11.6-14.8); White Blood Cell Count 9.9 X10^3/uL (4.5-11.0)
[2019-09-17 14:15] LABS: Blood Urea Nitrogen 23 mg/dL (7-17); Calcium 9.9 mg/dL (8.4-10.2); Carbon Dioxide 33 mmol/L (22-32); Chloride 94 mmol/L (98-107); Estimated Glomerular Filt Rate > 60.0 mL/min (>60); Glucose 149 mg/dL (80-110); HEMOLYSIS < 15 (0-50); Potassium 4.1 mmol/L (3.4-5.1); Sodium 135 mmol/L (137-145)
== END ==
PROVIDERS: Family Provider Family Medicine; PCP Family Medicine; Referring Provider Family Medicine; Visit Provider Family Medicine
DX: R31.9 Hematuria, unspecified (principal)
CPT/HCPCS: 36415; 80048; 85025

== ENCOUNTER → 2019-10-16 10:00 | Outpatient (CLI) | payer MEDICARE, SELFPAY ==
[2019-10-16 11:15] LABS: BUN Creatinine Ratio 43.3 (6-22); Blood Urea Nitrogen 26 mg/dL (7-17); Calcium 10.1 mg/dL (8.4-10.2); Carbon Dioxide 31 mmol/L (22-32); Chloride 95 mmol/L (98-107); Estimated Glomerular Filt Rate > 60.0 mL/min (>60); Glucose 150 mg/dL (80-110); HEMOLYSIS < 15 (0-50); Potassium 4.5 mmol/L (3.4-5.1); Sodium 135 mmol/L (137-145)
[2019-10-16 11:35] LABS: Creatinine Urine Random 108.9 mg/dL
[2019-10-16 11:40] LABS: Microalbumi Creatinin Ratio Ur 24.7 ug/mg CR (<30); Microalbumin Urine Random 2.7 mg/dL (0-1.6)
[2019-10-16 12:02] LABS: Vitamin B12 > 1000 pg/mL (239-931)
== END ==
PROVIDERS: Family Provider Family Medicine; PCP Family Medicine; Referring Provider Family Medicine; Visit Provider Family Medicine
DX: E11.9 Type 2 diabetes mellitus without complications (principal)
CPT/HCPCS: 36415; 80048; 82043; 82570; 82607; 83036

== ENCOUNTER → 2019-12-21 10:25 | Outpatient (CLI) | payer MEDICARE, SELFPAY ==
[2019-12-21 11:01] LABS: RBC Urine None Seen (0-5/HPF)
[2019-12-21 11:32] LABS: Appearance Urine UA SL CLOUDY; Bilirubin Urine UA NEGATIVE (NEGATIVE); Color Urine UA YELLOW; Glucose Urine UA NEGATIVE (Negative); Ketones Urine UA TRACE (NEGATIVE); Leukocyte Esterase Urine UA TRACE (NEGATIVE); Nitrite Urine UA NEGATIVE (Negative); Occult Blood Urine UA NEGATIVE (Negative); Protein Urine UA TRACE (Negative); Urobilinogen Urine UA 0.2 E.U./dL (0.2)
[2019-12-21 11:37] LABS: pH Urine UA 6.5 (4.5-8.0)
[2019-12-21 11:41] LABS: Hemoglobin A1C% w Est Avg Glu 7.5 % (4.0-6.0)
[2019-12-21 11:55] LABS: Bacteria Urine Moderate (10-30); Squamous Epithelial Cell Urine >30 /HPF (0-5/HPF); WBC Urine 30-100/HPF (0-5/HPF)
[2019-12-21 11:59] LABS: BUN Creatinine Ratio 43.1 (6-22); Blood Urea Nitrogen 25 mg/dL (7-17); Calcium 9.5 mg/dL (8.4-10.2); Carbon Dioxide 32 mmol/L (22-32); Chloride 101 mmol/L (98-107); Estimated Glomerular Filt Rate > 60.0 mL/min (>60); Glucose 154 mg/dL (80-110); HEMOLYSIS < 15 (0-50); Sodium 137 mmol/L (137-145)
== END ==
PROVIDERS: Family Provider Family Medicine; PCP Family Medicine; Referring Provider Family Medicine; Visit Provider Family Medicine
DX: E11.9 Type 2 diabetes mellitus without complications (principal); E66.01 Morbid (severe) obesity due to excess calories; R10.9 Unspecified abdominal pain; Z68.44 Body mass index [BMI] 60.0-69.9, adult; N39.0 Urinary tract infection, site not specified; R35.0 Frequency of micturition
CPT/HCPCS: 36415; 80048; 81001; 83036

== ENCOUNTER → 2019-12-31 09:07 | Outpatient (CLI) | payer MEDICARE, SELFPAY ==
--- NOTE | 2019-12-31 | DI.CT.S_ITS ---
PROCEDURE: CT ABDOMEN PELVIS WO CON INDICATIONS: FLANK PAIN, ABDOMINAL PAIN RIGHT X SEVERAL MONTHS TECHNIQUE: Noncontrast 5 mm thick sections acquired from the diaphragms to the symphysis. 5 mm coronal and sagittal reformats were then performed. For radiation dose reduction, the following was used: automated exposure control, adjustment of mA and/or kV according to patient size. COMPARISON: [facility], [place], ABDOMEN/PELVIS WITH CONTRAST, 05/05/2015, 20:28. FINDINGS: Image quality: Excellent. ABDOMEN: Lung bases: Lung bases are clear. Heart size is normal. Solid organs: Liver is normal in size. Diffuse hepatic steatosis. Gallbladder contains a calcified gallstone. There is no gallbladder wall thickening.. Pancreas is normal in contours. Spleen is normal in size. No adrenal nodules. Kidneys are normal in size, without hydronephrosis or nephrolithiasis. Peritoneum and bowel: Unenhanced bowel loops demonstrate normal wall thickness and caliber. No free fluid or air. Normal appendix. Nodes and vessels: No retroperitoneal or mesenteric adenopathy by size criteria. Aorta and inferior vena cava are normal in caliber. Miscellaneous: No ventral hernias. As before, abdominal wall diastasis. PELVIS: Genitourinary: Bladder wall thickness is normal. Miscellaneous: No inguinal hernias or adenopathy. Uterus is surgically absent. Right upper thigh lipoma, as before. Bones: No suspicious bony lesions. No vertebral body compression fractures. Extensive advanced lumbar degenerative change. Marked canal stenosis at L2-L3 and L3-L4. Severe canal stenosis at L4-L5. IMPRESSION: 1. No renal stone, ureteral stone, or hydronephrosis. 2. Cholelithiasis. 3. No evidence acute abdominal process. 4. Diffuse hepatic steatosis. 5. Extensive lumbar degenerative change with marked canal stenosis at L2-L3 and L3-L4, as well as severe canal stenosis at L4-L5. Dictated by: Abdi Renae M.D. on 12/31/2019 at 9:39 Approved by: Abdi Renae M.D. on 12/31/2019 at 9:45
== END ==
PROVIDERS: Family Provider Family Medicine; PCP Family Medicine; Referring Provider Family Medicine; Visit Provider Family Medicine
DX: R10.9 Unspecified abdominal pain (principal); K80.20 Calculus of gallbladder without cholecystitis without obstruction; K76.0 Fatty (change of) liver, not elsewhere classified; M48.061 Spinal stenosis, lumbar region without neurogenic claudication
CPT/HCPCS: 74176

== ENCOUNTER → 2020-02-04 08:43 | Outpatient (CLI) | payer MEDICARE, SELFPAY ==
--- NOTE | 2020-02-04 08:46 | DI.MG.S_ITS ---
BILATERAL DIGITAL SCREENING MAMMOGRAM 3D/2D WITH CAD: 02/04/2020 CLINICAL: Routine screening. Comparison is made to exams dated: 01/22/2019 mammogram, 12/26/2017 mammogram, and 11/26/2016 mammogram - [facility]. There are scattered fibroglandular elements in both breasts. Current study was also evaluated with a Computer Aided Detection (CAD) system. There are benign calcifications in both breasts. No significant masses, calcifications, or other findings are seen in either breast. There has been no significant interval change. IMPRESSION: BENIGN There is no mammographic evidence of malignancy. A 1 year screening mammogram is recommended. This exam was interpreted at Station ID: [id number]. NOTE: For mammograms, a report in lay terms will be sent to the patient. Approximately 15% of breast malignancies will not be visualized mammographically. In the management of a palpable breast mass, a negative mammogram must not discourage biopsy of a clinically suspicious lesion. Electronically Signed By: Patricio Salomon acr/penrad:02/04/2020 10:48:56 letter sent: Normal Exam ACR BI-RADS Category 2: Benign Finding(s) 3342F
--- NOTE | 2020-02-04 08:46 | DI.RAD.S_ITS ---
PROCEDURE: XR FOREARM RT 2V INDICATIONS: cellulitis TECHNIQUE: 2 views of the forearm were acquired. COMPARISON: None. FINDINGS: Bones: No fractures or dislocations. No suspicious bony lesions. Soft tissues: Soft tissue swelling. IMPRESSION: No fracture. Soft tissue swelling. Dictated by: Chad Diallo M.D. on 02/04/2020 at 9:31 Approved by: Chad Diallo M.D. on 02/04/2020 at 9:44
== END ==
PROVIDERS: Family Provider Family Medicine; PCP Family Medicine; Referring Provider Family Medicine; Visit Provider Family Medicine
DX: Z12.31 Encounter for screening mammogram for malignant neoplasm of breast (principal); L03.113 Cellulitis of right upper limb
CPT/HCPCS: 73090; 77063; 77067

== ENCOUNTER → 2020-05-08 14:21 | Outpatient (CLI) | payer MEDICARE, SELFPAY ==
[2020-05-08 14:37] LABS: Add Manual Diff / Slide Review NO; Basophils Absolute Auto 100 /uL (0-100); Basophils Percent Auto 0.9 % (0-2); Eosinophils Absolute Auto 100 /uL (0-450); Eosinophils Percent Auto 0.4 % (2-4); Lymphocytes Absolute Auto 2500 /uL (1100-4500); Lymphocytes Percent Auto 20.5 % (25-40); Mean Corpuscular HGB Conc 31.6 % (30-36); Mean Corpuscular Hemoglobin 25.4 PG (26-34); Mean Corpuscular Volume 80.2 fL (80-100); Monocytes Absolute Auto 800 /uL (0-900); Monocytes Percent Auto 6.9 % (3-14); Neutrophils Absolute Auto 8700 /uL (1500-7000); Neutrophils Percent Auto 71.3 % (50-75); Platelet Count 407 X10^3/uL (150-400); Red Blood Cell Count 4.73 X10^6/uL (4.0-5.2); White Blood Cell Count 12.2 X10^3/uL (4.5-11.0)
[2020-05-08 14:59] LABS: Alanine Aminotransferase 60 IU/L (<35); Albumin 4.3 g/dL (3.5-5.0); Albumin Globulin Ratio 1.3 (1.0-2.8); Alkaline Phosphatase 90 U/L (38-126); Aspartate Aminotransferase 48 IU/L (14-36); BUN Creatinine Ratio 33.8 (6-22); Bilirubin Total 0.2 mg/dL (0.2-1.3); Blood Urea Nitrogen 24 mg/dL (7-17); Carbon Dioxide 33 mmol/L (22-32); Chloride 95 mmol/L (98-107); Estimated Glomerular Filt Rate > 60.0 mL/min (>60); Globulin 3.2 g/dL (1.7-4.1); Glucose 147 mg/dL (80-110); HEMOLYSIS < 15 (0-50); Potassium 4.3 mmol/L (3.4-5.1); Sodium 138 mmol/L (137-145); Total Protein 7.5 g/dL (6.3-8.2)
[2020-05-08 16:27] LABS: Hemoglobin A1C% w Est Avg Glu 7.3 % (4.0-6.0)
== END ==
PROVIDERS: Family Provider Family Medicine; PCP Family Medicine; Referring Provider Physician Assistant; Visit Provider Physician Assistant
DX: R10.9 Unspecified abdominal pain (principal); E11.9 Type 2 diabetes mellitus without complications
CPT/HCPCS: 36415; 80053; 83036; 85025

== ENCOUNTER → 2020-05-09 11:58 | Outpatient (CLI) | payer MEDICARE, SELFPAY ==
--- NOTE | 2020-05-09 11:59 | DI.CT.S_ITS ---
PROCEDURE: CT KIDNEY URETER BLADDER (KUB) INDICATIONS: Bilateral flank pain TECHNIQUE: Noncontrast 5 mm thick sections acquired from the diaphragms to the symphysis. 5 mm thick coronal and sagittal reformats were then performed. For radiation dose reduction, the following was used: automated exposure control, adjustment of mA and/or kV according to patient size. COMPARISON: None. FINDINGS: Image quality: Good. Mild motion artifact. Large body habitus. Lung bases: Mild atelectasis in the lingula. Right lower lobe pulmonary nodule measuring 0.4 cm, (4/5), unchanged since 02/28/2017 suggesting a benign etiology. Heart size is normal. Mitral annular calcification. Urinary system: Both kidneys are normal in size. Small low-density left renal cyst are similar to the prior CT. No kidney stones. No hydronephrosis or perinephric fat stranding. Both ureters appear non-dilated throughout their expected courses. Bladder wall thickness is normal; no calcified bladder stones. Other solid organs: Liver is normal in size. Hepatic steatosis. Gallbladder is not significantly distended. Calcified gallstone measuring 1.6 cm. Pancreas is normal in contours. Spleen is normal in size. No adrenal nodules. Peritoneum and bowel: Unenhanced bowel loops demonstrate normal wall thickness and caliber. Diverticulosis. Retrocecal appendix. No free fluid or air. Nodes and vessels: No retroperitoneal or mesenteric adenopathy by size criteria. Aorta and inferior vena cava are normal in caliber. Torturous aorta. Mild calcified atherosclerotic plaque. Abdominal wall: No ventral hernias. Periumbilical thickening, unchanged and may be due to prior scarring. Pelvis: No free pelvic fluid. No inguinal hernias or adenopathy. Bones: No suspicious bony lesions. Moderate to severe multilevel DDD. Multilevel lumbar spine stenosis. Advanced degenerative change. Findings similar to the prior CT. No vertebral body compression fractures. IMPRESSION: 1. No kidney stones. No hydronephrosis. 2. Diverticulosis. No diverticulitis. No free fluid. 3. Hepatic steatosis. Gallstone. 4. Extensive lumbar spine DDD. Dictated by: Danny Hillman M.D. on 05/09/2020 at 12:47 Approved by: Danny Hillman M.D. on 05/09/2020 at 12:57
== END ==
PROVIDERS: Family Provider Family Medicine; PCP Family Medicine; Referring Provider Physician Assistant; Visit Provider Physician Assistant
DX: R10.9 Unspecified abdominal pain (principal); N28.1 Cyst of kidney, acquired; K57.90 Diverticulosis of intestine, part unspecified, without perforation or abscess without bleeding; K80.20 Calculus of gallbladder without cholecystitis without obstruction; K76.0 Fatty (change of) liver, not elsewhere classified; M51.36 Other intervertebral disc degeneration, lumbar region
CPT/HCPCS: 74176

== ENCOUNTER → 2020-06-27 11:40 | Outpatient (CLI) | payer MEDICARE, SELFPAY | PROVIDERS: Family Provider Family Medicine; PCP Family Medicine; Visit Provider Family Medicine | DX: R31.9 Hematuria, unspecified (principal) | CPT/HCPCS: 87077; 87086; 87186 ==

== ENCOUNTER 2020-09-27 18:14 | Emergency (ER) | payer MEDICARE, SELFPAY ==
[2020-09-27 18:31] VITALS: BP 138/67; PULSE 74; RESP 18; TEMP 36.1; O2SAT 95; BMI 61.5
[2020-09-27 19:07] LABS: Add Manual Diff / Slide Review NO; Basophils Absolute Auto 100 /uL (0-100); Basophils Percent Auto 0.6 % (0-2); Eosinophils Absolute Auto 0 /uL (0-450); Eosinophils Percent Auto 0.4 % (2-4); Hematocrit 39.3 % (36-46); Hemoglobin 12.2 g/dL (12.0-16.0); Lymphocytes Absolute Auto 2000 /uL (1100-4500); Lymphocytes Percent Auto 22.2 % (25-40); Mean Corpuscular Hemoglobin 24.7 PG (26-34); Mean Corpuscular Volume 79.7 fL (80-100); Monocytes Absolute Auto 900 /uL (0-900); Monocytes Percent Auto 9.6 % (3-14); Neutrophils Absolute Auto 6000 /uL (1500-7000); Neutrophils Percent Auto 67.2 % (50-75); Platelet Count 320 X10^3/uL (150-400); Red Blood Cell Count 4.93 X10^6/uL (4.0-5.2); Red Cell Distribution Width 18.5 % (11.6-14.8); White Blood Cell Count 8.9 X10^3/uL (4.5-11.0)
[2020-09-27 19:16] LABS: Alanine Aminotransferase 58 IU/L (<35); Albumin 4.2 g/dL (3.5-5.0); Albumin Globulin Ratio 1.3 (1.0-2.8); Alkaline Phosphatase 76 U/L (38-126); Aspartate Aminotransferase 40 IU/L (14-36); BUN Creatinine Ratio 30.8 (6-22); Bilirubin Total 0.3 mg/dL (0.2-1.3); Blood Urea Nitrogen 20 mg/dL (7-17); Calcium 10.3 mg/dL (8.4-10.2); Carbon Dioxide 31 mmol/L (22-32); Chloride 100 mmol/L (98-107); Estimated Glomerular Filt Rate > 60.0 mL/min (>60); Globulin 3.3 g/dL (1.7-4.1); Glucose 111 mg/dL (80-110); HEMOLYSIS < 15 (0-50); Lipase 125 U/L (23-300); Potassium 4.4 mmol/L (3.4-5.1); Sodium 139 mmol/L (137-145); Total Protein 7.5 g/dL (6.3-8.2)
--- NOTE | 2020-09-27 20:02 | ED_ITS ---
HPI - Abdominal Pain General Chief Complaint: Abdominal Pain Stated Complaint: PAIN ACROSS ABDOMEN/BACK Time Seen by Provider: 09/27/20 19:58 Source: patient Mode of arrival: Ambulatory Limitations: no limitations History of Present Illness HPI narrative: 65-year-old Female with history of diabetes, fibromyalgia, morbid obesity, recurrent UTIs presenting today with abdominal pain. She says that 4 days ago she started having symptoms of UTI which was increased urination but no dysuria. She states that whenever she gets a UTI she also has flushed cheeks, which she noted. She has not had any fever or chills. She denies any nausea vomiting or diarrhea. Pain seems to be more on the left side that is radiating all across her abdomen now. It is quite severe. She denies any flank pain. However she is having some mild chest discomfort now in the emergency department. Seems to be radiating through to her back this is something she has never experienced before. It is about a 6 she says, although she looks quite comfortable she says that her abdominal pain is certainly worse. He states nothing makes her chest pain better or worse she denies any shortness of breath or palpitations Related Data Home Medications Medication Instructions Recorded Confirmed multivitamin (Multiple Vitamins) 1 tab PO QDAY #0 02/21/17 06/27/20 Vitamin D3 5,000 unit PO DAILY 10/06/17 06/27/20 magnesium citrate 400 mg PO DAILY 10/06/17 06/27/20 naproxen sodium 220 mg capsule 220 mg PO BID PRN 10/06/18 06/27/20 (Aleve) mecobalamin (vitamin B12) 1,000 2,500 mcg PO DAILY 01/27/19 06/27/20 mcg disintegrating tablet,sublingual timolol maleate 0.25 % eye drops 1 % EYE-BOTH DAILY 01/27/19 06/27/20 clobetasol 0.05 % lotion 1 applictn TOP QAM AND QPM 03/09/19 06/27/20 lidocaine 4 % topical patch 1 patch TOP DAILY PRN 03/09/19 06/27/20 Previous Rx's Medication Instructions Recorded Lactobacillus acidophilus 1 tab PO QDAY #10 tab 03/31/16 Disabled Parking Permit See Rx Instructions .ROUTE 10/14/17 .COMPLEX #1 each blood sugar diagnostic (Blood #100 each 10/25/17 Glucose Test) blood-glucose meter #1 each 10/25/17 lancets #100 each 03/28/19 atorvastatin 10 mg tablet 10 mg PO BEDTIME #90 tab 07/17/19 metolazone 2.5 mg tablet See Rx Instructions .ROUTE 03/24/20 .COMPLEX #90 tab metformin 500 mg tablet 500 mg PO BID #180 tab 03/31/20 lisinopril 20 mg tablet 20 mg PO QDAY #90 tab 05/06/20 furosemide 40 mg tablet 40 mg PO DAILY #90 tab 06/03/20 cephalexin 500 mg capsule 500 mg PO QID #28 cap 07/10/20 glipizide 5 mg tablet See Rx Instructions .ROUTE 08/26/20 .COMPLEX #180 tab potassium chloride 20 mEq See Rx Instructions .ROUTE 09/22/20 tablet,extended release .COMPLEX #90 tab Allergies Allergy/AdvReac Type Severity Reaction Status Date / Time ibuprofen AdvReac causes Verified 09/27/20 18:31 bleeding Review of Systems Review of Systems Narrative: GENERAL: Denies chills, fatigue, malaise, fever, sweats, travel HEENT: Denies sinus pain, ear pain, sore throat, difficulty swallowing, neck pain RESPIRATORY: Denies dyspnea, cough, wheezing, hemoptysis, sputum. CARDIOVASCULAR: See HPI GASTROINTESTINAL: See HPI : Denies dysuria, frequency, incontinence, hematuria, urinary retention, flank pain. MUSCULOSKELETAL: Denies weakness, joint pain, or bony pain SKIN: No rash, no erythema, no pruritus NEUROLOGIC: Denies weakness, dizziness, headache, numbness, change in speech, confusion PSYCHIATRIC: No concerning psychosocial issues. 12 point review of systems is negative except for those stated above and HPI Patient History Medical History (Updated 09/28/20 @ 00:45 by Kimberly Flaherty DO) Chronic venous stasis dermatitis (05/18/16) Dependent edema Essential hypertension (03/15/16) Frequent UTI Hemorrhoids (11/15/16) History of chickenpox (1964) History of [place] measles (~1964) History of measles (~1962) History of mumps (1957) Morbid obesity with body mass index (BMI) of 60.0 to 69.9 in adult (04/14/16) Osteoarthritis of lumbar spine Tubular adenoma of colon (08/27/16) Type 2 diabetes mellitus without complication, without long-term current use of insulin (04/14/16) Visual field defect of left eye (12/15/16) Surgical History Anesthesia S/P total abdominal hysterectomy and bilateral salpingo-oophorectomy (12/2009) Status post hernia repair (12/2010) Status post knee surgery (10/2009) Status post knee surgery (11/2009) Family History Brother Age: 79 Glaucoma Mother Diabetes mellitus Heart disease CAD (coronary artery disease) Father No problems noted. Sister Cancer Lung cancer Liver cancer Colon cancer Sister No problems noted. Sister No problems noted. Sister No problems noted. Daughter No problems noted. Father No problems noted. Social History marital status: household members: family Smoking Status: Never smoker alcohol intake: current substance use type: does not use Smoking Status: Never smoker alcohol intake frequency: 0-2 drinks per day Alcohol type: wine Substance Use Type: does not use Exam Initial Vital Signs Initial Vital Signs: Vital Signs Temperature 96.9 F L 09/27/20 18:31 Pulse Rate 74 09/27/20 18:31 Respiratory Rate 18 09/27/20 18:31 Blood Pressure 138/67 09/27/20 18:31 Pulse Oximetry 95 09/27/20 18:31 GENERAL: Alert well-appearing 65-year-old female with BMI of 61 sitting in wheelchair and in no acute distress. HEENT: Head atraumatic,EOMI, pupils reactive, face symmetric, moist mucous membranes CARDIOVASCULAR: Regular rate and rhythm without murmurs, rubs or gallops. RESPIRATORY: Breath sounds equal bilaterally, no wheezes rales or rhonchi. ABDOMEN: Soft, diffuse abdominal discomfort : No CVA tenderness EXTREMITIES: Normal range of motion, no clubbing or edema. Neurovascularly intact NEUROLOGICAL: Alert and oriented x4.Normal gait and speech. SKIN: Warm, dry, no laceration, no petechiae, no rashes or lesions. Course Orders Ordered: ED Orders 09/27/20 20:15 XR chest 1V Stat 09/27/20 20:48 EKG-12 Lead Stat 09/27/20 21:18 CT angio chest abdomen pelvis Stat 09/27/20 23:30 COVID19 -Nasal swab/Pre-Proc Stat 09/27/20 23:35 Troponin I Stat Discontinued Medications Hydromorphone HCl (Hydromorphone 1 Mg Inj) 1 mg IV NOW ONE Stop: 09/27/20 20:18 Last Admin: 09/27/20 20:59 Dose: 1 mg Documented by: WINDY Ondansetron HCl (Ondansetron 4 Mg/2 Ml Inj) 4 mg IV NOW ONE Stop: 09/27/20 22:56 Last Admin: 09/27/20 23:14 Dose: 4 mg Documented by: WINDY Vital Signs Vital signs: Vital Signs - 8 hr 09/27/20 22:02 09/28/20 01:12 Temperature 97.2 F L Pulse Rate 76 71 Respiratory Rate 20 Blood Pressure 129/60 124/62 Pulse Oximetry 94 94 MDM - Abdominal Pain Lab Data Result diagrams: 09/27/20 19:00 09/27/20 19:00 Labs: Lab Results 09/27/20 09/27/20 09/27/20 Range/Units 19:00 19:00 19:00 WBC 8.9 (4.5-11.0) X10^3/uL RBC 4.93 (4.0-5.2) X10^6/uL Hgb 12.2 (12.0-16.0) g/dL Hct 39.3 (36-46) % MCV 79.7 L (80-100) fL MCH 24.7 L (26-34) PG MCHC 31.0 (30-36) % RDW 18.5 H (11.6-14.8) % Plt Count 320 (150-400) X10^3/uL Neut % (Auto) 67.2 (50-75) % Lymph % (Auto) 22.2 L (25-40) % Bond % (Auto) 9.6 (3-14) % Eos % (Auto) 0.4 L (2-4) % Baso % (Auto) 0.6 (0-2) % Neut # (Auto) 6000 (2619-4756) /uL Lymph # (Auto) 2000 (8488-7515) /uL Bond # (Auto) 900 (0-900) /uL Eos # (Auto) 0 (0-450) /uL Baso # (Auto) 100 (0-100) /uL Sodium 139 (137-145) mmol/L Potassium 4.4 (3.4-5.1) mmol/L Chloride 100 (98-107) mmol/L Carbon Dioxide 31 (22-32) mmol/L BUN 20 H (7-17) mg/dL Creatinine 0.65 (0.52-1.04) mg/dL Estimated GFR > 60.0 (>60) mL/min BUN/Creatinine Ratio 30.8 H (6-22) Glucose 111 H (80-110) mg/dL Calcium 10.3 H (8.4-10.2) mg/dL Total Bilirubin 0.3 (0.2-1.3) mg/dL AST 40 H (14-36) IU/L ALT 58 H (<35) IU/L Alkaline Phosphatase 76 (38-126) U/L Total Creatine Kinase 64 (30-135) U/L CK-MB (CK-2) TNP CK-MB (CK-2) Rel Index TNP Troponin I < 0.012 (0.01-0.034) ng/mL Total Protein 7.5 (6.3-8.2) g/dL Albumin 4.2 (3.5-5.0) g/dL Globulin 3.3 (1.7-4.1) g/dL Albumin/Globulin Ratio 1.3 (1.0-2.8) Lipase 125 (23-300) U/L SARS-CoV-2 (PCR) (Negative) 09/27/20 09/27/20 Range/Units 23:30 23:35 WBC (4.5-11.0) X10^3/uL RBC (4.0-5.2) X10^6/uL Hgb (12.0-16.0) g/dL Hct (36-46) % MCV (80-100) fL MCH (26-34) PG MCHC (30-36) % RDW (11.6-14.8) % Plt Count (150-400) X10^3/uL Neut % (Auto) (50-75) % Lymph % (Auto) (25-40) % Bond % (Auto) (3-14) % Eos % (Auto) (2-4) % Baso % (Auto) (0-2) % Neut # (Auto) (2949-9048) /uL Lymph # (Auto) (3877-5104) /uL Bond # (Auto) (0-900) /uL Eos # (Auto) (0-450) /uL Baso # (Auto) (0-100) /uL Sodium (137-145) mmol/L Potassium (3.4-5.1) mmol/L Chloride (98-107) mmol/L Carbon Dioxide (22-32) mmol/L BUN (7-17) mg/dL Creatinine (0.52-1.04) mg/dL Estimated GFR (>60) mL/min BUN/Creatinine Ratio (6-22) Glucose (80-110) mg/dL Calcium (8.4-10.2) mg/dL Total Bilirubin (0.2-1.3) mg/dL AST (14-36) IU/L ALT (<35) IU/L Alkaline Phosphatase (38-126) U/L Total Creatine Kinase (30-135) U/L CK-MB (CK-2) CK-MB (CK-2) Rel Index Troponin I < 0.012 (0.01-0.034) ng/mL Total Protein (6.3-8.2) g/dL Albumin (3.5-5.0) g/dL Globulin (1.7-4.1) g/dL Albumin/Globulin Ratio (1.0-2.8) Lipase (23-300) U/L SARS-CoV-2 (PCR) Negative (Negative) Point of care testing: Urine Dip Bedside Urine Glucose Negative Bedside Urine Bilirubin - Negative Bedside Urine Ketone - Negative Urine Specific [place] 1.020 Bedside Urine Occult Blood - Negative Bedside Urine pH 6 Bedside Urine Protein - Negative Bedside Urine Urobilinogen - Negative Bedside Urine Nitrite - Negative Bedside Urine Leukocytes - Negative Esterase Imaging Data Chest x-ray: Radiologist's Impression: PROCEDURE: XR CHEST 1V INDICATIONS: chest pain TECHNIQUE: One view of the chest was acquired. COMPARISON: [facility], CR, XR CHEST 1V, 10/05/2017, 23:33. FINDINGS: Surgical changes and devices: None. Lungs and pleura: Lungs are clear. No pleural effusions or pneumothorax. Mediastinum: Mediastinal contours appear normal. Heart size is normal. Bones and chest wall: No suspicious bony lesions. Overlying soft tissues appear unremarkable. IMPRESSION: No acute cardiopulmonary abnormality. Dictated by: Huber Rodriguez M.D. on 09/27/2020 at 21:12 CT scan - chest: Radiologist's Impression: PROCEDURE: CT ANGIO CHEST ABDOMEN PELVIS INDICATIONS: chest pain, abdominal pain more left than right TECHNIQUE: Precontrast 5 mm thick sections acquired from the lung apices to the iliac crests. After the administration of intravenous contrast, 2.5 mm thick sections again acquired from the lung apices to the iliac crests. Maximum intensity projection (MIP) oblique sag ittal and coronal reformats were then acquired. For radiation dose reduction, the following was used: automated exposure control. COMPARISON: [facility], CT, CT KIDNEY URETER BLADDER (KUB), 05/09/2020, 12:20. FINDINGS: Image quality: Increased streak artifact and quantum mottle is seen secondary to patient body habitus. VASCULATURE: The heart is normal in size. Mitral annular calcifications are present. The main pulmonary arteries are normal in size without central filling defects identified. The ascending and descending thoracic aorta is normal in size without atherosclero tic disease. A conventional branching pattern of the aortic arch is seen. Minimal atherosclerosis is seen in the origin of the left subclavian artery. The abdominal aorta is mildly tortuous, but normal in size without significant atherosclerotic disease. The origins of the celiac trunk, superior mesenteric artery, inferior mesenteric artery, and renal arteries are patent. A splenic artery an eurysm is seen adjacent to the tail the pancreas measuring 2.1 x 1.9 x 1.8 cm. Mild calcified atherosclerotic disease is seen in the common iliac arteries bilaterally. The external iliac arteries are patent bilaterally. The internal iliac arteries are obscured due to artifact related to patient body habitus. The included portions of the common, superficial, and deep femoral arteries are patent bilaterally. CHEST: Lungs and pleura: No acute airspace opacities. A nonspecific 4 mm nodule is seen at the right lung base (183/8), which is most likely benign. No pleural effusions or pneumothorax. Central and peripheral airways are patent and normal in caliber. Mediastinum: Heart size is normal. No pericardial effusion. No mediastinal or hilar adenopathy by size criteria. Central pulmonary arteries are normal in size. Esophagus is normal in caliber. No hiatal hernias. Bones and chest wall: No axillary adenopathy by size criteria. The thyroid is diffusely enlarged and heterogeneous. No suspicious bony lesions. No vertebral body compression fractures. ABDOMEN: Solid organs: Liver is enlarged. Evaluation of the liver attenuation is compromised by extensive streak artifact. Gallbladder contains calcified gallstones. Biliary system is non dilated. Pancreas enhances normally. Spleen is normal in size and enhancement. No adrenal nodules. Both kidneys are normal in size and enhancement, without hydronephrosis. Peritoneum and bowel: A few diverticula are seen in the colon without signs of diverticulitis. Normal appendix. No signs of bowel obstruction. There are no signs Nodes and vessels: No retroperitoneal or mesenteric adenopathy by size criteria. Inferior vena cava is normal in morphology. Miscellaneous: No ventral hernias. PELVIS: Genitourinary: Bladder wall thickness is normal. The uterus is not well visualized, possibly secondary to prior hysterectomy. Miscellaneous: No inguinal hernias or adenopathy. No ventral hernias. Bones: No suspicious bony lesions. No vertebral body compression fractures. An intramuscular lipoma is seen in the right vastus lateralis muscle. IMPRESSION: 1. Splenic artery aneurysm measures 2.1 cm in diameter. 2. No acute aortic dissection, intramural hematoma, or penetrating ulcer. 3. No acute abnormality identified in the chest, abdomen, or pelvis. 4. Cholelithiasis. 5. Colonic diverticulosis without signs of acute diverticulitis. 6. Hepatomegaly. Dictated by: Huber Rodriguez M.D. on 09/27/2020 at 21:50 Approved by: Huber Rodriguez M.D. on 09/27/2020 at 22:05 ECG Data Interpretation: 75 VT interval [address] changes or T-wave a inversions similar to previous EKG T in 2018 MDM Narrative Medical decision making narrative: Patient is given Dilaudid for her abdominal and chest discomfort. She is morbidly obese with multiple risk factors now having some chest discomfort abdominal discomfort concern for possible dissection. Fortunately CT angio was negative however it did find splenic artery aneurysm at 2.1 cm. This is unlikely causing any of her symptoms and is incidental. Dilaudid has certainly helped all all of her pain and she remains comfortable in the emergency department. She 2- troponins and pain has completely resolved. She had an echocardiogram in 2019 which showed an EF of 60-65% moderate valve sclerosis, not significantly changed from 2017. She actually does not have a UTI like sweet thought she did no identifiable cause of her abdominal pain. COVID test is also negative. At this time I do discuss with patient and her daughter that her splenic artery aneurysm does need to be followed up which they understand and agree to do. Discharge Plan Departure Patient Disposition: Home Clinical Impression: Atypical chest pain, Aneurysm of splenic artery Instructions: Acute Abdominal Pain, DI for Atypical Chest Pain Activity Restrictions/Additional Instructions: *You have been diagnosed with atypical chest pain, splenic artery *What to do: At this time he had extensive workup in the emergency department. No infection was found do not need any antibiotics. You may need further evaluation of your heart with your doctor such as a stress test however not indicated at this time. You were also found to have an incidental aneurysm of her splenic artery. This is not causing any of her pain however this does need to be followed up in possibly repaired. *Continue to take medications as directed *Follow up with your primary care provider in 2-3 days *Return to ER if you should have increasing abdominal pain, worsening chest pain shortness of breath, fever or any new, worsening or concerning symptoms Prescriptions: No Action clobetasol 0.05 % lotion 1 applictn TOP QAM AND QPM RF: 0 lidocaine 4 % adhesive patch,medicated 1 patch TOP DAILY PRN (Reason: pain) RF: 0 atorvastatin 10 mg tablet 10 mg PO BEDTIME Qty: 90 RF: 3 Lactobacillus acidophilus 1 EACH capsule 1 tab PO QDAY Qty: 10 RF: 0 multivitamin [Multiple Vitamins] 1 EACH tablet 1 tab PO QDAY Qty: 0 RF: 0 (DME) blood sugar diagnostic [Blood Glucose Test] strip See Dose Instructions .ROUTE .MEDSUPPLY Qty: 100 RF: 1 (DME) blood-glucose meter kit See Dose Instructions .ROUTE .MEDSUPPLY Qty: 1 RF: 0 (DME) lancets Misc See Dose Instructions .ROUTE .MEDSUPPLY Qty: 100 RF: 1 metolazone 2.5 mg tablet See Rx Instructions .ROUTE .COMPLEX Qty: 90 RF: 3 metformin 500 mg tablet 500 mg PO BID Qty: 180 RF: 1 lisinopril 20 mg tablet 20 mg PO QDAY Qty: 90 RF: 3 furosemide 40 mg tablet 40 mg PO DAILY Qty: 90 RF: 1 cephalexin 500 mg capsule 500 mg PO QID Qty: 28 RF: 0 glipizide 5 mg tablet See Rx Instructions .ROUTE .COMPLEX Qty: 180 RF: 0 potassium chloride 20 mEq tablet extended release See Rx Instructions .ROUTE .COMPLEX Qty: 90 RF: 3 Disabled Parking Permit See Rx Instructions .Route .COMPLEX Qty: 1 RF: 0 naproxen sodium [Aleve] 220 mg capsule 220 mg PO BID PRN (Reason: Pain (Scale Score 1-3)) RF: 0 timolol maleate 0.25 % Drops 1 % EYE-BOTH DAILY RF: 0 mecobalamin (vitamin B12) 1,000 mcg Tablet,Disintegrating 2,500 mcg PO DAILY RF: 0 magnesium citrate 400 mg PO DAILY RF: 0 Vitamin D3 5,000 unit PO DAILY RF: 0 Referrals: Galilea Johnson DO [Primary Care Provider] -
--- NOTE | 2020-09-27 20:15 | DI.RAD.S_ITS ---
PROCEDURE: XR CHEST 1V INDICATIONS: chest pain TECHNIQUE: One view of the chest was acquired. COMPARISON: [facility], CR, XR CHEST 1V, 10/05/2017, 23:33. FINDINGS: Surgical changes and devices: None. Lungs and pleura: Lungs are clear. No pleural effusions or pneumothorax. Mediastinum: Mediastinal contours appear normal. Heart size is normal. Bones and chest wall: No suspicious bony lesions. Overlying soft tissues appear unremarkable. IMPRESSION: No acute cardiopulmonary abnormality. Dictated by: Huber Rodriguez M.D. on 09/27/2020 at 21:12 Approved by: Huber Rodriguez M.D. on 09/27/2020 at 21:12
[2020-09-27 20:32] LABS: Creatine Kinase 64 U/L (30-135)
[2020-09-27 20:43] LABS: Troponin I < 0.012 ng/mL (0.01-0.034)
[2020-09-27] MEDS: HYDROMORPHONE 1 MG INJ IV (20:59)
--- NOTE | 2020-09-27 21:18 | DI.CT.S_ITS ---
PROCEDURE: CT ANGIO CHEST ABDOMEN PELVIS INDICATIONS: chest pain, abdominal pain more left than right TECHNIQUE: Precontrast 5 mm thick sections acquired from the lung apices to the iliac crests. After the administration of intravenous contrast, 2.5 mm thick sections again acquired from the lung apices to the iliac crests. Maximum intensity projection (MIP) oblique sagittal and coronal reformats were then acquired. For radiation dose reduction, the following was used: automated exposure control. COMPARISON: [facility], CT, CT KIDNEY URETER BLADDER (KUB), 05/09/2020, 12:20. FINDINGS: Image quality: Increased streak artifact and quantum mottle is seen secondary to patient body habitus. VASCULATURE: The heart is normal in size. Mitral annular calcifications are present. The main pulmonary arteries are normal in size without central filling defects identified. The ascending and descending thoracic aorta is normal in size without atherosclerotic disease. A conventional branching pattern of the aortic arch is seen. Minimal atherosclerosis is seen in the origin of the left subclavian artery. The abdominal aorta is mildly tortuous, but normal in size without significant atherosclerotic disease. The origins of the celiac trunk, superior mesenteric artery, inferior mesenteric artery, and renal arteries are patent. A splenic artery aneurysm is seen adjacent to the tail the pancreas measuring 2.1 x 1.9 x 1.8 cm. Mild calcified atherosclerotic disease is seen in the common iliac arteries bilaterally. The external iliac arteries are patent bilaterally. The internal iliac arteries are obscured due to artifact related to patient body habitus. The included portions of the common, superficial, and deep femoral arteries are patent bilaterally. CHEST: Lungs and pleura: No acute airspace opacities. A nonspecific 4 mm nodule is seen at the right lung base (183/8), which is most likely benign. No pleural effusions or pneumothorax. Central and peripheral airways are patent and normal in caliber. Mediastinum: Heart size is normal. No pericardial effusion. No mediastinal or hilar adenopathy by size criteria. Central pulmonary arteries are normal in size. Esophagus is normal in caliber. No hiatal hernias. Bones and chest wall: No axillary adenopathy by size criteria. The thyroid is diffusely enlarged and heterogeneous. No suspicious bony lesions. No vertebral body compression fractures. ABDOMEN: Solid organs: Liver is enlarged. Evaluation of the liver attenuation is compromised by extensive streak artifact. Gallbladder contains calcified gallstones. Biliary system is non dilated. Pancreas enhances normally. Spleen is normal in size and enhancement. No adrenal nodules. Both kidneys are normal in size and enhancement, without hydronephrosis. Peritoneum and bowel: A few diverticula are seen in the colon without signs of diverticulitis. Normal appendix. No signs of bowel obstruction. There are no signs Nodes and vessels: No retroperitoneal or mesenteric adenopathy by size criteria. Inferior vena cava is normal in morphology. Miscellaneous: No ventral hernias. PELVIS: Genitourinary: Bladder wall thickness is normal. The uterus is not well visualized, possibly secondary to prior hysterectomy. Miscellaneous: No inguinal hernias or adenopathy. No ventral hernias. Bones: No suspicious bony lesions. No vertebral body compression fractures. An intramuscular lipoma is seen in the right vastus lateralis muscle. IMPRESSION: 1. Splenic artery aneurysm measures 2.1 cm in diameter. 2. No acute aortic dissection, intramural hematoma, or penetrating ulcer. 3. No acute abnormality identified in the chest, abdomen, or pelvis. 4. Cholelithiasis. 5. Colonic diverticulosis without signs of acute diverticulitis. 6. Hepatomegaly. Dictated by: Huber Rodriguez M.D. on 09/27/2020 at 21:50 Approved by: Huber Rodriguez M.D. on 09/27/2020 at 22:05
[2020-09-27 22:02] VITALS: BP 129/60; PULSE 76; O2SAT 94
[2020-09-27] MEDS: ONDANSETRON 4 MG/2 ML INJ IV (23:14)
[2020-09-27 23:52] LABS: COVID19 -Nasal RAPID Negative (Negative)
[2020-09-28 00:04] LABS: Troponin I < 0.012 ng/mL (0.01-0.034)
[2020-09-28 01:12] VITALS: BP 124/62; PULSE 71; RESP 20; TEMP 36.2; O2SAT 94
== END 2020-09-28 01:14 | disposition home or self-care (01) ==
PROVIDERS: Emergency Provider Emergency Medicine; Family Provider Family Medicine; PCP Family Medicine
DX: R07.89 Other chest pain (principal); I72.8 Aneurysm of other specified arteries; Z20.822 Contact with and (suspected) exposure to COVID-19
CPT/HCPCS: 36415; 71045; 71275; 74174; 80053; 81003; 82550; 83690; 84484; 85025; 87635; 93005; 93010; 96374; 96375; 99284; C9803; J1170; J2405; Q9967

== ENCOUNTER → 2020-10-03 12:15 | Outpatient (CLI) | payer MEDICARE, SELFPAY | PROVIDERS: Family Provider Family Medicine; PCP Family Medicine; Referring Provider Family Medicine; Visit Provider Family Medicine | DX: N39.0 Urinary tract infection, site not specified (principal) | CPT/HCPCS: 87077; 87086; 87186 ==

== ENCOUNTER → 2020-10-03 12:31 | Outpatient (CLI) | payer MEDICARE, SELFPAY ==
[2020-10-03 14:08] LABS: Hemoglobin A1C% w Est Avg Glu 6.7 % (4.0-6.0)
== END ==
PROVIDERS: Family Provider Family Medicine; PCP Family Medicine; Referring Provider Family Medicine; Visit Provider Family Medicine
DX: E11.9 Type 2 diabetes mellitus without complications (principal); N39.0 Urinary tract infection, site not specified
CPT/HCPCS: 36415; 83036; 87077; 87086; 87186

== ENCOUNTER → 2020-10-17 16:30 | Outpatient (CLI) | payer MEDICARE, SELFPAY ==
[2020-10-17 16:54] LABS: RBC Urine None Seen (0-5/HPF)
[2020-10-17 17:56] LABS: Appearance Urine UA CLEAR; Bilirubin Urine UA NEGATIVE (NEGATIVE); Color Urine UA YELLOW; Glucose Urine UA NEGATIVE (Negative); Ketones Urine UA NEGATIVE (NEGATIVE); Leukocyte Esterase Urine UA NEGATIVE (NEGATIVE); Nitrite Urine UA NEGATIVE (Negative); Occult Blood Urine UA NEGATIVE (Negative); Protein Urine UA NEGATIVE (Negative); Specific Gravity Urine UA 1.015 (1.000-1.035); Urobilinogen Urine UA 0.2 E.U./dL (0.2)
[2020-10-17 18:11] LABS: Bacteria Urine Occasional (0-1); Culture Indicated Urine Cult Not Indicated; Squamous Epithelial Cell Urine 1-5 /HPF (0-5/HPF); WBC Urine 0-1/HPF (0-5/HPF)
== END ==
PROVIDERS: Family Provider Family Medicine; PCP Family Medicine; Referring Provider Family Medicine; Visit Provider Family Medicine
DX: N39.0 Urinary tract infection, site not specified (principal)
CPT/HCPCS: 81001

== ENCOUNTER → 2020-11-03 16:54 | Outpatient (CLI) | payer MEDICARE, SELFPAY ==
[2020-11-03 18:09] LABS: Add Manual Diff / Slide Review NO; Basophils Absolute Auto 0 /uL (0-100); Basophils Percent Auto 0.3 % (0-2); Eosinophils Absolute Auto 0 /uL (0-450); Eosinophils Percent Auto 0.3 % (2-4); Hematocrit 41.8 % (36-46); Hemoglobin 13.2 g/dL (12.0-16.0); Lymphocytes Absolute Auto 2200 /uL (1100-4500); Lymphocytes Percent Auto 21.5 % (25-40); Mean Corpuscular HGB Conc 31.7 % (30-36); Mean Corpuscular Hemoglobin 25.3 PG (26-34); Mean Corpuscular Volume 79.9 fL (80-100); Monocytes Absolute Auto 700 /uL (0-900); Monocytes Percent Auto 7.1 % (3-14); Neutrophils Absolute Auto 7100 /uL (1500-7000); Neutrophils Percent Auto 70.8 % (50-75); Platelet Count 329 X10^3/uL (150-400); Red Blood Cell Count 5.23 X10^6/uL (4.0-5.2); Red Cell Distribution Width 18.6 % (11.6-14.8)
[2020-11-03 18:39] LABS: Alanine Aminotransferase 61 IU/L (<35); Albumin 4.4 g/dL (3.5-5.0); Albumin Globulin Ratio 1.5 (1.0-2.8); Alkaline Phosphatase 93 U/L (38-126); Aspartate Aminotransferase 39 IU/L (14-36); BUN Creatinine Ratio 41.7 (6-22); Bilirubin Total 0.6 mg/dL (0.2-1.3); Blood Urea Nitrogen 25 mg/dL (7-17); Calcium 10.4 mg/dL (8.4-10.2); Carbon Dioxide 32 mmol/L (22-32); Chloride 96 mmol/L (98-107); Estimated Glomerular Filt Rate > 60.0 mL/min (>60); Glucose 159 mg/dL (80-110); HEMOLYSIS < 15 (0-50); Potassium 4.3 mmol/L (3.4-5.1); Sodium 136 mmol/L (137-145); Total Protein 7.4 g/dL (6.3-8.2)
== END ==
PROVIDERS: Family Provider Family Medicine; PCP Family Medicine; Referring Provider Family Medicine; Visit Provider Family Medicine
DX: K92.1 Melena (principal)
CPT/HCPCS: 36415; 80053; 85025

== ENCOUNTER 2020-12-05 21:30 | Emergency (ER) | payer MEDICARE, SELFPAY ==
[2020-12-05 21:39] VITALS: BP 141/76; PULSE 72; RESP 18; TEMP 36.2; O2SAT 97; BMI 59.3
[2020-12-05 22:27] LABS: Bacteria Urine Many (>30); Culture Indicated Urine Cult Not Indicated; RBC Urine None Seen (0-5/HPF); Squamous Epithelial Cell Urine >30 /HPF (0-5/HPF); WBC Urine 0-1/HPF (0-5/HPF)
--- NOTE | 2020-12-06 01:48 | ED.BACK ---
HPI - Back Pain/Injury General Chief Complaint: Back Pain/Injury Stated Complaint: rt sided pain, black stools Time Seen by Provider: 12/06/20 01:47 Source: patient Limitations: no limitations History of Present Illness HPI Narrative: 65-year-old woman with morbid obesity and multiple complications related to that comes in complaining of significant back spasm and concerned that she is developing a bladder infection. She has significant mobility issues and with previous bladder infections she will get flushing of her face and have more difficulty getting up out of her chair. She currently has quite a bit of rectal bleeding that is chronic and has an appointment to have this further evaluated in the near future. Couple of days ago the apartment she rinse did not have any water for 24 hours and with this she is concerned that it increased her risk for her bladder infection. 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 She complains about a big mass in the middle of her back. She describes no fevers or chills. No change to her chronic cough. Multiple chronic arthritis issues and lower extremity venous stasis issues. Related Data Home Medications Medication Instructions Recorded Confirmed multivitamin (Multiple Vitamins) 1 tab PO QDAY #0 02/21/17 06/27/20 magnesium citrate 400 mg PO DAILY 10/06/17 06/27/20 naproxen sodium 220 mg capsule 220 mg PO BID PRN 10/06/18 06/27/20 (Aleve) mecobalamin (vitamin B12) 1,000 2,500 mcg PO DAILY 01/27/19 06/27/20 mcg disintegrating tablet,sublingual timolol maleate 0.25 % eye drops 1 % EYE-BOTH DAILY 01/27/19 06/27/20 L'Arginine 3 tab PO DAILY 10/03/20 10/03/20 ryqtuwu-iauqvampw-yjns 333 mg-133 1 tab PO DAILY tab 10/03/20 10/03/20 mg-8.3 mg tablet flaxseed oil 1,000 mg capsule 1,000 mg PO DAILY 10/03/20 10/03/20 garlic 1,000 mg capsule 1,000 mg PO QPC 10/03/20 10/03/20 [id number]-[id number]-dfijo-iraz-lnh [Joint 1 cap PO TIDWMEAL 10/03/20 10/03/20 Support Complex] multivit gsk-itwn-BB-herb 186 1 tab PO DAILY 10/03/20 10/03/20 [Hair, Skin and Nails Advanced] omega-3 fatty acids 1,000 mg 2,000 mg PO DAILY 10/03/20 10/03/20 capsule Previous Rx's Medication Instructions Recorded Lactobacillus acidophilus 1 tab PO QDAY #10 tab 03/31/16 Disabled Parking Permit See Rx Instructions .ROUTE 10/14/17 .COMPLEX #1 each blood sugar diagnostic (Blood #100 each 10/25/17 Glucose Test) blood-glucose meter #1 each 10/25/17 lancets #100 each 03/28/19 metolazone 2.5 mg tablet See Rx Instructions .ROUTE 03/24/20 .COMPLEX #90 tab lisinopril 20 mg tablet 20 mg PO QDAY #90 tab 05/06/20 furosemide 40 mg tablet 40 mg PO DAILY #90 tab 06/03/20 glipizide 5 mg tablet See Rx Instructions .ROUTE 08/26/20 .COMPLEX #180 tab potassium chloride 20 mEq See Rx Instructions .ROUTE 09/22/20 tablet,extended release .COMPLEX #90 tab omeprazole 20 mg capsule,delayed 20 mg PO DAILY #30 cap 11/03/20 release sulfamethoxazole 800 1 tab PO BID #10 tab 12/06/20 mg-trimethoprim 160 mg tablet (Bactrim DS) tizanidine 4 mg capsule (Zanaflex) 4 mg PO Q6-8H PRN #20 cap 12/06/20 Allergies Allergy/AdvReac Type Severity Reaction Status Date / Time ibuprofen AdvReac causes Verified 10/03/20 11:25 bleeding Review of Systems Review of Systems Narrative: Remainder of complete review of systems is otherwise unremarkable except for that included in the HPI. Patient History Medical History Chronic venous stasis dermatitis (05/18/16) Dependent edema Essential hypertension (03/15/16) Frequent UTI Hemorrhoids (11/15/16) History of chickenpox (1964) History of Frisian measles (~1964) History of measles (~1962) History of mumps (1957) Morbid obesity with body mass index (BMI) of 60.0 to 69.9 in adult (04/14/16) Osteoarthritis of lumbar spine Tubular adenoma of colon (08/27/16) Type 2 diabetes mellitus without complication, without long-term current use of insulin (04/14/16) Visual field defect of left eye (12/15/16) Surgical History Anesthesia S/P total abdominal hysterectomy and bilateral salpingo-oophorectomy (12/2009) Status post hernia repair (12/2010) Status post knee surgery (10/2009) Status post knee surgery (11/2009) Family History Brother Age: 79 Glaucoma Mother Diabetes mellitus Heart disease CAD (coronary artery disease) Father No problems noted. Sister Cancer Lung cancer Liver cancer Colon cancer Sister No problems noted. Sister No problems noted. Sister No problems noted. Daughter No problems noted. Father No problems noted. Social History marital status: household members: family Smoking Status: Never smoker alcohol intake: current substance use type: does not use Smoking Status: Never smoker alcohol intake frequency: 0-2 drinks per day Alcohol type: wine Substance Use Type: does not use Exam Narrative Exam Narrative: General: Alert appropriate. Morbidly obese with significant mobility impairment and difficulty in mid even moving to set up fully. Needing to use multiple prompts to get from sitting to standing. Respiratory: Able to speak in full sentences, no obvious respiratory distress Back: Significant trapezius muscle spasm right greater than left. Muscle spasm in the lower thoracic region and upper lumbar region that is the ?mass? that she is complaining of Neurologic: Grossly intact no obvious asymmetries or abnormalities Psych: appropriate insight and affect, cooperative Initial Vital Signs Initial Vital Signs: Vital Signs Temperature 97.1 F L 12/05/20 21:39 Pulse Rate 72 12/05/20 21:39 Respiratory Rate 18 12/05/20 21:39 Blood Pressure 141/76 H 12/05/20 21:39 Pulse Oximetry 97 12/05/20 21:39 Course Orders Ordered: ED Orders 12/05/20 21:45 Urine Microscopic Stat 12/06/20 02:02 Urine Culture Stat Tizanidine HCl (Tizanidine 4 Mg Tablet) 4 mg PO NOW ONE Stop: 12/06/20 02:04 Trimethoprim/Sulfamethoxazole (Trimeth/Sulfa 160/800 (Ds) Tablet) 1 tab PO NOW ONE Stop: 12/06/20 02:03 Vital Signs Vital signs: Vital Signs - 8 hr 12/05/20 21:39 Temperature 97.1 F L Pulse Rate 72 Respiratory Rate 18 Blood Pressure 141/76 H Pulse Oximetry 97 MDM - Back Pain/Injury Lab Data Labs: Lab Results 12/05/20 Range/Units 21:45 Urine RBC None seen (0-5/HPF) Urine WBC 0-1/hpf (0-5/HPF) Ur Squamous Epith Cells >30 /hpf H D (0-5/HPF) Urine Bacteria Many (>30) H (None) Ur Culture Indicated? Cult not indicated Urine Dip Bedside Urine Glucose Negative Bedside Urine Bilirubin - Negative Bedside Urine Ketone - Negative Urine Specific Verbena 1.025 Bedside Urine Occult Blood - Negative Bedside Urine pH 6.0 Bedside Urine Protein +/- 15 Bedside Urine Urobilinogen - Negative Bedside Urine Nitrite - Negative Bedside Urine Leukocytes - Negative Esterase MDM Narrative Medical decision making narrative: 65-year-old woman with multiple medical issues and significant complications from her morbid obesity. She is concerned that she is developing a bladder infection in her urine did show quite a bit of bacteria however there were also quite a few squamous cells. I will ask for a culture to be done and will go ahead and treat her with Septra based on most recent UTI and culture and sensitivity. For the muscle spasm related to the movements she must do to help herself set up and move from sitting to standing I am going to suggest Zanaflex. At this point I am not seeing any additional issues that need workup in the emergency department she is safe for home discharge Discharge Plan Departure Patient Disposition: Home Clinical Impression: Back muscle spasm Urinary tract infection Qualifiers: Urinary tract infection type: acute cystitis Hematuria presence: without hematuria Qualified Code(s): N30.00 - Acute cystitis without hematuria Instructions: DI for Urinary Tract Infection (UTI), DI for Back Spasm Activity Restrictions/Additional Instructions: Thank you for coming in today The lump in her back is muscle spasm. Likely with the increased difficulty in moving from sitting to standing in the pulling and twisting that your required to do you are irritating all of these muscles. I have given you a prescription for Zanaflex, this does not interfere with your current medications and does help specifically with muscle spasm. Your urine did have quite a bit of bacteria but there were also some squamous cells. With the symptoms that your noting I will go ahead and give you a prescription for 5 days of Septra(I chose this antibiotic based on your most recent cultures for prior urinary tract infection). I have asked the lab to culture your urine from this evening. If you have worsening symptoms, please feel free to return for further evaluation Prescriptions: New sulfamethoxazole-trimethoprim [Bactrim DS] 800-160 mg tablet 1 tab PO BID Qty: 10 RF: 0 tizanidine [Zanaflex] 4 mg capsule 4 mg PO Q6-8H PRN (Reason: muscle spasticity) Qty: 20 RF: 0 No Action L'Arginine 3 tab PO DAILY RF: 0 ttmakgm-vamyuhyil-grry 333-133-8.3 mg tablet 1 tab PO DAILY RF: 0 garlic 1,000 mg capsule 1,000 mg PO QPC RF: 0 anqaa-byy-D-hzajk-ixmj-whg [Joint Support Complex] 1 cap PO TIDWMEAL RF: 0 multivit asb-ydjz-JD-herb 186 [Hair, Skin and Nails Advanced] 1 tab PO DAILY RF: 0 omega-3 fatty acids 1,000 mg capsule 2,000 mg PO DAILY RF: 0 flaxseed oil 1,000 mg capsule 1,000 mg PO DAILY RF: 0 omeprazole 20 mg capsule,delayed release(DR/EC) 20 mg PO DAILY Qty: 30 RF: 0 Lactobacillus acidophilus 1 EACH capsule 1 tab PO QDAY Qty: 10 RF: 0 multivitamin [Multiple Vitamins] 1 EACH tablet 1 tab PO QDAY Qty: 0 RF: 0 (DME) blood sugar diagnostic [Blood Glucose Test] strip See Dose Instructions .ROUTE .MEDSUPPLY Qty: 100 RF: 1 (DME) blood-glucose meter kit See Dose Instructions .ROUTE .MEDSUPPLY Qty: 1 RF: 0 (DME) lancets Misc See Dose Instructions .ROUTE .MEDSUPPLY Qty: 100 RF: 1 metolazone 2.5 mg tablet See Rx Instructions .ROUTE .COMPLEX Qty: 90 RF: 3 lisinopril 20 mg tablet 20 mg PO QDAY Qty: 90 RF: 3 furosemide 40 mg tablet 40 mg PO DAILY Qty: 90 RF: 1 glipizide 5 mg tablet See Rx Instructions .ROUTE .COMPLEX Qty: 180 RF: 0 potassium chloride 20 mEq tablet extended release See Rx Instructions .ROUTE .COMPLEX Qty: 90 RF: 3 Disabled Parking Permit See Rx Instructions .Route .COMPLEX Qty: 1 RF: 0 naproxen sodium [Aleve] 220 mg capsule 220 mg PO BID PRN (Reason: Pain (Scale Score 1-3)) RF: 0 timolol maleate 0.25 % Drops 1 % EYE-BOTH DAILY RF: 0 mecobalamin (vitamin B12) 1,000 mcg Tablet,Disintegrating 2,500 mcg PO DAILY RF: 0 magnesium citrate 400 mg PO DAILY RF: 0 Referrals: Galilea Johnson DO [Primary Care Provider] -
[2020-12-06] MEDS: TIZANIDINE 4 MG TABLET PO (02:10)
[2020-12-06] MEDS: TRIMETH/SULFA 160/800 (DS) TABLET 1 TAB PO (02:10)
[2020-12-06 02:33] VITALS: BP 136/65; PULSE 72; RESP 20; O2SAT 96
== END 2020-12-06 02:34 | disposition home or self-care (01) ==
PROVIDERS: Emergency Provider Emergency Medicine; Family Provider Family Medicine; PCP Family Medicine
DX: N30.00 Acute cystitis without hematuria (principal); M62.830 Muscle spasm of back
CPT/HCPCS: 81003; 81015; 99283

== ENCOUNTER → 2021-02-27 14:54 | Outpatient (CLI) | payer OTHER, SELFPAY ==
[2021-02-27 16:40] LABS: Alanine Aminotransferase 53 IU/L (<35); Albumin 4.3 g/dL (3.5-5.0); Albumin Globulin Ratio 1.3 (1.0-2.8); Alkaline Phosphatase 82 U/L (38-126); Aspartate Aminotransferase 36 IU/L (14-36); BUN Creatinine Ratio 23.3 (6-22); Bilirubin Total 0.4 mg/dL (0.2-1.3); Blood Urea Nitrogen 17 mg/dL (7-17); Carbon Dioxide 31 mmol/L (22-32); Chloride 103 mmol/L (98-107); Estimated Glomerular Filt Rate > 60.0 mL/min (>60); Globulin 3.2 g/dL (1.7-4.1); Glucose 112 mg/dL (80-110); HEMOLYSIS < 15 (0-50); Potassium 4.7 mmol/L (3.4-5.1); Sodium 138 mmol/L (137-145); Total Protein 7.5 g/dL (6.3-8.2)
[2021-02-27 16:50] LABS: Creatinine Urine Random 62.7 mg/dL
[2021-02-27 16:56] LABS: Microalbumin Urine Random < 0.6 mg/dL (0-1.6)
[2021-02-27 17:10] LABS: Hemoglobin A1C% w Est Avg Glu 7.7 % (4.0-6.0)
== END ==
PROVIDERS: Family Provider Family Medicine; PCP Family Medicine; Referring Provider Family Medicine; Visit Provider Family Medicine
DX: E11.9 Type 2 diabetes mellitus without complications (principal)
CPT/HCPCS: 36415; 80053; 82043; 82570; 83036

== ENCOUNTER → 2021-04-06 09:55 | Outpatient (CLI) | payer MEDICARE, OTHER, SELFPAY ==
--- NOTE | 2021-04-06 | DI.MG.S_ITS ---
BILATERAL DIGITAL SCREENING MAMMOGRAM 3D/2D WITH CAD: 04/06/2021 CLINICAL: Routine screening. Comparison is made to exams dated: 02/04/2020 mammogram, 01/22/2019 mammogram, and 12/26/2017 mammogram - [facility]. There are scattered fibroglandular elements in both breasts. Current study was also evaluated with a Computer Aided Detection (CAD) system. There are benign calcifications in both breasts. No significant masses, calcifications, or other findings are seen in either breast. There has been no significant interval change. IMPRESSION: BENIGN There is no mammographic evidence of malignancy. A 1 year screening mammogram is recommended. This exam was interpreted at Station ID: [id number]. NOTE: For mammograms, a report in lay terms will be sent to the patient. Approximately 15% of breast malignancies will not be visualized mammographically. In the management of a palpable breast mass, a negative mammogram must not discourage biopsy of a clinically suspicious lesion. Electronically Signed By: Patricio Salomon acr/penrad:04/07/2021 08:42:16 letter sent: Normal Exam ACR BI-RADS Category 2: Benign Finding(s) 3342F
== END ==
PROVIDERS: Family Provider Family Medicine; PCP Family Medicine; Referring Provider Family Medicine; Visit Provider Family Medicine
DX: Z12.31 Encounter for screening mammogram for malignant neoplasm of breast (principal)
CPT/HCPCS: 77063; 77067

== ENCOUNTER 2021-05-16 18:25 | Observation (INO) | payer OTHER, SELFPAY ==
[2021-05-16] VITALS (29 sets, daily range): BP systolic 82–143; BP diastolic 47–101; PULSE 67–94; RESP 13–26; TEMP 36.4–36.8; O2SAT 94–97; BMI 59.3
--- NOTE | 2021-05-16 18:48 | ED.SKABFB ---
HPI - Skin/Abscess/Foreign Bdy General Chief complaint: Wound/Laceration Stated complaint: Open sore, Infection buttocks Time Seen by Provider: 05/16/21 18:29 Source: patient and family Mode of arrival: Wheelchair Limitations: no limitations History of Present Illness HPI narrative: Patient is a 66-year-old, with multiple cor morbidities including diabetes, chronic venous stasis, morbid obesity, frequent UTIs, hypertension presenting today with pressure sore on right buttock. She says she sits in a recliner frequently she tries to change position. She is able to ambulate with a walker at times pain gets to the restroom. As she has not had any fever or chills. However she is having increasing pain on her right buttock on she has an open sore. His she has not want it to get infected and wanted to be checked out. She does not have home health but does have help at home. She denies any painful or frequent urination. Related Data Home Medications Medication Instructions Recorded Confirmed multivitamin (Multiple Vitamins) 1 tab PO QDAY #0 02/21/17 05/16/21 magnesium citrate 400 mg PO DAILY 10/06/17 05/16/21 naproxen sodium 220 mg capsule 220 mg PO BID PRN 10/06/18 05/16/21 (Aleve) mecobalamin (vitamin B12) 1,000 2,500 mcg PO DAILY 01/27/19 05/16/21 mcg disintegrating tablet,sublingual timolol maleate 0.25 % eye drops 1 % EYE-BOTH DAILY 01/27/19 05/16/21 L'Arginine 3 tab PO DAILY 10/03/20 05/16/21 ltgsgto-suppickam-uztx 333 mg-133 1 tab PO DAILY tab 10/03/20 05/16/21 mg-8.3 mg tablet flaxseed oil 1,000 mg capsule 1,000 mg PO DAILY 10/03/20 05/16/21 garlic 1,000 mg capsule 1,000 mg PO QPC 10/03/20 05/16/21 [id number]-F-cxalm-ytsz-xte [Joint 1 cap PO TIDWMEAL 10/03/20 05/16/21 Support Complex] multivit bhb-zovf-RB-herb 186 1 tab PO DAILY 10/03/20 05/16/21 [Hair, Skin and Nails Advanced] omega-3 fatty acids 1,000 mg 2,000 mg PO DAILY 10/03/20 05/16/21 capsule Previous Rx's Medication Instructions Recorded Lactobacillus acidophilus 1 tab PO QDAY #10 tab 03/31/16 Disabled Parking Permit See Rx Instructions .ROUTE 10/14/17 .COMPLEX #1 each blood sugar diagnostic (Blood #100 each 10/25/17 Glucose Test) blood-glucose meter #1 each 10/25/17 lancets #100 each 03/28/19 metolazone 2.5 mg tablet See Rx Instructions .ROUTE 03/24/20 .COMPLEX #90 tab lisinopril 20 mg tablet 20 mg PO QDAY #90 tab 05/06/20 potassium chloride 20 mEq See Rx Instructions .ROUTE 09/22/20 tablet,extended release .COMPLEX #90 tab omeprazole 20 mg capsule,delayed 20 mg PO DAILY #30 cap 11/03/20 release tizanidine 4 mg capsule (Zanaflex) 4 mg PO Q6-8H PRN #20 cap 12/06/20 glipizide 5 mg tablet See Rx Instructions .ROUTE 03/06/21 .COMPLEX #270 tab furosemide 40 mg tablet 40 mg PO DAILY #90 tab 04/21/21 Allergies Allergy/AdvReac Type Severity Reaction Status Date / Time ibuprofen AdvReac causes Verified 05/16/21 18:40 bleeding Review of Systems Review of Systems Narrative: GENERAL: Denies chills, fatigue, malaise, fever, sweats, travel HEENT: Denies sinus pain, ear pain, sore throat, difficulty swallowing, neck pain RESPIRATORY: Denies dyspnea, cough, wheezing, hemoptysis, sputum. CARDIOVASCULAR: Denies chest pain, palpitations, orthopnea, edema GASTROINTESTINAL: Denies nausea, vomiting, abdominal pain, diarrhea, constipation, melena. : Denies dysuria, frequency, incontinence, hematuria, urinary retention, flank pain. MUSCULOSKELETAL: Denies weakness, joint pain, or bony pain SKIN: See HPI NEUROLOGIC: Denies weakness, dizziness, headache, numbness, change in speech, confusion PSYCHIATRIC: No concerning psychosocial issues. 12 point review of systems is negative except for those stated above and HPI Patient History Medical History (Updated 05/17/21 @ 00:55 by Kimberly Flaherty DO) Chronic venous stasis dermatitis (05/18/16) Dependent edema Diabetic neuropathy Essential hypertension (03/15/16) Frequent UTI Hemorrhoids (11/15/16) History of chickenpox (1964) History of [place] measles (~1964) History of measles (~1962) History of mumps (8) Morbid obesity with body mass index (BMI) of 60.0 to 69.9 in adult (04/14/16) Osteoarthritis of lumbar spine Tubular adenoma of colon (08/27/16) Type 2 diabetes mellitus without complication, without long-term current use of insulin (04/14/16) Visual field defect of left eye (12/15/16) Surgical History Anesthesia S/P total abdominal hysterectomy and bilateral salpingo-oophorectomy (12/2009) Status post hernia repair (12/2010) Status post knee surgery (10/2009) Status post knee surgery (11/2009) Family History Brother Age: 79 Glaucoma Mother Diabetes mellitus Heart disease CAD (coronary artery disease) Father No problems noted. Sister Cancer Lung cancer Liver cancer Colon cancer Sister No problems noted. Sister No problems noted. Sister No problems noted. Daughter No problems noted. Father No problems noted. Social History marital status: household members: family Smoking Status: Never smoker alcohol intake: current substance use type: does not use Smoking Status: Never smoker alcohol intake frequency: 0-2 drinks per day Alcohol type: wine Substance Use Type: does not use Exam Initial Vital Signs Initial Vital Signs: Vital Signs Temperature 98.3 F 05/16/21 18:30 Pulse Rate 80 05/16/21 18:30 Respiratory Rate 18 05/16/21 18:30 Blood Pressure 136/101 H 05/16/21 18:30 Pulse Oximetry 96 05/16/21 18:30 GENERAL: Very pleasant well-appearing 66-year-old female, BMI 59 HEENT: Head atraumatic,EOMI, pupils reactive, face symmetric, moist mucous membranes CARDIOVASCULAR: Regular rate and rhythm without murmurs, rubs or gallops. RESPIRATORY: Breath sounds equal bilaterally, no wheezes rales or rhonchi. ABDOMEN: Soft, nontender. Normoactive bowel sounds all 4 quadrants. No guarding or rebound. EXTREMITIES: Normal range of motion, no clubbing or edema. Neurovascularly intact NEUROLOGICAL: Alert and oriented x4.Normal gait and speech. SKIN: Right buttock cough sore is 1 cm x 2 cm not draining no surrounding erythema no gross smell, Scores HEART Score Heart Score history: Moderately Suspicious Heart Score EKG: Normal Heart Score Age: > or = 65 years old Heart Score risk factors: > 3 risk factors or hx of atherosclerotic disease Heart Score troponin: < or = to normal limit Heart Score Total: 5 Course Orders Ordered: ED Orders 05/16/21 18:55 CBC Auto Diff [Complete Blood Count AUTO DIFF] Stat CMP [Comprehensive Metabolic Panel] Stat Troponin & CK Cardiac Panel Stat 05/16/21 19:00 UA Complete [Urinalysis and Microscopic] Stat 05/16/21 19:20 Wound Culture and Gram Stain Stat 05/16/21 19:45 Chest [XR chest 1V] Stat 05/16/21 21:25 Trop I [Troponin I] Stat 05/16/21 22:35 COVID19 -Nasal swab/Pre-Proc Stat Nitroglycerin (Nitroglycerin 0.4 Mg Sl Tab) 0.4 mg SL [id number] PRN PRN Reason: Chest Pain Last Admin: 05/16/21 20:25 Dose: 0.4 mg Documented by: CLARKE Discontinued Medications Acetaminophen (Acetaminophen 325 Mg Tablet) 975 mg PO NOW ONE Stop: 05/16/21 21:08 Last Admin: 05/16/21 21:13 Dose: 975 mg Documented by: CLARKE Aspirin (Aspirin 81 Mg Chew Tab) 324 mg PO NOW ONE Stop: 05/16/21 20:21 Last Admin: 05/16/21 20:25 Dose: 324 mg Documented by: CLARKE Al Hydrox/Mg Hydrox/Simethicone 20 ml/ Lidocaine HCl 15 ml 0 ml PO NOW ONE Stop: 05/16/21 21:08 Last Admin: 05/16/21 21:15 Dose: 35 ml Documented by: CLARKE Vital Signs Vital signs: Vital Signs - 8 hr 05/16/21 18:30 05/16/21 19:51 05/16/21 19:57 Temperature 98.3 F Pulse Rate 80 76 75 Respiratory Rate 18 21 Blood Pressure 136/101 H 141/72 H 125/61 Pulse Oximetry 96 96 96 05/16/21 20:00 05/16/21 20:25 05/16/21 20:30 Temperature Pulse Rate 77 72 78 Respiratory Rate 21 20 Blood Pressure 143/72 H 143/72 H Pulse Oximetry 95 95 05/16/21 20:31 05/16/21 20:35 05/16/21 20:41 Temperature Pulse Rate 91 H 94 H 78 Respiratory Rate 23 17 Blood Pressure 82/49 L 116/59 L 103/51 L Pulse Oximetry 95 95 95 05/16/21 20:46 05/16/21 20:50 05/16/21 20:55 Temperature Pulse Rate 74 73 72 Respiratory Rate 17 14 13 Blood Pressure 95/51 L 99/55 L 92/47 L Pulse Oximetry 95 94 96 05/16/21 21:00 05/16/21 21:05 05/16/21 21:10 Temperature Pulse Rate 71 71 69 Respiratory Rate 18 14 14 Blood Pressure 95/54 L 96/49 L 99/52 L Pulse Oximetry 97 94 95 05/16/21 21:15 05/16/21 21:26 05/16/21 21:30 Temperature Pulse Rate 69 72 67 Respiratory Rate 18 26 H 18 Blood Pressure 103/56 L 105/58 L 96/52 L Pulse Oximetry 96 96 05/16/21 21:40 05/16/21 21:50 05/16/21 22:00 Temperature Pulse Rate 67 69 67 Respiratory Rate 22 23 14 Blood Pressure 100/56 L 96/50 L 95/55 L Pulse Oximetry 97 96 94 05/16/21 22:10 05/16/21 22:20 05/16/21 22:30 Temperature Pulse Rate 68 69 78 Respiratory Rate 20 18 Blood Pressure 100/56 L 118/56 L 99/55 L Pulse Oximetry 97 95 96 05/16/21 22:59 05/16/21 23:00 05/16/21 23:10 Temperature Pulse Rate 76 78 70 Respiratory Rate 16 17 15 Blood Pressure 126/67 120/65 112/56 L Pulse Oximetry 96 95 95 MDM - Skin/Abscess/Foreign Bdy Lab Data Result diagrams: 05/16/21 18:55 05/16/21 18:55 Labs: Lab Results 05/16/21 05/16/21 05/16/21 Range/Units 18:55 18:55 18:55 WBC 11.0 (4.5-11.0) X10^3/uL RBC 5.34 H (4.0-5.2) X10^6/uL Hgb 14.4 (12.0-16.0) g/dL Hct 44.4 (36-46) % MCV 83.1 (80-100) fL MCH 26.9 (26-34) PG MCHC 32.4 (30-36) % RDW 19.0 H (11.6-14.8) % Plt Count 279 (150-400) X10^3/uL Neut % (Auto) 70.9 (50-75) % Lymph % (Auto) 19.0 L (25-40) % [place] % (Auto) 9.1 (3-14) % Eos % (Auto) 0.1 L (2-4) % Baso % (Auto) 0.9 (0-2) % Neut # (Auto) 7800 H (9496-2629) /uL Lymph # (Auto) 2100 (0296-5362) /uL [place] # (Auto) 1000 H (0-900) /uL Eos # (Auto) 0 (0-450) /uL Baso # (Auto) 100 (0-100) /uL Sodium 134 L (137-145) mmol/L Potassium 4.0 (3.4-5.1) mmol/L Chloride 96 L (98-107) mmol/L Carbon Dioxide 32 (22-32) mmol/L BUN 24 H (7-17) mg/dL Creatinine 0.63 (0.52-1.04) mg/dL Estimated GFR > 60.0 (>60) mL/min BUN/Creatinine Ratio 38.1 H (6-22) Glucose 132 H (80-110) mg/dL Calcium 10.2 (8.4-10.2) mg/dL Total Bilirubin 0.5 (0.2-1.3) mg/dL AST 40 H (14-36) IU/L ALT 52 H (<35) IU/L Alkaline Phosphatase 84 (38-126) U/L Total Creatine Kinase 67 (30-135) U/L CK-MB (CK-2) TNP CK-MB (CK-2) Rel Index TNP Troponin I < 0.012 (0.01-0.034) ng/mL Total Protein 8.1 (6.3-8.2) g/dL Albumin 4.6 (3.5-5.0) g/dL Globulin 3.5 (1.7-4.1) g/dL Albumin/Globulin Ratio 1.3 (1.0-2.8) Urine Color Urine Appearance Urine pH (4.5-8.0) Ur Specific [place] (1.000-1.035) Urine Protein (Negative) Urine Glucose (UA) (Negative) g/dL Urine Ketones (NEGATIVE) Urine Occult Blood (Negative) Urine Nitrate (Negative) Urine Bilirubin (NEGATIVE) Urine Urobilinogen (0.2) E.U./dL Ur Leukocyte Esterase (NEGATIVE) Urine RBC (0-5/HPF) Urine WBC (0-5/HPF) Ur Squamous Epith Cells (0-5/HPF) Urine Bacteria (None) Ur Culture Indicated? SARS-CoV-2 (PCR) (Negative) 05/16/21 05/16/21 05/16/21 Range/Units 19:00 21:25 22:35 WBC (4.5-11.0) X10^3/uL RBC (4.0-5.2) X10^6/uL Hgb (12.0-16.0) g/dL Hct (36-46) % MCV (80-100) fL MCH (26-34) PG MCHC (30-36) % RDW (11.6-14.8) % Plt Count (150-400) X10^3/uL Neut % (Auto) (50-75) % Lymph % (Auto) (25-40) % [place] % (Auto) (3-14) % Eos % (Auto) (2-4) % Baso % (Auto) (0-2) % Neut # (Auto) (8415-2398) /uL Lymph # (Auto) (0263-6962) /uL [place] # (Auto) (0-900) /uL Eos # (Auto) (0-450) /uL Baso # (Auto) (0-100) /uL Sodium (137-145) mmol/L Potassium (3.4-5.1) mmol/L Chloride (98-107) mmol/L Carbon Dioxide (22-32) mmol/L BUN (7-17) mg/dL Creatinine (0.52-1.04) mg/dL Estimated GFR (>60) mL/min BUN/Creatinine Ratio (6-22) Glucose (80-110) mg/dL Calcium (8.4-10.2) mg/dL Total Bilirubin (0.2-1.3) mg/dL AST (14-36) IU/L ALT (<35) IU/L Alkaline Phosphatase (38-126) U/L Total Creatine Kinase (30-135) U/L CK-MB (CK-2) CK-MB (CK-2) Rel Index Troponin I < 0.012 (0.01-0.034) ng/mL Total Protein (6.3-8.2) g/dL Albumin (3.5-5.0) g/dL Globulin (1.7-4.1) g/dL Albumin/Globulin Ratio (1.0-2.8) Urine Color Yellow Urine Appearance Clear Urine pH 7.0 (4.5-8.0) Ur Specific [place] 1.010 (1.000-1.035) Urine Protein Negative (Negative) Urine Glucose (UA) Negative (Negative) g/dL Urine Ketones Negative (NEGATIVE) Urine Occult Blood Negative (Negative) Urine Nitrate Negative (Negative) Urine Bilirubin Negative (NEGATIVE) Urine Urobilinogen 0.2 (0.2) E.U./dL Ur Leukocyte Esterase Negative (NEGATIVE) Urine RBC 0-1/hpf (0-5/HPF) Urine WBC 0-1/hpf (0-5/HPF) Ur Squamous Epith Cells 10-30 /hpf H (0-5/HPF) Urine Bacteria Few (2-10) H (None) Ur Culture Indicated? Cult not indicated SARS-CoV-2 (PCR) Negative (Negative) Imaging Data Chest x-ray: Radiologist's Impression: PROCEDURE:? XR CHEST 1V ? INDICATIONS:? chest pain ? TECHNIQUE:? One view of the chest was acquired.? ? COMPARISON:? [facility], XR CHEST 1V, 09/27/2020, 20:48.? [facility], , XR CHEST 1V, 10/05/2017, 23:33. ? FINDINGS:? ? Surgical changes and devices:? None.? ? Lungs and pleura:? Lungs are clear.? No pleural effusions or pneumothorax.? ? Mediastinum:? Mediastinal contours appear normal.? Heart size is normal.? ? Bones and chest wall:? No suspicious bony lesions.? Overlying soft tissues appear unremarkable.? ? IMPRESSION:? Normal for age, source of current chest pain symptoms is not seen. ? ? Dictated by: Rober Ibarra M.D. on 05/16/2021 at 20:01 ? ? ECG Data Interpretation: Normal sinus rhythm rate 74 DE interval 90 QRS [address] changes no T-wave inversions similar to previous EKG 09/27/2020 EKG 2. Sinus rhythm rate [address] changes similar to prior MDM Narrative Medical decision making narrative: At this times patient blood work is overall reassuring she is not febrile she has no leukocytosis. Wound is a pressure sore we talked about unloading pressure and how to do so. At this time a barrier has been placed I recommend monitoring. Will send her a referral for wound care. She needs to have somebody look at this and monitor it daily or every other day if culture is positive will call for antibiotics but at this time I do not see need for immediate antibiotics. Getting ready for discharge for patient, started having squeezing chest discomfort. Never had anything like this before lasting for the last 15 minutes. She describes it as sharp. No shortness of breath. No prior history of coronary artery disease. He is given nitroglycerin which decreases her blood pressure significantly. She is also given Toradol and a GI cocktail which ultimately resolved her pain. He has 2- troponins normal EKGs but multiple risk factors for coronary artery disease. Aleksandra Diallo accepts patient for chest pain observation Discharge Plan Departure Patient Disposition: Admitted as Observation Clinical Impression: Chest pain, Pressure ulcer Admit Date/Time: 05/16/21 23:13 Admit Provider: Irlanda Diallo
[2021-05-16 19:03] LABS: Add Manual Diff / Slide Review NO; Basophils Absolute Auto 100 /uL (0-100); Basophils Percent Auto 0.9 % (0-2); Eosinophils Absolute Auto 0 /uL (0-450); Eosinophils Percent Auto 0.1 % (2-4); Hematocrit 44.4 % (36-46); Hemoglobin 14.4 g/dL (12.0-16.0); Lymphocytes Absolute Auto 2100 /uL (1100-4500); Mean Corpuscular HGB Conc 32.4 % (30-36); Mean Corpuscular Hemoglobin 26.9 PG (26-34); Mean Corpuscular Volume 83.1 fL (80-100); Monocytes Absolute Auto 1000 /uL (0-900); Monocytes Percent Auto 9.1 % (3-14); Neutrophils Absolute Auto 7800 /uL (1500-7000); Neutrophils Percent Auto 70.9 % (50-75); Platelet Count 279 X10^3/uL (150-400); Red Blood Cell Count 5.34 X10^6/uL (4.0-5.2)
[2021-05-16 19:14] LABS: Alanine Aminotransferase 52 IU/L (<35); Albumin 4.6 g/dL (3.5-5.0); Albumin Globulin Ratio 1.3 (1.0-2.8); Alkaline Phosphatase 84 U/L (38-126); Aspartate Aminotransferase 40 IU/L (14-36); BUN Creatinine Ratio 38.1 (6-22); Bilirubin Total 0.5 mg/dL (0.2-1.3); Blood Urea Nitrogen 24 mg/dL (7-17); Calcium 10.2 mg/dL (8.4-10.2); Carbon Dioxide 32 mmol/L (22-32); Chloride 96 mmol/L (98-107); Estimated Glomerular Filt Rate > 60.0 mL/min (>60); Globulin 3.5 g/dL (1.7-4.1); Glucose 132 mg/dL (80-110); HEMOLYSIS < 15 (0-50); Sodium 134 mmol/L (137-145); Total Protein 8.1 g/dL (6.3-8.2)
[2021-05-16 19:15] LABS: Appearance Urine UA CLEAR; Bilirubin Urine UA NEGATIVE (NEGATIVE); Color Urine UA YELLOW; Glucose Urine UA NEGATIVE (Negative); Ketones Urine UA NEGATIVE (NEGATIVE); Leukocyte Esterase Urine UA NEGATIVE (NEGATIVE); Nitrite Urine UA NEGATIVE (Negative); Occult Blood Urine UA NEGATIVE (Negative); Protein Urine UA NEGATIVE (Negative); Urobilinogen Urine UA 0.2 E.U./dL (0.2)
[2021-05-16 19:24] LABS: Bacteria Urine Few (2-10); Culture Indicated Urine Cult Not Indicated; RBC Urine 0-1/HPF (0-5/HPF); Squamous Epithelial Cell Urine 10-30 /HPF (0-5/HPF); WBC Urine 0-1/HPF (0-5/HPF)
--- NOTE | 2021-05-16 19:26 | PC.NURSE ---
stage 2 pressure injury noted on right buttock
--- NOTE | 2021-05-16 19:45 | DI.RAD.S_ITS ---
PROCEDURE: XR CHEST 1V INDICATIONS: chest pain TECHNIQUE: One view of the chest was acquired. COMPARISON: [facility], CR, XR CHEST 1V, 09/27/2020, 20:48. [facility], CR, XR CHEST 1V, 10/05/2017, 23:33. FINDINGS: Surgical changes and devices: None. Lungs and pleura: Lungs are clear. No pleural effusions or pneumothorax. Mediastinum: Mediastinal contours appear normal. Heart size is normal. Bones and chest wall: No suspicious bony lesions. Overlying soft tissues appear unremarkable. IMPRESSION: Normal for age, source of current chest pain symptoms is not seen. Dictated by: Rober Ibarra M.D. on 05/16/2021 at 20:01 Approved by: Rober Ibarra M.D. on 05/16/2021 at 20:01
[2021-05-16] MEDS: NITROGLYCERIN 0.4 MG SL TAB SL (20:25)
[2021-05-16] MEDS: ASPIRIN 81 MG CHEW TAB 324 MG PO (20:25)
[2021-05-16 20:54] LABS: Creatine Kinase 67 U/L (30-135)
[2021-05-16 21:07] LABS: Troponin I < 0.012 ng/mL (0.01-0.034)
[2021-05-16] MEDS: ACETAMINOPHEN 325 MG TABLET 975 MG PO (21:13)
[2021-05-16] MEDS: MAG HYDROX/ALUMINUM/SIMETH SUS 20 ML, LIDOCAINE VISCOUS 2% 15 ML PO (21:15)
[2021-05-16 22:04] LABS: Troponin I < 0.012 ng/mL (0.01-0.034)
[2021-05-16 22:59] LABS: COVID19 -Nasal RAPID Negative (Negative)
[2021-05-17] VITALS (9 sets, daily range): BP systolic 113–126; BP diastolic 57–59; PULSE 71–76; RESP 12–27; TEMP 36.5–36.9; O2SAT 93–98
--- NOTE | 2021-05-17 00:16 | PC.ADMIT ---
Addendum entered by Jovanny Pickering R.N. 05/17/21 05:45: Measurements obtained and charted. Original Note: [address] Admission Note: Admitted from ED via wheelchair. Two person stand/pivot to bed. Stage II pressure injury on right buttocks covered with Allevyns dressing, unable to record accurate size measurements at time of admission due to patient pain during log roll. No chest pain reported. Patient resting comfortably. Awaiting provider orders. The patient,Tor Melendez,66 y/o, was given written information regarding hospital policies, unit procedures and contact persons. Patient's smoking status: Never smoker. Vital Signs - 8 hr 05/16/21 18:30 05/16/21 19:51 05/16/21 19:57 Temperature 98.3 F Pulse Rate 80 76 75 Respiratory Rate 18 21 Blood Pressure 136/101 H 141/72 H 125/61 Pulse Oximetry 96 96 96 05/16/21 20:00 05/16/21 20:25 05/16/21 20:30 Temperature Pulse Rate 77 72 78 Respiratory Rate 21 20 Blood Pressure 143/72 H 143/72 H Pulse Oximetry 95 95 05/16/21 20:31 05/16/21 20:35 05/16/21 20:41 Temperature Pulse Rate 91 H 94 H 78 Respiratory Rate 23 17 Blood Pressure 82/49 L 116/59 L 103/51 L Pulse Oximetry 95 95 95 05/16/21 20:46 05/16/21 20:50 05/16/21 20:55 Temperature Pulse Rate 74 73 72 Respiratory Rate 17 14 13 Blood Pressure 95/51 L 99/55 L 92/47 L Pulse Oximetry 95 94 96 05/16/21 21:00 05/16/21 21:05 05/16/21 21:10 Temperature Pulse Rate 71 71 69 Respiratory Rate 18 14 14 Blood Pressure 95/54 L 96/49 L 99/52 L Pulse Oximetry 97 94 95 05/16/21 21:15 05/16/21 21:26 05/16/21 21:30 Temperature Pulse Rate 69 72 67 Respiratory Rate 18 26 H 18 Blood Pressure 103/56 L 105/58 L 96/52 L Pulse Oximetry 96 96 05/16/21 21:40 05/16/21 21:50 05/16/21 22:00 Temperature Pulse Rate 67 69 67 Respiratory Rate 22 23 14 Blood Pressure 100/56 L 96/50 L 95/55 L Pulse Oximetry 97 96 94 05/16/21 22:10 05/16/21 22:20 05/16/21 22:30 Temperature Pulse Rate 68 69 78 Respiratory Rate 20 18 Blood Pressure 100/56 L 118/56 L 99/55 L Pulse Oximetry 97 95 96 05/16/21 22:59 05/16/21 23:00 05/16/21 23:10 Temperature Pulse Rate 76 78 70 Respiratory Rate 16 17 15 Blood Pressure 126/67 120/65 112/56 L Pulse Oximetry 96 95 95 05/16/21 23:20 Temperature Pulse Rate 68 Respiratory Rate 13 Blood Pressure 108/56 L Pulse Oximetry 95
--- NOTE | 2021-05-17 01:19 | P.HP_ITS ---
History of Present Illness History of Present Illness Date Patient Seen: 05/17/21 Time Patient Seen: 01:19 Chief complaint: Open sore, Infection buttocks Narrative: Tor Melendez is a 66 y.o. female with multiple medical problems including morbid obesity, diabetes, chronic venous stasis, frequent urinary tract infections, and hypertension was seen in the emergency department today for a pressure ulcer on her right buttock. Her visit was uneventful after having had wound care performed and as she was getting ready to discharge, she developed chest pain which apparently lasted for 15 minutes. She describes her pain as a fluttering, then pain/pressure, then pain in a up and down pattern from the bottom of her neck down her sternum. She did have some nausea last week, she denies any vomiting, dysuria, shortness of breath, abdominal pain, and she fluctuates between having diarrhea and constipation which is chronic. She has peripheral neuropathy of both her hands and feet, feet are worse than hands and she is unable to feel anything on the bottom of her feet at all. Chest x-ray was negative for any acute cardiopulmonary process or pneumonia, EKG within normal limits. She is afebrile, blood pressure 124/57, heart rate 75, oxygen saturation of 94% on room air, she weighs 162 kg with a BMI of 59.3. CBC is unremarkable platelet count is with 279, sodium 134, chloride 96, BUN 24, glucose 132, AST is 40 ALT 52, rest of her BMP is within normal limits, UA indicates infection not present, and COVID-19 PCR is negative. Patient History Medical History (Updated 05/17/21 @ 00:55 by Kimberly Flaherty DO) Chronic venous stasis dermatitis (05/18/16) Dependent edema Diabetic neuropathy Essential hypertension (03/15/16) Frequent UTI Hemorrhoids (11/15/16) History of chickenpox (1964) History of Spanish measles (~1964) History of measles (~1962) History of mumps (1957) Morbid obesity with body mass index (BMI) of 60.0 to 69.9 in adult (04/14/16) Osteoarthritis of lumbar spine Tubular adenoma of colon (08/27/16) Type 2 diabetes mellitus without complication, without long-term current use of insulin (04/14/16) Visual field defect of left eye (12/15/16) Surgical History Anesthesia S/P total abdominal hysterectomy and bilateral salpingo-oophorectomy (12/2009) Status post hernia repair (12/2010) Status post knee surgery (10/2009) Status post knee surgery (11/2009) Family & Social History Family History Brother Age: 79 Glaucoma Mother Diabetes mellitus Heart disease CAD (coronary artery disease) Father No problems noted. Sister Cancer Lung cancer Liver cancer Colon cancer Sister No problems noted. Sister No problems noted. Sister No problems noted. Daughter No problems noted. Father No problems noted. Social History: household members family Safety & Behavioral: Feels Safe in Current Yes Environment Tobacco & Substance use: Smoking Status Never smoker alcohol intake current alcohol intake frequency 0-2 drinks per day Substance Use Type does not use Meds Home Medications and Allergies Home Medications Medication Instructions Recorded Confirmed Type Lactobacillus acidophilus 1 tab PO QDAY #10 tab 03/31/16 05/16/21 Rx multivitamin (Multiple Vitamins) 1 tab PO QDAY #0 02/21/17 05/16/21 History magnesium citrate 400 mg PO DAILY 10/06/17 05/16/21 History Disabled Parking Permit See Rx Instructions .ROUTE 10/14/17 05/16/21 Rx .COMPLEX #1 each blood sugar diagnostic (Blood #100 each 10/25/17 05/16/21 Rx Glucose Test) blood-glucose meter #1 each 10/25/17 05/16/21 Rx naproxen sodium 220 mg capsule 220 mg PO BID PRN 10/06/18 05/16/21 History (Aleve) mecobalamin (vitamin B12) 1,000 2,500 mcg PO DAILY 01/27/19 05/16/21 History mcg disintegrating tablet,sublingual timolol maleate 0.25 % eye drops 1 % EYE-BOTH DAILY 01/27/19 05/16/21 History lancets #100 each 03/28/19 05/16/21 Rx metolazone 2.5 mg tablet See Rx Instructions .ROUTE 03/24/20 05/16/21 Rx .COMPLEX #90 tab lisinopril 20 mg tablet 20 mg PO QDAY #90 tab 05/06/20 05/16/21 Rx potassium chloride 20 mEq See Rx Instructions .ROUTE 09/22/20 05/16/21 Rx tablet,extended release .COMPLEX #90 tab L'Arginine 3 tab PO DAILY 10/03/20 05/16/21 History swodsac-jckchdxko-gbfk 333 mg-133 1 tab PO DAILY tab 10/03/20 05/16/21 History mg-8.3 mg tablet flaxseed oil 1,000 mg capsule 1,000 mg PO DAILY 10/03/20 05/16/21 History garlic 1,000 mg capsule 1,000 mg PO QPC 10/03/20 05/16/21 History wkoef-mny-W-nxepe-igvt-fif [Joint 1 cap PO TIDWMEAL 10/03/20 05/16/21 History Support Complex] multivit tpw-dqvn-JS-herb 186 1 tab PO DAILY 10/03/20 05/16/21 History [Hair, Skin and Nails Advanced] omega-3 fatty acids 1,000 mg 2,000 mg PO DAILY 10/03/20 05/16/21 History capsule omeprazole 20 mg capsule,delayed 20 mg PO DAILY #30 cap 11/03/20 05/16/21 Rx release tizanidine 4 mg capsule (Zanaflex) 4 mg PO Q6-8H PRN #20 cap 12/06/20 05/16/21 Rx glipizide 5 mg tablet See Rx Instructions .ROUTE 03/06/21 05/16/21 Rx .COMPLEX #270 tab furosemide 40 mg tablet 40 mg PO DAILY #90 tab 04/21/21 05/16/21 Rx Allergies Allergy/AdvReac Type Severity Reaction Status Date / Time ibuprofen AdvReac causes Verified 05/16/21 18:40 bleeding Review of Systems Review of Systems ROS: Yes All systems reviewed with the patient and are negative except as otherwise documented Exam Vital Signs (past 8 hours): - 05/16/21 18:30 05/16/21 19:51 05/16/21 19:57 Temperature 98.3 F Pulse Rate 80 76 75 Respiratory Rate 18 21 Blood Pressure 136/101 H 141/72 H 125/61 Pulse Oximetry 96 96 96 05/16/21 20:00 05/16/21 20:25 05/16/21 20:30 Temperature Pulse Rate 77 72 78 Respiratory Rate 21 20 Blood Pressure 143/72 H 143/72 H Pulse Oximetry 95 95 05/16/21 20:31 05/16/21 20:35 05/16/21 20:41 Temperature Pulse Rate 91 H 94 H 78 Respiratory Rate 23 17 Blood Pressure 82/49 L 116/59 L 103/51 L Pulse Oximetry 95 95 95 05/16/21 20:46 05/16/21 20:50 05/16/21 20:55 Temperature Pulse Rate 74 73 72 Respiratory Rate 17 14 13 Blood Pressure 95/51 L 99/55 L 92/47 L Pulse Oximetry 95 94 96 05/16/21 21:00 05/16/21 21:05 05/16/21 21:10 Temperature Pulse Rate 71 71 69 Respiratory Rate 18 14 14 Blood Pressure 95/54 L 96/49 L 99/52 L Pulse Oximetry 97 94 95 05/16/21 21:15 05/16/21 21:26 05/16/21 21:30 Temperature Pulse Rate 69 72 67 Respiratory Rate 18 26 H 18 Blood Pressure 103/56 L 105/58 L 96/52 L Pulse Oximetry 96 96 05/16/21 21:40 05/16/21 21:50 05/16/21 22:00 Temperature Pulse Rate 67 69 67 Respiratory Rate 22 23 14 Blood Pressure 100/56 L 96/50 L 95/55 L Pulse Oximetry 97 96 94 05/16/21 22:10 05/16/21 22:20 05/16/21 22:30 Temperature Pulse Rate 68 69 78 Respiratory Rate 20 18 Blood Pressure 100/56 L 118/56 L 99/55 L Pulse Oximetry 97 95 96 05/16/21 22:59 05/16/21 23:00 05/16/21 23:10 Temperature Pulse Rate 76 78 70 Respiratory Rate 16 17 15 Blood Pressure 126/67 120/65 112/56 L Pulse Oximetry 96 95 95 05/16/21 23:20 05/16/21 23:35 Temperature 97.6 F Pulse Rate 68 75 Respiratory Rate 13 18 Blood Pressure 108/56 L 124/57 L Pulse Oximetry 95 94 Oxygen Delivery Method Room Air Oxygen Flow Rate 0 Narrative Exam Narrative: Gen: Alert, oriented, morbidly obese 66y.o. female, NAD HEENT: normocephalic, atraumatic, conjunctiva clear, sclera non-icteric, oral mucosa pink and moist Neck: supple, full ROM, no JVD, trachea is midline Resp: Lungs CTA, non-labored breathing CV: RRR, no murmur or rubs Abd: soft, non-tender, normoactive BTs Skin: no lesions or rashes, dry and intact Neuro: Alert and oriented X 4 w/no focal deficits. Speech clear and coherent. Extremities: moves all 4 extremities, is ambulatory, negative Delfina?s sign Psyche: Very pleasant, normal mood and affect. Objective Labs Result Diagrams: 05/16/21 18:55 05/16/21 18:55 Labs: Laboratory Results - last 24 hr 05/16/21 05/16/21 05/16/21 18:55 18:55 18:55 WBC 11.0 RBC 5.34 H Hgb 14.4 Hct 44.4 MCV 83.1 MCH 26.9 MCHC 32.4 RDW 19.0 H Plt Count 279 Neut % (Auto) 70.9 Lymph % (Auto) 19.0 L Kings % (Auto) 9.1 Eos % (Auto) 0.1 L Baso % (Auto) 0.9 Neut # (Auto) 7800 H Lymph # (Auto) 2100 Kings # (Auto) 1000 H Eos # (Auto) 0 Baso # (Auto) 100 Sodium 134 L Potassium 4.0 Chloride 96 L Carbon Dioxide 32 BUN 24 H Creatinine 0.63 Estimated GFR > 60.0 BUN/Creatinine Ratio 38.1 H Glucose 132 H Calcium 10.2 Total Bilirubin 0.5 AST 40 H ALT 52 H Alkaline Phosphatase 84 Total Creatine Kinase 67 CK-MB (CK-2) TNP CK-MB (CK-2) Rel Index TNP Troponin I < 0.012 Total Protein 8.1 Albumin 4.6 Globulin 3.5 Albumin/Globulin Ratio 1.3 Urine Color Urine Appearance Urine pH Ur Specific Hammond Urine Protein Urine Glucose (UA) Urine Ketones Urine Occult Blood Urine Nitrate Urine Bilirubin Urine Urobilinogen Ur Leukocyte Esterase Urine RBC Urine WBC Ur Squamous Epith Cells Urine Bacteria Ur Culture Indicated? SARS-CoV-2 (PCR) 05/16/21 05/16/21 05/16/21 19:00 21:25 22:35 WBC RBC Hgb Hct MCV MCH MCHC RDW Plt Count Neut % (Auto) Lymph % (Auto) Kings % (Auto) Eos % (Auto) Baso % (Auto) Neut # (Auto) Lymph # (Auto) Kings # (Auto) Eos # (Auto) Baso # (Auto) Sodium Potassium Chloride Carbon Dioxide BUN Creatinine Estimated GFR BUN/Creatinine Ratio Glucose Calcium Total Bilirubin AST ALT Alkaline Phosphatase Total Creatine Kinase CK-MB (CK-2) CK-MB (CK-2) Rel Index Troponin I < 0.012 Total Protein Albumin Globulin Albumin/Globulin Ratio Urine Color Yellow Urine Appearance Clear Urine pH 7.0 Ur Specific Hammond 1.010 Urine Protein Negative Urine Glucose (UA) Negative Urine Ketones Negative Urine Occult Blood Negative Urine Nitrate Negative Urine Bilirubin Negative Urine Urobilinogen 0.2 Ur Leukocyte Esterase Negative Urine RBC 0-1/hpf Urine WBC 0-1/hpf Ur Squamous Epith Cells 10-30 /hpf H Urine Bacteria Few (2-10) H Ur Culture Indicated? Cult not indicated SARS-CoV-2 (PCR) Negative Assessment & Plan Assessment & Plan narrative: Tor Melendez is placed into observation further evaluation and workup of chest pain. 1. Chest pain r/o ACS, acute, present on admission ? Echo in am ? Pharmacological stress test ? Start ASA 81 mg ? Received nitro X 1 in the ED ? EKG shows no ischemic changes ? Trend troponin X 1, 1st 2 troponins were normal 2. Essential Hypertension ? Continue lisinopril and likely start a beta-see after her stress test 3. HLD ? Lipid panel, pending ? Start/continue atorvastatin 40 mg po at bedtime 4. Risk stratification ? Fasting lipid panel scheduled for 0500 labs 5. Diabetes type 2 with her past hemoglobin A1c 7.7 in February of this year * A1c pending * Glargine 5 units, Low-dose insulin correctional scale and carb controlled diet VTE Prophylaxis: Wells risk score 0 Enoxaparin 40 mg subQ once daily Bilateral SCDs Patient is placed into observation as her stay is not expected to exceed 2 midnights. Patient is admitted to the inpatient service due to the severity of disease, risks of further disease progression and this stay is expected to exceed 2 midnights. FEN: IV fluids: saline lock, diet: carb controlled, labs: CBC, C/BMP, liver enzymes, Mag, PT/INR Consultants None Dispo: probable discharge to home with outpatient return for pharmacological stress test Code status: Full Code as discussed with the patient who identifies her daughter as her surrogate and POA. [X] I have utilized all available immediate resources to obtain, update, or review of the patient's current medications COVID-19 COVID-19 status: Negative Result date/Date tested (Pos, Neg/Pending): 05/16/21 Time Spent With Patient Critical Care time: I spent a total of [] minutes of critical care time on this patient's care today; this time is exclusive of procedural time. Scores Wells' Criteria for PE Clinical signs and symptoms of DVT: No PE is #1 Dx or equally likely: No Heart rate > 100: No Immobilization at least 3 days or surg in previous 4 weeks: No History of PE or DVT: No Hemoptysis: No Malignancy w/Treatment within 6 months or palliative: No Wells' PE Score total: 0 Quality MIPS - Admit I confirm the patient?s Advance Care Plan is present, Code status is documented, Surrogate decision maker is in patient?s record [If Yes, STOP here]: Yes MIPS - DC The patient has current or prior documentation of left ventricular ejection fraction (LVEF) less than 40%, or moderate or severely depressed left ventricular systolic function.: No
--- NOTE | 2021-05-17 01:27 | DI.NM.S_ITS ---
PROCEDURE: NM ZARIA PERF SPECT R&S PHARM Rest and pharmacological stress myocardial perfusion SPECT with gated imaging and ejection fraction RADIOPHARMACEUTICAL: 24.8 mCi Tc-99m tetrafosmin IV at rest and 25.8 mCi Tc-99m tetrafosmin IV at peak effect of pharmacological stress. Mlp-zdg-fhakwkkp was performed. INDICATIONS: CHEST PAIN TECHNIQUE: Radiopharmaceutical was injected at peak stress test, and also at rest. SPECT images were obtained. SPECT myocardial perfusion images were displayed in short axis, horizontal long axis, and vertical long axis views. Gated images were reviewed using [employer] software. COMPARISON: None. CARDIAC STRESS: A pharmacologic stress test was performed under the supervision of an attending staff, using an infusion of lexiscan 0.4mg IV X1. Hemodynamic data: There is normal blood pressure and heart rate response to pharmacologic stress. Symptoms: The patient denied anginal chest pain. Aminophylline: none EKG: No diagnostic changes of ischemia; no ectopy. FINDINGS: Raw data: There is good myocardial uptake of radiotracer. No significant motion artifacts. Left ventricle function: Gated images at rest demonstrate normal left ventricular wall thickening. No segmental wall motion abnormalities. Left ventricle resting end diastolic volume is 129 mL. Left ventricle stress ejection fraction is 75%; normal range is above 45%. Myocardial perfusion: There is a mildly intense fixed anterior wall defect that is probably breast attenuation artifact as breast shadow seen but old small non-transmural infarction can't be definitively excluded. No ischemia. No prone images done as patient unable to do so. IMPRESSION: Low risk, probably normal pharmaceutical nuclear stress test 1) There is a mildly intense fixed anterior wall defect that is probably breast attenuation artifact as breast shadow seen but old small non-transmural infarction can't be definitively excluded. No ischemia. No prone images done as patient unable to do so. 2) Normal left ventricular size, wall motion, and systolic function at rest. No stress gated images. 3) No ECG evidence of ischemia with lexiscan. 4) No angina during the study. 5) No prior nuclear stress test available for comparison. Dictated by: Natalia Tolbert MD on 05/20/2021 at 13:09 Approved by: Natalia Tolbert MD on 05/20/2021 at 13:13
[2021-05-17 02:26] LABS: Hemoglobin A1C% w Est Avg Glu 7.2 % (4.0-6.0)
[2021-05-17 05:11] LABS: Add Manual Diff / Slide Review NO; Basophils Absolute Auto 0 /uL (0-100); Basophils Percent Auto 0.3 % (0-2); Eosinophils Absolute Auto 0 /uL (0-450); Eosinophils Percent Auto 0.3 % (2-4); Hematocrit 39.4 % (36-46); Hemoglobin 12.9 g/dL (12.0-16.0); Lymphocytes Absolute Auto 2500 /uL (1100-4500); Lymphocytes Percent Auto 27.8 % (25-40); Mean Corpuscular HGB Conc 32.7 % (30-36); Mean Corpuscular Hemoglobin 27.4 PG (26-34); Mean Corpuscular Volume 83.7 fL (80-100); Monocytes Absolute Auto 1000 /uL (0-900); Monocytes Percent Auto 11.4 % (3-14); Neutrophils Absolute Auto 5300 /uL (1500-7000); Neutrophils Percent Auto 60.2 % (50-75); Platelet Count 252 X10^3/uL (150-400); Red Cell Distribution Width 18.9 % (11.6-14.8); White Blood Cell Count 8.8 X10^3/uL (4.5-11.0)
[2021-05-17 05:27] LABS: BUN Creatinine Ratio 38.3 (6-22); Blood Urea Nitrogen 23 mg/dL (7-17); Calcium 9.1 mg/dL (8.4-10.2); Carbon Dioxide 34 mmol/L (22-32); Chloride 99 mmol/L (98-107); Cholesterol 191 mg/dL (140-199); Estimated Glomerular Filt Rate > 60.0 mL/min (>60); Glucose 109 mg/dL (80-110); HDL Cholesterol 42 mg/dL (40-60); HEMOLYSIS < 15 (0-50); LDL Cholesterol Calculated 114 mg/dL (<100); Potassium 3.6 mmol/L (3.4-5.1); Sodium 134 mmol/L (137-145); Triglycerides 175 mg/dL (35-150)
[2021-05-17 05:35] LABS: Troponin I < 0.012 ng/mL (0.01-0.034)
[2021-05-17 05:54] LABS: TSH w/ Reflex to FT4 0.23 uIU/mL (0.47-4.68)
[2021-05-17 07:00] LABS: Free T4, Direct Thyroxine 1.09 ng/dL (0.78-2.19)
[2021-05-17] MEDS: PANTOPRAZOLE DR 20 MG TABLET PO (08:24)
[2021-05-17] MEDS: ASPIRIN EC 81 MG TABLET PO (08:24)
[2021-05-17] MEDS: ACETAMINOPHEN 325 MG TABLET 650 MG PO ×4 (08:25→23:53)
[2021-05-17] MEDS: ENOXAPARIN 40 MG/0.4 ML SYRINGE SUBCUT ×2 (08:25→21:11)
--- NOTE | 2021-05-17 09:00 | DI.ECHO.S_ITS ---
[facility] +---------+ : : [address] : : : : [id number] : : : : Phone: [phone] Echocardiogram Report + + :Name: KHOA DAHL Study Date: 05/17/2021 Height: 65 in : :[facility] ReadingLocation: Weight: 357 lb : : Gender: Female BSA: 2.5 m2 : :: 1955 Age: 66 yrs BP: 119/57 mmHg: :Reason For Study: CHEST PAIN : :Ordering Physician: Dianne FRYformed By: Radha Flaherty : :Referring: KALEY FRY : + + Interpretation Summary Mild concentric LVH. The ejection fraction is estimated to be 60-65%. Diastolic function could not be accurately assessed due to unobtainable data. The right ventricle grossly appears normal in size with probable normal systolic function. Aortic valve sclerosis. Unable to estimate PASP. Compared to the prior study dated 06/19/2018, no significant change. Procedure: A two-dimensional transthoracic echocardiogram with color flow and Doppler was performed. The study quality was technically difficult. A contrast injection of Definity was performed to improve assessment of LV function. Comparison is made with the echocardiogram of 06/19/2018. The patient was in sinus rhythm with heart rates between 71-80 bpm during the exam. Left Ventricle: The left ventricle is normal in size. Left ventricular wall thickness is mildly increased. The ejection fraction is estimated to be 60- 65%. Diastolic function could not be accurately assessed due to unobtainable data. Right Ventricle: The right ventricle is not well visualized. The right ventricle grossly appears normal in size with probable normal systolic function. Atria: The left atrial size is normal. Right atrium not well visualized. There is no Doppler evidence for an interatrial shunt. Mitral Valve: There is mild to moderate mitral annular calcification. The mitral valve leaflets appear mildly thickened, but open well. There is trace mitral regurgitation. Aortic Valve: The aortic valve is slightly calcified. There is moderate aortic valve sclerosis. The aortic valve is trileaflet. There is no aortic valve stenosis. No aortic regurgitation is present. Tricuspid Valve: The tricuspid valve is not well visualized, but is grossly normal. There is trace tricuspid regurgitation. Pulmonary artery pressures cannot be estimated because of the lack of a measurable TR jet velocity but the IVC suggests a CVP of around 3 mmHg. Pulmonic Valve: The pulmonic valve is not well visualized. There is no pulmonic valvular regurgitation. Great Vessels: The aortic root is normal size. The dimensions of the ascending aorta are normal. The IVC is of normal diameter and collapses greater than 50% with a sniff. This suggests a low right atrial pressure of 3 mm Hg. Pericardium/ Pleura There is no pericardial effusion. There is no pleural effusion. MMode/2D Measurements & Calculations LVIDd: 5.3 cm LVOT diam: 2.1 cm LVIDs: 3.4 cm Ao root diam: 3.5 cm FS: 34.9 % asc Aorta Diam: 3.6 cm IVSd: 0.99 cm LVPWd: 1.2 cm LV wallace. diameter/BSA (cm/m^2): 2.1 LV sys. diameter/BSA (cm/m^2): 1.4 LA A2 area: 19.4 cm2 IVC diam: 2.0 cm LA A4 area: 20.0 cm2 LA length (vol): 5.3 cm LA vol: 62.5 ml LA vol index: 24.7 ml/m2 TAPSE: 1.8 cm Doppler Measurements & Calculations Ao V2 max: 182.6 cm/sec LVOT Max Stuart: 116.4 cm/sec Ao V2 mean: 113.4 cm/sec LV V1 max P.4 mmHg Ao max P.3 mmHg LV V1 VTI: 22.1 cm Ao mean P.0 mmHg MARCELINO(I,D): 2.6 cm2 Ao V2 VTI: 29.4 cm MARCELINO(V,D): 2.2 cm2 sev ratio: 0.75 MARCELINO indexed to BSA (cm^2/m^2): 1.0 MV E max stuart: 90.8 cm/sec PA V2 max: 101.7 cm/sec MV A max stuart: 103.0 cm/sec PA V2 mean: 69.9 cm/sec MV E/A: 0.88 PA mean P.2 mmHg Med Peak E' Stuart: 6.8 cm/sec PA pr(Accel): 44.7 mmHg E/E' med: 13.3 Lat Peak E' Stuart: 7.8 cm/sec E/E' lat: 11.7 E/e' average: 12.5 MV dec time: 0.30 sec SV(LVOT): 77.5 ml Reading Physician:02:32 PM
[2021-05-17] MEDS: INSULIN LISPRO 100 UNIT/ML 3ML VIAL SUBCUT ×2 (12:51→17:08)
--- NOTE | 2021-05-17 15:44 | CM.DANOTE ---
DCP/Assessment: Reviewed chart. Patient is a 66yr old female admitted to .. with pressure ulcer on her right buttock. PCP is Dr. Johnson. Primary payor is 1)[employer] 2)Self. Met with patient this AM explained role. Patient alert and oriented, resting in bed at time of visit. Patient reports that she resides alone and uses both her cane and walker daily. Patient hopeful to get home health when she discharges from [facility]. Patient has had [facility] in the past and would like to use them again. Patient has daughter nearby her residence and no longer drives. Patient believes that she has been managing well up to this point. Patient has sister on the [facility] that is expected to move in with he in November. Stress test scheduled for tomorrow, if negative anticipate d/c. Patient would benefit from RN/PT/OT/DIRECT CARE COUNSELOR/INDUCTOR TESTER. Will discuss this with provider in AM and if in agreement will obtain order and get f2f signed. P: Home when stable with home health through [facility] if provider in agreement. CM team agree that HH would be asset to patient at this time. WOLF Discharge Planning/Care Management CM Discharge Assessment Start: 05/17/21 15:39 Freq: Status: Active Protocol: Document 05/17/21 15:39 WOLF (Rec: 05/17/21 15:44 WOLF [id number]) Discharge Planning Assessment Assigned [employer]ding Machine Tender JATINDER Carlin Contact Information Raina Melendez (daughter) # [phone] Advance Directives? Yes: POLST, No DPOA Advance Directives on File Yes History Provided By Patient,Medical Record Household Members none Type of transporation used prior to Relies on Others admit Independent with ADL's Yes Is patient alert and oriented? Yes Caregiver for Another No DME Already Rented / Owned FWW / Walker,Cane Patient/Family Preference Home with Home Health Comment Patient requesting to go home with HH [facility]. Will discuss with provider and obtain order and f2f. Barriers to Discharge No Discharge Plan Home Transportation Arrangement Family Referrals Initiated Home Health,Other Additional Comment Patient would like HH for RN/ PT/OT/DIRECT CARE COUNSELOR/INDUCTOR TESTER If patient plan is home with home health No : Has signed face to face form been completed? Medicare Choice List Provided Yes SNF/HH Preference [facility] Contact Name/Phone Gricelda Whiteboard Updated in Patient Room with Yes name and ext. # of Rodding Machine Tender Review Status In Process Next Review Type Continued Stay Review
[2021-05-17] MEDS: ONDANSETRON 4 MG/2 ML INJ IV (17:05)
[2021-05-17 18:34] LABS: Troponin I < 0.012 ng/mL (0.01-0.034)
[2021-05-17] MEDS: INSULIN GLARGINE 100 UNIT/ML 3ML PEN SUBCUT (21:10)
[2021-05-17] MEDS: SENNOSIDES 8.6 MG TABLET 17.2 MG PO (21:11)
[2021-05-17] MEDS: SODIUM CHLORIDE 0.9% FLUSH 10 ML IV (21:11)
[2021-05-18] VITALS (7 sets, daily range): BP systolic 115–130; BP diastolic 56–66; PULSE 79–90; RESP 15–26; TEMP 36.3–36.9; O2SAT 90–98
[2021-05-18] MEDS: ACETAMINOPHEN 325 MG TABLET 650 MG PO ×3 (05:29→17:18)
[2021-05-18] MEDS: INSULIN LISPRO 100 UNIT/ML 3ML VIAL SUBCUT ×3 (09:13→22:38)
[2021-05-18] MEDS: lisinopriL 20 MG TABLET PO (09:14)
[2021-05-18] MEDS: ASPIRIN EC 81 MG TABLET PO (09:14)
[2021-05-18] MEDS: SODIUM CHLORIDE 0.9% FLUSH 10 ML IV ×2 (09:14→20:26)
[2021-05-18] MEDS: PANTOPRAZOLE DR 20 MG TABLET PO (09:14)
[2021-05-18] MEDS: ENOXAPARIN 40 MG/0.4 ML SYRINGE SUBCUT ×2 (09:15→20:25)
--- NOTE | 2021-05-18 12:59 | PM.PN.1 ---
Subjective Subjective Date Patient Seen: 05/18/21 Time Patient Seen: 08:00 Interval history: She has no chest pain today. She has nausea and possible chest discomfort yesterday. Exam Vital Signs (past 8 hours): - 05/18/21 06:00 05/18/21 10:14 Pulse Oximetry 92 92 Oxygen Delivery Method Room Air Oxygen Flow Rate 0 Narrative Exam Narrative: GEN: no acute distress CV: regular rate and rhythm PULM: clear bilaterally Objective Labs Result Diagrams: 05/17/21 04:48 05/17/21 04:48 Labs: Laboratory Results - last 24 hr 05/17/21 18:00 Troponin I < 0.012 [facility] Medical History (Updated 05/17/21 @ 00:55 by Kimberly Flaherty DO) Chronic venous stasis dermatitis (05/18/16) Dependent edema Diabetic neuropathy Essential hypertension (03/15/16) Frequent UTI Hemorrhoids (11/15/16) History of chickenpox (1964) History of Mongolian measles (~1964) History of measles (~1962) History of mumps (1957) Morbid obesity with body mass index (BMI) of 60.0 to 69.9 in adult (04/14/16) Osteoarthritis of lumbar spine Tubular adenoma of colon (08/27/16) Type 2 diabetes mellitus without complication, without long-term current use of insulin (04/14/16) Visual field defect of left eye (12/15/16) Surgical History Anesthesia S/P total abdominal hysterectomy and bilateral salpingo-oophorectomy (12/2009) Status post hernia repair (12/2010) Status post knee surgery (10/2009) Status post knee surgery (11/2009) Family History Brother Age: 79 Glaucoma Mother Diabetes mellitus Heart disease CAD (coronary artery disease) Father No problems noted. Sister Cancer Lung cancer Liver cancer Colon cancer Sister No problems noted. Sister No problems noted. Sister No problems noted. Daughter No problems noted. Father No problems noted. Social History marital status: household members: none Smoking Status: Never smoker alcohol intake: current substance use type: does not use Assessment & Plan Assessment & Plan narrative: 1. Chest pain r/o ACS, acute, present on admission -continue aspirin -pending ECHO, stress test -EKG with no acute chanes, troponin normal 2. Essential Hypertension - Continue lisinopril 3. HLD -Lipid panel, pending -Start/continue atorvastatin 40 mg po at bedtime 5. Diabetes type 2 with her past hemoglobin A1c 7.7 in February of this year -A1c pending -Glargine 5 units, Low-dose insulin correctional scale and carb controlled diet Time Spent With Patient Critical Care time: I spent a total of [] minutes of critical care time on this patient's care today; this time is exclusive of procedural time.
[2021-05-18] MEDS: TRAMADOL 50 MG TABLET PO ×2 (13:21→21:42)
[2021-05-18] MEDS: INSULIN GLARGINE 100 UNIT/ML 3ML PEN SUBCUT (20:25)
[2021-05-18] MEDS: SENNOSIDES 8.6 MG TABLET 17.2 MG PO (20:26)
[2021-05-19] VITALS (10 sets, daily range): BP systolic 97–127; BP diastolic 46–86; PULSE 73–85; RESP 17–22; TEMP 36.1–37.2; O2SAT 92–97
[2021-05-19] MEDS: ACETAMINOPHEN 325 MG TABLET 650 MG PO ×4 (02:01→17:44)
[2021-05-19] MEDS: TRAMADOL 50 MG TABLET PO ×3 (06:17→21:05)
[2021-05-19] MEDS: ENOXAPARIN 40 MG/0.4 ML SYRINGE SUBCUT ×2 (08:49→20:54)
[2021-05-19] MEDS: ASPIRIN EC 81 MG TABLET PO (08:50)
[2021-05-19] MEDS: lisinopriL 20 MG TABLET PO (08:50)
[2021-05-19] MEDS: PANTOPRAZOLE DR 20 MG TABLET PO (08:50)
[2021-05-19] MEDS: TRIMETH/SULFA 160/800 (DS) TABLET 1 TAB PO ×2 (11:32→20:55)
[2021-05-19] MEDS: SODIUM CHLORIDE 0.9% FLUSH 10 ML IV ×2 (11:33→20:55)
--- NOTE | 2021-05-19 15:42 | CM.DPC ---
Addendum entered by Lidia Pulliam 05/19/21 16:20: Patient will need order for crutches upon d/c. KJS Original Note: DCP/continued: Reviewed chart. Patient moved to room#219. Patient OBS status awaiting a stress test. Patient underwent stress test this afternoon and provider anticipates that she can go home if negative. Met with patient about d/c plan and the need for home health. Patient reports I can't go home today first patient reports that she does not have ride? SETTLEMENT AGENT offered to assist with taxi voucher for home is needed. Patient then states that she does not feel medically ready to d/c. SETTLEMENT AGENT spoke with provider whom states if stress test negative he will discharge. Provider agreeable to HH therefore, placed call to [facility] (patient's request) and orders received for home PT/OT/DURABILITY TECHNICIAN/SETTLEMENT AGENT. [facility] does not anticipate any problem with accepting referral. Faxed clinical plus f2f and order. At this time it is unclear if patient will be discharged today or not. Awaiting stress test results. Patient reports that she will not be ready to d/c until tomorrow. Patient reports that she needs to prepare herself for going home and does not have needed assistance. Patient notified that home health is ordered for her and they are expected to start within the next 24-48hrs. [facility] brochure provided to patient. CM team offered assistance with transport and patient declined. If patient remains hospitalized tonight might be beneficial to have therapy evaluation? Although it seems like she likes to be here and cared for rather than home. Community resources will be provided for patient to consider long-term planning and/or caregivers in the residence. P: Home with [facility] either today or tomorrow. JATINDER Carlin
[2021-05-19] MEDS: INSULIN LISPRO 100 UNIT/ML 3ML VIAL SUBCUT (17:46)
--- NOTE | 2021-05-19 17:55 | PM.PN.1 ---
Subjective Subjective Date Patient Seen: 05/19/21 Time Patient Seen: 08:00 Interval history: She has no chest pain. She underwent stress portion of test today. Exam Vital Signs (past 8 hours): - 05/19/21 10:05 05/19/21 11:00 05/19/21 15:00 Temperature 97.3 F L 97.7 F Pulse Rate 85 75 Respiratory Rate 22 20 Blood Pressure 119/52 L 124/62 Pulse Oximetry 92 92 94 Oxygen Delivery Method Room Air Oxygen Flow Rate 0 Narrative Exam Narrative: GEN: no acute distress CV: regular rate and rhythm PULM: clear bilaterally Objective Labs Result Diagrams: 05/17/21 04:48 05/17/21 04:48 [facility] Medical History (Updated 05/17/21 @ 00:55 by Kimberly Flaherty DO) Chronic venous stasis dermatitis (05/18/16) Dependent edema Diabetic neuropathy Essential hypertension (03/15/16) Frequent UTI Hemorrhoids (11/15/16) History of chickenpox (1964) History of [place]gasque measles (~1964) History of measles (~1962) History of mumps (1957) Morbid obesity with body mass index (BMI) of 60.0 to 69.9 in adult (04/14/16) Osteoarthritis of lumbar spine Tubular adenoma of colon (08/27/16) Type 2 diabetes mellitus without complication, without long-term current use of insulin (04/14/16) Visual field defect of left eye (12/15/16) Surgical History Anesthesia S/P total abdominal hysterectomy and bilateral salpingo-oophorectomy (12/2009) Status post hernia repair (12/2010) Status post knee surgery (10/2009) Status post knee surgery (11/2009) Family History Brother Age: 79 Glaucoma Mother Diabetes mellitus Heart disease CAD (coronary artery disease) Father No problems noted. Sister Cancer Lung cancer Liver cancer Colon cancer Sister No problems noted. Sister No problems noted. Sister No problems noted. Daughter No problems noted. Father No problems noted. Social History marital status: household members: none Smoking Status: Never smoker alcohol intake: current substance use type: does not use Assessment & Plan Assessment & Plan narrative: 1. Chest pain r/o ACS, acute, present on admission -continue aspirin -ECHO with no acute process -stress portion of nuc study done today, resting portion tomorrow -EKG with no acute chanes, troponin normal 2. Essential Hypertension - Continue lisinopril 3. HLD -Lipid panel, pending -Start/continue atorvastatin 40 mg po at bedtime 5. Diabetes type 2 with her past hemoglobin A1c 7.7 in February of this year -A1c pending -Glargine 5 units, Low-dose insulin correctional scale and carb controlled diet Time Spent With Patient Critical Care time: I spent a total of [] minutes of critical care time on this patient's care today; this time is exclusive of procedural time.
--- NOTE | 2021-05-19 19:39 | PC.NURSE ---
Per Dr. Martinez patient has to stay overnight to complete another portion of the stress test. Unclear whether she can eat or drink after midnight, so patient agrees to not have breakfast until clarified with DI nuc med. tomorrow to complete.
[2021-05-19] MEDS: INSULIN GLARGINE 100 UNIT/ML 3ML PEN SUBCUT (20:54)
[2021-05-19] MEDS: SENNOSIDES 8.6 MG TABLET 17.2 MG PO (20:55)
--- NOTE | 2021-05-20 00:36 | PC.NURSE ---
Patient is alert and oriented. Breath sounds diminished but CTA with RA sat of 95%. HRR w/telemetry reading of SR w/BBB. Denied nausea. BT hypoactive and abdomen is soft. Voiding on toilet; denies dysuria. Requires assistance of 2 people to get in/out of bed but once on her feet is able to walk with walker and SBA. Allevyn dressing reapplied to right inner buttock pressure wound; stage 2. Wearing bilateral calf SCD's. Fall risk score is high and bed alarm is activated. Complained of 12/10 back/knee pain earlier but requested only Tramadol be given as usually helps but after 1 hour stated pain still at 9/10 and agreeable to having MD contacted. Yoel CABA, was informed of pain complaint and did order 100mg of Tramadol for 7-10 pain but patient asleep by the time order received so not given any additional pain meds and is currently asleep. NPO for 2nd portion of stress test in the morning.
[2021-05-20 00:47] VITALS: O2SAT 92
[2021-05-20] MEDS: TRAMADOL 50 MG TABLET 100 MG PO ×3 (02:52→13:56)
[2021-05-20] MEDS: ACETAMINOPHEN 325 MG TABLET 650 MG PO ×3 (02:52→17:24)
[2021-05-20 03:00] VITALS: BP 113/60; PULSE 82; RESP 17; TEMP 35.8; O2SAT 92
--- NOTE | 2021-05-20 09:22 | PC.NURSE ---
Pt left unit via w/ staff at 0845.
[2021-05-20] MEDS: INSULIN LISPRO 100 UNIT/ML 3ML VIAL SUBCUT ×3 (09:40→17:18)
[2021-05-20 09:42] VITALS: BP 113/60; PULSE 82
[2021-05-20] MEDS: lisinopriL 20 MG TABLET PO (09:42)
[2021-05-20] MEDS: ASPIRIN EC 81 MG TABLET PO (09:42)
[2021-05-20] MEDS: TRIMETH/SULFA 160/800 (DS) TABLET 1 TAB PO (09:42)
[2021-05-20] MEDS: ENOXAPARIN 40 MG/0.4 ML SYRINGE SUBCUT (09:43)
[2021-05-20] MEDS: PANTOPRAZOLE DR 20 MG TABLET PO (09:43)
[2021-05-20] MEDS: SODIUM CHLORIDE 0.9% FLUSH 10 ML IV (09:43)
[2021-05-20 12:00] VITALS: O2SAT 92
[2021-05-20 12:59] VITALS: BP 133/59; PULSE 75; RESP 18; TEMP 36.1; O2SAT 95
--- NOTE | 2021-05-20 14:09 | CM.DPNOTE ---
Faxed referral packet to [facility] per Ruthie and received fax conf. Janet Broussard CM Assist.
--- NOTE | 2021-05-20 15:16 | CM.DPNOTE ---
DC Note [facility] cannot accept patient's [employer] [facility] Spoke w/patient who was disappointed but agreeable to [facility] Requested that SAIDA Gonzales, fax this referral to [facility] Patient plans to have her dtr transport her home between her two jobs this evening approx 1800. JULIA Adler aware of plan Plan: DC home via dtr's private auto w/referral to [facility] made today start of care unknown at time of this note JW
[2021-05-20] MEDS: TRAMADOL 50 MG TABLET PO (17:25)
[2021-05-20 18:00] VITALS: O2SAT 95
--- NOTE | 2021-05-20 20:55 | P.DS_ITS ---
History of Present Illness History of Present Illness Chief complaint: Open sore, Infection buttocks Narrative: Per admitting provider: Tor Melendez is a 66 y.o. female with multiple medical problems including morbid obesity, diabetes, chronic venous stasis, frequent urinary tract infections, and hypertension was seen in the emergency department today for a pressure ulcer on her right buttock.? Her visit was uneventful after having had wound care performed and as she was getting ready to discharge, she developed chest pain which apparently lasted for 15 minutes.? She describes her pain as a fluttering, then pain/pressure, then pain in a up and down pattern from the bottom of her neck down her sternum.? She did have some nausea last week, she denies any vomiting, dysuria, shortness of breath, abdominal pain, and she fluctuates between having diarrhea and constipation which is chronic.? She has peripheral neuropathy of both her hands and feet, feet are worse than hands and she is unable to feel anything on the bottom of her feet at all. Chest x-ray was negative for any acute cardiopulmonary process or pneumonia, EKG within normal limits.? She is afebrile, blood pressure 124/57, heart rate 75, oxygen saturation of 94% on room air, she weighs 162 kg with a BMI of 59.3.? CBC is unremarkable platelet count is with 279, sodium 134, chloride 96, BUN 24, glucose 132, AST is 40 ALT 52, rest of her BMP is within normal limits, UA indicates infection not present, and COVID-19 PCR is negative. 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 Chest pain 2. Hypertension 3. Hyperlipidemia 4. Type 2 Diabetes 5. Morbid obesity Hospital Course: Ms. Melendez was admitted with chest pain. Troponins were negative. EKG showed no acute process. ECHO showed no acute process. Stress test showed low probability of ischemia. She was discharged with aspirin and statin. Her discharge was delayed multiple days to hospital inability to perform stress test due to scheduling issues. Exam Vital Signs (past 8 hours): - 05/20/21 12:59 05/20/21 18:00 Temperature 96.9 F L Pulse Rate 75 Respiratory Rate 18 Blood Pressure 133/59 L Pulse Oximetry 95 95 Oxygen Delivery Method Room Air Oxygen Flow Rate 0 Narrative Exam Narrative: GEN: no acute distress CV: regular rate and rhythm PULM: clear bilaterally Objective Labs Result Diagrams: 05/17/21 04:48 05/17/21 04:48 [facility] Medical History (Updated 05/17/21 @ 00:55 by Kimberly Flaherty DO) Chronic venous stasis dermatitis (05/18/16) Dependent edema Diabetic neuropathy Essential hypertension (03/15/16) Frequent UTI Hemorrhoids (11/15/16) History of chickenpox (1964) History of [place] Islander measles (~1964) History of measles (~1962) History of mumps (1957) Morbid obesity with body mass index (BMI) of 60.0 to 69.9 in adult (04/14/16) Osteoarthritis of lumbar spine Tubular adenoma of colon (08/27/16) Type 2 diabetes mellitus without complication, without long-term current use of insulin (04/14/16) Visual field defect of left eye (12/15/16) Surgical History Anesthesia S/P total abdominal hysterectomy and bilateral salpingo-oophorectomy (12/2009) Status post hernia repair (12/2010) Status post knee surgery (10/2009) Status post knee surgery (11/2009) Family History Brother Age: 79 Glaucoma Mother Diabetes mellitus Heart disease CAD (coronary artery disease) Father No problems noted. Sister Cancer Lung cancer Liver cancer Colon cancer Sister No problems noted. Sister No problems noted. Sister No problems noted. Daughter No problems noted. Father No problems noted. Social History marital status: household members: none Smoking Status: Never smoker alcohol intake: current substance use type: does not use Discharge Plan Discharge Plan Patient Disposition: Home Provider Discharge Comment: Ms. Melendez came in with chest pain. She had a stress test that was reassuring. She was ordered for aspirin and a statin to protect her heart. She also had a wound on her backside, she was given antibiotics to clear up an infection. Discharge orders & Medications Prescriptions: New atorvastatin [Lipitor] 20 mg Tablet 40 mg PO BEDTIME Qty: 30 0RF aspirin 81 mg Tablet,Delayed Release (Dr/Ec) 81 mg PO DAILY Qty: 30 0RF doxycycline hyclate 100 mg tablet 100 mg PO BID Qty: 10 0RF Continued L'Arginine 3 tab PO DAILY 0RF pnkyvvs-qunvrdhsr-hpli 333-133-8.3 mg tablet 1 tab PO DAILY 0RF garlic 1,000 mg capsule 1,000 mg PO QPC 0RF gtlhx-fsm-[id number]-sjima-ahfq-ltv [Joint Support Complex] 1 cap PO TIDWMEAL 0RF multivit [id number] 186 [Hair, Skin and Nails Advanced] 1 tab PO DAILY 0RF omega-3 fatty acids 1,000 mg capsule 2,000 mg PO DAILY 0RF flaxseed oil 1,000 mg capsule 1,000 mg PO DAILY 0RF Rx Instructions: administer with a meal omeprazole 20 mg capsule,delayed release(DR/EC) 20 mg PO DAILY Qty: 30 0RF Lactobacillus acidophilus 1 EACH capsule 1 tab PO QDAY Qty: 10 0RF multivitamin [Multiple Vitamins] 1 EACH tablet 1 tab PO QDAY Qty: 0 0RF metolazone 2.5 mg tablet See Rx Instructions .ROUTE .COMPLEX Qty: 90 3RF Dose Instruction: TAKE ONE TABLET WITH 2 POTASSIUM TABS ON // TUE // FRI // SAT // SUN Label Comments: Now only taking twice a week Rx Instructions: TAKE ONE TABLET WITH 2 POTASSIUM TABS ON // TUE // FRI // SAT // SUN lisinopril 20 mg tablet 20 mg PO QDAY Qty: 90 3RF potassium chloride 20 mEq tablet extended release See Rx Instructions .ROUTE .COMPLEX Qty: 90 3RF Dose Instruction: take 1 tablet by mouth three times a day Rx Instructions: take 1 tablet by mouth three times a day glipizide 5 mg tablet See Rx Instructions .ROUTE .COMPLEX Qty: 270 1RF Dose Instruction: take 1 tablet by mouth twice a day Rx Instructions: Take 2 tabs by mouth in the AM and 1 tab in the PM furosemide 40 mg tablet 40 mg PO DAILY Qty: 90 1RF Disabled Parking Permit See Rx Instructions .Route .COMPLEX Qty: 1 0RF Rx Instructions: I find this patient to be medically disabled and qualified for Disabled Parking as indicated, and signed, on the accompanying Disabled Parking Application for Individuals ; naproxen sodium [Aleve] 220 mg capsule 220 mg PO BID PRN (Reason: Pain (Scale Score 1-3)) 0RF timolol maleate 0.25 % Drops 1 % EYE-BOTH DAILY 0RF mecobalamin (vitamin B12) 1,000 mcg Tablet,Disintegrating 2,500 mcg PO DAILY 0RF magnesium citrate 400 mg PO DAILY 0RF tizanidine [Zanaflex] 4 mg capsule 4 mg PO Q6-8H PRN (Reason: muscle spasticity) Qty: 20 0RF Rx Instructions: do not exceed 3 doses per 24 hrs No Action (DME) blood sugar diagnostic [Blood Glucose Test] strip See Dose Instructions .ROUTE .MEDSUPPLY Qty: 100 1RF Dose Instruction: As directed Rx Instructions: Use to test blood sugars once daily (DME) blood-glucose meter kit See Dose Instructions .ROUTE .MEDSUPPLY Qty: 1 0RF Dose Instruction: As directed Rx Instructions: Use to check blood sugars once daily (DME) lancets Misc See Dose Instructions .ROUTE .MEDSUPPLY Qty: 100 1RF Dose Instruction: As directed Rx Instructions: Preset Safety Lancets 23G 1.8mm-Use to check blood sugar once daily Follow up/Referrals: Galilea Johnson DO [Primary Care Provider] - Visit Report/Discharge Packet Instructions: Pressure Sore, DI for Chest Pain, How to Use Antibiotics Wisely Discharge Data Primary Care Provider: Galilea Johnson Attending Provider: Irlanda Diallo
== END 2021-05-20 18:36 | disposition home or self-care (01) ==
LOC: ED 22:29 → AC 23:13 → ICU 23:34 → AC 05-19 01:22
PROVIDERS: Admitting Provider Nurse Practitioner Family; Emergency Provider Emergency Medicine; Family Provider Family Medicine; PCP Family Medicine; Referring Provider Emergency Medicine; Visit Provider Nurse Practitioner Family
DX: S31.819A Unspecified open wound of right buttock, initial encounter (principal); E11.9 Type 2 diabetes mellitus without complications; E66.01 Morbid (severe) obesity due to excess calories; I10 Essential (primary) hypertension; I87.8 Other specified disorders of veins; Z20.822 Contact with and (suspected) exposure to COVID-19; Z68.43 Body mass index [BMI] 50.0-59.9, adult; R07.89 Other chest pain; Z87.440 Personal history of urinary (tract) infections; Z79.84 Long term (current) use of oral hypoglycemic drugs
CPT/HCPCS: 36415; 71045; 78452; 80048; 80053; 80061; 81001; 82550; 82962; 83036; 83735; 84439; 84443; 84484; 85025; 87070; 87075; 87077; 87147; 87186; 87205; 87635; 93005; 93010; 93017; 93306; 94760; 96372; 96374; 99284; C9803; G0378; A9502; J1650; J1815; J2405; J2785; Q9957

== ENCOUNTER → 2021-06-01 12:22 | Outpatient (CLI) | payer OTHER, SELFPAY ==
[2021-05-16 23:14] VITALS: BMI 59.3
[2021-06-01 13:15] LABS: Hemoglobin A1C% w Est Avg Glu 7.3 % (4.0-6.0)
== END ==
PROVIDERS: Family Provider Family Medicine; PCP Family Medicine; Referring Provider Family Medicine; Visit Provider Family Medicine
DX: E11.9 Type 2 diabetes mellitus without complications (principal)
CPT/HCPCS: 36415; 83036

== ENCOUNTER → 2021-06-01 13:06 | Outpatient (CLI) | payer OTHER, SELFPAY ==
[2021-05-16 23:14] VITALS: BMI 59.3
== END ==
PROVIDERS: Family Provider Family Medicine; PCP Family Medicine; Referring Provider Emergency Medicine; Visit Provider Family Medicine
DX: L02.32 Furuncle of buttock (principal); E11.628 Type 2 diabetes mellitus with other skin complications; E66.01 Morbid (severe) obesity due to excess calories; Z74.09 Other reduced mobility; Z68.44 Body mass index [BMI] 60.0-69.9, adult; Z79.84 Long term (current) use of oral hypoglycemic drugs; E11.9 Type 2 diabetes mellitus without complications
CPT/HCPCS: 36415; 83036; 99212; 99213

== ENCOUNTER 2021-07-07 19:20 | Observation (INO) | payer OTHER, SELFPAY ==
[2021-05-16 23:14] VITALS: BMI 59.3
[2021-07-07] VITALS (13 sets, daily range): BP systolic 110–142; BP diastolic 53–64; PULSE 79–98; RESP 15–24; TEMP 36.1–36.6; O2SAT 90–96; BMI 63.2
--- NOTE | 2021-07-07 19:24 | DI.RAD.S_ITS ---
PROCEDURE: XR CHEST 1V INDICATIONS: SOB TECHNIQUE: One view of the chest was acquired. COMPARISON: , CR, XR CHEST 1V, 05/16/2021, 19:46. FINDINGS: Surgical changes and devices: None. Lungs and pleura: Lungs are clear. No pleural effusions or pneumothorax. Mediastinum: Mediastinal contours appear normal. Heart size is normal. Bones and chest wall: No suspicious bony lesions. Overlying soft tissues appear unremarkable. IMPRESSION: No evidence acute pulmonary process. Dictated by: Abdi Renae M.D. on 07/07/2021 at 19:59 Approved by: Abdi Renea M.D. on 07/07/2021 at 19:59
--- NOTE | 2021-07-07 19:35 | PC.NURSE ---
Pt presents via EMS from home for eval of increased BLE swelling, shortness of breath when lying flat, and concern for a blister on her right foot. Pt motorized chair broke a few days ago and she has not been able to raise her legs to decrease her swelling. Pt denies chest pain/cough/N/V/D. Pt does take Furosemide. AxOX4, GCS 15.
[2021-07-07 20:04] LABS: Add Manual Diff / Slide Review NO; Basophils Absolute Auto 100 /uL (0-100); Basophils Percent Auto 0.8 % (0-2); Eosinophils Absolute Auto 0 /uL (0-450); Eosinophils Percent Auto 0.3 % (2-4); Hematocrit 39.9 % (36-46); Hemoglobin 13.4 g/dL (12.0-16.0); Lymphocytes Absolute Auto 1400 /uL (1100-4500); Lymphocytes Percent Auto 13.1 % (25-40); Mean Corpuscular HGB Conc 33.6 % (30-36); Mean Corpuscular Hemoglobin 28.9 PG (26-34); Mean Corpuscular Volume 86.1 fL (80-100); Monocytes Absolute Auto 1000 /uL (0-900); Monocytes Percent Auto 9.5 % (3-14); Neutrophils Absolute Auto 8100 /uL (1500-7000); Neutrophils Percent Auto 76.3 % (50-75); Platelet Count 256 X10^3/uL (150-400); Red Blood Cell Count 4.64 X10^6/uL (4.0-5.2); Red Cell Distribution Width 17.5 % (11.6-14.8); White Blood Cell Count 10.7 X10^3/uL (4.5-11.0)
[2021-07-07 20:11] LABS: Alanine Aminotransferase 35 IU/L (<35); Albumin Globulin Ratio 1.4 (1.0-2.8); Alkaline Phosphatase 76 U/L (38-126); Aspartate Aminotransferase 31 IU/L (14-36); BUN Creatinine Ratio 47.2 (6-22); Bilirubin Total 0.5 mg/dL (0.2-1.3); Blood Urea Nitrogen 34 mg/dL (7-17); Calcium 9.4 mg/dL (8.4-10.2); Carbon Dioxide 31 mmol/L (22-32); Chloride 92 mmol/L (98-107); Creatine Kinase 94 U/L (30-135); Estimated Glomerular Filt Rate > 60 mL/min (>60); Globulin 2.9 g/dL (1.7-4.1); Glucose 181 mg/dL (80-110); HEMOLYSIS < 15 (0-50); Magnesium 1.9 mg/dL (1.6-2.3); Potassium 3.8 mmol/L (3.4-5.1); Sodium 132 mmol/L (137-145); Total Protein 6.9 g/dL (6.3-8.2)
[2021-07-07 20:22] LABS: NT-proBNP (BNP-Adult 18+) 27 pg/mL (<125); Troponin I < 0.012 ng/mL (0.01-0.034)
--- NOTE | 2021-07-07 20:32 | ED.RECABL ---
HPI - Recheck/Abnormal Lab/Rx General Chief Complaint: Recheck/Abnormal Lab/Rx Stated Complaint: BLE edema Time Seen by Provider: 07/07/21 19:23 Source: patient and EMS Mode of arrival: EMS History of Present Illness HPI narrative: 66-year female nonsmoker with chronic medical problems including lower extremity edema, diabetes and neuropathy presents with significant lower extremity edema, weakness, inability to ambulate. She is normally fairly well managed and routinely will take her diuretics and has leg dressings and compression on both legs. She has an electric chair that allows her to recline and elevate lower extremities multiple times daily. She has been in significant decline since her chair recently broken cannot be repaired for at least 1 week. She lives at home alone and has no access to help. She has but unable to elevate her legs and has developed significant edema and pain along with weakness. She can no longer ambulate on her own, she has not been taking all of her medications including her diuretics because she can not make it to the bathroom. She denies any runny nose, sore throat or cough. She denies chest pain, nausea, vomiting or abdominal pain. She has had no dysuria, frequency or urgency Related Data Home Medications Medication Instructions Recorded Confirmed multivitamin (Multiple Vitamins) 1 tab PO QDAY #0 02/21/17 05/16/21 magnesium citrate 400 mg PO DAILY 10/06/17 05/16/21 naproxen sodium 220 mg capsule 220 mg PO BID PRN 10/06/18 05/16/21 (Aleve) mecobalamin (vitamin B12) 1,000 2,500 mcg PO DAILY 01/27/19 05/16/21 mcg disintegrating tablet,sublingual timolol maleate 0.25 % eye drops 1 % EYE-BOTH DAILY 01/27/19 05/16/21 L'Arginine 3 tab PO DAILY 10/03/20 05/16/21 llhxagr-rlcvzgikv-yvst 333 mg-133 1 tab PO DAILY tab 10/03/20 05/16/21 mg-8.3 mg tablet flaxseed oil 1,000 mg capsule 1,000 mg PO DAILY 10/03/20 05/16/21 garlic 1,000 mg capsule 1,000 mg PO QPC 10/03/20 05/16/21 lbwwx-yij-X-xdfnp-fajg-aca [Joint 1 cap PO TIDWMEAL 10/03/20 05/16/21 Support Complex] multivit jkx-ogvv-AF-herb 186 1 tab PO DAILY 10/03/20 05/16/21 [Hair, Skin and Nails Advanced] omega-3 fatty acids 1,000 mg 2,000 mg PO DAILY 10/03/20 05/16/21 capsule Previous Rx's Medication Instructions Recorded Lactobacillus acidophilus 1 tab PO QDAY #10 tab 03/31/16 Disabled [address]ing Permit See Rx Instructions .ROUTE 10/14/17 .COMPLEX #1 each blood sugar diagnostic (Blood #100 each 10/25/17 Glucose Test) blood-glucose meter #1 each 10/25/17 lancets #100 each 03/28/19 omeprazole 20 mg capsule,delayed 20 mg PO DAILY #30 cap 11/03/20 release tizanidine 4 mg capsule (Zanaflex) 4 mg PO Q6-8H PRN #20 cap 12/06/20 atorvastatin 20 mg tablet (Lipitor) 40 mg PO BEDTIME #30 tab 05/20/21 lisinopril 20 mg tablet 20 mg PO QDAY #90 tab 06/22/21 metolazone 2.5 mg tablet See Rx Instructions .ROUTE 06/22/21 .COMPLEX #90 tab potassium chloride 20 mEq See Rx Instructions .ROUTE 06/22/21 tablet,extended release .COMPLEX #90 tab furosemide 40 mg tablet 40 mg PO DAILY #90 tab 06/23/21 glipizide 5 mg tablet 10 mg PO BID #270 tab 06/23/21 Allergies Allergy/AdvReac Type Severity Reaction Status Date / Time ibuprofen AdvReac causes Verified 05/16/21 18:40 bleeding Review of Systems Review of Systems Narrative: GENERAL: See HPI HEENT: Denies sinus pain, ear pain, sore throat, difficulty swallowing, dizziness. RESPIRATORY: Denies dyspnea, cough, wheezing, hemoptysis, sputum. CARDIOVASCULAR: See HPI GASTROINTESTINAL: Denies nausea, vomiting, abdominal pain, diarrhea, constipation, melena. : Denies dysuria, frequency, incontinence, hematuria, urinary retention. MUSCULOSKELETAL: denies weakness, joint pain, or bony pain SKIN: Denies rash, skin lesions, or other NEUROLOGIC: Denies weakness, headache, numbness, change in speech, confusion, seizures, incoordination. PSYCHIATRIC: No concerning psychosocial issues. 12 point review of systems is negative except for those stated above Patient History Medical History Chronic venous stasis dermatitis (05/18/16) Dependent edema Diabetic neuropathy Essential hypertension (03/15/16) Frequent UTI Hemorrhoids (11/15/16) History of chickenpox (1964) History of [place] measles (~1964) History of measles (~1962) History of mumps (1957) Morbid obesity with body mass index (BMI) of 60.0 to 69.9 in adult (04/14/16) Osteoarthritis of lumbar spine Tubular adenoma of colon (08/27/16) Type 2 diabetes mellitus without complication, without long-term current use of insulin (04/14/16) Visual field defect of left eye (12/15/16) Surgical History Anesthesia S/P total abdominal hysterectomy and bilateral salpingo-oophorectomy (12/2009) Status post hernia repair (12/2010) Status post knee surgery (10/2009) Status post knee surgery (11/2009) Family History Brother Age: 79 Glaucoma Mother Diabetes mellitus Heart disease CAD (coronary artery disease) Father No problems noted. Sister Cancer Lung cancer Liver cancer Colon cancer Sister No problems noted. Sister No problems noted. Sister No problems noted. Daughter No problems noted. Father No problems noted. Social History marital status: household members: none Smoking Status: Never smoker alcohol intake: never substance use type: does not use Smoking Status: Never smoker alcohol intake frequency: 0-2 drinks per day Alcohol type: wine Substance Use Type: does not use Exam Narrative Exam Narrative: GENERAL: [66] year old patient appears stated age. Well-developed patient, in mild distress. HEAD: Atraumatic. Normocephalic. EYES: Pupils equal round and reactive. Extraocular motions intact. No scleral icterus. No injection or drainage. ENT: Nose without bleeding, purulent drainage. Throat without erythema, tonsillar hypertrophy or exudate. Airway patent. NECK: Trachea midline. Non tender CARDIOVASCULAR: Regular rate and rhythm without murmurs, gallops, or rubs. RESPIRATORY: Decreased breath sounds, faint crackles in bases GASTROINTESTINAL: Abdomen soft, non-tender, nondistended. EXTREMITIES: Significant, tense edema in bilateral lower extremities from knees down to her toes. BACK: Nontender without deformity or crepitance. No flank tenderness. NEURO: AOx3. SKIN: No rash or erythema of visible areas Initial Vital Signs Initial Vital Signs: Vital Signs Temperature 97.7 F 07/07/21 19:20 Pulse Rate 91 H 07/07/21 19:20 Respiratory Rate 24 07/07/21 19:20 Blood Pressure 134/61 07/07/21 19:20 Pulse Oximetry 95 07/07/21 19:20 Course Orders Ordered: ED Orders 07/07/21 19:24 XR chest 1V Stat 07/07/21 19:45 Complete Blood Count AUTO DIFF Stat Comprehensive Metabolic Panel Stat Magnesium Stat NT-proBNP (BNP-Adult 18+) Stat Troponin & CK Cardiac Panel Stat Acetaminophen (Acetaminophen 325 Mg Tablet) 650 mg PO Q6HR PRN PRN Reason: Fever/Mild Pain (1-3) Atorvastatin Calcium (Atorvastatin 20 Mg Tablet) 40 mg PO BEDTIME [facility] Dextrose (Dextrose 50 % In Water 25 Gm/50 Ml Syringe) 25 gm IV PRN PRN PRN Reason: Hypoglycemia Docusate Sodium (Docusate 100 Mg Capsule) 100 mg PO BID [facility] Enoxaparin Sodium (Enoxaparin 40 Mg/0.4 Ml Syringe) 40 mg SUBCUT DAILY [facility] Insulin Glargine (Insulin Glargine 100 Unit/Ml 3ml Pen) 5 unit SUBCUT 2100 GIL Insulin Human Lispro (Insulin Lispro 100 Unit/Ml 3ml Vial) 0 unit SUBCUT ACHS GIL; Protocol Lisinopril (Lisinopril 20 Mg Tablet) 20 mg PO DAILY [facility] Naloxone HCl (Naloxone 0.4 Mg/Ml Vial) 0.2 mg IV Q2MIN PRN PRN Reason: Opiate Reversal Ondansetron HCl (Ondansetron 4 Mg/2 Ml Inj) 4 mg IV Q8HR PRN PRN Reason: Nausea And Vomiting Pantoprazole Sodium (Pantoprazole Dr 20 Mg Tablet) 20 mg PO DAILY [facility] Timolol Maleate (Timolol 0.25% Oph) 1 drops EYE-BOTH DAILY [facility] Tizanidine HCl (Tizanidine 4 Mg Tablet) 4 mg PO Q6H PRN PRN Reason: muscle spasticity Discontinued Medications Furosemide (Furosemide 40 Mg/4 Ml Vial) 40 mg IV NOW ONE Stop: 07/07/21 21:51 Last Admin: 07/07/21 22:07 Dose: 40 mg Documented by: [email or web address] Vital Signs Vital signs: Vital Signs - 8 hr 07/07/21 20:00 07/07/21 20:20 07/07/21 20:30 Temperature 97.8 F Pulse Rate 92 H 83 Respiratory Rate 21 16 Blood Pressure 142/61 H 129/58 L Pulse Oximetry 95 94 07/07/21 21:00 07/07/21 21:18 07/07/21 21:30 Temperature Pulse Rate 82 82 82 Respiratory Rate 15 19 22 Blood Pressure 121/58 L 127/64 Pulse Oximetry 93 96 93 MDM - Recheck/Abnormal Lab/Rx Lab Data Result diagrams: 07/07/21 19:45 07/07/21 19:45 Labs: Lab Results 07/07/21 07/07/21 Range/Units 19:45 19:45 WBC 10.7 (4.5-11.0) X10^3/uL RBC 4.64 (4.0-5.2) X10^6/uL Hgb 13.4 (12.0-16.0) g/dL Hct 39.9 (36-46) % MCV 86.1 (80-100) fL MCH 28.9 (26-34) PG MCHC 33.6 (30-36) % RDW 17.5 H (11.6-14.8) % Plt Count 256 (150-400) X10^3/uL Neut % (Auto) 76.3 H (50-75) % Lymph % (Auto) 13.1 L (25-40) % [place] % (Auto) 9.5 (3-14) % Eos % (Auto) 0.3 L (2-4) % Baso % (Auto) 0.8 (0-2) % Neut # (Auto) 8100 H (2618-7346) /uL Lymph # (Auto) 1400 (9468-9830) /uL [place] # (Auto) 1000 H (0-900) /uL Eos # (Auto) 0 (0-450) /uL Baso # (Auto) 100 (0-100) /uL Sodium 132 L (137-145) mmol/L Potassium 3.8 (3.4-5.1) mmol/L Chloride 92 L (98-107) mmol/L Carbon Dioxide 31 (22-32) mmol/L BUN 34 H (7-17) mg/dL Creatinine 0.72 (0.52-1.04) mg/dL Estimated GFR > 60 (>60) mL/min BUN/Creatinine Ratio 47.2 H (6-22) Glucose 181 H (80-110) mg/dL Calcium 9.4 (8.4-10.2) mg/dL Magnesium 1.9 (1.6-2.3) mg/dL Total Bilirubin 0.5 (0.2-1.3) mg/dL AST 31 (14-36) IU/L ALT 35 H (<35) IU/L Alkaline Phosphatase 76 (38-126) U/L Total Creatine Kinase 94 (30-135) U/L CK-MB (CK-2) TNP CK-MB (CK-2) Rel Index TNP Troponin I < 0.012 (0.01-0.034) ng/mL NT-Pro-B Natriuret Pep 27 (<125) pg/mL Total Protein 6.9 (6.3-8.2) g/dL Albumin 4.0 (3.5-5.0) g/dL Globulin 2.9 (1.7-4.1) g/dL Albumin/Globulin Ratio 1.4 (1.0-2.8) Urine Dip Bedside Urine Glucose Negative Bedside Urine Bilirubin - Negative Bedside Urine Ketone - Negative Urine Specific [place] 1.015 Bedside Urine Occult Blood - Negative Bedside Urine Protein - Negative Bedside Urine Urobilinogen - Negative Bedside Urine Nitrite - Negative Bedside Urine Leukocytes - Negative Esterase MDM Narrative Medical decision making narrative: Patient presents due to decompensation at home, increasing weakness, and now inability to ambulate due to this weakness, significant swelling and pain in her bilateral lower extremities. She requires hospitalization for diuresis and further evaluation of underlying weakness. She very well could need PT and will certainly need case management for disposition Discharge Plan Departure Patient Disposition: Admitted as Observation Clinical Impression: Inability to walk, Bilateral leg edema, Acute clinical decompensation Admit Date/Time: 07/07/21 21:55 Admit Provider: Irlanda Diallo
--- NOTE | 2021-07-07 21:04 | PC.NURSE ---
Pt failed road test. Pt needing assistance to transfer from bed to bedside commode, but she is unable to walk further thatn this. Provider aware.
--- NOTE | 2021-07-07 21:20 | PC.NURSE ---
Multiple staff members required to assist pt back into appropriate position in bed as pt unable to herself.
[2021-07-07] MEDS: FUROSEMIDE 40 MG/4 ML VIAL IV (22:07)
[2021-07-07 23:26] LABS: COVID19 -Nasal RAPID Negative (Negative)
[2021-07-08 00:27] VITALS: BMI 61.8
--- NOTE | 2021-07-08 01:38 | P.HP_ITS ---
History of Present Illness History of Present Illness Date Patient Seen: 07/08/21 Time Patient Seen: 01:00 Chief complaint: BLE edema Narrative: Tor Melendez is a 66 y.o. female with multiple medical problems including morbid obesity, diabetes, chronic venous stasis, frequent urinary tract infections, and hypertension was seen in the emergency department today for a pressure ulcer on her right buttock.? She returns today due to having developed blisters on her right foot. She states that both her director engineering and PCP both recommended diabetic shoes however her insurance denied that request. Uses a chair lift assist, apparently it broke and cannot be serviced until 07/13. She unable to ambulate appropriately and safely to the bathroom and back as she does have both urinary and fecal urgency. She states that she has to actually have a bowel movement laying on a drape and using a water bottle to help clean her off. She has apparently lost her in-home services for bath assistance and basic ADL assistance. She had been seen by a home shower library assistant 3 times a week which is now gone down to once a week. Did have some nausea last week, she denies any vomiting, dysuria, shortness of breath, abdominal pain, and she fluctuates between having diarrhea and constipation which is chronic.? She has peripheral neuropathy of both her hands and feet, feet are worse than hands and she is unable to feel anything on the bottom of her feet at all. She was recently admitted overnight earlier this month to rule out ACS and discharged on 05/20 after having undergone stress testing and echo and discharged on aspirin and a statin. Chest x-ray was negative for any acute cardiopulmonary process CBC is unremarkable, sodium is mildly decreased at 132, BUN 34, glucose 181, and COVID- 19 PCR is negative. She is afebrile, blood pressure 110/53, heart rate 79, re spiratory rate 16, oxygen saturation of 94% on room air she weighs 169 kilos with a BMI of 61.8. Patient History Medical History Chronic venous stasis dermatitis (05/18/16) Dependent edema Diabetic neuropathy Essential hypertension (03/15/16) Frequent UTI Hemorrhoids (11/15/16) History of chickenpox (1964) History of [place] measles (~1964) History of measles (~1962) History of mumps (1957) Morbid obesity with body mass index (BMI) of 60.0 to 69.9 in adult (04/14/16) Osteoarthritis of lumbar spine Tubular adenoma of colon (08/27/16) Type 2 diabetes mellitus without complication, without long-term current use of insulin (04/14/16) Visual field defect of left eye (12/15/16) Surgical History Anesthesia S/P total abdominal hysterectomy and bilateral salpingo-oophorectomy (12/2009) Status post hernia repair (12/2010) Status post knee surgery (10/2009) Status post knee surgery (11/2009) Family & Social History Family History Brother Age: 79 Glaucoma Mother Diabetes mellitus Heart disease CAD (coronary artery disease) Father No problems noted. Sister Cancer Lung cancer Liver cancer Colon cancer Sister No problems noted. Sister No problems noted. Sister No problems noted. Daughter No problems noted. Father No problems noted. Social History: household members none Prior Living Arrangements Apartment/Condo Safety & Behavioral: Feels Safe in Current Yes Environment Been Physically Hurt or No Threatened By a Person Tobacco & Substance use: Smoking Status Never smoker alcohol intake never alcohol intake frequency 0-2 drinks per day Substance Use Type does not use Meds Home Medications and Allergies Home Medications Medication Instructions Recorded Confirmed Type Lactobacillus acidophilus 1 tab PO QDAY #10 tab 03/31/16 05/16/21 Rx multivitamin (Multiple Vitamins) 1 tab PO QDAY #0 02/21/17 05/16/21 History magnesium citrate 400 mg PO DAILY 10/06/17 05/16/21 History Disabled Parking Permit See Rx Instructions .ROUTE 10/14/17 05/16/21 Rx .COMPLEX #1 each blood sugar diagnostic (Blood #100 each 10/25/17 05/16/21 Rx Glucose Test) blood-glucose meter #1 each 10/25/17 05/16/21 Rx naproxen sodium 220 mg capsule 220 mg PO BID PRN 10/06/18 05/16/21 History (Aleve) mecobalamin (vitamin B12) 1,000 2,500 mcg PO DAILY 01/27/19 05/16/21 History mcg disintegrating tablet,sublingual timolol maleate 0.25 % eye drops 1 % EYE-BOTH DAILY 01/27/19 05/16/21 History lancets #100 each 03/28/19 05/16/21 Rx L'Arginine 3 tab PO DAILY 10/03/20 05/16/21 History msippkh-zeldzyuxs-fzxp 333 mg-133 1 tab PO DAILY tab 10/03/20 05/16/21 History mg-8.3 mg tablet flaxseed oil 1,000 mg capsule 1,000 mg PO DAILY 10/03/20 05/16/21 History garlic 1,000 mg capsule 1,000 mg PO QPC 10/03/20 05/16/21 History rqllj-xai-I-zlzui-nabf-uvc [Joint 1 cap PO TIDWMEAL 10/03/20 05/16/21 History Support Complex] multivit tnl-dvlg-LB-herb 186 1 tab PO DAILY 10/03/20 05/16/21 History [Hair, Skin and Nails Advanced] omega-3 fatty acids 1,000 mg 2,000 mg PO DAILY 10/03/20 05/16/21 History capsule omeprazole 20 mg capsule,delayed 20 mg PO DAILY #30 cap 11/03/20 05/16/21 Rx release tizanidine 4 mg capsule (Zanaflex) 4 mg PO Q6-8H PRN #20 cap 12/06/20 05/16/21 Rx atorvastatin 20 mg tablet (Lipitor) 40 mg PO BEDTIME #30 tab 05/20/21 Rx lisinopril 20 mg tablet 20 mg PO QDAY #90 tab 06/22/21 Rx metolazone 2.5 mg tablet See Rx Instructions .ROUTE 06/22/21 Rx .COMPLEX #90 tab potassium chloride 20 mEq See Rx Instructions .ROUTE 06/22/21 Rx tablet,extended release .COMPLEX #90 tab furosemide 40 mg tablet 40 mg PO DAILY #90 tab 06/23/21 Rx glipizide 5 mg tablet 10 mg PO BID #270 tab 06/23/21 Rx Allergies Allergy/AdvReac Type Severity Reaction Status Date / Time ibuprofen AdvReac causes Verified 05/16/21 18:40 bleeding Review of Systems Review of Systems ROS: Yes All systems reviewed with the patient and are negative except as otherwise documented Exam Vital Signs (past 8 hours): - 07/07/21 19:20 07/07/21 19:26 07/07/21 19:30 Temperature 97.5 F L Pulse Rate 94 H 88 89 Respiratory Rate 23 15 15 Blood Pressure 134/61 Pulse Oximetry 95 93 90 L 07/07/21 19:31 07/07/21 20:00 07/07/21 20:20 Temperature 97.8 F Pulse Rate 98 H 92 H Respiratory Rate 24 21 Blood Pressure 119/56 L 142/61 H Pulse Oximetry 92 95 07/07/21 20:30 07/07/21 21:00 07/07/21 21:18 Temperature Pulse Rate 83 82 82 Respiratory Rate 16 15 19 Blood Pressure 129/58 L 121/58 L 127/64 Pulse Oximetry 94 93 96 07/07/21 21:30 07/07/21 22:00 07/07/21 22:30 Temperature Pulse Rate 82 87 81 Respiratory Rate 22 20 15 Blood Pressure Pulse Oximetry 93 92 91 07/07/21 23:55 Temperature 96.9 F L Pulse Rate 79 Respiratory Rate 16 Blood Pressure 110/53 L Pulse Oximetry 94 Oxygen Delivery Method Room Air Narrative Exam Narrative: Gen: Alert, oriented, morbidly obese 66 y.o. female, NAD HEENT: normocephalic, atraumatic, conjunctiva clear, sclera non-icteric, oral mucosa pink and moist Neck: supple, full ROM, no JVD, trachea is midline Resp: Lungs CTA, non-labored breathing CV: RRR, no murmur or rubs Abd: soft, non-tender, normoactive BTs Skin: no lesions or rashes, dry and intact Neuro: Alert and oriented X 4 w/no focal deficits. Speech clear and coherent. Extremities: Plantar surface of her right foot has multiple what appears to be ruptured blisters that are yellowed, currently with no excessive edema other than normal. negative Delfina?s sign Psyche: Very pleasant normal mood and affect. Objective Labs Result Diagrams: 07/07/21 19:45 07/07/21 19:45 Labs: Laboratory Results - last 24 hr 07/07/21 07/07/21 07/07/21 19:45 19:45 23:06 WBC 10.7 RBC 4.64 Hgb 13.4 Hct 39.9 MCV 86.1 MCH 28.9 MCHC 33.6 RDW 17.5 H Plt Count 256 Neut % (Auto) 76.3 H Lymph % (Auto) 13.1 L [place] % (Auto) 9.5 Eos % (Auto) 0.3 L Baso % (Auto) 0.8 Neut # (Auto) 8100 H Lymph # (Auto) 1400 [place] # (Auto) 1000 H Eos # (Auto) 0 Baso # (Auto) 100 Sodium 132 L Potassium 3.8 Chloride 92 L Carbon Dioxide 31 BUN 34 H Creatinine 0.72 Estimated GFR > 60 BUN/Creatinine Ratio 47.2 H Glucose 181 H Calcium 9.4 Magnesium 1.9 Total Bilirubin 0.5 AST 31 ALT 35 H Alkaline Phosphatase 76 Total Creatine Kinase 94 CK-MB (CK-2) TNP CK-MB (CK-2) Rel Index TNP Troponin I < 0.012 NT-Pro-B Natriuret Pep 27 Total Protein 6.9 Albumin 4.0 Globulin 2.9 Albumin/Globulin Ratio 1.4 SARS-CoV-2 (PCR) Negative Assessment & Plan Assessment & Plan narrative: Tor Melendez is placed into observation so that physical therapy can assist her in a safe home discharge with appropriate assistive equipment and services. 1. Inability to ambulate, chronic * We will need to monitor the condition of her right foot, she may need wound care on it * Request for physical therapy to assess her equipment needs for home discharge 2. Lower extremity edema, chronic and severe * Patient will be assisted in elevated and her legs and received Lasix as needed * Her last admission weight was 162 kg representing a 6 kg weight gain over the past month * Daily weights and fluid monitoring 3. Morbid obesity with a BMI of 61.8. * This places her at greater risk for complications of increased morbidity and treatment failure or complications. 4. Essential hypertension, appears to be well controlled at this time * Continue home dose of lisinopril 5. Dyslipidemia, chronic * Continue home dose of atorvastatin 40 mg p.o. at bedtime 6. Diabetes type 2, appears to not be well controlled * She will have glargine 5 units at 9:00 p.m. and medium dose correctional insulin scale VTE Prophylaxis: Wells risk score 1.5 XEnoxaparin 40 mg subQ once daily Bilateral SCDs Patient is placed into observation as her stay is not expected to exceed 2 midnights. FEN: IV fluids: saline lock, diet: carb control w/a 1200 ml/day fluid r estriction, labs: CBC, C/BMP, liver enzymes, [facility] None Dispo: Eventual discharge back to her home Code status: Full code as discussed with the patient who identifies her daughter her surrogate and POA. [X] I have utilized all available immediate resources to obtain, update, or review of the patient's current medications COVID-19 COVID-19 status: Negative Result date/Date tested (Pos, Neg/Pending): 07/08/21 Scores Wells' Criteria for PE Clinical signs and symptoms of DVT: No PE is #1 Dx or equally likely: No Heart rate > 100: No Immobilization at least 3 days or surg in previous 4 weeks: Yes History of PE or DVT: No Hemoptysis: No Malignancy w/Treatment within 6 months or palliative: No Wells' PE Score total: 1.5 Quality VTE Deep Vein Thrombosis/Pulmonary Embolism Present on Admission: No MIPS - Admit I confirm the patient?s Advance Care Plan is present, Code status is documented, Surrogate decision maker is in patient?s record [If Yes, STOP here]: Yes MIPS - DC The patient has current or prior documentation of left ventricular ejection fraction (LVEF) less than 40%, or moderate or severely depressed left ventricular systolic function.: No
[2021-07-08 05:45] LABS: Add Manual Diff / Slide Review NO; Basophils Absolute Auto 0 /uL (0-100); Basophils Percent Auto 0.5 % (0-2); Eosinophils Absolute Auto 0 /uL (0-450); Eosinophils Percent Auto 0.5 % (2-4); Hematocrit 38.6 % (36-46); Hemoglobin 12.6 g/dL (12.0-16.0); Lymphocytes Absolute Auto 1700 /uL (1100-4500); Lymphocytes Percent Auto 19.6 % (25-40); Mean Corpuscular HGB Conc 32.7 % (30-36); Mean Corpuscular Hemoglobin 28.2 PG (26-34); Mean Corpuscular Volume 86.3 fL (80-100); Monocytes Absolute Auto 900 /uL (0-900); Monocytes Percent Auto 10.6 % (3-14); Neutrophils Absolute Auto 6100 /uL (1500-7000); Neutrophils Percent Auto 68.8 % (50-75); Platelet Count 247 X10^3/uL (150-400); Red Blood Cell Count 4.47 X10^6/uL (4.0-5.2); Red Cell Distribution Width 17.9 % (11.6-14.8); White Blood Cell Count 8.9 X10^3/uL (4.5-11.0)
[2021-07-08 05:47] LABS: Phosphorous 3.8 mg/dL (2.8-4.1)
[2021-07-08 05:48] LABS: BUN Creatinine Ratio 45.8 (6-22); Blood Urea Nitrogen 27 mg/dL (7-17); Calcium 8.9 mg/dL (8.4-10.2); Carbon Dioxide 35 mmol/L (22-32); Chloride 93 mmol/L (98-107); Estimated Glomerular Filt Rate > 60 mL/min (>60); Glucose 148 mg/dL (80-110); HEMOLYSIS < 15 (0-50); Magnesium 1.9 mg/dL (1.6-2.3); Potassium 3.7 mmol/L (3.4-5.1); Sodium 133 mmol/L (137-145)
[2021-07-08 07:00] VITALS: BP 122/61; PULSE 87; RESP 20; TEMP 36.1; O2SAT 96
[2021-07-08] MEDS: ACETAMINOPHEN 325 MG TABLET 650 MG PO (09:16)
[2021-07-08] MEDS: TIMOLOL 0.25% OPHTH 1 DROPS EYE-BOTH (09:16)
[2021-07-08] MEDS: PANTOPRAZOLE DR 20 MG TABLET PO (09:17)
[2021-07-08] MEDS: DOCUSATE 100 MG CAPSULE PO (09:17)
[2021-07-08] MEDS: lisinopriL 20 MG TABLET PO (09:17)
[2021-07-08] MEDS: ENOXAPARIN 40 MG/0.4 ML SYRINGE SUBCUT ×2 (09:17→20:29)
[2021-07-08] MEDS: SENNOSIDES 8.6 MG TABLET 17.2 MG PO (10:04)
[2021-07-08 11:00] VITALS: BP 114/50; PULSE 82; RESP 17; TEMP 36.1; O2SAT 92
[2021-07-08] MEDS: ACETAMINOPHEN 325 MG TABLET 975 MG PO (11:00)
[2021-07-08] MEDS: INSULIN LISPRO 100 UNIT/ML 3ML VIAL SUBCUT ×3 (12:21→20:41)
--- NOTE | 2021-07-08 13:39 | CM.DANOTE ---
Patient is a 66 yo female who was admitted on 07/07/21 for BLE Edema. Pt has [employer] MCR for insurance and her PCP is Dr. Galilea Johnson. EMR was reviewed. Per MD, pt with hx of morbid obesity, diabetes, has lift chair at home but currently broken and admitted for edema, fluid retention, and IV-Abx. Pt last admitted in May 2021 last month for AFIB and had stress test and discharged home via Dtr POV and new [facility] referral. PT/OT ordered and pending. SW called [facility] and confirmed pt still open for PT/[employer] and just need Resume Orders at d/c and can add OT if needed. SW met bedside with pt and explained role and pt alert and oriented x4 and very talkative and willing to provide much historical information. Pt confirms that she still lives in her 2 bed 2 bath apt at [facility] in [place] with two local Dtrs that are supportive but also work horse race timer but check on pt regularly. Pt confirms she typically ambulates with walker and cane in her apt but can no longer drive. Pt has obtained DME for ADL's to help with off-loading, self dressing, hygiene but confirms that she mostly needs assist with toileting/hygiene assist. Pt feels that [facility] PT/OT have been significantly helpful in getting her the DME she needs and strengthening and states her preference is to return home with [facility] and add OT. Pt has hx of SNF at [facility] last year and [facility]. Pt would be agreeable to SNF if really needed and SW updated her that currently [facility] and [facility] are the local contracted SNFs with [employer]. SHAHEED Gonzales kindly faxing new referral to [facility] and [facility] to review in case SNF needed as backup. SW discussed pt's LTC plan and provided the Medicaid LTC application to review to determine she she has spent down much of her assets that she may qualify for Medicaid now for likely future needs. Plan: SW to follow closely for PT/OT recommendations towards determining return home with [facility]/[employer] and add OT vs SNF and [facility] and [facility] reviewing. Pt has [employer] and would need SNF auth. JATINDER Duque Discharge Planning/Care Management CM Discharge Assessment Start: 07/08/21 13:35 Freq: Status: Active Protocol: Document 07/08/21 13:36 BF (Rec: 07/08/21 13:39 BF [id number]) Discharge Planning Assessment Assigned J2Ee Android Developer JATINDER Stanford DPOA/Assigned Designee Name Jama Paris Contact Information [phone] Advance Directives? Yes: POL, Dorina DPOA Advance Directives on File Yes History Provided By Patient,Medical Record Has Patient been admitted in last 30 No days? 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 Yes Needs Assistance With Bathing,Home Chores / Shopping Caregiver for Another No DME Already Rented / Owned FWW / Walker,Cane Patient/Family Preference Intermediate Facility,Home with Home Health Comment SNF vs HH Barriers to Discharge Yes Comment Limited mobility d/t swelling in her legs, weakness, blisters on her feet, obesity. Discharge Plan Home with Home Health Transportation Arrangement Family if home and facility van if SNF Referrals Initiated Intermediate,Home Health, Other Additional Comment Open with [facility] for PT/[employer] and referrals sent to [facility] SNFs Medicare Choice List Provided Yes SNF/HH Preference [facility] if HH and [facility] and [facility] contracted with [facility] Has Agency SNF been contacted Yes Whiteboard Updated in Patient Room with Yes name and ext. # of J2Ee Android Developer Review Status In Process Please Provide Date Initial DC 07/08/21 Assessment Was Performed Next Review Type Continued Stay Review
--- NOTE | 2021-07-08 14:45 | P.PN_ITS ---
Subjective Subjective Date Patient Seen: 07/08/21 Interval history: 66-YEAR-OLD FEMALE ADMITTED TO HOSPITAL WITH LOWER EXTREMITY SWELLING. REPORTED SIGNIFICANT DISCOMFORT FOR AMBULATION DUE TO THE SWELLING WELL LOWER EXTREMITY PAIN TODAY PATIENT DENIES ANY INCREASING SHORTNESS OF BREATH NO CHEST PRESSURE OR CHEST PAIN SLEPT WELL. NO NAUSEA OR VOMITING. REPORTED THAT SHE FEELS THAT THE EDEMA HAS IMPROVED Exam Vital Signs (past 8 hours): - 07/08/21 07:00 07/08/21 11:00 Temperature 96.9 F L 96.9 F L Pulse Rate 87 82 Respiratory Rate 20 17 Blood Pressure 122/61 114/50 L Pulse Oximetry 96 92 Oxygen Delivery Method Room Air Narrative Exam Narrative: NO ACUTE DISTRESS. PATIENT IS ALERT ORIENTED X3. MORBIDLY OBESE VITAL SIGNS STABLE HEAD ATRAUMATIC NORMOCEPHALIC NECK : SUPPLE WITHOUT ADENOPATHY NO CAROTID BRUITS EYE: EOMI, PERRLA, NORMAL CONJUNCTIVA; NO JAUNDICE CHEST: REGULAR RATE. NO RUBS. PMI IS NON DISPLACED. NO MURMURS; NORMAL S1- S2 PULMONARY: DECREASED BS OVER THE BASES. MILD BIBASILAR CRACKLES NOTED; NO INCREASED DULLNESS TO PERCUSSION ABDOMEN: SOFT. NONTENDER. NONDISTENDED. BOWEL SOUNDS ARE PRESENT IN ALL 4 QUADRANTS. NO WHEEZING. NO RALES EXTREMITIES: 3+ NONPITTING BILATERAL LOWER EXTREMITY EDEMA.. NO CYANOSIS OR CLUBBING NOTED. NEURO: CRANIAL NERVES 2-12 GROSSLY INTACT. NO FOCAL NEUROLOGICAL DEFICIT NOTED. MSK: NORMAL RANGE OF MOTION FOR AGE. NO JOINT EFFUSION. SKIN: NORMAL FOR ETHNICITY; NO ECCHYMOSIS. NO LESION. GOOD TURGOR.; NO RASHES : NORMAL EXTERNAL GENITALIA. PSYCH : APPROPRIATE MOOD AND AFFECT. ALERT AWAKE ORIENTED X3 Objective Labs Result Diagrams: 07/08/21 05:15 07/08/21 05:15 Labs: Laboratory Results - last 24 hr 07/07/21 07/07/21 07/07/21 19:45 19:45 23:06 WBC 10.7 RBC 4.64 Hgb 13.4 Hct 39.9 MCV 86.1 MCH 28.9 MCHC 33.6 RDW 17.5 H Plt Count 256 Neut % (Auto) 76.3 H Lymph % (Auto) 13.1 L [place] % (Auto) 9.5 Eos % (Auto) 0.3 L Baso % (Auto) 0.8 Neut # (Auto) 8100 H Lymph # (Auto) 1400 [place] # (Auto) 1000 H Eos # (Auto) 0 Baso # (Auto) 100 Sodium 132 L Potassium 3.8 Chloride 92 L Carbon Dioxide 31 BUN 34 H Creatinine 0.72 Estimated GFR > 60 BUN/Creatinine Ratio 47.2 H Glucose 181 H Calcium 9.4 Phosphorus Magnesium 1.9 Total Bilirubin 0.5 AST 31 ALT 35 H Alkaline Phosphatase 76 Total Creatine Kinase 94 CK-MB (CK-2) TNP CK-MB (CK-2) Rel Index TNP Troponin I < 0.012 NT-Pro-B Natriuret Pep 27 Total Protein 6.9 Albumin 4.0 Globulin 2.9 Albumin/Globulin Ratio 1.4 SARS-CoV-2 (PCR) Negative 07/08/21 07/08/21 07/08/21 05:15 05:15 05:15 WBC 8.9 RBC 4.47 Hgb 12.6 Hct 38.6 MCV 86.3 MCH 28.2 MCHC 32.7 RDW 17.9 H Plt Count 247 Neut % (Auto) 68.8 Lymph % (Auto) 19.6 L [place] % (Auto) 10.6 Eos % (Auto) 0.5 L Baso % (Auto) 0.5 Neut # (Auto) 6100 Lymph # (Auto) 1700 [place] # (Auto) 900 Eos # (Auto) 0 Baso # (Auto) 0 Sodium 133 L Potassium 3.7 Chloride 93 L Carbon Dioxide 35 H BUN 27 H Creatinine 0.59 Estimated GFR > 60 BUN/Creatinine Ratio 45.8 H Glucose 148 H Calcium 8.9 Phosphorus 3.8 Magnesium 1.9 Total Bilirubin AST ALT Alkaline Phosphatase Total Creatine Kinase CK-MB (CK-2) CK-MB (CK-2) Rel Index Troponin I NT-Pro-B Natriuret Pep Total Protein Albumin Globulin Albumin/Globulin Ratio SARS-CoV-2 (PCR) [facility] Medical History Chronic venous stasis dermatitis (05/18/16) Dependent edema Diabetic neuropathy Essential hypertension (03/15/16) Frequent UTI Hemorrhoids (11/15/16) History of chickenpox (1964) History of Czech measles (~1964) History of measles (~1962) History of mumps (8) Morbid obesity with body mass index (BMI) of 60.0 to 69.9 in adult (04/14/16) Osteoarthritis of lumbar spine Tubular adenoma of colon (08/27/16) Type 2 diabetes mellitus without complication, without long-term current use of insulin (04/14/16) Visual field defect of left eye (12/15/16) Surgical History Anesthesia S/P total abdominal hysterectomy and bilateral salpingo-oophorectomy (12/2009) Status post hernia repair (12/2010) Status post knee surgery (10/2009) Status post knee surgery (11/2009) Family History Brother Age: 79 Glaucoma Mother Diabetes mellitus Heart disease CAD (coronary artery disease) Father No problems noted. Sister Cancer Lung cancer Liver cancer Colon cancer Sister No problems noted. Sister No problems noted. Sister No problems noted. Daughter No problems noted. Father No problems noted. Social History marital status: household members: none Smoking Status: Never smoker alcohol intake: never substance use type: does not use Assessment & Plan Assessment & Plan narrative: IMPRESSION BILATERAL LOWER EXTREMITIES EDEMA DUE TO LYMPHEDEMA/VENOUS STASIS MORBID OBESITY HYPERTENSION PER HISTORY OSTEOARTHRITIS PER HISTORY DIABETES TYPE 2 PER HISTORY DIABETIC NEUROPATHY PER HISTORY PHYSICAL DEBILITY. MULTIFACTORIAL POSSIBLE CONSTIPATION. ON MIRALAX PLAN COMPRESSION STOCKING TO LOWER EXTREMITIES WILL RESTRICT FLUID TO 1800 CC DAILY LOW-SALT DIET CONTINUE LASIX PER HOME DOSE A COUPLE OF IV DOSES NOTED TO HAVE BEEN GIVEN ALREADY MONITOR LABS DAILY TO FOLLOW THE EXTRA IS CLOSELY KEEP POTASSIUM ABOVE 4 AT ALL TIMES WILL START ON ORAL REPLACEMENT THERAPY STRICT BLOOD SUGAR CONTROL INSULIN SLIDING SCALE WILL BE ORDERED DIABETIC DIET WILL NEED TO MONITOR INPUT AND OUTPUT CLOSELY DAILY WEIGHT WITH SAME SCALE CONTINUE HOME MEDS INDICATED GI AND DVT PROPHYLAXIS PHYSICAL THERAPY TEAM TO EVALUATE AND TREAT ADDITIONAL MANAGEMENT PER CLINICAL COURSE DC IN 2-3 DAYS IF STABLE Time Spent With Patient Critical Care time: I spent a total of [] minutes of critical care time on this patient's care today; this time is exclusive of procedural time. Quality VTE Deep Vein Thrombosis/Pulmonary Embolism Present on Admission: No
--- NOTE | 2021-07-08 14:45 | PT.IIE ---
Surgical History (Last Reviewed 07/08/21 @ 05:50 by ROSALES Velázquez) Anesthesia S/P total abdominal hysterectomy and bilateral salpingo-oophorectomy (12/2009) Status post hernia repair (12/2010) Status post knee surgery (10/2009) Status post knee surgery (11/2009) Medical History (Last Reviewed 07/08/21 @ 05:50 by ROSALES Velázquez) Chronic venous stasis dermatitis (05/18/16) Dependent edema Diabetic neuropathy Essential hypertension (03/15/16) Frequent UTI Hemorrhoids (11/15/16) History of chickenpox (1964) History of Portuguese measles (~1964) History of measles (~1962) History of mumps (1957) Morbid obesity with body mass index (BMI) of 60.0 to 69.9 in adult (04/14/16) Osteoarthritis of lumbar spine Tubular adenoma of colon (08/27/16) Type 2 diabetes mellitus without complication, without long-term current use of insulin (04/14/16) Visual field defect of left eye (12/15/16) Physical Therapy Inpatient Evaluation/Re-Eval M1 PT/OT-IP Prior Functional Status Start: 07/08/21 16:34 Freq: NEEDED Status: Active Protocol: Document 07/08/21 14:45 AB (Rec: 07/08/21 16:44 AB [id number]) Medical Review Prior Functional Status Medical History Reviewed Yes Communication able to make needs known Mobility and Gait pt stated that she is modified independent with all mobilities and ambulation using a 4WW; sometimes uses a SPC for sit to stand Prior Functional Level (Other details) pt stated that she sleeps on her lift chair but lift chair is now broken and unable to elevated her LE up and now has increase edema on BLE affecting her mobility. Social History Household Members none Living Arrangements Apartment/Condo Number of Floors (Floors) One Floor Number of Stairs To Enter/Railing? ramp to enter Home Environment Walk in Shower Home Equipment Front Wheel Walker,Straight Cane,Raised Toilet Seat w/ Armrests,Shower Seat with Backrest,Lift Recliner,Grab Bars In Shower Additional Social History Comment pt sleep on a lift chair M2 PT-IP Current Condition Start: 07/08/21 16:34 Freq: NEEDED Status: Active Protocol: Document 07/08/21 14:45 AB (Rec: 07/08/21 16:44 AB [id number]) Physical Therapy Current Condition Current Condition Evaluation Date 07/08/21 Treatment Diagnosis BLE edema; difficulty in walking Onset Date 07/07/21 M3 PT-IP Subjective Start: 07/08/21 16:34 Freq: NEEDED Status: Active Protocol: Document 07/08/21 14:45 AB (Rec: 07/08/21 16:44 AB [id number]) Subjective Physical Therapy Visit Type Type Initial Evaluation Visit Start Time 14:45 Visit Stop Time 15:16 Total Visit Minutes 31 Number of PROFESSOR OF VISUAL ARTS Visits 0 Therapy Pain Assessment Pain When Pain Assessed During Mobility Pain Present Pain Present Pain Reported Location back Scale Used pain scale not stated Pain Management Techniques Distraction,Modification of Treatment,Re-positioning, Timing of Activity with Medications M4 PT-IP Mobility and Gait Start: 07/08/21 16:34 Freq: NEEDED Status: Active Protocol: Document 07/08/21 14:45 AB (Rec: 07/08/21 16:44 AB [email or web address]) PT-Bed Mobility Assessment Supine to Sit Supine to Sit Maximum Assistance,2 Person Assistance,Head of Bed Elevated,Bedrails Scooting Scooting to Edge of Bed Dependent PT-Transfer Assessment Sit to and From Stand Sit to and from Stand Moderate Assistance,2 Person Assistance,Use of Upper Extremities Equipment Transfer Assistive Device Gait Belt,Front Wheeled Walker Orthotic/Prosthetic Devices or Brace: No Transfers Transfer Destination Bedside Commode Transfer Technique Stand Step Pivot Transfer Ability Level of Assist Moderate Assistance,2 Person Assistance,Use of Upper Extremities Comments Mobility Comments pt completed supine to sit with HOB elevated max A x 2 and max cues. c/o back pain. pt has been sleeping on her lift recliner. pt completed sit to stand mod A x 2 and cues. pt leans on FWW due to back pain. step transfer to bedside commode using FWW mod A x 2 and cues. needs assist with FWW maneuvering. pt sat on bedside commode. call light within reach. pt waiting for NAC for a sponge bathe. PT-Balance Assessment Sitting Balance and Reactions Static Sitting Balance Ability Good Dynamic Sitting Balance Ability Fair Standing Balance and Reactions Static Standing Balance Ability Poor Dynamic Standing Balance Ability Poor Device Used FWW M5 PT-IP Objective Assessments Start: 07/08/21 16:34 Freq: NEEDED Status: Active Protocol: Document 07/08/21 14:45 AB (Rec: 07/08/21 16:44 AB [id number]) Orientation Orientation/Cognition Level of Alertness Alert Orientation Name,Place,Situation Language Function Ability No Deficits Noted Safety Awareness Decreased Safety Awareness Memory Description No Deficits Noted Gross Range of Motion Lower Extremity ROM Assessment Within Functional Limits Strength Lower Extremity Strength Assessment Bilaterally Impaired Hip 3-/5 Knee 3+/5 Muscle Tone Muscle Tone WNL Yes M6 PT-IP Treatment Start: 07/08/21 16:34 Freq: NEEDED Status: Active Protocol: Document 07/08/21 14:45 AB (Rec: 07/08/21 16:44 AB [id number]) Physical Therapy Treatment Education Education Provided Safety M7 PT-IP Assessment and Plan Start: 07/08/21 16:34 Freq: NEEDED Status: Active Protocol: Document 07/08/21 14:45 AB (Rec: 07/08/21 16:44 AB [email or web address]) PT Summary Assessment and Plan Potential Rehabilitation Potential Fair Status of Condition at Evaluation Evolving Summary Impairments Pain,ROM,Strength,Balance, Coordination,Sensation,Tone, Cognition,Bed Mobility, Transfers,Gait,Activity Tolerance Assessment Summary pt requiring mod A x 2 to max A x 2 with mobility and unable to ambulate at this time. pt will require SNF rehab to improve strength and mobility. Goals Bed Mobility Goal Minimal Assistance Transfer Goal Contact Guard Assistance,Front Wheeled Walker Gait Goal Contact Guard Assistance,Front Wheel Walker Gait Distance 50 Other Goals improve transfer and ambulation using FWW SBA 75 ft Days to Meet Goals 10 Frequency of Treatment Frequency Of Treatment Once a Day Treatment Plan Physical Therapy Treatment Plan Bed Mobility Training,Transfer Training,Gait Training, Therapeutic Exercise,Balance Retraining,Discharge Planning, Hot or Cold Pack,Neuromuscular Re-ed,Coordination Retraining ,Manual Therapy Recommendations To Nursing Amount of Assist Needed 2 Person Assist Discharge Recommendations PT Discharge Recommendations SNF Rehab Transportation Needs at Discharge Wheelchair/Cabulance
[2021-07-08 15:00] VITALS: BP 113/63; PULSE 79; RESP 18; TEMP 36.1; O2SAT 91
[2021-07-08] MEDS: TIZANIDINE 4 MG TABLET PO ×2 (15:10→22:41)
--- NOTE | 2021-07-08 16:03 | OT.IPNOTE ---
Pt just getting situated in bed after working with PT , therefore pt wanting to wait until tomorrow for OT eval.
[2021-07-08] MEDS: HYDROCODONE/ACET 5/325 TABLET 1 TAB PO ×2 (16:31→20:28)
[2021-07-08] MEDS: POTASSIUM CHLORIDE 10 MEQ TAB PO (16:32)
[2021-07-08 19:00] VITALS: O2SAT 93
[2021-07-08] MEDS: ATORVASTATIN 20 MG TABLET 40 MG PO (20:28)
[2021-07-08] MEDS: SODIUM CHLORIDE 0.9% FLUSH 10 ML IV (20:29)
[2021-07-08 20:40] VITALS: BP 111/48; PULSE 70; RESP 15; TEMP 37.2; O2SAT 93
[2021-07-08] MEDS: INSULIN GLARGINE 100 UNIT/ML 3ML PEN SUBCUT (20:42)
[2021-07-09] VITALS (7 sets, daily range): BP systolic 108–119; BP diastolic 38–55; PULSE 68–90; RESP 16; TEMP 36.3–37.1; O2SAT 94–96
--- NOTE | 2021-07-09 00:37 | PC.NURSE ---
Patient requested earlier to wake her up when her pain medication is available. Went to her room x2 tried to wake her up, but she was sound asleep & snoring lightly. Vicodin 1 tablet was returned to the [facility]. Will monitor & administer her pain med. when she wakes up.
[2021-07-09] MEDS: HYDROCODONE/ACET 5/325 TABLET 1 TAB PO ×2 (02:22→06:37)
[2021-07-09 06:40] LABS: Add Manual Diff / Slide Review NO; Basophils Absolute Auto 0 /uL (0-100); Basophils Percent Auto 0.5 % (0-2); Eosinophils Absolute Auto 100 /uL (0-450); Eosinophils Percent Auto 1.3 % (2-4); Hematocrit 38.5 % (36-46); Hemoglobin 12.8 g/dL (12.0-16.0); Lymphocytes Absolute Auto 2100 /uL (1100-4500); Lymphocytes Percent Auto 27.7 % (25-40); Mean Corpuscular HGB Conc 33.3 % (30-36); Mean Corpuscular Hemoglobin 28.9 PG (26-34); Mean Corpuscular Volume 86.8 fL (80-100); Monocytes Absolute Auto 800 /uL (0-900); Monocytes Percent Auto 10.1 % (3-14); Neutrophils Absolute Auto 4600 /uL (1500-7000); Neutrophils Percent Auto 60.4 % (50-75); Platelet Count 218 X10^3/uL (150-400); Red Blood Cell Count 4.43 X10^6/uL (4.0-5.2); Red Cell Distribution Width 17.5 % (11.6-14.8); White Blood Cell Count 7.6 X10^3/uL (4.5-11.0)
[2021-07-09 07:06] LABS: Phosphorous 2.7 mg/dL (2.8-4.1)
[2021-07-09 07:07] LABS: BUN Creatinine Ratio 32.1 (6-22); Blood Urea Nitrogen 17 mg/dL (7-17); Calcium 8.7 mg/dL (8.4-10.2); Carbon Dioxide 32 mmol/L (22-32); Chloride 95 mmol/L (98-107); Estimated Glomerular Filt Rate > 60 mL/min (>60); Glucose 145 mg/dL (80-110); HEMOLYSIS < 15 (0-50); Potassium 3.9 mmol/L (3.4-5.1); Sodium 133 mmol/L (137-145)
[2021-07-09] MEDS: ENOXAPARIN 40 MG/0.4 ML SYRINGE SUBCUT (09:03)
[2021-07-09] MEDS: POTASSIUM CHLORIDE 10 MEQ TAB PO (09:03)
[2021-07-09] MEDS: TIZANIDINE 4 MG TABLET PO ×2 (09:03→16:14)
[2021-07-09] MEDS: TRAMADOL 50 MG TABLET PO ×2 (09:04→16:14)
[2021-07-09] MEDS: DOCUSATE 100 MG CAPSULE 200 MG PO (09:05)
[2021-07-09] MEDS: SENNOSIDES 8.6 MG TABLET 17.2 MG PO (09:06)
[2021-07-09] MEDS: FUROSEMIDE 40 MG TABLET PO (09:06)
[2021-07-09] MEDS: PANTOPRAZOLE DR 20 MG TABLET PO (09:06)
[2021-07-09] MEDS: INSULIN LISPRO 100 UNIT/ML 3ML VIAL SUBCUT ×2 (09:07→12:37)
[2021-07-09] MEDS: SODIUM CHLORIDE 0.9% FLUSH 10 ML IV (09:08)
[2021-07-09] MEDS: TIMOLOL 0.25% OPHTH 1 DROPS EYE-BOTH (09:08)
--- NOTE | 2021-07-09 12:06 | PT.IPTN ---
Physical Therapy Treatment Note M2 PT-IP Current Condition Start: 07/08/21 16:34 Freq: NEEDED Status: Active Protocol: Document 07/08/21 14:45 AB (Rec: 07/08/21 16:44 AB [email or web address]) Physical Therapy Current Condition Current Condition Evaluation Date 07/08/21 Treatment Diagnosis BLE edema; difficulty in walking Onset Date 07/07/21 M3 PT-IP Subjective Start: 07/08/21 16:34 Freq: NEEDED Status: Active Protocol: Document 07/09/21 11:39 KS (Rec: 07/09/21 12:51 KS [id number]) Subjective Physical Therapy Visit Type Type Treatment Note Visit Start Time 11:39 Visit Stop Time 12:06 Total Visit Minutes 27 Notes Co-treat w/ OT Number of FELT HANGER Visits 1 Therapy Pain Assessment Pain When Pain Assessed During Mobility Pain Present Pain Present Pain Reported M4 PT-IP Mobility and Gait Start: 07/08/21 16:34 Freq: NEEDED Status: Active Protocol: Document 07/09/21 11:39 KS (Rec: 07/09/21 12:51 KS [id number]) PT-Bed Mobility Assessment Supine to Sit Supine to Sit Standby Assistance,1 Person Assistance,Head of Bed Elevated,Bedrails Sit to Supine Sit to Supine Moderate Assistance,2 Person Assistance,Head of Bed Elevated,Bedrails PT-Transfer Assessment Sit to and From Stand Sit to and from Stand Contact Guard Assistance,1 Person Assistance,Use of Upper Extremities Equipment Transfer Assistive Device Gait Belt,Front Wheeled Walker Orthotic/Prosthetic Devices or Brace: No Transfers Transfer Destination Bed Transfer Technique Pt ambulated Transfer Ability Level of Assist Contact Guard Assistance,1 Person Assistance,Use of Upper Extremities Comments Mobility Comments Pt w/ much improvement today. SBA for sup<>sit, CGA for sit< >Stand and ~6 ft ambulation w/ FWW, but still required Mod A x2 for sit<>sup and Max A x2 for scooting up/repositioning in bed. Pt usually uses lift chair at home but it is broken which will greatly limit her mobility. She will not be able to get into bed on her own at home and does not have 24/7 assist, but states she may still be able to sleep in lift chair although she cannot currently use it to help her stand. Gait Assessment Gait Gait Assistance Required: Contact Guard Assist,1 Person Assist Distance (Feet) 6 Assistive Devices Assistive Device Gait Belt,Front Wheeled Walker Gait Deviations General Gait Pattern Antalgic,Decreased Stride Length,Decreased Feet Clearance,Flexed Trunk,Wide Based Gait Factors Limiting Gait Function Factors Limiting Gait Function Decreased Activity Tolerance, Decreased Sensation,Decreased Strength,Incoordination, Limited Range of Motion,Pain, Poor Balance,Poor Safety Awareness Comments Gait Comments Pt ambulated w/ flexed trunk and heavy weight bearing through forearms on FWW, bt states that is normally how she walks. PT-Balance Assessment Sitting Balance and Reactions Static Sitting Balance Ability Good Dynamic Sitting Balance Ability Fair Standing Balance and Reactions Static Standing Balance Ability Fair Dynamic Standing Balance Ability Fair Device Used FWW M5 PT-IP Objective Assessments Start: 07/08/21 16:34 Freq: NEEDED Status: Active Protocol: Document 07/08/21 14:45 AB (Rec: 07/08/21 16:44 AB [email or web address]) Orientation Orientation/Cognition Level of Alertness Alert Orientation Name,Place,Situation Language Function Ability No Deficits Noted Safety Awareness Decreased Safety Awareness Memory Description No Deficits Noted Gross Range of Motion Lower Extremity ROM Assessment Within Functional Limits Strength Lower Extremity Strength Assessment Bilaterally Impaired Hip 3-/5 Knee 3+/5 Muscle Tone Muscle Tone WNL Yes M6 PT-IP Treatment Start: 07/08/21 16:34 Freq: NEEDED Status: Active Protocol: Document 07/09/21 11:39 KS (Rec: 07/09/21 12:51 KS [id number]) Physical Therapy Treatment Education Education Provided Safety M7 PT-IP Assessment and Plan Start: 07/08/21 16:34 Freq: NEEDED Status: Active Protocol: Document 07/09/21 11:39 KS (Rec: 07/09/21 12:51 KS [id number]) PT Summary Assessment and Plan Potential Rehabilitation Potential Fair Status of Condition at Evaluation Evolving Summary Impairments Pain,ROM,Strength,Balance, Coordination,Sensation,Tone, Cognition,Bed Mobility, Transfers,Gait,Activity Tolerance Assessment Summary Pt SBA for sup<>sit, CGA for sit<>Stand w/ FWW and 6 ft ambulation, Mod-Max A x2 for sit<>sup and repositioning in bed. Pt does not have adequate assist pr equipment at home and would benefit from SNf to improve functional mobility independence. Goals Bed Mobility Goal Minimal Assistance Transfer Goal Contact Guard Assistance,Front Wheeled Walker Gait Goal Contact Guard Assistance,Front Wheel Walker Gait Distance 50 Other Goals improve transfer and ambulation using FWW SBA 75 ft Days to Meet Goals 10 Frequency of Treatment Frequency Of Treatment Once a Day Treatment Plan Physical Therapy Treatment Plan Bed Mobility Training,Transfer Training,Gait Training, Therapeutic Exercise,Balance Retraining,Discharge Planning, Hot or Cold Pack,Neuromuscular Re-ed,Coordination Retraining ,Manual Therapy Recommendations To Nursing Amount of Assist Needed 2 Person Assist Discharge Recommendations PT Discharge Recommendations Home with 06/09 Assist Available,SNF Rehab Transportation Needs at Discharge Wheelchair/Cabulance
--- NOTE | 2021-07-09 12:14 | OT.IP.EVAL ---
Past Medical History (Last Reviewed 07/08/21 @ 05:50 by ROSALES Velázquez) Chronic venous stasis dermatitis (05/18/16) Dependent edema Diabetic neuropathy Essential hypertension (03/15/16) Frequent UTI Hemorrhoids (11/15/16) History of chickenpox (1964) History of [place] measles (~1964) History of measles (~1962) History of mumps (1957) Morbid obesity with body mass index (BMI) of 60.0 to 69.9 in adult (04/14/16) Osteoarthritis of lumbar spine Tubular adenoma of colon (08/27/16) Type 2 diabetes mellitus without complication, without long-term current use of insulin (04/14/16) Visual field defect of left eye (12/15/16) Surgical History (Last Reviewed 07/08/21 @ 05:50 by ROSALES Velázquez) Anesthesia S/P total abdominal hysterectomy and bilateral salpingo-oophorectomy (12/2009) Status post hernia repair (12/2010) Status post knee surgery (10/2009) Status post knee surgery (11/2009) Occupational Therapy Inpatient Evaluation/Re-Eval M1 PT/OT-IP Prior Functional Status Start: 07/08/21 16:34 Freq: NEEDED Status: Active Protocol: Document 07/09/21 11:40 [facility] (Rec: 07/09/21 13:06 [facility] [id number]) Medical Review Prior Functional Status Medical History Reviewed Yes Communication able to make needs known Mobility and Gait pt stated that she is modified independent with all mobilities and ambulation using a 4WW; sometimes uses a SPC for sit to stand Activities of Daily Living and IADL's Pt states just wears gowns at home and flip flops. Prior Functional Level (Other details) pt stated that she sleeps on her lift chair but lift chair is now broken and unable to elevated her LE up and now has increase edema on BLE affecting her mobility. Social History Household Members none Living Arrangements Apartment/Condo Number of Floors (Floors) One Floor Number of Stairs To Enter/Railing? ramp to enter Home Environment Walk in Shower Home Equipment Front Wheel Walker,Straight Cane,Raised Toilet Seat w/ Armrests,Shower Seat with Backrest,Lift Recliner,Grab Bars In Shower Additional Social History Comment pt sleep on a lift chair M2 OT-IP Current Condition Start: 07/09/21 12:52 Freq: Status: Active Protocol: Document 07/09/21 11:40 [facility] (Rec: 07/09/21 13:06 [facility] [id number]) Occupational Therapy Current Condition Current Condition Evaluation Date 07/09/21 Treatment Diagnosis BLE edema Diagnosis Onset Date 07/07/21 M3 OT- IP Subjective and Pain Start: 07/09/21 12:52 Freq: Status: Active Protocol: Document 07/09/21 11:40 [facility] (Rec: 07/09/21 13:06 [facility] [id number]) OT- Subjective Occupational Therapy Visit Type Type Initial Evaluation Visit Start Time 11:40 Visit Stop Time 12:14 Total Visit Minutes 34 Occupational Therapy Visit Comments Patient Comments Pt agreed to get up. Patient/Caregiver Goals TO go home and have home health. OT Pain Assessment Pain When Pain Assessed At Rest Pain Present Pain Present Denied Pain M4 OT- IP ADL's Start: 07/09/21 12:52 Freq: Status: Active Protocol: Document 07/09/21 11:40 [facility] (Rec: 07/09/21 13:06 [facility] [id number]) OT UXW-Sxfp-Pidurgn General Evaluation Self-Feeding Ability Independent OT ADL-Grooming Comments OT Grooming Comments not performed OT ADL-Oral Care Comments Oral Care Comments not performed OT ADL-Dressing General Eval Areas Needing Assistance Socks Comments OT Dressing Comments Pt has adaptive equipment at home to assist with her needs. OT ADL-Toileting General Evaluation Toileting Ability Total Assistance Comments OT Toileting Comments Pt using purewick external catheter. OT ADL-Bathing Comments OT Bathing Comments Pt states has a caregiver assist one time a week for showers. M5 OT- IP IADL's Start: 07/09/21 12:52 Freq: Status: Active Protocol: Document 07/09/21 11:40 [facility] (Rec: 07/09/21 13:06 [facility] [id number]) OT-Instrumental Activities of Daily Living Home Safety Awareness Awareness of Need for Assistance at Home Good Awareness Ability to Problem Solve Emergency Able to Problem Solve Situations M6 OT- IP Functional Cognition Start: 07/09/21 12:52 Freq: Status: Active Protocol: Document 07/09/21 11:40 [facility] (Rec: 07/09/21 13:06 [facility] [id number]) Cognitive Factors Limiting Selfcare Function Cognitive Ability Level of Alertness Alert Patient Orientation Name,Age,Birthday,Month,Date, Year,Day of Week,Place, Situation Attention Span Ability Capable of Focused Attention, Capable of Sustained Attention Ability to Follow Commands Able to Follow One Step Commands Cognitive Comments Cognitive Assessment Comments Pt appears at baseline for her cognitive needs at this time. OT- Vision and Hearing OT- Hearing Assessment OT- Hearing Assessment WFL M7 OT- IP Mobility and Balance Start: 07/09/21 12:52 Freq: Status: Active Protocol: Document 07/09/21 11:40 [facility] (Rec: 07/09/21 13:06 [facility] [id number]) OT- Bed Mobility Assessment Supine to Sit Supine to Sit Assist Moderate Assistance,2 Person Assistance OT-Transfer Assessment Sit to and From Stand Sit to and from Stand Contact Guard Assistance Transfers Transfer Ability Contact Guard Assistance OT- Balance Assessment Sitting Balance and Reactions Static Sitting Balance Ability Good Dynamic Sitting Balance Ability Good Standing Balance and Reactions Static Standing Balance Ability Fair M8 OT- IP Objective Assessments Start: 07/09/21 12:52 Freq: Status: Active Protocol: Document 07/09/21 11:40 [facility] (Rec: 07/09/21 13:06 [facility] [id number]) OT Gross Range of Motion Upper Extremity Range of Motion Assessment Within Functional Limits OT Strength Comments Strength Comments WFL for functional needs at this time. OT-Muscle Tone Assessment Muscle Tone WNL Yes M9 OT- IP Assessment and Plan Start: 07/09/21 12:52 Freq: Status: Active Protocol: Document 07/09/21 11:40 [facility] (Rec: 07/09/21 13:06 [facility] [id number]) OT Summary Assessment and Plan Potential Rehabilitation Potential Good Analytic Complexity at Evaluation Moderate Summary OT Impairments Balance,Functional Mobility, Dressing,Toileting,Bathing, Toilet Transfers,Shower Transfers Progress Towards Goals Progressing Toward Goals Assessment Summary Pt MOD complexity and main barriers are her lift recliner that she sleeps in is broken. Pt still will need assist for IADl and bathing needs, and completeness for hygiene needs after toileting and would be best to have 24/7 available assist to assist with her needs at this time. Pt will also benefit from home health versus short rehab stay. Goals Grooming Goal Independent Dressing Goal Independent Toileting Goal Independent Bathing Goal Minimal Assistance Toilet Transfer Goal Independent Shower Transfer Goal Independent Days to Meet Goals 5 Frequency of Treatment Frequency Of Treatment Once a Day Treatment Plan OT Treatment Plan ADL Training,Functional Mobility,Patient/Family Education,Discharge Planning Discharge Recommendations OT Discharge Recommendations Home with 06/09 Assist Available,Home Health,SNF Rehab,Home vs SNF Transportation Needs at Discharge Private Vehicle,Wheelchair/ Cabulance
--- NOTE | 2021-07-09 12:58 | PM.DS.1 ---
History of Present Illness History of Present Illness Date Patient Seen: 07/09/21 Chief complaint: BLE edema Narrative: History of Present Illness History of Present Illness Date Patient Seen: 07/08/21 Time Patient Seen: 01:00 Chief complaint: BLE edema Narrative: Tor Melendez is a 66 y.o. female with multiple medical problems including morbid obesity, diabetes, chronic venous stasis, frequent urinary tract infections, and hypertension was seen in the emergency department today for a pressure ulcer on her right buttock.? She returns today due to having developed blisters on her right foot.? She states that both her full time staff interpreter and PCP both recommended diabetic shoes however her insurance denied that request.? Uses a chair lift assist, apparently it broke and cannot be serviced until 07/13. She unable to ambulate appropriately and safely to the bathroom and back as she does have both urinary and fecal urgency.? She states that she has to actually have a bowel movement laying on a drape and using a water bottle to help clean her off.? She has apparently lost her in-home services for bath assistance and basic ADL assistance.? She had been seen by a home shower travel assistant 3 times a week which is now gone down to once a week.? Did have some nausea last week, she denies any vomiting, dysuria, shortness of breath, abdominal pain, and she fluctuates between having diarrhea and constipation which is chronic.? She has peripheral neuropathy of both her hands and feet, feet are worse than hands and she is unable to feel anything on the bottom of her feet at all. She was recently admitted overnight earlier this month to rule out ACS and discharged on 05/20 after having undergone stress testing and echo and discharged on aspirin and a statin. Chest x-ray was negative for any acute cardiopulmonary process CBC is unremarkable, sodium is mildly decreased at 132, BUN 34, glucose 181, and COVID-19 PCR is negative.? She is afebrile, blood pressure 110/53, heart rate 79, respiratory rate 16, oxygen saturation of 94% on room air she weighs 169 kilos with a BMI of 61.8. Discharge Providers Provider Date of admission: 07/07/21 21:55 Discharge Date: 07/09/21 Primary care physician: Galilea Johnson, DO Consults: 07/08/21 00:36 Consult to Pastoral Services Routine Comment: per pt preference 07/08/21 02:11 Consult to Physical Therapy Evaluate & Treat Comment: Home safety, need for modifications Physician Instructions: Evaluate and Treat 07/08/21 08:50 Consult to Occupational Therapy Evaluate & Treat Comment: Physician Instructions: Evaluate and treat Discharge provider: Funmilayo Murillo DO Summary Hospital Course Discharge Diagnosis: BILATERAL LOWER EXTREMITIES EDEMA DUE TO LYMPHEDEMA/VENOUS STASIS ?MORBID OBESITY. LIFESTYLE CHANGES RECOMMENDED ?HYPERTENSION PER HISTORY ?OSTEOARTHRITIS PER HISTORY ?DIABETES TYPE 2 PER HISTORY. CONTINUE HOME MEDS ?DIABETIC NEUROPATHY PER HISTORY. STARTED ON GABAPENTIN ?PHYSICAL DEBILITY.? MULTIFACTORIAL ?POSSIBLE CONSTIPATION.? ON MIRALAX Hospital Course: THIS IS A VERY PLEASANT 66-YEAR-OLD FEMALE WHO CAME TO THE HOSPITAL WITH WORSENING LOWER EXTREMITY EDEMA. PATIENT HAS BEEN ON LASIX AND METOLAZONE AT HOME. AT THIS TIME WE WILL INCREASE THE LASIX FROM 40 TO 60 MG. CONTINUE METOLAZONE PREVIOUSLY ORDERED. MOST IMPORTANTLY, PATIENT WILL NEED TO KEEP THE LOWER EXTREMITIES ELEVATED AT ALL TIMES WHILE IN DOWN OR SEEDING COMPRESSION STOCKINGS SHOULD BE APPLIED TO BILATERAL LOWER EXTREMITIES DURING THE DAY AND REMOVE AT NIGHT. HOWEVER EVEN IMPORTANTLY, FLUID RESTRICTION OF 1800 CC IS RECOMMENDED WHICH WILL INCLUDE ALL FLUID INTAKE FOR A 24 HOUR INTERVAL. PATIENT WILL NEED TO FOLLOW UP WITH PRIMARY CARE PHYSICIAN FOR ADDITIONAL MANAGEMENT AND CARE. A STRICT LOW-FAT LOW-SODIUM LOW-CHOLESTEROL DIET IS RECOMMENDED WELL. SHE WILL NEED ALSO TO HAVE FREQUENT LAB DRAWN TO EVALUATE FOR ANY KIDNEY DYSFUNCTION WHILE ON DIURETIC THERAPY. ACTIVITIES WILL BE TOLERATED. FALL PRECAUTION RECOMMENDED. PATIENT TO USE ASSISTIVE DEVICES FOR ALL ADL FOLLOW WITH PRIMARY CARE PHYSICIAN WITHIN 1 WEEK CARDIAC DIET. . LOW-CHOLESTEROL. LOW-SODIUM. FLUID RESTRICTION OF 1800 CC DAILY Status at Discharge Cognitive/behavioral status at discharge: oriented Functional status at discharge: uses cane/walker Overall status at discharge: patient is progressing back to baseline Time Spent with Patient Time spent: Greater than 30 minutes Exam Vital Signs (past 8 hours): - 07/09/21 06:40 07/09/21 07:00 07/09/21 07:45 Temperature 98.5 F 97.4 F L Pulse Rate 68 75 Respiratory Rate 16 16 Blood Pressure 115/55 L 113/45 L Pulse Oximetry 94 94 95 07/09/21 08:04 07/09/21 09:09 Temperature Pulse Rate 90 Respiratory Rate Blood Pressure 119/38 L Pulse Oximetry 94 Oxygen Delivery Method Room Air Oxygen Flow Rate 0 Narrative Exam Narrative: NO ACUTE DISTRESS.? PATIENT IS ALERT ORIENTED X3.? MORBIDLY OBESE VITAL SIGNS STABLE HEAD ATRAUMATIC NORMOCEPHALIC NECK : SUPPLE WITHOUT ADENOPATHY NO CAROTID BRUITS EYE:? EOMI, PERRLA, NORMAL CONJUNCTIVA; NO JAUNDICE CHEST:? REGULAR RATE.? ? NO RUBS.? PMI IS NON DISPLACED.? NO MURMURS; NORMAL S1-S2 PULMONARY:? DECREASED BS OVER THE BASES.? MILD BIBASILAR CRACKLES NOTED; NO INCREASED DULLNESS TO PERCUSSION ABDOMEN:? SOFT.? NONTENDER.? NONDISTENDED.? BOWEL SOUNDS ARE PRESENT IN ALL 4 QUADRANTS. ? NO WHEEZING.? NO RALES EXTREMITIES: 3+ NONPITTING BILATERAL LOWER EXTREMITY EDEMA..? NO CYANOSIS OR CLUBBING NOTED. NEURO:? CRANIAL NERVES 2-12 GROSSLY INTACT. NO FOCAL NEUROLOGICAL DEFICIT NOTED. MSK:? NORMAL RANGE OF MOTION FOR AGE.? NO JOINT EFFUSION. SKIN:? NORMAL FOR ETHNICITY; NO ECCHYMOSIS.? NO LESION. ? GOOD? TURGOR.; NO RASHES :? NORMAL EXTERNAL GENITALIA. PSYCH :? APPROPRIATE MOOD AND AFFECT.? ALERT AWAKE ORIENTED X3 Objective Labs Result Diagrams: 07/09/21 06:06 07/09/21 06:06 Labs: Laboratory Results - last 24 hr 07/09/21 07/09/21 07/09/21 06:06 06:06 06:06 WBC 7.6 RBC 4.43 Hgb 12.8 Hct 38.5 MCV 86.8 MCH 28.9 MCHC 33.3 RDW 17.5 H Plt Count 218 Neut % (Auto) 60.4 Lymph % (Auto) 27.7 [place] % (Auto) 10.1 Eos % (Auto) 1.3 L Baso % (Auto) 0.5 Neut # (Auto) 4600 Lymph # (Auto) 2100 [place] # (Auto) 800 Eos # (Auto) 100 Baso # (Auto) 0 Sodium 133 L Potassium 3.9 Chloride 95 L Carbon Dioxide 32 BUN 17 Creatinine 0.53 Estimated GFR > 60 BUN/Creatinine Ratio 32.1 H Glucose 145 H Calcium 8.7 Phosphorus 2.7 L D Magnesium 2.0 [facility] Medical History Chronic venous stasis dermatitis (05/18/16) Dependent edema Diabetic neuropathy Essential hypertension (03/15/16) Frequent UTI Hemorrhoids (11/15/16) History of chickenpox (1964) History of Syriac measles (~1964) History of measles (~1962) History of mumps (1957) Morbid obesity with body mass index (BMI) of 60.0 to 69.9 in adult (04/14/16) Osteoarthritis of lumbar spine Tubular adenoma of colon (08/27/16) Type 2 diabetes mellitus without complication, without long-term current use of insulin (04/14/16) Visual field defect of left eye (12/15/16) Surgical History Anesthesia S/P total abdominal hysterectomy and bilateral salpingo-oophorectomy (12/2009) Status post hernia repair (12/2010) Status post knee surgery (10/2009) Status post knee surgery (11/2009) Family History Brother Age: 79 Glaucoma Mother Diabetes mellitus Heart disease CAD (coronary artery disease) Father No problems noted. Sister Cancer Lung cancer Liver cancer Colon cancer Sister No problems noted. Sister No problems noted. Sister No problems noted. Daughter No problems noted. Father No problems noted. 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 Discharge orders & Medications Prescriptions: New sennosides [senna] 8.6 mg Tablet 17.2 mg PO DAILY Qty: 60 0RF tramadol 50 mg Tablet 50 mg PO QID PRN (Reason: Pain, Moderate (4-6)) Qty: 16 0RF tizanidine 4 mg Tablet 4 mg PO Q6H PRN (Reason: muscle spasticity) Qty: 30 0RF gabapentin 100 mg capsule 100 mg PO BID Qty: 30 0RF Continued L'Arginine 3 tab PO DAILY 0RF cvdibva-iuaurqtlo-sgsk [id number] mg tablet 1 tab PO DAILY 0RF garlic 1,000 mg capsule 1,000 mg PO QPC 0RF [id number]-vyi-N-jdklb-glef-cyc [Joint Support Complex] 1 cap PO TIDWMEAL 0RF multivit fmj-lond-KX-herb 186 [Hair, Skin and Nails Advanced] 1 tab PO DAILY 0RF omega-3 fatty acids 1,000 mg capsule 2,000 mg PO DAILY 0RF flaxseed oil 1,000 mg capsule 1,000 mg PO DAILY 0RF Rx Instructions: administer with a meal Lactobacillus acidophilus 1 EACH capsule 1 tab PO QDAY Qty: 10 0RF multivitamin [Multiple Vitamins] 1 EACH tablet 1 tab PO QDAY Qty: 0 0RF (DME) blood sugar diagnostic [Blood Glucose Test] strip See Dose Instructions .ROUTE .MEDSUPPLY Qty: 100 1RF Dose Instruction: As directed Rx Instructions: Use to test blood sugars once daily (DME) blood-glucose meter kit See Dose Instructions .ROUTE .MEDSUPPLY Qty: 1 0RF Dose Instruction: As directed Rx Instructions: Use to check blood sugars once daily (DME) lancets Misc See Dose Instructions .ROUTE .MEDSUPPLY Qty: 100 1RF Dose Instruction: As directed Rx Instructions: Preset Safety Lancets 23G 1.8mm-Use to check blood sugar once daily lisinopril 20 mg tablet 20 mg PO QDAY Qty: 90 3RF metolazone 2.5 mg tablet See Rx Instructions .ROUTE .COMPLEX Qty: 90 3RF Dose Instruction: TAKE ONE TABLET WITH 2 POTASSIUM TABS ON // TUE // TUE // SAT // SUN Label Comments: Now only taking twice a week Rx Instructions: TAKE ONE TABLET WITH 2 POTASSIUM TABS ON // TUE // FRI // SAT // SUN potassium chloride 20 mEq tablet extended release See Rx Instructions .ROUTE .COMPLEX Qty: 90 3RF Dose Instruction: take 1 tablet by mouth three times a day Rx Instructions: take 1 tablet by mouth three times a day glipizide 5 mg tablet 10 mg PO BID Qty: 270 1RF Disabled Parking Permit See Rx Instructions .Route .COMPLEX Qty: 1 0RF Rx Instructions: I find this patient to be medically disabled and qualified for Disabled Parking as indicated, and signed, on the accompanying Disabled Parking Application for Individuals ; naproxen sodium [Aleve] 220 mg capsule 220 mg PO BID PRN (Reason: Pain (Scale Score 1-3)) 0RF timolol maleate 0.25 % Drops 1 % EYE-BOTH DAILY 0RF mecobalamin (vitamin B12) 1,000 mcg Tablet,Disintegrating 2,500 mcg PO DAILY 0RF milk thistle 175 mg Tablet 175 mg PO DAILY 0RF Rx Instructions: give with meal/snack magnesium citrate 400 mg PO DAILY 0RF Changed furosemide 40 mg tablet 60 mg PO DAILY Qty: 90 1RF Follow up/Referrals: Galilea Johnson DO [Primary Care Provider] - Diet/Activity/Treatments Diet: Low-fat, Low-sodium and Low-cholesterol Diet comment: FLUID RESTRICTIONS 1800CC DAILY Activity: FALL PRECAUTIONS Discharge Data Primary Care Provider: Galilea Johnson Attending Provider: Irlanda Diallo VTE Deep Vein Thrombosis/Pulmonary Embolism Present on Admission: No
--- NOTE | 2021-07-09 15:26 | CM.DPNOTE ---
DCP Note Spoke w/patient this morning re recommendation for SNF and patient refuses, states wants to return home today and family can transport her home Updated Dr Murillo Patient asks for yennifer [facility] to be resumed and she would like to know exact date and time yennifer will be available for follow up once patient is home Patient's states her chair will be fixed 07.14. Placed call to [facility] at [facility], updated with discharge home today. Yennifer does not need resumption orders, request for H+P and latest prog note which has been faxed. DC Summary currently in draft. Requested that yennifer [facility]ODS contact patient either by cell or via patient room BLAISE per patient's request to know yennifer's follow up Updated RN Pinky Plan: DC home via family pov and yennifer [facility] JW
--- NOTE | 2021-07-09 17:11 | PC.NURSE ---
Pt is A&OX4, VSS, afebrile on RA. She denies n/v, SOB or CP. She c/o back pain and hip pain, and is medicated with prn pain medications. She continues to report pain at 6/10 but states after prn medication her pain is much better. She is able to get [place] [facility]. She has +4 edema to BLE's skin is intact, callouses noted to R foot. She is medically cleared for discharge today home with home health and her daughter Raina arrives to help assist patient home. Pt verbalizes understanding of her discharge instructions, medications, recommendations for diet, and fluid restriction and follow up care. She is escorted by w/ch to private vehicle with her daughter with all of her belongings and tramadol prescription this evening at 1700.
== END 2021-07-09 17:00 | disposition home health service (06) ==
LOC: ED 19:33 → AC 21:56
PROVIDERS: Hospitalist; Admitting Provider Nurse Practitioner Family; Emergency Provider Emergency Medicine; Family Provider Family Medicine; PCP Family Medicine; Referring Provider Nurse Practitioner Family; Visit Provider Nurse Practitioner Family
DX: R60.0 Localized edema (principal); R53.1 Weakness; I87.8 Other specified disorders of veins; E11.40 Type 2 diabetes mellitus with diabetic neuropathy, unspecified; I10 Essential (primary) hypertension; E78.5 Hyperlipidemia, unspecified; E66.01 Morbid (severe) obesity due to excess calories; Z68.44 Body mass index [BMI] 60.0-69.9, adult; R26.2 Difficulty in walking, not elsewhere classified; R53.81 Other malaise; M19.90 Unspecified osteoarthritis, unspecified site; Z79.84 Long term (current) use of oral hypoglycemic drugs; Z20.822 Contact with and (suspected) exposure to COVID-19
CPT/HCPCS: 36415; 71045; 80048; 80053; 81003; 82550; 82962; 83735; 83880; 84100; 84484; 85025; 87635; 94760; 96372; 96374; 97162; 97166; 97530; 99283; 99284; C9803; G0378; J1650; J1815; J1940

== ENCOUNTER → 2021-09-07 13:28 | Outpatient (CLI) | payer MEDICARE, SELFPAY ==
[2021-09-07 15:54] LABS: Hemoglobin A1C% w Est Avg Glu 6.7 % (4.0-6.0)
[2021-09-07 16:14] LABS: Alanine Aminotransferase 40 IU/L (<35); Albumin 4.5 g/dL (3.5-5.0); Albumin Globulin Ratio 1.4 (1.0-2.8); Alkaline Phosphatase 73 U/L (38-126); Aspartate Aminotransferase 34 IU/L (14-36); BUN Creatinine Ratio 33.9 (6-22); Bilirubin Total 0.5 mg/dL (0.2-1.3); Blood Urea Nitrogen 20 mg/dL (7-17); Calcium 9.8 mg/dL (8.4-10.2); Carbon Dioxide 28 mmol/L (22-32); Chloride 102 mmol/L (98-107); Estimated Glomerular Filt Rate > 60 mL/min (>60); Globulin 3.2 g/dL (1.7-4.1); Glucose 96 mg/dL (80-110); HEMOLYSIS < 15 (0-50); Potassium 4.7 mmol/L (3.4-5.1); Sodium 137 mmol/L (137-145); Total Protein 7.7 g/dL (6.3-8.2)
[2021-09-07 16:40] LABS: TSH w/ Reflex to FT4 0.58 uIU/mL (0.47-4.68)
[2021-09-07 16:59] LABS: Vitamin B12 > 1000 pg/mL (239-931)
[2021-09-07 18:41] LABS: Vitamin D 25 Hydroxy (D3) 71.5 ng/mL (30.0-100.0)
== END ==
PROVIDERS: Family Provider Family Medicine; PCP Family Medicine; Referring Provider Family Medicine; Visit Provider Family Medicine
DX: E66.01 Morbid (severe) obesity due to excess calories (principal); E11.9 Type 2 diabetes mellitus without complications; Z68.44 Body mass index [BMI] 60.0-69.9, adult
CPT/HCPCS: 36415; 80053; 82306; 82607; 83036; 84443

== ENCOUNTER 2022-01-12 13:14 | Emergency (ER) | payer MEDICARE, SELFPAY ==
[2022-01-12 13:19] VITALS: BP 132/66; PULSE 67; RESP 20; TEMP 36.6; O2SAT 97; BMI 62.4
[2022-01-12 14:06] LABS: Appearance Urine UA CLEAR; Bilirubin Urine UA NEGATIVE (NEGATIVE); Color Urine UA YELLOW; Glucose Urine UA NEGATIVE (Negative); Ketones Urine UA NEGATIVE (NEGATIVE); Leukocyte Esterase Urine UA NEGATIVE (NEGATIVE); Nitrite Urine UA NEGATIVE (Negative); Occult Blood Urine UA NEGATIVE (Negative); Protein Urine UA TRACE (Negative); Urobilinogen Urine UA 0.2 E.U./dL (0.2)
[2022-01-12 14:09] LABS: pH Urine UA 6.5 (4.5-8.0)
[2022-01-12 14:21] LABS: Bacteria Urine Moderate (10-30); RBC Urine None Seen (0-5/HPF); WBC Urine 1-5/HPF (0-5/HPF)
[2022-01-12 14:22] LABS: Culture Indicated Urine Cult Not Indicated; Mucus Urine 1+ (Negative); Squamous Epithelial Cell Urine 1-5 /HPF (0-5/HPF)
[2022-01-12 15:46] VITALS: PULSE 77; O2SAT 97
[2022-01-12 15:49] VITALS: BP 156/72; PULSE 69; O2SAT 96
[2022-01-12 16:00] VITALS: PULSE 69; O2SAT 96
--- NOTE | 2022-01-12 16:20 | DI.RAD.S_ITS ---
PROCEDURE: XR CALCANEOUS RT MIN 2V INDICATIONS: c/f osteomyeletis plantar aspect of calcaneus TECHNIQUE: Two views of the calcaneus were acquired. COMPARISON: None. FINDINGS: No fractures or dislocations. No suspicious bony lesions. A plantar calcaneal spur is present. IMPRESSION: No definite or obvious radiographic evidence of osteomyelitis identified. If there is persistent clinical concern, a repeat radiographs, MRI, or nuclear bone scan may be helpful for further evaluation. Dictated by: Huber Clark M.D. on 01/12/2022 at 16:01 Approved by: Huber Clark M.D. on 01/12/2022 at 16:04
[2022-01-12] MEDS: OXYCODONE/ACETAMINOPHEN 5/325 TABLET 1 TAB PO (16:26)
[2022-01-12] MEDS: DOXYCYCLINE HYCLATE 100 MG TABLET PO (16:26)
[2022-01-12] MEDS: cefUROXime 250 MG TABLET 500 MG PO (16:27)
--- NOTE | 2022-01-12 16:32 | ED.FEMALEGU ---
HPI - Female Genitourinary <Saba Vu, PRESS HAND SUPERVISOR - Last Filed: 01/12/22 17:32> General Chief complaint: Urogenital-Female Stated complaint: UTI. GCS 15 Time Seen by Provider: 01/12/22 15:58 Source: patient Mode of arrival: EMS History of Present Illness HPI Narrative: This is a 66-year-old female with history of obesity, diabetes and is insulin dependent, hypertension, diabetic foot ulcers, chronic venous stasis dermatitis and presents to the emergency department with dysuria for the last 7 days, incontinence, and concern for acute cystitis. Patient states she has a history of this but it has been approximately 1 year since she is needed antibiotics. She sees Dr. Nena Paul for Podiatry needs in has concern about the plantar aspect over her calcaneus with some boggy tissue and concern for osteomyelitis. She saw Dr. Mays on 12/28/2021 and was told to keep an eye on it, she has not been on antibiotics recently. Related Data Home Medications Medication Instructions Recorded Confirmed multivitamin (Multiple Vitamins 1 tab PO QDAY ##0 02/21/17 07/08/21 tablet) magnesium citrate 400 mg PO DAILY 10/06/17 07/08/21 naproxen sodium 220 mg capsule 220 mg PO BID PRN Pain (Scale 10/06/18 07/08/21 (Aleve) Score 1-3) mecobalamin (vitamin B12) 1,000 2,500 mcg PO DAILY 01/27/19 07/08/21 mcg disintegrating tablet,sublingual timolol maleate 0.25 % eye drops 1 % EYE-BOTH DAILY 01/27/19 07/08/21 L'Arginine 3 tab PO DAILY 10/03/20 07/08/21 hqxlurl-wnznuuchf-ckwn 333 mg-133 1 tab PO DAILY 10/03/20 07/08/21 mg-8.3 mg tablet flaxseed oil 1,000 mg capsule 1,000 mg PO DAILY 10/03/20 07/08/21 garlic 1,000 mg capsule 1,000 mg PO QPC 10/03/20 07/08/21 gwwsa-qbm-S-gkfmk-rjpw-zam [Joint 1 cap PO TIDWMEAL 10/03/20 07/08/21 Support Complex] multivit arn-vbec-KF-herb 186 1 tab PO DAILY 10/03/20 07/08/21 [Hair, Skin and Nails Advanced] omega-3 fatty acids 1,000 mg 2,000 mg PO DAILY 10/03/20 07/08/21 capsule milk thistle 175 mg tablet 175 mg PO DAILY 07/08/21 07/08/21 Previous Rx's Medication Instructions Recorded Lactobacillus acidophilus 1 tab PO QDAY #10 tabs 03/31/16 Disabled Parking Permit See Rx Instructions .Route 10/14/17 .COMPLEX #1 ea blood sugar diagnostic (Blood #100 ea 10/25/17 Glucose Test strips) blood-glucose meter #1 ea 10/25/17 lancets #100 ea 03/28/19 lisinopril 20 mg tablet 20 mg PO QDAY #90 tabs 06/22/21 metolazone 2.5 mg tablet See Rx Instructions .Route 06/22/21 .COMPLEX #90 tabs glipizide 5 mg tablet 10 mg PO BID #270 tabs 06/23/21 furosemide 40 mg tablet 60 mg PO DAILY #90 tabs 07/09/21 gabapentin 100 mg capsule 100 mg PO BID #30 caps 07/09/21 sennosides 8.6 mg tablet (senna) 17.2 mg PO DAILY #60 tabs 07/09/21 tizanidine 4 mg tablet 4 mg PO Q6H PRN muscle spasticity 07/09/21 #30 tabs tramadol 50 mg tablet 50 mg PO QID PRN Pain, Moderate 07/09/21 (4-6) #16 tabs potassium chloride 20 mEq See Rx Instructions .Route 01/06/22 tablet,extended release .COMPLEX #90 tabs cefuroxime axetil 500 mg tablet 500 mg PO BID 7 days #14 tabs 01/12/22 doxycycline hyclate 100 mg capsule 100 mg PO BID 10 days #20 caps 01/12/22 oxycodone-acetaminophen 5 mg-325 1 tab PO TID PRN pain #14 tabs 01/12/22 mg tablet (Percocet) Allergies Allergy/AdvReac Type Severity Reaction Status Date / Time ibuprofen AdvReac causes Verified 05/16/21 18:40 bleeding Review of Systems <ROSALES Patel - Last Filed: 01/12/22 17:32> Review of Systems Narrative: Review of systems is negative for acute abnormalities unless otherwise noted in HPI Patient History <ROSALES Patel - Last Filed: 01/12/22 17:32> Medical History Chronic venous stasis dermatitis (05/18/16) Dependent edema Diabetic neuropathy Essential hypertension (03/15/16) Frequent UTI Hemorrhoids (11/15/16) History of chickenpox (1964) History of Nepali measles (~1964) History of measles (~1962) History of mumps (1957) Morbid obesity with body mass index (BMI) of 60.0 to 69.9 in adult (04/14/16) Osteoarthritis of lumbar spine Tubular adenoma of colon (08/27/16) Type 2 diabetes mellitus without complication, without long-term current use of insulin (04/14/16) Visual field defect of left eye (12/15/16) Surgical History Anesthesia S/P total abdominal hysterectomy and bilateral salpingo-oophorectomy (12/2009) Status post hernia repair (12/2010) Status post knee surgery (10/2009) Status post knee surgery (11/2009) Family History Brother Age: 80 Glaucoma Mother Diabetes mellitus Heart disease CAD (coronary artery disease) Father No problems noted. Sister Cancer Lung cancer Liver cancer Colon cancer Sister No problems noted. Sister No problems noted. Sister No problems noted. Daughter No problems noted. Father No problems noted. alcohol intake frequency: 0-2 drinks per day Alcohol type: wine Substance Use Type: does not use Exam <ROSALES Patel - Last Filed: 01/12/22 17:32> Narrative Exam Narrative: Reviewed vitals signs and nursing notes. General: cooperative, comfortable, in no acute distress, well groomed, afebrile, complains of pain 10/10 HEENT: symmetrical facial expressions, moist mucous membranes GI: abdomen soft, obese, nontender to palpation, nondistended MSK: moves all extremities, neurovascularly intact, no weakness, normal tone Skin: brisk capillary refill, without pallor or erythema, plantar aspect over the right calcaneus has a callus with mild bogginess to palpation, nontender to evaluate, patient complains numbness to her bilateral feet secondary to diabetes, no open wound, blister, or hematoma Neuro: normal speech and cognition, A&O x3, ambulatory, clear speech Psych: mental status is grossly normal, congruent mood, normal affect, pleasant and cooperative Initial Vital Signs Initial Vital Signs: Vital Signs Temperature 97.9 F 01/12/22 13:19 Pulse Rate 67 01/12/22 13:19 Respiratory Rate 20 01/12/22 13:19 Blood Pressure 132/66 01/12/22 13:19 Pulse Oximetry 97 01/12/22 13:19 Oxygen Delivery Method 01/12/22 13:19 <Piotr Caldera DO - Last Filed: 01/12/22 17:47> Initial Vital Signs Initial Vital Signs: Vital Signs Temperature 97.9 F 01/12/22 13:19 Pulse Rate 67 01/12/22 13:19 Respiratory Rate 20 01/12/22 13:19 Blood Pressure 132/66 01/12/22 13:19 Pulse Oximetry 97 01/12/22 13:19 Oxygen Delivery Method 01/12/22 13:19 Course <ROSALES Patel - Last Filed: 01/12/22 17:32> Orders Ordered: ED Orders 01/12/22 13:40 Urinalysis and Microscopic Routine 01/12/22 16:20 XR calcaneus RT min 2V Stat 01/12/22 17:11 Urine Culture Stat 01/12/22 17:19 Covid-19 + FLU A/B + RSV - PCR Stat Discontinued Medications Cefuroxime Axetil (Cefuroxime 250 Mg Tablet) 500 mg PO NOW ONE Stop: 01/12/22 16:00 Last Admin: 01/12/22 16:27 Dose: 500 mg Documented By: CUAUHTEMOC Doxycycline Hyclate (Doxycycline Hyclate 100 Mg Tablet) 100 mg PO NOW ONE Stop: 01/12/22 16:20 Last Admin: 01/12/22 16:26 Dose: 100 mg Documented By: CUAUHTEMOC Oxycodone/Acetaminophen (Oxycodone/Acetaminophen 5/325 Tablet) 1 tab PO NOW ONE Stop: 01/12/22 16:20 Last Admin: 01/12/22 16:26 Dose: 1 tab Documented By: CUAUHTEMOC Vital Signs Vital signs: Vital Signs - 8 hr 01/12/22 13:19 01/12/22 15:46 01/12/22 15:49 Temperature 97.9 F Pulse Rate 67 77 Respiratory Rate 20 Blood Pressure 132/66 156/72 H Pulse Oximetry 97 97 Oxygen Delivery Method Room Air 01/12/22 15:49 01/12/22 16:00 Temperature Pulse Rate 69 69 Respiratory Rate Blood Pressure Pulse Oximetry 96 96 Oxygen Delivery Method <Piotr Caldera DO - Last Filed: 01/12/22 17:47> Orders Ordered: ED Orders 01/12/22 13:40 Urinalysis and Microscopic Routine 01/12/22 16:20 XR calcaneus RT min 2V Stat 01/12/22 17:11 Urine Culture Stat 01/12/22 17:19 Covid-19 + FLU A/B + RSV - PCR Stat Discontinued Medications Cefuroxime Axetil (Cefuroxime 250 Mg Tablet) 500 mg PO NOW ONE Stop: 01/12/22 16:00 Last Admin: 01/12/22 16:27 Dose: 500 mg Documented By: CUAUHTEMOC Doxycycline Hyclate (Doxycycline Hyclate 100 Mg Tablet) 100 mg PO NOW ONE Stop: 01/12/22 16:20 Last Admin: 01/12/22 16:26 Dose: 100 mg Documented By: CUAUHTEMOC Oxycodone/Acetaminophen (Oxycodone/Acetaminophen 5/325 Tablet) 1 tab PO NOW ONE Stop: 01/12/22 16:20 Last Admin: 01/12/22 16:26 Dose: 1 tab Documented By: CUAUHTEMOC Vital Signs Vital signs: Vital Signs - 8 hr 01/12/22 13:19 01/12/22 15:46 01/12/22 15:49 Temperature 97.9 F Pulse Rate 67 77 Respiratory Rate 20 Blood Pressure 132/66 156/72 H Pulse Oximetry 97 97 Oxygen Delivery Method Room Air 01/12/22 15:49 01/12/22 16:00 Temperature Pulse Rate 69 69 Respiratory Rate Blood Pressure Pulse Oximetry 96 96 Oxygen Delivery Method MDM - Female Genitourinary <ROSALES Patel - Last Filed: 01/12/22 17:32> Lab Data Labs: Lab Results 01/12/22 Range/Units 13:40 Urine Color Yellow Urine Appearance Clear Urine pH 6.5 (4.5-8.0) Ur Specific Andrew 1.020 (1.000-1.035) Urine Protein Trace H (Negative) Urine Glucose (UA) Negative (Negative) g/dL Urine Ketones Negative (NEGATIVE) Urine Occult Blood Negative (Negative) Urine Nitrate Negative (Negative) Urine Bilirubin Negative (NEGATIVE) Urine Urobilinogen 0.2 (0.2) E.U./dL Ur Leukocyte Esterase Negative (NEGATIVE) Urine RBC None seen (0-5/HPF) Urine WBC 1-5/hpf (0-5/HPF) Ur Squamous Epith Cells 1-5 /hpf D (0-5/HPF) Urine Bacteria Moderate (10-30) H (None) Urine Mucus 1+ H (Negative) Ur Culture Indicated? Cult not indicated Urine Dip Bedside Urine Glucose Negative Bedside Urine Bilirubin - Negative Bedside Urine Ketone - Negative Urine Specific Andrew 1.025 Bedside Urine Occult Blood - Negative Bedside Urine pH 6.0 Bedside Urine Protein +/- 15 Bedside Urine Urobilinogen - Negative Bedside Urine Nitrite - Negative Bedside Urine Leukocytes - Negative Esterase Imaging Data Extremity x-ray #1: Radiologist's Impression: PROCEDURE:? XR CALCANEOUS RT MIN 2V ? INDICATIONS:? c/f osteomyeletis plantar aspect of calcaneus ? TECHNIQUE:? Two views of the calcaneus were acquired.? ? COMPARISON:? None. ? FINDINGS:? ? No fractures or dislocations.? No suspicious bony lesions.? A plantar calcaneal spur is present. ? ? IMPRESSION:? No definite or obvious radiographic evidence of osteomyelitis identified.? If there is persistent clinical concern, a repeat radiographs, MRI, or nuclear bone scan may be helpful for further evaluation. ? ? Dictated by: Huber Clark M.D. on 01/12/2022 at 16:01 ? ? Approved by: Huber Clark M.D. on 01/12/2022 at 16:04 ? MDM Narrative Medical decision making narrative: This is a 66-year-old female with history of obesity, diabetes and is insulin-dependent, diabetic ulcers who presents to the emergency department with dysuria, urinary frequency and urgency for the last 7 days and her UA was found to have bacteria with wbc's concerning for acute cystitis. Patient has a history of UTIs but has not been on antibiotics or had symptoms for 1 for approximately 1 year. She is also concerned about a boggy area over her calcaneus on the right plantar aspect of her heel that Dr. Paul thought might be venous stasis blister underneath a callus, x-ray of her right calcaneus does not show any obvious radiographic evidence of osteomyelitis, there is no suspicious bony lesions, a plantar calcaneal spur is present. There was no significant bogginess, erythema, induration, wound, or blister. Her pain and symptoms improved with stated therapies, she declined Pyridium states that it causes urinary frequency. She was nontoxic appearing, treated with cefuroxime and doxycycline for concern about a wound to her lower extremities. She is encouraged to follow-up with Dr. Nena Paul, or to return to the emergency department for any new or worsening symptoms. No peritoneal signs on abdominal exam. Patient remains p.o. tolerant. Serial abdominal exam without increase in abdominal pain. Given history and exam, low suspicion for acute abdominal process, such as acute cholecystitis, pancreatitis, perforated viscus, atypical appendicitis, colitis, diverticulitis or torsion. Extensive conversation about ER return precautions and need for close follow-up. Patient is appropriate and amenable to discharge home. Vital signs are stable on repeat examination is unremarkable. Patient has been informed of results. Patient has been given strict return to ER precautions for any new or worsening symptoms. Patient understands to follow up closely with outpatient providers as instructed. Patient understands plan and agrees to discharge home. All questions and concerns answered at this time. <Piotr Caldera, DO - Last Filed: 01/12/22 17:47> Lab Data Labs: Lab Results 01/12/22 Range/Units 13:40 Urine Color Yellow Urine Appearance Clear Urine pH 6.5 (4.5-8.0) Ur Specific Andrew 1.020 (1.000-1.035) Urine Protein Trace H (Negative) Urine Glucose (UA) Negative (Negative) g/dL Urine Ketones Negative (NEGATIVE) Urine Occult Blood Negative (Negative) Urine Nitrate Negative (Negative) Urine Bilirubin Negative (NEGATIVE) Urine Urobilinogen 0.2 (0.2) E.U./dL Ur Leukocyte Esterase Negative (NEGATIVE) Urine RBC None seen (0-5/HPF) Urine WBC 1-5/hpf (0-5/HPF) Ur Squamous Epith Cells 1-5 /hpf D (0-5/HPF) Urine Bacteria Moderate (10-30) H (None) Urine Mucus 1+ H (Negative) Ur Culture Indicated? Cult not indicated Urine Dip Bedside Urine Glucose Negative Bedside Urine Bilirubin - Negative Bedside Urine Ketone - Negative Urine Specific Andrew 1.025 Bedside Urine Occult Blood - Negative Bedside Urine pH 6.0 Bedside Urine Protein +/- 15 Bedside Urine Urobilinogen - Negative Bedside Urine Nitrite - Negative Bedside Urine Leukocytes - Negative Esterase Discharge Plan Departure Patient Disposition: Home Clinical Impression: Acute cystitis with hematuria Diabetes mellitus with foot ulcer Qualifiers: Diabetes mellitus type: type 2 Diabetes mellitus [facility] insulin use: with intermediate frame tender use Qualified Code(s): E11.621 - Type 2 diabetes mellitus with foot ulcer Instructions: Diabetic Foot Ulcer, Acute Cystitis Activity Restrictions/Additional Instructions: *You have been diagnosed with a bladder infection which should be susceptible to this antibiotic. Please stay hydrated and start these 2 antibiotics to help prevent worsening infection of both the bladder and for your right heel. Please schedule an appointment with Dr. Paul tomorrow for the soonest available for recheck of the right heel. She will be able to access the x-ray which will be helpful. I have given you 10 days of doxycycline which is treating this right heel wound, the cefuroxime is for your bladder, if you do not start feeling better in the next 24-48 hours, please come back to the emergency department for another evaluation, especially if you have any significant change to your wounds. Please use the Percocet in addition to Tylenol and or ibuprofen if you can take it for your symptoms. Elevate this frequently to help prevent worsening edema. Please empty your bladder frequently and follow-up with your regular doctor as needed. CONTROLLED SUBSTANCE DISCHARGE (Narcotic/benzodiazepine/Flexeril/Phenergan) 1. You have been prescribed narcotic medications, it does have acetaminophen/Tylenol/paracetamol in it, DO NOT TAKE MORE THAN 4,00mg in 24 hours of Tylenol. *Tramadol does not contain tylenol. 2. Please understand that we cannot provide further refills of narcotics, benzodiazepines or controlled substances through the ED and her pain management will need to be through your provider. 3. While on these medications you cannot drive or operate heavy machinery. 4. You cannot sign legal documents or perform any duties such as this. 5. As long as you are taking opiate pain medications he should also be taking a stool softener such as Colace, Dulcolax, MiraLAX or prune juice, to help avoid constipation. *What to do: *Please continue to take your regular medications as directed. [x ] New medication prescriptions sent to your pharmacy: [ [facility]] [ ] New medication written as a paper prescription [ ] No new medications given *Please follow up with your primary care provider in 2-3 days, call for an appointment. Let them know you were seen in the Emergency Department and that we asked that you be seen for follow-up. We will electronically transmit a record of today's note if your PCP is in our system *If you do not have a primary care provider please contact [phone] to establish care with one of the [facility] primary care providers. *Return to Emergency Department if you should have any new, worsening, or concerning symptoms, such as [fever greater than 101F, chills, worsening pain, persistent vomiting or other bothersome symptoms]. Prescriptions: New cefuroxime axetil 500 mg tablet 500 mg PO BID 7 Days Qty: 14 0RF doxycycline hyclate 100 mg capsule 100 mg PO BID 10 Days Qty: 20 0RF oxycodone-acetaminophen [Percocet] 5-325 mg tablet 1 tab PO TID PRN (Reason: pain) Qty: 14 0RF No Action L'Arginine 3 tab PO DAILY kqmwrbg-fivpxzcti-ahjw 333-133-8.3 mg tablet 1 tab PO DAILY garlic 1,000 mg capsule 1,000 mg PO QPC gjswa-zel-C-sbeok-jocr-nsf [Joint Support Complex] 1 cap PO TIDWMEAL multivit axl-wrdi-UR-herb 186 [Hair, Skin and Nails Advanced] 1 tab PO DAILY omega-3 fatty acids 1,000 mg capsule 2,000 mg PO DAILY flaxseed oil 1,000 mg capsule 1,000 mg PO DAILY Rx Instructions: administer with a meal Lactobacillus acidophilus 1 EACH capsule 1 tab PO QDAY Qty: 10 0RF multivitamin [Multiple Vitamins] 1 EACH tablet 1 tab PO QDAY Qty: 0 (DME) blood sugar diagnostic [Blood Glucose Test] strip See Dose Instructions .ROUTE .MEDSUPPLY Qty: 100 1RF Dose Instruction: As directed Rx Instructions: Use to test blood sugars once daily (DME) blood-glucose meter kit See Dose Instructions .ROUTE .MEDSUPPLY Qty: 1 0RF Dose Instruction: As directed Rx Instructions: Use to check blood sugars once daily (DME) lancets Misc See Dose Instructions .ROUTE .MEDSUPPLY Qty: 100 1RF Dose Instruction: As directed Rx Instructions: Preset Safety Lancets 23G 1.8mm-Use to check blood sugar once daily lisinopril 20 mg tablet 20 mg PO QDAY Qty: 90 3RF metolazone 2.5 mg tablet See Rx Instructions .ROUTE .COMPLEX Qty: 90 3RF Dose Instruction: TAKE ONE TABLET WITH 2 POTASSIUM TABS ON // TUE // TUE // SAT // SUN Label Comments: Now only taking twice a week Rx Instructions: TAKE ONE TABLET WITH 2 POTASSIUM TABS ON // TUE // TUE // TUE // SUN glipizide 5 mg tablet 10 mg PO BID Qty: 270 1RF potassium chloride 20 mEq tablet extended release See Rx Instructions .ROUTE .COMPLEX Qty: 90 0RF Dose Instruction: take 1 tablet by mouth three times a day Rx Instructions: take 1 tablet by mouth three times a day Disabled Parking Permit See Rx Instructions .Route .COMPLEX Qty: 1 0RF Rx Instructions: I find this patient to be medically disabled and qualified for Disabled Parking as indicated, and signed, on the accompanying Disabled Parking Application for Individuals ; naproxen sodium [Aleve] 220 mg capsule 220 mg PO BID PRN (Reason: Pain (Scale Score 1-3)) timolol maleate 0.25 % Drops 1 % EYE-BOTH DAILY mecobalamin (vitamin B12) 1,000 mcg Tablet,Disintegrating 2,500 mcg PO DAILY milk thistle 175 mg Tablet 175 mg PO DAILY Rx Instructions: give with meal/snack sennosides [senna] 8.6 mg Tablet 17.2 mg PO DAILY Qty: 60 0RF tramadol 50 mg Tablet 50 mg PO QID PRN (Reason: Pain, Moderate (4-6)) Qty: 16 0RF tizanidine 4 mg Tablet 4 mg PO Q6H PRN (Reason: muscle spasticity) Qty: 30 0RF gabapentin 100 mg capsule 100 mg PO BID Qty: 30 0RF furosemide 40 mg tablet 60 mg PO DAILY Qty: 90 1RF magnesium citrate 400 mg PO DAILY Referrals: Nena Paul DPM [Physician] - Vitor Michaels MD [Physician] - Galilea Johnson DO [Primary Care Provider] - <Piotr Caldera DO - Last Filed: 01/12/22 17:47> Cosign ED Attending Cosignature Attestation: Dr Caldera Co-Sign Statement: I was available for consultation during this patient's emergency department visit. This chart is signed by myself for administrative purposes only. I did not have direct contact with this patient during this visit. They were seen independently by the APC.
[2022-01-12 18:00] LABS: Influenza A - CEPHEID Flu A NEGATIVE (NEGATIVE); Influenza B - CEPHEID Flu B NEGATIVE (NEGATIVE); Respiratory Syncytial Virus Negative (Negative)
[2022-01-12 18:10] VITALS: BP 139/68; PULSE 80; RESP 20; O2SAT 97
[2022-01-12 18:36] LABS: COVID-19 CEPHEID 4-PLEX PCR POSITIVE (Negative)
== END 2022-01-12 18:13 | disposition home or self-care (01) ==
PROVIDERS: Emergency Provider Nurse Practitioner Critical Care Medicine; Family Provider Family Medicine; PCP Family Medicine
DX: N30.01 Acute cystitis with hematuria (principal); E11.621 Type 2 diabetes mellitus with foot ulcer; Z79.899 Other long term (current) drug therapy; Z20.822 Contact with and (suspected) exposure to COVID-19
CPT/HCPCS: 0241U; 73650; 81001; 81003; 87077; 87086; 87186; 99283

== ENCOUNTER 2022-01-17 20:32 | Emergency (ER) | payer MEDICARE, SELFPAY ==
[2022-01-17 20:35] VITALS: BP 135/65; PULSE 80; RESP 18; TEMP 36.3; O2SAT 97; BMI 61.5
--- NOTE | 2022-01-17 20:49 | DI.RAD.S_ITS ---
PROCEDURE: XR ABDOMEN MIN 2V INDICATIONS: constipation TECHNIQUE: 2 views of the abdomen were acquired. COMPARISON: None. FINDINGS: Surgical changes and devices: None. Bowel: No pneumoperitoneum. The bowel gas pattern appears within normal limits. Soft tissues: No suspicious abdominal calcifications. Bones: No suspicious bony abnormalities. IMPRESSION: 1. Bowel gas pattern within normal limits without definite evidence of obstruction. Dictated by: Juni Acosta M.D. on 01/17/2022 at 22:02 Approved by: Juni Acosta M.D. on 01/17/2022 at 22:04
== END 2022-01-18 00:37 | disposition left against medical advice (07) ==
PROVIDERS: Emergency Provider Emergency Medicine; Family Provider Family Medicine; PCP Family Medicine
DX: K59.00 Constipation, unspecified (principal); U07.1 COVID-19
CPT/HCPCS: 74019; 99281

== ENCOUNTER → 2022-04-05 10:42 | Outpatient (CLI) | payer MEDICARE, SELFPAY ==
[2022-04-05 11:24] LABS: Hemoglobin A1C% w Est Avg Glu 6.7 % (4.0-6.0)
== END ==
PROVIDERS: Family Provider Family Medicine; PCP Family Medicine; Referring Provider Family Medicine; Visit Provider Family Medicine
DX: E11.9 Type 2 diabetes mellitus without complications (principal)
CPT/HCPCS: 36415; 83036

== ENCOUNTER → 2022-07-07 14:56 | Outpatient (CLI) | payer MEDICARE, SELFPAY ==
[2022-07-07 15:41] LABS: Alanine Aminotransferase 46 IU/L (<35); Albumin 4.4 g/dL (3.5-5.0); Albumin Globulin Ratio 1.5 (1.0-2.8); Alkaline Phosphatase 69 U/L (38-126); Aspartate Aminotransferase 37 IU/L (14-36); BUN Creatinine Ratio 32.1 (6-22); Bilirubin Total 0.8 mg/dL (0.2-1.3); Blood Urea Nitrogen 17 mg/dL (7-17); Calcium 9.7 mg/dL (8.4-10.2); Carbon Dioxide 30 mmol/L (22-32); Chloride 101 mmol/L (98-107); Cholesterol 246 mg/dL (140-199); Estimated Glomerular Filt Rate > 60 mL/min (>60); Globulin 2.9 g/dL (1.7-4.1); Glucose 134 mg/dL (80-110); HDL Cholesterol 49 mg/dL (40-60); LDL Cholesterol Calculated 157 mg/dL (<100); Sodium 139 mmol/L (137-145); Total Protein 7.3 g/dL (6.3-8.2); Triglycerides 202 mg/dL (35-150)
[2022-07-07 15:42] LABS: HEMOLYSIS 54 (0-50)
[2022-07-07 16:21] LABS: Microalbumi Creatinin Ratio Ur 11.5 ug/mg CR (<30); Microalbumin Urine Random 2.4 mg/dL (0-1.6)
[2022-07-08 06:04] LABS: x Labcorp Estim. Avg Glu (eAG) 140 mg/dL (.); x Labcorp Hemoglobin A1c 6.5 % (4.8-5.6)
== END ==
PROVIDERS: Family Provider Family Medicine; PCP Physician Assistant; Referring Provider Family Medicine; Visit Provider Family Medicine
DX: E11.9 Type 2 diabetes mellitus without complications (principal)
CPT/HCPCS: 36415; 80053; 80061; 82043; 82570; 83036

== ENCOUNTER → 2023-02-28 12:09 | Outpatient (CLI) | payer MEDICARE, SELFPAY ==
[2023-02-28 13:04] LABS: Add Manual Diff / Slide Review NO; Basophils Absolute Auto 100 /uL (0-100); Basophils Percent Auto 0.5 % (0-2); Eosinophils Absolute Auto 0 /uL (0-450); Eosinophils Percent Auto 0.1 % (2-4); Hematocrit 47.4 % (36-46); Hemoglobin 15.7 g/dL (12.0-16.0); Lymphocytes Absolute Auto 2500 /uL (1100-4500); Lymphocytes Percent Auto 23.5 % (25-40); Mean Corpuscular HGB Conc 33.2 % (30-36); Mean Corpuscular Hemoglobin 32.3 PG (26-34); Mean Corpuscular Volume 97.3 fL (80-100); Monocytes Absolute Auto 800 /uL (0-900); Monocytes Percent Auto 7.4 % (3-14); Neutrophils Absolute Auto 7400 /uL (1500-7000); Neutrophils Percent Auto 68.5 % (50-75); Platelet Count 228 X10^3/uL (150-400); Red Blood Cell Count 4.87 X10^6/uL (4.0-5.2); Red Cell Distribution Width 14.7 % (11.6-14.8); White Blood Cell Count 10.8 X10^3/uL (4.5-11.0)
[2023-02-28 13:26] LABS: Hemoglobin A1C% w Est Avg Glu 7.3 % (4.0-6.0)
[2023-02-28 13:40] LABS: Alanine Aminotransferase 50 IU/L (<35); Albumin 4.4 g/dL (3.5-5.0); Albumin Globulin Ratio 1.3 (1.0-2.8); Alkaline Phosphatase 81 U/L (38-126); Aspartate Aminotransferase 39 IU/L (14-36); BUN Creatinine Ratio 38.5 (6-22); Bilirubin Total 0.7 mg/dL (0.2-1.3); Blood Urea Nitrogen 20 mg/dL (7-17); Carbon Dioxide 31 mmol/L (22-32); Chloride 101 mmol/L (98-107); Cholesterol 202 mg/dL (140-199); Estimated Glomerular Filt Rate > 60 mL/min (>60); Globulin 3.4 g/dL (1.7-4.1); Glucose 172 mg/dL (80-110); HDL Cholesterol 50 mg/dL (40-60); HEMOLYSIS < 15 (0-50); LDL Cholesterol Calculated 109 mg/dL (<100); Potassium 4.2 mmol/L (3.4-5.1); Sodium 138 mmol/L (137-145); Total Protein 7.8 g/dL (6.3-8.2); Triglycerides 217 mg/dL (35-150)
[2023-02-28 13:56] LABS: Free T4, Direct Thyroxine 1.01 ng/dL (0.78-2.19)
[2023-02-28 14:10] LABS: Thyroid Stimulating Hormone 1.07 uIU/mL (0.47-4.68)
== END ==
PROVIDERS: Family Provider Family Medicine; PCP Student in an Organized Health Care Education/Training Program; Referring Provider Internal Medicine Cardiovascular Disease; Visit Provider Internal Medicine Cardiovascular Disease
DX: E11.9 Type 2 diabetes mellitus without complications (principal); E78.5 Hyperlipidemia, unspecified; R00.2 Palpitations; I10 Essential (primary) hypertension
CPT/HCPCS: 36415; 80053; 80061; 83036; 84439; 84443; 85025

== ENCOUNTER 2023-05-24 17:36 | Emergency (ER) | payer MEDICARE, SELFPAY ==
[2023-05-24] VITALS (15 sets, daily range): BP systolic 118–148; BP diastolic 58–105; PULSE 79–101; RESP 16; TEMP 36.4; O2SAT 88–98; BMI 56.5
--- NOTE | 2023-05-24 | DI.CT.S_ITS ---
PROCEDURE: CT LE LT W CON INDICATIONS: femur fx TECHNIQUE: Noncontrast 2-3 mm axial sections acquired of the left distal femur and knee, with coronal and sagittal reformats. For radiation dose reduction, the following was used: automated exposure control, adjustment of mA and/or kV according to patient size. COMPARISON: [facility], CR, XR KNEE LT 1TO2V, 05/24/2023, 18:20. FINDINGS: Image quality: Excellent. Bones: Generalized osteopenia. Essentially nondisplaced fracture is seen beginning at the posterior aspect of the distal femoral shaft extending through the metadiaphysis laterally and involving the distal femoral metaphysis. Comminuted fracture lines are seen involving the lateral and anterior cortices. No definite extension to the distal femoral articular surface is seen. Proximal tibia and fibula are intact. Severe tricompartmental degenerative changes are seen in the knee with bulky marginal osteophytes. Soft tissues: Moderate left knee effusion. Multiple prominent intra-articular ossified loose bodies are present. Diffuse calcifications are seen in the subcutaneous tissues of the distal thigh and proximal upper leg, more prominent anteriorly. There is nonspecific soft tissue edema surrounding the knee. At the anterior aspect of the upper leg, there is a hyperdense hematoma measuring approximately 10.6 by 3.7 x 8.4 cm. Additional hyperdense subcutaneous blood products are seen along the anterolateral and anterior aspect of the knee. t arterial vascular calcifications are present. IMPRESSION: 1. Nondisplaced comminuted fracture of the distal femur extending from the femoral shaft to the distal metaphysis. No involvement of the distal articular surface. 2. Soft tissue hematoma in the subcutaneous tissues anterior to the knee and proximal lower leg. 3. Severe tricompartmental osteoarthrosis in the left knee. Moderate left knee effusion. 4. Diffuse nonspecific subcutaneous soft tissue calcifications. Approved by: Huber Rodriguez M.D. on 05/24/2023 at 19:42
--- NOTE | 2023-05-24 17:45 | DI.RAD.S_ITS ---
PROCEDURE: XR HIP W PEL IF DONE LT 2V INDICATIONS: fall/pain TECHNIQUE: AP pelvis with lateral view of the left hip. COMPARISON: None. FINDINGS: Bones: No acute fractures or dislocations. Pelvic ring appears intact. No suspicious bony lesions. Degenerative changes are seen in the hips and spine as well as the sacroiliac joints. Soft tissues: The visualized bowel gas pattern is normal. No suspicious soft tissue calcifications. IMPRESSION: No acute bony abnormality. Approved by: Huber Rodriguez M.D. on 05/24/2023 at 19:08
--- NOTE | 2023-05-24 17:45 | DI.RAD.S_ITS ---
PROCEDURE: XR KNEE LT 1TO2V INDICATIONS: fall/ pain TECHNIQUE: 2 views of the knee were acquired. COMPARISON: None. FINDINGS: Bones: Minimally displaced fracture is seen involving the distal femur involving the metadiaphysis and metaphysis. Tricompartmental degenerative changes are seen in the knee. Lateral view is suboptimally positioned. Soft tissues: Nonspecific soft tissue calcifications is seen throughout the distal thigh and lower leg. Evaluation for joint effusion is compromised by patient positioning. IMPRESSION: Minimally displaced comminuted fracture of the distal femur. Approved by: Huber Rodriguez M.D. on 05/24/2023 at 19:07
[2023-05-24 19:30] LABS: Add Manual Diff / Slide Review NO; Basophils Absolute Auto 100 /uL (0-100); Basophils Percent Auto 0.7 % (0-2); Eosinophils Absolute Auto 0 /uL (0-450); Eosinophils Percent Auto 0.1 % (2-4); Hematocrit 43.7 % (36-46); Hemoglobin 14.6 g/dL (12.0-16.0); Lymphocytes Absolute Auto 1500 /uL (1100-4500); Lymphocytes Percent Auto 12.4 % (25-40); Mean Corpuscular HGB Conc 33.4 % (30-36); Mean Corpuscular Hemoglobin 32.2 PG (26-34); Mean Corpuscular Volume 96.2 fL (80-100); Monocytes Absolute Auto 700 /uL (0-900); Monocytes Percent Auto 5.7 % (3-14); Neutrophils Absolute Auto 9800 /uL (1500-7000); Neutrophils Percent Auto 81.1 % (50-75); Platelet Count 210 X10^3/uL (150-400); Red Blood Cell Count 4.54 X10^6/uL (4.0-5.2); Red Cell Distribution Width 14.7 % (11.6-14.8); White Blood Cell Count 12.1 X10^3/uL (4.5-11.0)
[2023-05-24] MEDS: SODIUM CHLORIDE 0.9% 1,000 ML 125 ML IV (19:32)
[2023-05-24] MEDS: HYDROMORPHONE 1 MG INJ IV ×3 (19:32→23:36)
[2023-05-24 19:44] LABS: BUN Creatinine Ratio 29.8 (6-22); Blood Urea Nitrogen 17 mg/dL (7-17); Calcium 9.6 mg/dL (8.4-10.2); Carbon Dioxide 33 mmol/L (22-32); Chloride 100 mmol/L (98-107); Estimated Glomerular Filt Rate > 60 mL/min (>60); Glucose 195 mg/dL (80-110); HEMOLYSIS < 15 (0-50); Potassium 4.1 mmol/L (3.4-5.1); Sodium 138 mmol/L (137-145)
--- NOTE | 2023-05-24 20:07 | ED_ITS ---
HPI - Extremity Injury (Lower) General Chief Complaint: Extremity Injury, Lower Stated Complaint: L knee pain after GLF Time Seen by Provider: 05/24/23 18:40 Source: patient Mode of arrival: EMS Limitations: no limitations History of Present Illness HPI Narrative: Patient is a 68-year-old female. Is morbidly obese. Is an insulin-dependent diabetic. At baseline has mobility issues and uses either a walker or cane 06/09. She was at her normal state of health. Was at home folding some laundry when she states that she turned and lost her balance and fell landing on her left thigh and left knee. Has been unable to walk since then. She hit her medical alert button. Arrived by EMS for left leg/knee discomfort. No other injuries from the event. Related Data Home Medications Medication Instructions Recorded Confirmed multivitamin (Multiple Vitamins 1 tab PO QDAY ##0 02/21/17 05/05/23 tablet) magnesium citrate 400 mg PO DAILY 10/06/17 05/05/23 mecobalamin (vitamin B12) 1,000 2,500 mcg PO DAILY 01/27/19 05/05/23 mcg disintegrating tablet,sublingual L'Arginine 3 tab PO DAILY 10/03/20 05/05/23 iuyvyau-vtxgynnmp-ewyq 333 mg-133 1 tab PO DAILY 10/03/20 05/05/23 mg-8.3 mg tablet [id number]-zgi-I-mqvsb-muil-vpz [Joint 1 cap PO TIDWMEAL 10/03/20 05/05/23 Support Complex] omega-3 fatty acids 1,000 mg 2,000 mg PO DAILY 10/03/20 05/05/23 capsule milk thistle 175 mg tablet 175 mg PO DAILY 07/08/21 05/05/23 timolol maleate 0.25 % eye drops 1 drp EYE-BOTH TID 10/05/22 05/05/23 Previous Rx's Medication Instructions Recorded Lactobacillus acidophilus 1 tab PO QDAY #10 tabs 03/31/16 sennosides 8.6 mg tablet (senna) 17.2 mg (2 x 8.6 mg) PO DAILY #60 07/09/21 tabs glipizide 5 mg tablet See Rx Instructions .Route 06/29/22 .COMPLEX #360 tabs Disabled Parking Permit See Rx Instructions .Route 10/05/22 .COMPLEX #1 ea metolazone 2.5 mg tablet 2.5 mg PO .3XWEEK #90 tabs 10/05/22 Disabled Parking #1 ea 03/14/23 Disabled Parking #1 ea 03/14/23 atorvastatin 20 mg tablet 20 mg PO DAILY #30 tabs 03/14/23 estradiol 0.01% (0.1 mg/gram) 1 g vaginal 2XW #42.5 grams 03/14/23 vaginal cream furosemide 40 mg tablet 60 mg (1.5 x 40 mg) PO DAILY #135 04/30/23 tabs gabapentin 100 mg capsule 200 mg (2 x 100 mg) PO BID #240 05/05/23 caps potassium chloride 20 mEq 20 meq PO 3XD #90 tabs 05/06/23 tablet,extended release tirzepatide 2.5 mg/0.5 mL 2.5 mg (0.5 mL) SUBCUT QWEEK #2 mL 05/06/23 subcutaneous pen injector (Peterunstepan) lisinopril 20 mg tablet 20 mg PO DAILY #90 tabs 05/20/23 Allergies Allergy/AdvReac Type Severity Reaction Status Date / Time ibuprofen AdvReac causes Verified 05/05/23 14:12 bleeding Review of Systems Constitutional Constitutional: Reports as per HPI Musculoskeletal Musculoskeletal: Reports system reviewed and no additional complaints, except as documented Integumentary/Breasts Skin/Breast: Reports system reviewed and no additional complaints, except as documented Neurologic Neurologic: Reports system reviewed and no additional complaints, except as documented Patient History Medical History Cholesterol-lowering agent myopathy Obstructive sleep apnea Diabetic neuropathy History of [place] measles (~1964) History of mumps (1958) History of measles (~1962) History of chickenpox (1964) Frequent UTI Visual field defect of left eye (12/15/16) Hemorrhoids (11/15/16) Tubular adenoma of colon (08/27/16) Chronic venous stasis dermatitis (05/18/16) Morbid obesity with body mass index (BMI) of 60.0 to 69.9 in adult (04/14/16) Type 2 diabetes mellitus without complication, without long-term current use of insulin (04/14/16) Essential hypertension (03/15/16) Osteoarthritis of lumbar spine Surgical History Anesthesia Status post hernia repair (12/2010) Status post knee surgery (11/2009) Status post knee surgery (10/2009) S/P total abdominal hysterectomy and bilateral salpingo-oophorectomy (12/2009) Family History Brother Age: 81 Glaucoma Mother Diabetes mellitus Heart disease CAD (coronary artery disease) Father No problems noted. Sister Cancer Lung cancer Liver cancer Colon cancer Sister No problems noted. Sister No problems noted. Sister No problems noted. Daughter No problems noted. Father No problems noted. Social History marital status: household members: none Smoking Status: Never smoker alcohol intake: never substance use type: does not use Smoking Status: Never smoker alcohol intake frequency: 0-2 drinks per day Alcohol type: wine Substance Use Type: does not use Exam Initial Vital Signs Initial Vital Signs: Vital Signs Temperature 97.6 F 05/24/23 17:38 Pulse Rate 80 05/24/23 17:38 Respiratory Rate 16 05/24/23 17:38 Blood Pressure 126/85 05/24/23 17:38 Pulse Oximetry 97 05/24/23 17:38 Oxygen Delivery Method Room Air 05/24/23 17:38 Const General: cooperative and comfortable HENMT Head: normal to inspection and normocephalic Skin General: no rashes or lesions noted Neuro General: patient alert, patient awake, patient oriented x3 and moves all extremities Extrem General: normal to inspection and capillary refill normal Other: Discomfort to palpation of the left distal thigh/knee. Course Orders Ordered: ED Orders 05/24/23 17:45 XR hip w pel if done LT 2V Stat XR knee LT 1to2V Stat 05/24/23 19:20 Basic Metabolic Panel Stat Complete Blood Count AUTO DIFF Stat Discontinued Medications Hydromorphone HCl (Hydromorphone 1 Mg Inj) 1 mg IV NOW ONE Stop: 05/24/23 18:42 Last Admin: 05/24/23 19:32 Dose: 1 mg Documented By: GC Hydromorphone HCl (Hydromorphone 1 Mg Inj) 1 mg IV NOW ONE Stop: 05/24/23 20:23 Last Admin: 05/24/23 20:55 Dose: 1 mg Documented By: NL Hydromorphone HCl (Hydromorphone 1 Mg Inj) 1 mg IV NOW ONE Stop: 05/24/23 23:32 Last Admin: 05/24/23 23:36 Dose: 1 mg Documented By: AB Sodium Chloride (Normal Saline 0.9%) 1,000 mls @ 125 mls/hr IV CONT GIL Last Infusion: 05/24/23 23:44 Dose: Infused Documented By: Admin: 05/24/23 19:32 Dose: 125 mls/hr Documented By: GC Ondansetron HCl (Ondansetron 4 Mg/2 Ml Inj) 4 mg IV NOW ONE Stop: 05/24/23 20:35 Last Admin: 05/24/23 20:42 Dose: 4 mg Documented By: RODOLFO Vital Signs Vital signs: Vital Signs - 8 hr 05/24/23 17:38 05/24/23 19:20 05/24/23 19:21 Temperature 97.6 F Pulse Rate 80 100 H Respiratory Rate 16 Blood Pressure 126/85 118/95 H Pulse Oximetry 97 95 Oxygen Delivery Method Room Air Oxygen Flow Rate 05/24/23 19:21 05/24/23 19:30 05/24/23 19:31 Temperature Pulse Rate 86 98 H 96 H Respiratory Rate Blood Pressure Pulse Oximetry 95 97 97 Oxygen Delivery Method Oxygen Flow Rate 05/24/23 19:31 05/24/23 20:00 05/24/23 20:01 Temperature Pulse Rate 80 86 Respiratory Rate Blood Pressure 127/58 L Pulse Oximetry 91 Oxygen Delivery Method Oxygen Flow Rate 05/24/23 20:01 05/24/23 20:30 05/24/23 20:30 Temperature Pulse Rate 79 Respiratory Rate Blood Pressure 132/75 131/61 Pulse Oximetry 88 L Oxygen Delivery Method Nasal Cannula Oxygen Flow Rate 2 05/24/23 21:00 05/24/23 21:00 05/24/23 21:30 Temperature Pulse Rate 96 H 97 H Respiratory Rate Blood Pressure 140/69 Pulse Oximetry 97 98 Oxygen Delivery Method Oxygen Flow Rate 05/24/23 21:30 05/24/23 22:00 05/24/23 22:01 Temperature Pulse Rate 101 H 95 H Respiratory Rate Blood Pressure 140/81 Pulse Oximetry 96 96 Oxygen Delivery Method Oxygen Flow Rate 05/24/23 22:01 05/24/23 22:30 05/24/23 22:30 Temperature Pulse Rate 96 H Respiratory Rate Blood Pressure 148/83 H 147/105 H Pulse Oximetry 95 Oxygen Delivery Method Oxygen Flow Rate 05/24/23 23:00 05/24/23 23:25 Temperature Pulse Rate 99 H Respiratory Rate Blood Pressure 137/102 H Pulse Oximetry 94 95 Oxygen Delivery Method Nasal Cannula Room Air Oxygen Flow Rate 2 MDM - Extremity Injury (Lower) Lab Data Attestation: I reviewed the patient's lab results. 05/24/23 19:20 05/24/23 19:20 Labs: Lab Results 05/24/23 Range/Units 19:20 WBC 12.1 H (4.5-11.0) X10^3/uL RBC 4.54 (4.0-5.2) X10^6/uL Hgb 14.6 (12.0-16.0) g/dL Hct 43.7 (36-46) % MCV 96.2 (80-100) fL MCH 32.2 (26-34) PG MCHC 33.4 (30-36) % RDW 14.7 (11.6-14.8) % Plt Count 210 (150-400) X10^3/uL Neut % (Auto) 81.1 H (50-75) % Lymph % (Auto) 12.4 L (25-40) % Brooke % (Auto) 5.7 (3-14) % Eos % (Auto) 0.1 L (2-4) % Baso % (Auto) 0.7 (0-2) % Neut # (Auto) 9800 H (1451-8350) /uL Lymph # (Auto) 1500 (1262-7681) /uL Brooke # (Auto) 700 (0-900) /uL Eos # (Auto) 0 (0-450) /uL Baso # (Auto) 100 (0-100) /uL Sodium 138 (137-145) mmol/L Potassium 4.1 (3.4-5.1) mmol/L Chloride 100 (98-107) mmol/L Carbon Dioxide 33 H (22-32) mmol/L BUN 17 (7-17) mg/dL Creatinine 0.57 (0.52-1.04) mg/dL Estimated GFR > 60 (>60) mL/min BUN/Creatinine Ratio 29.8 H (6-22) Glucose 195 H (80-110) mg/dL Calcium 9.6 (8.4-10.2) mg/dL Imaging Data Extremity x-ray #1: Radiologist's Impression: PROCEDURE: XR KNEE LT 1TO2V INDICATIONS: fall/ pain TECHNIQUE: 2 views of the knee were acquired. COMPARISON: None. FINDINGS: Bones: Minimally displaced fracture is seen involving the distal femur involving the metadiaphysis and metaphysis. Tricompartmental degenerative changes are seen in the knee. Lateral view is suboptimally positioned. Soft tissues: Nonspecific soft tissue calcifications is seen throughout the distal thigh and lower leg. Evaluation for joint effusion is compromised by patient positioning. IMPRESSION: Minimally displaced comminuted fracture of the distal femur. Extremity x-ray #2: Radiologist's Impression: PROCEDURE: XR HIP W PEL IF DONE LT 2V INDICATIONS: fall/pain TECHNIQUE: AP pelvis with lateral view of the left hip. COMPARISON: None. FINDINGS: Bones: No acute fractures or dislocations. Pelvic ring appears intact. No suspicious bony lesions. Degenerative changes are seen in the hips and spine as well as the sacroiliac joints. Soft tissues: The visualized bowel gas pattern is normal. No suspicious soft tissue calcifications. IMPRESSION: No acute bony abnormality. CT LE: Radiologist's Impression: ROCEDURE: CT LE LT W CON INDICATIONS: femur fx TECHNIQUE: Noncontrast 2-3 mm axial sections acquired of the left distal femur and knee, with coronal and sagittal reformats. For radiation dose reduction, the following was used: automated exposure control, adjustment of mA and/or kV according to patient size. COMPARISON: [facility], [facility], XR KNEE LT 1TO2V, 05/24/2023, 18:20. FINDINGS: Image quality: Excellent. Bones: Generalized osteopenia. Essentially nondisplaced fracture is seen beginning at the posterior aspect of the distal femoral shaft extending through the metadiaphysis laterally and involving the distal femoral metaphysis. Comminuted fracture lines are seen involving the lateral and anterior cortices. No definite extension to the distal femoral articular surface is seen. Proximal tibia and fibula are intact. Severe tricompartmental degenerative changes are seen in the knee with bulky marginal osteophytes. Soft tissues: Moderate left knee effusion. Multiple prominent intra-articular ossified loose bodies are present. Diffuse calcifications are seen in the subcutaneous tissues of the distal thigh and proximal upper leg, more prominent anteriorly. There is nonspecific soft tissue edema surrounding the knee. At the anterior aspect of the upper leg, there is a hyperdense hematoma measuring approximately 10.6 by 3.7 x 8.4 cm. Additional hyperdense subcutaneous blood products are seen along the anterolateral and anterior aspect of the knee. t arterial vascular calcifications are present. IMPRESSION: 1. Nondisplaced comminuted fracture of the distal femur extending from the femoral shaft to the distal metaphysis. No involvement of the distal articular surface. 2. Soft tissue hematoma in the subcutaneous tissues anterior to the knee and proximal lower leg. 3. Severe tricompartmental osteoarthrosis in the left knee. Moderate left knee effusion. 4. Diffuse nonspecific subcutaneous soft tissue calcifications. MDM Narrative Medical decision making narrative: Discussed the case with Dr. lee with Orthopedic surgery who evaluated the imaging and stated that given the patient's body habitus a transfer to [facility] maybe a better option. I discussed the case with Dr. Phillips with orthopedics at [facility] who accepts the patient for transfer. Patient is stable for transport. Discharge Plan Departure [facility] Disposition: [facility] Clinical Impression: Closed fracture of left distal femur Prescriptions: No Action L'Arginine 3 tab PO DAILY qdsiahw-kihkodzzc-chpm [id number] mg tablet 1 tab PO DAILY gyxhh-cce-X-dttfh-rwfj-jgn [Joint Support Complex] 1 cap PO TIDWMEAL omega-3 fatty acids 1,000 mg capsule 2,000 mg PO DAILY (DME) Disabled Parking See Rx Instructions .ROUTE .MEDSUPPLY Qty: 1 0RF Rx Instructions: I find this patient to be medically disabled and qualified for DISABLED PARKING as indicated, and signed, on the ACCOMPANYING DISABLED PARKING APPLICATION for Individuals. (DME) Disabled Parking See Rx Instructions .ROUTE .MEDSUPPLY Qty: 1 0RF Rx Instructions: I find this patient to be medically disabled and qualified for DISABLED PARKING as indicated, and signed, on the ACCOMPANYING DISABLED PARKING APPLICATION for Individuals. estradiol 0.01 % (0.1 mg/gram) cream 1 g vaginal 2XW Qty: 42.5 3RF atorvastatin 20 mg tablet 20 mg PO DAILY Qty: 30 3RF gabapentin 100 mg capsule 200 mg PO BID Qty: 240 3RF metolazone 2.5 mg tablet 2.5 mg PO .3XWEEK Qty: 90 3RF Rx Instructions: Take one tablet with 2 potassium tablets every other day (3 times a week) timolol maleate 0.25 % drops 1 drp EYE-BOTH TID Disabled Parking Permit See Rx Instructions .Route .COMPLEX Qty: 1 0RF Rx Instructions: I find this patient to be medically disabled and qualified for Disabled Parking as indicated, and signed, on the accompanying Disabled Parking Application for Individuals ; Lactobacillus acidophilus 1 EACH capsule 1 tab PO QDAY Qty: 10 0RF multivitamin [Multiple Vitamins] 1 EACH tablet 1 tab PO QDAY Qty: 0 glipizide 5 mg tablet See Rx Instructions .ROUTE .COMPLEX Qty: 360 3RF Dose Instruction: take 2 tablets by mouth twice a day Rx Instructions: take 2 tablets by mouth twice a day furosemide 40 mg tablet 60 mg PO DAILY Qty: 135 1RF potassium chloride 20 mEq tablet extended release 20 meq PO 3XD Qty: 90 0RF Mounjaro 2.5 mg/0.5 mL pen injector 2.5 mg SUBCUT QWEEK Qty: 2 5RF lisinopril 20 mg tablet 20 mg PO DAILY Qty: 90 3RF mecobalamin (vitamin B12) 1,000 mcg Tablet,Disintegrating 2,500 mcg PO DAILY milk thistle 175 mg Tablet 175 mg PO DAILY Rx Instructions: give with meal/snack sennosides [senna] 8.6 mg Tablet 17.2 mg PO DAILY Qty: 60 0RF magnesium citrate 400 mg PO DAILY Referrals: Mariah Lovelace MD [Primary Care Provider] -
[2023-05-24] MEDS: ONDANSETRON 4 MG/2 ML INJ IV (20:42)
--- NOTE | 2023-05-24 23:44 | PC.NURSE ---
saline stopped for transport to [facility].
== END 2023-05-24 23:54 | disposition short-term general hospital (02) ==
PROVIDERS: Emergency Provider Emergency Medicine; Family Provider Family Medicine; PCP Student in an Organized Health Care Education/Training Program
DX: S72.402A Unspecified fracture of lower end of left femur, initial encounter for closed fracture (principal); W18.30XA Fall on same level, unspecified, initial encounter
CPT/HCPCS: 36415; 73502; 73560; 73700; 80048; 85025; 96374; 96375; 96376; 99285; J1170; J2405